=== PATIENT | male | born 1990 | race Caucasian/White ===

== ENCOUNTER 2016-07-27 05:12 | Inpatient (IN) | payer MEDICAID, OTHER ==
[~2016-07-27] VITALS: Ht 167.6 cm; Wt 176.9 kg
[~2016-07-27 05:12] MED LIST: FLUO-191 PO; OLAN5TAB2 PO
[2016-07-27] MEDS ORDERED: ZIPR20CA2 PO (05:18)
[2016-07-27] MEDS ORDERED: SEROQUEL PO (05:18)
[2016-07-27 05:43] LABS: BASOPHILS % (AUTO) 0.4 % (0.0-2.0); EOSINOPHILS % (AUTO) 1.4 % (1.0-6.0); HEMATOCRIT 45.8 % (41-53); LYMPHOCYTES # (AUTO) 1.8 K/uL (1.0-4.8); LYMPHOCYTES % (AUTO) 21.4 % (22.0-44.0); MEAN CORPUSCULAR HEMOGLOBIN 27.9 pg (26.0-34.0); MEAN CORPUSCULAR HGB CONC 32.7 G/dL (31.0-37.0); MEAN CORPUSCULAR VOLUME 85 fL (80-100); MONOCYTES # (AUTO) 0.8 K/uL (0.1-1.0); MONOCYTES % (AUTO) 9.7 % (2.0-9.0); NEUTROPHILS # (AUTO) 5.7 K/uL (1.8-7.7); NEUTROPHILS % (AUTO) 67.1 % (40.0-70.0); PLATELET COUNT (AUTO) 263 K/uL (150-450); RED BLOOD CELL COUNT(AUTO) 5.37 MIL/uL (4.50-5.90); RED CELL DISTRIBUTION WIDTH 13.2 % (11.5-14.5); WHITE BLOOD COUNT (AUTO) 8.5 K/uL (4.5-11.0)
[2016-07-27 06:00] LABS: ANION GAP 4 mmol/L (8-16); CALCIUM, TOTAL 8.5 mg/dL (8.8-10.5); CARBON DIOXIDE 34 mmol/L (22-29); CHLORIDE 102 mmol/L (98-107); CREATININE 0.65 mg/dL (0.60-1.30); GLOMERULAR FILTR. RATE CALC > 60 mL/min (>60); POTASSIUM 4.1 mmol/L (3.5-5.1); SODIUM SERUM 140 mmol/L (136-145); UREA NITROGEN, BLOOD 13 mg/dL (7-18)
[2016-07-27 06:06] LABS: ALANINE AMINOTRANSFERASE 36 U/L (12-78); ALBUMIN 3.2 g/dL (3.4-5.0); ASPARTATE AMINOTRANSFERASE 19 U/L (15-37); BILIRUBIN,TOTAL 0.4 mg/dL (0.1-1.0); TOTAL PROTEIN, SERUM 7.3 g/dL (6.4-8.2)
[2016-07-27] MEDS ORDERED: ZOLPIDEM TARTRATE 10 MG TABLET PO PRN (09:30)
[2016-07-27] MEDS: HALOPERIDOL 5 MG TABLET PO PRN (09:50)
[2016-07-27] MEDS: LORazepam 2 MG TABLET PO PRN (09:50)
[2016-07-27] MEDS: FLUoxetine HCL 20 MG CAPSULE PO SCH (09:55)
[2016-07-27 12:52] VITALS: BP 117/70
[2016-07-27] MEDS ORDERED: INFLUENZA VIRUS VACCINE QVS 2016-17 (3YR+)/PF 60 MCG/0.5 ML SYRINGE IM ONE (13:00)
[2016-07-27 16:59] VITALS: BP 125/64
[2016-07-27] MEDS ORDERED: OLANZapine 5 MG TABLET PO SCH (21:00)
[2016-07-28 03:14] VITALS: BP 140/98
[2016-07-28 08:45] VITALS: BP 121/67
[2016-07-28] MEDS: FLUoxetine HCL 20 MG CAPSULE PO SCH (08:58)
[2016-07-28 16:22] VITALS: BP 125/83
[2016-07-28] MEDS ORDERED: OLANZapine 10 MG TABLET PO SCH (21:00)
[2016-07-29 00:24] VITALS: BP 118/68
[2016-07-29 08:46] VITALS: BP 120/61
[2016-07-29] MEDS: LORazepam 2 MG TABLET PO PRN ×2 (11:49→17:38)
[2016-07-29] MEDS: HALOPERIDOL 5 MG TABLET PO PRN (11:49)
[2016-07-29 17:33] VITALS: BP 120/78
[2016-07-29] MEDS ORDERED: OLANZapine 7.5 MG TABLET PO SCH (21:00)
[2016-07-30 06:35] VITALS: BP 112/66
[2016-07-30 08:25] VITALS: BP 104/61
[2016-07-30] MEDS ORDERED: FLUoxetine HCL 20 MG CAPSULE PO SCH ×2 (09:00)
[2016-07-30 16:05] VITALS: BP 121/75
[2016-07-30] MEDS: LORazepam 2 MG TABLET PO PRN (16:42)
[2016-07-30] MEDS ORDERED: OLANZapine 10 MG TABLET PO SCH (21:00)
[2016-07-31 00:57] VITALS: BP 124/85
[2016-07-31 08:17] VITALS: BP 124/60
[2016-07-31] MEDS ORDERED: FLUoxetine HCL 20 MG CAPSULE PO SCH (09:00)
== END 2016-07-31 13:15 | disposition home or self-care (01) | DRG 750 ==
LOC: EMS 05:14 → B2S 10:59 → UNDOADMIN 12:12 → B2S 12:12
PROVIDERS: ADMIT Psychiatry & Neurology Psychiatry; ATTEND Psychiatry & Neurology Psychiatry
DX: F25.0 Schizoaffective disorder, bipolar type (principal); R45.851 Suicidal ideations; Z68.44 Body mass index [BMI] 60.0-69.9, adult; Z59.0 Homelessness; E66.9 Obesity, unspecified; F41.9 Anxiety disorder, unspecified; F60.3 Borderline personality disorder; F17.210 Nicotine dependence, cigarettes, uncomplicated; Z91.5 Personal history of self-harm; Z62.819 Personal history of unspecified abuse in childhood; Z91.19 Patient's noncompliance with other medical treatment and regimen
CPT/HCPCS: 87081; 99285; 99406; G0480

== ENCOUNTER 2016-08-17 17:29 | Inpatient (IN) | payer MEDICAID, OTHER ==
[~2016-08-17] VITALS: Ht 167.6 cm; Wt 187.7 kg
[2016-08-17] MEDS ORDERED: OLAN10TA3 PO (18:03)
[2016-08-17] MEDS ORDERED: LORazepam 2 MG/ML VIAL IM ONE (18:15)
[2016-08-17 18:26] LABS: BASOPHILS % (AUTO) 0.1 % (0.0-2.0); EOSINOPHILS % (AUTO) 0.4 % (1.0-6.0); HEMATOCRIT 46.5 % (41-53); HEMOGLOBIN 15.2 g/dL (13.5-17.5); LYMPHOCYTES # (AUTO) 1.7 K/uL (1.0-4.8); LYMPHOCYTES % (AUTO) 12.3 % (22.0-44.0); MEAN CORPUSCULAR HEMOGLOBIN 27.8 pg (26.0-34.0); MEAN CORPUSCULAR HGB CONC 32.8 G/dL (31.0-37.0); MEAN CORPUSCULAR VOLUME 85 fL (80-100); MONOCYTES % (AUTO) 7.5 % (2.0-9.0); NEUTROPHILS % (AUTO) 79.7 % (40.0-70.0); PLATELET COUNT (AUTO) 310 K/uL (150-450); RED BLOOD CELL COUNT(AUTO) 5.49 MIL/uL (4.50-5.90); WHITE BLOOD COUNT (AUTO) 13.9 K/uL (4.5-11.0)
[2016-08-17 18:38] LABS: ANION GAP 8 mmol/L (8-16); CALCIUM, TOTAL 8.8 mg/dL (8.8-10.5); CARBON DIOXIDE 30 mmol/L (22-29); CHLORIDE 99 mmol/L (98-107); CREATININE 0.65 mg/dL (0.60-1.30); GLOMERULAR FILTR. RATE CALC > 60 mL/min (>60); SODIUM SERUM 137 mmol/L (136-145); UREA NITROGEN, BLOOD 13 mg/dL (7-18)
[2016-08-17 18:53] LABS: SALICYLATE < 2.8 mg/dL (2.8-20.0)
[2016-08-17 19:03] LABS: ALANINE AMINOTRANSFERASE 89 U/L (12-78); ALBUMIN 3.5 g/dL (3.4-5.0); ASPARTATE AMINOTRANSFERASE 45 U/L (15-37); BILIRUBIN,TOTAL 0.8 mg/dL (0.1-1.0); CREATINE KINASE MB 2.6 ng/mL (0-5); CREATINE KINASE, TOTAL 170 U/L (39-308); TOTAL PROTEIN, SERUM 7.9 g/dL (6.4-8.2)
[2016-08-17 19:19] LABS: ACETAMINOPHEN < 2 mcg/mL (10-30)
[2016-08-18] VITALS (10 sets, daily range): BP systolic 110–143; BP diastolic 60–93
[2016-08-18] MEDS ORDERED: HALOPERIDOL 5 MG TABLET PO PRN (00:30)
[2016-08-18] MEDS ORDERED: ZOLPIDEM TARTRATE 10 MG TABLET PO PRN (00:30)
[2016-08-18] MEDS ORDERED: SODIUM CHLORIDE 0.9% 1,000 ML IV ONE (01:15)
[2016-08-18] MEDS ORDERED: LORazepam 2 MG/ML VIAL IM ONE (02:30)
[2016-08-18] MEDS ORDERED: DiphenhydrAMINE HCL 50 MG/ML VIAL IM ONE (02:30)
[2016-08-18] MEDS: LORazepam 2 MG TABLET PO PRN ×2 (04:30→09:10)
[2016-08-18] MEDS ORDERED: LORazepam 2 MG TABLET PO ONE (04:30)
[2016-08-18] MEDS ORDERED: INFLUENZA VIRUS VACCINE QVS 2016-17 (3YR+)/PF 60 MCG/0.5 ML SYRINGE IM ONE (05:15)
[2016-08-18] MEDS: FLUoxetine HCL 20 MG CAPSULE PO SCH (08:39)
[2016-08-18] MEDS: NICOTINE 21 MG/24 HOUR PATCH TD SCH (09:55)
[2016-08-18] MEDS: CloNIDine HCL 0.1 MG TABLET PO SCH ×2 (12:54→16:37)
[2016-08-18] MEDS ORDERED: OLANZapine 5 MG TABLET PO SCH (21:00)
[2016-08-19] VITALS (8 sets, daily range): BP systolic 124–146; BP diastolic 50–95
[2016-08-19] MEDS: LORazepam 2 MG TABLET PO PRN (00:23)
[2016-08-19] MEDS ORDERED: LORazepam 2 MG TABLET PO ONE (03:30)
[2016-08-19] MEDS: CloNIDine HCL 0.1 MG TABLET PO SCH ×2 (08:18→16:39)
[2016-08-19] MEDS: FLUoxetine HCL 20 MG CAPSULE PO SCH (08:18)
[2016-08-19] MEDS: NICOTINE 21 MG/24 HOUR PATCH TD SCH (08:19)
[2016-08-19 08:37] LABS: BASOPHILS % (AUTO) 0.2 % (0.0-2.0); EOSINOPHILS % (AUTO) 1.1 % (1.0-6.0); HEMATOCRIT 43.8 % (41-53); HEMOGLOBIN 14.1 g/dL (13.5-17.5); LYMPHOCYTES # (AUTO) 1.6 K/uL (1.0-4.8); LYMPHOCYTES % (AUTO) 17.4 % (22.0-44.0); MEAN CORPUSCULAR HEMOGLOBIN 27.4 pg (26.0-34.0); MEAN CORPUSCULAR HGB CONC 32.2 G/dL (31.0-37.0); MEAN CORPUSCULAR VOLUME 85 fL (80-100); MONOCYTES % (AUTO) 10.4 % (2.0-9.0); NEUTROPHILS # (AUTO) 6.7 K/uL (1.8-7.7); NEUTROPHILS % (AUTO) 70.9 % (40.0-70.0); PLATELET COUNT (AUTO) 273 K/uL (150-450); RED BLOOD CELL COUNT(AUTO) 5.15 MIL/uL (4.50-5.90); WHITE BLOOD COUNT (AUTO) 9.4 K/uL (4.5-11.0)
[2016-08-19] MEDS ORDERED: FLUoxetine HCL 20 MG CAPSULE PO SCH (09:00)
[2016-08-19 10:31] LABS: APPEARANCE,URINE CLEAR (CLEAR); GLUCOSE, URINE (UA) NEGATIVE (NEGATIVE); KETONES,URINE NEGATIVE (NEGATIVE); LEUKOCYTE ESTERASE ,URINE NEGATIVE (NEGATIVE); OCCULT BLOOD,URINE NEGATIVE (NEGATIVE); PROTEIN,URINE NEGATIVE (NEGATIVE)
[2016-08-19 10:32] LABS: ADD UA MICROSCOPIC NO
[2016-08-19] MEDS: LORazepam 1 MG TABLET PO SCH (16:39)
[2016-08-19] MEDS ORDERED: OLANZapine 10 MG TABLET PO SCH (21:00)
[2016-08-20 00:10] VITALS: BP 134/71
[2016-08-20 03:09] VITALS: BP 125/77
[2016-08-20] MEDS: LORazepam 2 MG TABLET PO PRN (03:13)
[2016-08-20] MEDS ORDERED: ACETAMINOPHEN 325 MG TABLET PO PRN (07:45)
[2016-08-20 07:51] VITALS: BP 137/72
[2016-08-20 08:26] VITALS: BP 128/96
[2016-08-20] MEDS: FLUoxetine HCL 20 MG CAPSULE PO SCH (09:24)
[2016-08-20] MEDS: CloNIDine HCL 0.1 MG TABLET PO SCH ×2 (09:24→17:00)
[2016-08-20] MEDS: QUEtiapine FUMARATE 100 MG TABLET PO SCH ×3 (09:24→17:03)
[2016-08-20] MEDS: LORazepam 1 MG TABLET PO SCH ×3 (09:24→17:00)
[2016-08-20] MEDS: NICOTINE 21 MG/24 HOUR PATCH TD SCH (09:25)
[2016-08-20 12:55] VITALS: BP 119/60
[2016-08-20 16:00] VITALS: BP 119/75
== END 2016-08-20 22:53 | disposition short-term general hospital (02) | DRG 750 ==
LOC: EEVIPCON 17:32 → EMS 17:32 → B2S 08-18 01:00
PROVIDERS: ADMIT Psychiatry & Neurology Psychiatry; ATTEND Psychiatry & Neurology Psychiatry
DX: F25.0 Schizoaffective disorder, bipolar type (principal); R45.851 Suicidal ideations; Z68.44 Body mass index [BMI] 60.0-69.9, adult; E66.01 Morbid (severe) obesity due to excess calories; F15.10 Other stimulant abuse, uncomplicated; F17.210 Nicotine dependence, cigarettes, uncomplicated; R00.0 Tachycardia, unspecified; F19.10 Other psychoactive substance abuse, uncomplicated; Z91.013 Allergy to seafood; Z79.899 Other long term (current) drug therapy; Z28.21 Immunization not carried out because of patient refusal
CPT/HCPCS: 87081; 93005; 96360; 96372; 99285; G0480; G0481; J1200; J2060

== ENCOUNTER 2016-08-19 09:22 | Emergency (ER) | payer MEDICAID, OTHER ==
[~2016-08-19] VITALS: Ht 170.2 cm; Wt 172.7 kg
[~2016-08-19 09:22] MED LIST changes: +OLAN10TA3 PO
[2016-08-19] MEDS ORDERED: LORazepam 2 MG/ML VIAL IVP ONE (09:45)
[2016-08-19] MEDS ORDERED: SODIUM CHLORIDE 0.9% 1,000 ML IV ONE (09:45)
[2016-08-19] MEDS ORDERED: LORazepam 2 MG TABLET PO ONE (10:45)
[2016-08-19 12:00] VITALS: BP 120/88
== END 2016-08-19 12:44 | disposition home or self-care (01) ==
LOC: EMS 09:24 → EEVIPCON 09:24 → EMS 12:44
DX: F25.9 Schizoaffective disorder, unspecified (principal); R00.0 Tachycardia, unspecified; F15.10 Other stimulant abuse, uncomplicated; F32.9 Major depressive disorder, single episode, unspecified; F17.210 Nicotine dependence, cigarettes, uncomplicated
CPT/HCPCS: 71010; 93005; 99285; J7030; J2060

== ENCOUNTER 2016-09-17 18:23 | Inpatient (IN) | payer MEDICAID, OTHER ==
[~2016-09-17] VITALS: Ht 167.6 cm; Wt 181.8 kg
[~2016-09-17 18:23] MED LIST changes: -OLAN5TAB2 PO
[2016-09-17 19:15] LABS: BASOPHILS % (AUTO) 0.9 % (0.0-2.0); EOSINOPHILS % (AUTO) 0.5 % (1.0-6.0); HEMATOCRIT 44.7 % (41-53); HEMOGLOBIN 14.4 g/dL (13.5-17.5); LYMPHOCYTES # (AUTO) 2.1 K/uL (1.0-4.8); LYMPHOCYTES % (AUTO) 18.4 % (22.0-44.0); MEAN CORPUSCULAR HEMOGLOBIN 27.3 pg (26.0-34.0); MEAN CORPUSCULAR HGB CONC 32.2 G/dL (31.0-37.0); MEAN CORPUSCULAR VOLUME 85 fL (80-100); MONOCYTES % (AUTO) 8.9 % (2.0-9.0); NEUTROPHILS # (AUTO) 8.3 K/uL (1.8-7.7); NEUTROPHILS % (AUTO) 71.3 % (40.0-70.0); PLATELET COUNT (AUTO) 343 K/uL (150-450); RED BLOOD CELL COUNT(AUTO) 5.28 MIL/uL (4.50-5.90); RED CELL DISTRIBUTION WIDTH 14.4 % (11.5-14.5); WHITE BLOOD COUNT (AUTO) 11.7 K/uL (4.5-11.0)
[2016-09-17 19:34] LABS: ANION GAP 6 mmol/L (8-16); CALCIUM, TOTAL 8.6 mg/dL (8.8-10.5); CARBON DIOXIDE 32 mmol/L (22-29); CHLORIDE 103 mmol/L (98-107); CREATININE 0.65 mg/dL (0.60-1.30); GLOMERULAR FILTR. RATE CALC > 60 mL/min (>60); POTASSIUM 4.4 mmol/L (3.5-5.1); SODIUM SERUM 141 mmol/L (136-145); UREA NITROGEN, BLOOD 15 mg/dL (7-18)
[2016-09-17 19:36] LABS: ALANINE AMINOTRANSFERASE 38 U/L (12-78); ALBUMIN 3.4 g/dL (3.4-5.0); ASPARTATE AMINOTRANSFERASE 21 U/L (15-37); BILIRUBIN,TOTAL 0.3 mg/dL (0.1-1.0); TOTAL PROTEIN, SERUM 7.9 g/dL (6.4-8.2)
[2016-09-17] MEDS ORDERED: ZOLPIDEM TARTRATE 10 MG TABLET PO PRN (20:15)
[2016-09-17] MEDS ORDERED: LORazepam 2 MG/ML VIAL IM ONE (20:45)
[2016-09-17 23:06] VITALS: BP 101/67
[2016-09-18] MEDS: LORazepam 2 MG TABLET PO PRN ×2 (08:57→16:10)
[2016-09-18] MEDS: HALOPERIDOL 5 MG TABLET PO PRN ×2 (08:57→16:10)
[2016-09-18 09:05] VITALS: BP 132/85
[2016-09-18 16:54] VITALS: BP 113/72
[2016-09-18] MEDS: OLANZapine 10 MG TABLET PO SCH (20:39)
[2016-09-19 04:45] VITALS: BP 114/75
[2016-09-19] MEDS: HALOPERIDOL 5 MG TABLET PO PRN ×2 (04:49→16:33)
[2016-09-19] MEDS: LORazepam 2 MG TABLET PO PRN ×2 (04:49→16:33)
[2016-09-19 08:54] VITALS: BP 129/83
[2016-09-19] MEDS: FLUoxetine HCL 20 MG CAPSULE PO SCH (10:00)
[2016-09-19 19:50] VITALS: BP 131/79
[2016-09-19] MEDS: OLANZapine 10 MG TABLET PO SCH (20:19)
[2016-09-20 09:11] VITALS: BP 135/86
[2016-09-20] MEDS: FLUoxetine HCL 20 MG CAPSULE PO SCH (09:41)
[2016-09-20 13:15] LABS: INR 1.2 (0.9-1.1); PROTHROMBIN TIME 12.3 SEC (9.4-11.6)
[2016-09-20 16:00] VITALS: BP 117/57
[2016-09-20] MEDS: LORazepam 2 MG TABLET PO PRN (16:24)
[2016-09-20] MEDS: WARFARIN SODIUM 3 MG TABLET PO SCH (16:25)
[2016-09-20] MEDS ORDERED: WARFARIN SODIUM 5 MG TABLET PO SCH (17:00)
[2016-09-20] MEDS: OLANZapine 10 MG TABLET PO SCH (21:39)
[2016-09-21 06:43] LABS: INR 1.1 (0.9-1.1)
[2016-09-21] MEDS ORDERED: FLUoxetine HCL 20 MG CAPSULE PO SCH (09:00)
[2016-09-21 10:52] VITALS: BP 137/95
[2016-09-21] MEDS: LORazepam 2 MG TABLET PO PRN (16:23)
[2016-09-21] MEDS: WARFARIN SODIUM 3 MG TABLET PO SCH (16:23)
[2016-09-21 16:50] VITALS: BP 122/60
[2016-09-21] MEDS: OLANZapine 10 MG TABLET PO SCH (21:25)
[2016-09-22 06:49] LABS: INR 1.1 (0.9-1.1); PROTHROMBIN TIME 12.1 SEC (9.4-11.6)
[2016-09-22] MEDS ORDERED: FLUoxetine HCL 20 MG CAPSULE PO SCH (09:00)
[2016-09-22 09:04] VITALS: BP 148/100
[2016-09-22 16:00] VITALS: BP 119/83
[2016-09-22] MEDS: WARFARIN SODIUM 3 MG TABLET PO SCH (17:00)
[2016-09-22] MEDS: LORazepam 2 MG TABLET PO PRN (18:09)
[2016-09-22] MEDS: OLANZapine 10 MG TABLET PO SCH (20:41)
[2016-09-23 06:35] LABS: INR 1.1 (0.9-1.1); PROTHROMBIN TIME 11.8 SEC (9.4-11.6)
[2016-09-23 08:04] VITALS: BP 144/100
[2016-09-23] MEDS: FLUoxetine HCL 20 MG CAPSULE PO SCH (09:55)
[2016-09-23] MEDS: LORazepam 2 MG TABLET PO PRN (16:38)
[2016-09-23] MEDS: HALOPERIDOL 5 MG TABLET PO PRN (16:38)
[2016-09-23] MEDS: WARFARIN SODIUM 3 MG TABLET PO SCH (16:38)
[2016-09-23 19:02] VITALS: BP 109/66
[2016-09-23] MEDS: OLANZapine 10 MG TABLET PO SCH (20:24)
[2016-09-24] MEDS ORDERED: WARF3TAB29 PO (05:22)
[2016-09-24 05:49] VITALS: BP 126/83
[2016-09-24 06:50] LABS: INR 1.1 (0.9-1.1); PROTHROMBIN TIME 11.4 SEC (9.4-11.6)
[2016-09-24] MEDS: FLUoxetine HCL 20 MG CAPSULE PO SCH ×2 (07:48→07:52)
== END 2016-09-24 07:45 | disposition home or self-care (01) | DRG 750 ==
LOC: EMS 18:25 → 3EI 21:00
PROVIDERS: ADMIT Psychiatry & Neurology Psychiatry; ATTEND Psychiatry & Neurology Psychiatry
DX: F25.1 Schizoaffective disorder, depressive type (principal); Z68.44 Body mass index [BMI] 60.0-69.9, adult; R45.851 Suicidal ideations; E66.9 Obesity, unspecified; F41.9 Anxiety disorder, unspecified; I10 Essential (primary) hypertension; F17.210 Nicotine dependence, cigarettes, uncomplicated; F15.90 Other stimulant use, unspecified, uncomplicated; Z91.013 Allergy to seafood; Z79.899 Other long term (current) drug therapy; Z71.51 Drug abuse counseling and surveillance of drug abuser; Z86.718 Personal history of other venous thrombosis and embolism
CPT/HCPCS: 93970; 96372; 99285; G0480; J2060

== ENCOUNTER 2016-11-05 22:01 | Inpatient (IN) | payer MEDICAID ==
[~2016-11-05] VITALS: Ht 167.6 cm; Wt 184.6 kg
[~2016-11-05 22:01] MED LIST changes: +WARF3TAB29 PO
[2016-11-06 01:05] VITALS: BP 130/95
[2016-11-06 08:31] VITALS: BP 103/71
[2016-11-06] MEDS: HALOPERIDOL 5 MG TABLET PO PRN (11:51)
[2016-11-06] MEDS: LORazepam 2 MG TABLET PO PRN (11:51)
[2016-11-06] MEDS: FLUoxetine HCL 20 MG CAPSULE PO SCH (11:52)
[2016-11-06] MEDS ORDERED: *CLINICAL-WARFARIN SODIUM DOSING CLINICAL ONE ×4 (14:30)
[2016-11-06] MEDS ORDERED: WARFARIN SODIUM-INR 2.0-3.0-RX DOSING PER PROTOCOL PO PRN (15:00)
[2016-11-06 15:40] LABS: INR 1.4 (0.9-1.1); PROTHROMBIN TIME 14.4 SEC (9.4-11.6)
[2016-11-06 16:00] VITALS: BP 106/80
[2016-11-06] MEDS: WARFARIN SODIUM 5 MG TABLET PO SCH (18:02)
[2016-11-06] MEDS: OLANZapine 10 MG TABLET PO SCH (20:26)
[2016-11-06] MEDS: ZOLPIDEM TARTRATE 10 MG TABLET PO PRN (23:01)
[2016-11-07 07:49] LABS: INR 1.3 (0.9-1.1); PROTHROMBIN TIME 13.4 SEC (9.4-11.6)
[2016-11-07 08:33] VITALS: BP 126/65
[2016-11-07] MEDS: LORazepam 2 MG TABLET PO PRN (09:18)
[2016-11-07] MEDS: HALOPERIDOL 5 MG TABLET PO PRN (09:18)
[2016-11-07] MEDS: FLUoxetine HCL 20 MG CAPSULE PO SCH (09:19)
[2016-11-07] MEDS: WARFARIN SODIUM 5 MG TABLET PO SCH (16:04)
[2016-11-07 18:49] VITALS: BP 128/70
[2016-11-07] MEDS: OLANZapine 10 MG TABLET PO SCH (21:22)
[2016-11-08] MEDS: LORazepam 2 MG TABLET PO PRN ×2 (02:53→19:39)
[2016-11-08 07:17] LABS: INR 1.3 (0.9-1.1); PROTHROMBIN TIME 13.4 SEC (9.4-11.6)
[2016-11-08 08:32] VITALS: BP 140/99
[2016-11-08] MEDS: FLUoxetine HCL 20 MG CAPSULE PO SCH (09:06)
[2016-11-08 16:50] VITALS: BP 117/59
[2016-11-08] MEDS: OLANZapine 10 MG TABLET PO SCH (20:52)
[2016-11-09] MEDS: FLUoxetine HCL 20 MG CAPSULE PO SCH (08:38)
[2016-11-09] MEDS ORDERED: ARIPiprazole 10 MG TABLET PO SCH (09:00)
[2016-11-09 12:22] VITALS: BP 133/77
[2016-11-09 15:37] LABS: INR 1.2 (0.9-1.1); PROTHROMBIN TIME 12.7 SEC (9.4-11.6)
[2016-11-09 18:00] VITALS: BP 143/81
[2016-11-09] MEDS: LORazepam 2 MG TABLET PO PRN (20:17)
[2016-11-10 02:00] VITALS: BP 131/75
[2016-11-10] MEDS: FLUoxetine HCL 20 MG CAPSULE PO SCH (08:10)
[2016-11-10 09:00] VITALS: BP 109/68
[2016-11-10] MEDS ORDERED: ARIPiprazole 15 MG TABLET PO SCH (09:00)
[2016-11-10] MEDS ORDERED: ARIPiprazole ER SUSPENSION 400 MG PRE-FILLED DUAL CHAMBER SYRINGE IM SCH (09:00)
[2016-11-10 16:00] VITALS: BP 126/93
[2016-11-10] MEDS: LORazepam 2 MG TABLET PO PRN (16:11)
[2016-11-10] MEDS: ZOLPIDEM TARTRATE 10 MG TABLET PO PRN (20:59)
[2016-11-11 07:36] LABS: CHOL/HDL RATIO 5.7 (4.2-7.3)
[2016-11-11 08:00] VITALS: BP 109/68
[2016-11-11] MEDS: FLUoxetine HCL 20 MG CAPSULE PO SCH (10:00)
[2016-11-11] MEDS: ARIPiprazole 10 MG TABLET PO SCH (10:00)
[2016-11-11 16:30] VITALS: BP 138/98
[2016-11-11] MEDS: LORazepam 2 MG TABLET PO PRN (20:23)
[2016-11-11] MEDS: ZOLPIDEM TARTRATE 10 MG TABLET PO PRN (21:38)
[2016-11-12 08:36] VITALS: BP 111/69
[2016-11-12] MEDS: ARIPiprazole 10 MG TABLET PO SCH (10:34)
[2016-11-12] MEDS: FLUoxetine HCL 20 MG CAPSULE PO SCH (10:34)
[2016-11-12] MEDS ORDERED: ARIP400S3 IM (11:16)
[2016-11-12] MEDS ORDERED: ARIP10TA14 PO (11:16)
[2016-11-13] MEDS ORDERED: RISP3 PO (15:13)
[2016-11-13] MEDS ORDERED: LORA1TAB3 PO (15:13)
[2016-11-13] MEDS ORDERED: WARF5 PO (15:13)
[2016-11-13] MEDS ORDERED: OLAN10TA3 PO (15:13)
== END 2016-11-12 12:25 | disposition home or self-care (01) | DRG 750 ==
LOC: EDSTATUS 23:57 → 3EC 11-06 00:45 → 3EI 11-08 22:15
PROVIDERS: ADMIT Psychiatry & Neurology Psychiatry; ATTEND Psychiatry & Neurology Psychiatry
DX: F25.0 Schizoaffective disorder, bipolar type (principal); E44.0 Moderate protein-calorie malnutrition; R45.851 Suicidal ideations; Z59.0 Homelessness; Z68.44 Body mass index [BMI] 60.0-69.9, adult; E66.01 Morbid (severe) obesity due to excess calories; F12.90 Cannabis use, unspecified, uncomplicated; F17.210 Nicotine dependence, cigarettes, uncomplicated; Z91.5 Personal history of self-harm; Z86.718 Personal history of other venous thrombosis and embolism; Z91.02 Food additives allergy status; Z79.01 Long term (current) use of anticoagulants; Z79.899 Other long term (current) drug therapy
CPT/HCPCS: 93970; J0401

== ENCOUNTER 2016-11-13 14:58 | Inpatient (IN) | payer MEDICAID, OTHER ==
[~2016-11-13] VITALS: Ht 167.6 cm; Wt 182.5 kg
[~2016-11-13 14:58] MED LIST changes: +ARIP10TA14 PO; +ARIP400S3 IM; -OLAN10TA3 PO; -WARF3TAB29 PO
[2016-11-13] MEDS ORDERED: RISP3 PO (15:13)
[2016-11-13] MEDS ORDERED: OLAN10TA3 PO (15:13)
[2016-11-13] MEDS ORDERED: LORA1TAB3 PO (15:13)
[2016-11-13] MEDS ORDERED: WARF5 PO (15:13)
[2016-11-13 16:34] LABS: BASOPHILS # (AUTO) 0.05 K/uL (0.00-0.20); BASOPHILS % (AUTO) 0.5 % (0.0-2.0); EOSINOPHILS # (AUTO) 0.08 K/uL (0.00-0.70); EOSINOPHILS % (AUTO) 0.71 % (1.0-6.0); HEMOGLOBIN 14.5 g/dL (13.5-17.5); LYMPHOCYTES # (AUTO) 1.9 K/uL (1.0-4.8); LYMPHOCYTES % (AUTO) 17.4 % (22.0-44.0); MEAN CORPUSCULAR HEMOGLOBIN 27.8 pg (26.0-34.0); MEAN CORPUSCULAR HGB CONC 32.2 G/dL (31.0-37.0); MEAN CORPUSCULAR VOLUME 86 fL (80-100); MONOCYTES % (AUTO) 8.7 % (2.0-9.0); NEUTROPHILS # (AUTO) 8.1 K/uL (1.8-7.7); NEUTROPHILS % (AUTO) 72.8 % (40.0-70.0); PLATELET COUNT (AUTO) 293 K/uL (150-450); RED BLOOD CELL COUNT(AUTO) 5.22 MIL/uL (4.50-5.90); RED CELL DISTRIBUTION WIDTH 14.3 % (11.5-14.5); WHITE BLOOD COUNT (AUTO) 11.1 K/uL (4.5-11.0)
[2016-11-13 16:40] LABS: ANION GAP 4 mmol/L (8-16); CALCIUM, TOTAL 8.9 mg/dL (8.8-10.5); CARBON DIOXIDE 35 mmol/L (22-29); CHLORIDE 102 mmol/L (98-107); CREATININE 0.69 mg/dL (0.60-1.30); GLOMERULAR FILTR. RATE CALC > 60 mL/min (>60); SODIUM SERUM 141 mmol/L (136-145); UREA NITROGEN, BLOOD 10 mg/dL (7-18)
[2016-11-13 16:45] LABS: ALANINE AMINOTRANSFERASE 63 U/L (12-78); ALBUMIN 3.5 g/dL (3.4-5.0); ASPARTATE AMINOTRANSFERASE 27 U/L (15-37); BILIRUBIN,TOTAL 0.8 mg/dL (0.1-1.0)
[2016-11-13 17:12] LABS: INR 1.1 (0.9-1.1); PROTHROMBIN TIME 11.3 SEC (9.4-11.6)
[2016-11-13] MEDS ORDERED: LORazepam 2 MG/ML VIAL IM ONE (19:15)
[2016-11-13] MEDS ORDERED: HALOPERIDOL LACTATE 5 MG/ML VIAL IM ONE (19:15)
[2016-11-13] MEDS ORDERED: DiphenhydrAMINE HCL 50 MG/ML VIAL IM ONE (19:15)
[2016-11-14 05:57] LABS: CHOL/HDL RATIO 5.1 (4.2-7.3)
[2016-11-14] MEDS: HALOPERIDOL 5 MG TABLET PO PRN ×2 (09:50→15:10)
[2016-11-14] MEDS: LORazepam 2 MG TABLET PO PRN ×2 (09:50→15:10)
[2016-11-14] MEDS ORDERED: LORazepam 2 MG TABLET PO ONE (12:00)
[2016-11-14] MEDS ORDERED: LORazepam 2 MG/ML VIAL IM ONE (12:00)
[2016-11-14 21:48] VITALS: BP 116/85
[2016-11-15 07:28] LABS: INR 1.1 (0.9-1.1); PROTHROMBIN TIME 11.9 SEC (9.4-11.6)
[2016-11-15 08:12] VITALS: BP 124/70
[2016-11-15] MEDS: LORazepam 2 MG TABLET PO PRN (16:29)
[2016-11-15] MEDS: WARFARIN SODIUM 5 MG TABLET PO SCH (16:29)
[2016-11-15 16:35] VITALS: BP 138/79
[2016-11-15] MEDS ORDERED: MAGNESIUM HYDROXIDE SUSPENSION 30 ML UDCUP PO PRN (18:45)
[2016-11-15] MEDS ORDERED: PETROLATUM,WHITE 71 GM JELLY TP PRN (18:45)
[2016-11-15] MEDS ORDERED: ONDANSETRON HCL 4 MG TABLET PO PRN (18:45)
[2016-11-15] MEDS ORDERED: BACITRACIN 28.4 GM OINTMENT TP PRN (18:45)
[2016-11-15] MEDS ORDERED: CloNIDine HCL 0.1 MG TABLET PO PRN (18:45)
[2016-11-15] MEDS ORDERED: LOPERAMIDE HCL 2 MG CAPSULE PO PRN (18:45)
[2016-11-15] MEDS ORDERED: MAG HYDROX/AL HYDROX/SIMETH ES 30 ML SUSPENSION UDCUP PO PRN (18:45)
[2016-11-15] MEDS ORDERED: IBUPROFEN 600 MG TABLET PO PRN (18:45)
[2016-11-15] MEDS ORDERED: BENZOCAINE/MENTHOL LOZENGE [8 LOZENGES/PACKET] MM PRN (18:45)
[2016-11-15] MEDS ORDERED: ACETAMINOPHEN 325 MG TABLET PO PRN (18:45)
[2016-11-15] MEDS ORDERED: ALBUTEROL SULFATE HFA 90 MCG/PUFF 8 GM INHALER IH PRN (18:45)
[2016-11-16 02:15] VITALS: BP 134/76
[2016-11-16 08:30] VITALS: BP 127/78
[2016-11-16] MEDS: LORazepam 2 MG TABLET PO PRN (15:57)
[2016-11-16] MEDS: WARFARIN SODIUM 5 MG TABLET PO SCH (15:58)
[2016-11-16 16:30] VITALS: BP 137/86
[2016-11-17 02:29] VITALS: BP 135/93
[2016-11-17 06:49] LABS: INR 1.1 (0.9-1.1); PROTHROMBIN TIME 11.8 SEC (9.4-11.6)
[2016-11-17 08:01] VITALS: BP 136/96
[2016-11-17 16:28] VITALS: BP 137/93
[2016-11-17] MEDS: WARFARIN SODIUM 5 MG TABLET PO SCH (16:58)
[2016-11-17] MEDS: LORazepam 2 MG TABLET PO PRN (18:42)
[2016-11-18 08:02] VITALS: BP 107/66
[2016-11-18 08:37] LABS: INR 1.2 (0.9-1.1); PROTHROMBIN TIME 12.9 SEC (9.4-11.6)
[2016-11-18] MEDS: LORazepam 2 MG TABLET PO PRN ×2 (14:18→20:11)
[2016-11-18 16:00] VITALS: BP 119/71
[2016-11-18] MEDS: WARFARIN SODIUM 5 MG TABLET PO SCH (17:01)
[2016-11-18] MEDS ORDERED: *CLINICAL-WARFARIN SODIUM DOSING CLINICAL ONE ×2 (17:30)
[2016-11-18] MEDS ORDERED: WARFARIN SODIUM 2 MG TABLET PO ONE (18:00)
[2016-11-18] MEDS ORDERED: WARFARIN SODIUM-INR 2.0-3.0-RX DOSING PER PROTOCOL PO PRN (18:00)
[2016-11-19 07:05] LABS: INR 1.2 (0.9-1.1)
[2016-11-19 08:33] VITALS: BP 125/70
[2016-11-19 16:00] VITALS: BP 122/80
[2016-11-19] MEDS: LORazepam 2 MG TABLET PO PRN (16:15)
[2016-11-19] MEDS ORDERED: WARFARIN SODIUM 7.5 MG TABLET PO ONE (17:00)
[2016-11-20 07:36] LABS: INR 1.3 (0.9-1.1); PROTHROMBIN TIME 14.1 SEC (9.4-11.6)
[2016-11-20 09:09] VITALS: BP 122/70
[2016-11-20] MEDS: LORazepam 2 MG TABLET PO PRN (14:21)
[2016-11-20] MEDS: WARFARIN SODIUM 7.5 MG TABLET PO SCH (16:24)
[2016-11-20 16:38] VITALS: BP 124/89
[2016-11-20] MEDS: ZOLPIDEM TARTRATE 10 MG TABLET PO PRN (20:17)
[2016-11-21 08:30] VITALS: BP 96/59
[2016-11-21 08:33] LABS: INR 1.4 (0.9-1.1); PROTHROMBIN TIME 15.3 SEC (9.4-11.6)
[2016-11-21] MEDS: WARFARIN SODIUM 7.5 MG TABLET PO SCH (16:20)
[2016-11-21 16:42] VITALS: BP 145/93
[2016-11-21] MEDS ORDERED: WARFARIN SODIUM-INR 2.0-3.0-RX DOSING PER PROTOCOL PO PRN (18:00)
[2016-11-21] MEDS: ZOLPIDEM TARTRATE 10 MG TABLET PO PRN (20:39)
[2016-11-22 07:06] LABS: INR 1.7 (0.9-1.1); PROTHROMBIN TIME 17.9 SEC (9.4-11.6)
[2016-11-22 08:30] VITALS: BP 142/84
[2016-11-22] MEDS: LORazepam 2 MG TABLET PO PRN ×2 (09:34→20:29)
[2016-11-22] MEDS: WARFARIN SODIUM 7.5 MG TABLET PO SCH (16:58)
[2016-11-22 17:00] VITALS: BP 104/62
[2016-11-22] MEDS: ZOLPIDEM TARTRATE 10 MG TABLET PO PRN (20:28)
[2016-11-23 07:17] LABS: INR 1.8 (0.9-1.1); PROTHROMBIN TIME 18.5 SEC (9.4-11.6)
[2016-11-23 08:06] VITALS: BP 125/83
[2016-11-23] MEDS: WARFARIN SODIUM 7.5 MG TABLET PO SCH (16:11)
[2016-11-23 16:47] VITALS: BP 128/81
[2016-11-23] MEDS: ZOLPIDEM TARTRATE 10 MG TABLET PO PRN (22:43)
[2016-11-24 08:55] VITALS: BP 146/94
[2016-11-24 10:47] LABS: INR 1.9 (0.9-1.1); PROTHROMBIN TIME 20.6 SEC (9.4-11.6)
[2016-11-24] MEDS ORDERED: ARIP400S3 IM (12:37)
[2016-12-08] MEDS ORDERED: ARIPiprazole ER SUSPENSION 400 MG PRE-FILLED DUAL CHAMBER SYRINGE IM SCH (09:00)
== END 2016-11-24 16:00 | disposition home or self-care (01) | DRG 750 ==
LOC: EMS 15:00 → 3EI 11-14 21:11
PROVIDERS: ADMIT Psychiatry & Neurology Psychiatry; ATTEND Psychiatry & Neurology Psychiatry
DX: F25.9 Schizoaffective disorder, unspecified (principal); I82.501 Chronic embolism and thrombosis of unspecified deep veins of right lower extremity; S50.812A Abrasion of left forearm, initial encounter; X78.0XXA Intentional self-harm by sharp glass, initial encounter; Y92.89 Other specified places as the place of occurrence of the external cause; Z79.01 Long term (current) use of anticoagulants; E66.01 Morbid (severe) obesity due to excess calories; F41.9 Anxiety disorder, unspecified; K59.00 Constipation, unspecified; G47.00 Insomnia, unspecified; Z72.0 Tobacco use; Z68.44 Body mass index [BMI] 60.0-69.9, adult; Z91.14 Patient's other noncompliance with medication regimen
CPT/HCPCS: 87081; 96372; 99285; G0480; J1200; J1630; J2060

== ENCOUNTER 2016-11-26 21:08 | Inpatient (IN) | payer MEDICAID ==
[~2016-11-26] VITALS: Ht 170.2 cm; Wt 177.9 kg
[~2016-11-26 21:08] MED LIST changes: -ARIP10TA14 PO; -FLUO-191 PO; +WARF5 PO
[2016-11-26 21:37] LABS: BASOPHILS % (AUTO) 0.3 % (0.0-2.0); EOSINOPHILS % (AUTO) 0.5 % (1.0-6.0); HEMATOCRIT 48.2 % (41-53); HEMOGLOBIN 15.3 g/dL (13.5-17.5); LYMPHOCYTES # (AUTO) 1.9 K/uL (1.0-4.8); MEAN CORPUSCULAR HGB CONC 31.6 G/dL (31.0-37.0); MEAN CORPUSCULAR VOLUME 85 fL (80-100); MONOCYTES % (AUTO) 8.4 % (2.0-9.0); NEUTROPHILS # (AUTO) 8.7 K/uL (1.8-7.7); NEUTROPHILS % (AUTO) 74.8 % (40.0-70.0); PLATELET COUNT (AUTO) 322 K/uL (150-450); RED BLOOD CELL COUNT(AUTO) 5.64 MIL/uL (4.50-5.90); RED CELL DISTRIBUTION WIDTH 13.6 % (11.5-14.5); WHITE BLOOD COUNT (AUTO) 11.6 K/uL (4.5-11.0)
[2016-11-26 21:47] LABS: ANION GAP 9 mmol/L (8-16); CALCIUM, TOTAL 9.3 mg/dL (8.8-10.5); CARBON DIOXIDE 29 mmol/L (22-29); CHLORIDE 101 mmol/L (98-107); CREATININE 0.74 mg/dL (0.60-1.30); GLOMERULAR FILTR. RATE CALC > 60 mL/min (>60); POTASSIUM 3.8 mmol/L (3.5-5.1); SODIUM SERUM 139 mmol/L (136-145); UREA NITROGEN, BLOOD 9 mg/dL (7-18)
[2016-11-26 21:53] LABS: ALANINE AMINOTRANSFERASE 48 U/L (12-78); ALBUMIN 3.7 g/dL (3.4-5.0); ASPARTATE AMINOTRANSFERASE 19 U/L (15-37); BILIRUBIN,TOTAL 0.8 mg/dL (0.1-1.0); PROTHROMBIN TIME 20.8 SEC (9.4-11.6)
[2016-11-26 22:33] LABS: APPEARANCE,URINE CLOUDY (CLEAR); GLUCOSE, URINE (UA) NEGATIVE (NEGATIVE); KETONES,URINE NEGATIVE (NEGATIVE); LEUKOCYTE ESTERASE ,URINE TRACE (NEGATIVE); OCCULT BLOOD,URINE NEGATIVE (NEGATIVE); PROTEIN,URINE NEGATIVE (NEGATIVE)
[2016-11-26 22:35] LABS: ADD UA MICROSCOPIC YES
[2016-11-26 22:37] LABS: CHOL/HDL RATIO 5.1 (4.2-7.3)
[2016-11-26 22:37] LABS: RBC,URINE 0-2 /HPF (0-2); SQUAMOUS EPITHELIAL CELL,UR Few /LPF (None Seen)
[2016-11-27 01:42] VITALS: BP 113/64
[2016-11-27 08:56] VITALS: BP 106/60
[2016-11-27] MEDS ORDERED: PETROLATUM,WHITE 71 GM JELLY TP PRN (09:45)
[2016-11-27] MEDS ORDERED: ONDANSETRON HCL 4 MG TABLET PO PRN (09:45)
[2016-11-27] MEDS ORDERED: LOPERAMIDE HCL 2 MG CAPSULE PO PRN (09:45)
[2016-11-27] MEDS ORDERED: ALBUTEROL SULFATE HFA 90 MCG/PUFF 8 GM INHALER IH PRN (09:45)
[2016-11-27] MEDS ORDERED: MAG HYDROX/AL HYDROX/SIMETH ES 30 ML SUSPENSION UDCUP PO PRN (09:45)
[2016-11-27] MEDS ORDERED: BENZOCAINE/MENTHOL LOZENGE [8 LOZENGES/PACKET] MM PRN (09:45)
[2016-11-27] MEDS ORDERED: IBUPROFEN 600 MG TABLET PO PRN (09:45)
[2016-11-27] MEDS ORDERED: CloNIDine HCL 0.1 MG TABLET PO PRN (09:45)
[2016-11-27] MEDS ORDERED: MAGNESIUM HYDROXIDE SUSPENSION 30 ML UDCUP PO PRN (09:45)
[2016-11-27] MEDS ORDERED: BACITRACIN 28.4 GM OINTMENT TP PRN (09:45)
[2016-11-27] MEDS ORDERED: ACETAMINOPHEN 325 MG TABLET PO PRN (09:45)
[2016-11-27 17:14] VITALS: BP 116/75
[2016-11-28 08:30] VITALS: BP 118/78
[2016-11-28 16:08] VITALS: BP 132/92
[2016-11-28] MEDS: HALOPERIDOL 5 MG TABLET PO PRN (17:06)
[2016-11-28] MEDS: LORazepam 2 MG TABLET PO PRN (17:06)
[2016-11-29 09:19] VITALS: BP 127/73
[2016-11-29] MEDS: LORazepam 2 MG TABLET PO PRN (16:04)
[2016-11-29] MEDS: HALOPERIDOL 5 MG TABLET PO PRN (16:04)
[2016-11-29 16:16] VITALS: BP 124/81
[2016-11-29] MEDS ORDERED: CIPROFLOXACIN HCL 250 MG TABLET PO SCH (20:00)
[2016-11-29] MEDS: ZOLPIDEM TARTRATE 10 MG TABLET PO PRN (21:13)
[2016-11-30 07:22] LABS: ANION GAP 5 mmol/L (8-16); CALCIUM, TOTAL 8.2 mg/dL (8.8-10.5); CARBON DIOXIDE 32 mmol/L (22-29); CHLORIDE 100 mmol/L (98-107); CREATININE 0.67 mg/dL (0.60-1.30); GLOMERULAR FILTR. RATE CALC > 60 mL/min (>60); PHOSPHORUS 4.3 mg/dL (2.5-4.9); SODIUM SERUM 137 mmol/L (136-145); UREA NITROGEN, BLOOD 13 mg/dL (7-18)
[2016-11-30 07:28] LABS: HEMATOCRIT 44.7 % (41-53); HEMOGLOBIN 14.1 g/dL (13.5-17.5); MEAN CORPUSCULAR HEMOGLOBIN 27.3 pg (26.0-34.0); MEAN CORPUSCULAR HGB CONC 31.6 G/dL (31.0-37.0); MEAN CORPUSCULAR VOLUME 86 fL (80-100); PLATELET COUNT (AUTO) 285 K/uL (150-450); RED BLOOD CELL COUNT(AUTO) 5.18 MIL/uL (4.50-5.90); RED CELL DISTRIBUTION WIDTH 13.8 % (11.5-14.5); WHITE BLOOD COUNT (AUTO) 7.9 K/uL (4.5-11.0)
[2016-11-30 08:15] LABS: BAND NEUTROPHILS % (MANUAL) 1 % (1-5); EOSINOPHILS % (MANUAL) 1 % (1-6); LYMPHOCYTES % (MANUAL) 22 % (22-44); REACTIVE LYMPHOCYTES 3 % (0-0); TOTAL CELLS COUNTED 100
[2016-11-30 13:22] VITALS: BP 127/79
[2016-11-30 16:21] VITALS: BP 116/60
[2016-11-30] MEDS: ZOLPIDEM TARTRATE 10 MG TABLET PO PRN (21:21)
[2016-12-01 09:18] VITALS: BP 121/72
[2016-12-01] MEDS: LORazepam 2 MG TABLET PO PRN (16:40)
[2016-12-01 17:19] VITALS: BP 126/75
[2016-12-02 08:52] VITALS: BP 123/75
[2016-12-02] MEDS: LORazepam 2 MG TABLET PO PRN ×2 (16:29→20:48)
[2016-12-02 17:20] VITALS: BP 124/69
[2016-12-03 08:00] VITALS: BP 150/88
[2016-12-03] MEDS: CHOLECALCIFEROL (VIT D3) 1,000 UNITS TABLET PO SCH (08:22)
[2016-12-03 16:30] VITALS: BP 121/92
[2016-12-03] MEDS: LORazepam 2 MG TABLET PO PRN (17:23)
[2016-12-03] MEDS: HALOPERIDOL 5 MG TABLET PO PRN (17:23)
[2016-12-04] MEDS: CHOLECALCIFEROL (VIT D3) 1,000 UNITS TABLET PO SCH (08:18)
[2016-12-04 09:51] VITALS: BP 148/85
[2016-12-08] MEDS ORDERED: ARIPiprazole ER SUSPENSION 400 MG PRE-FILLED DUAL CHAMBER SYRINGE IM SCH (09:00)
== END 2016-12-04 09:35 | disposition home or self-care (01) | DRG 750 ==
LOC: EMS 21:09 → 3EI 22:13
PROVIDERS: ADMIT Psychiatry & Neurology Psychiatry; ATTEND Psychiatry & Neurology Psychiatry
DX: F25.0 Schizoaffective disorder, bipolar type (principal); I82.409 Acute embolism and thrombosis of unspecified deep veins of unspecified lower extremity; N39.0 Urinary tract infection, site not specified; E66.01 Morbid (severe) obesity due to excess calories; I10 Essential (primary) hypertension; G47.00 Insomnia, unspecified; K59.00 Constipation, unspecified; Z72.0 Tobacco use; S51.812A Laceration without foreign body of left forearm, initial encounter; S51.811A Laceration without foreign body of right forearm, initial encounter; X78.9XXA Intentional self-harm by unspecified sharp object, initial encounter; Y92.009 Unspecified place in unspecified non-institutional (private) residence as the place of occurrence of the external cause
CPT/HCPCS: 82306; 83735; 84100; 85007; 87081; 99285; G0480

== ENCOUNTER 2017-03-09 12:25 | Inpatient (IN) | payer MEDICAID ==
[~2017-03-09 12:25] MED LIST changes: -ARIP400S3 IM; +DSS100 PO; +HALO5 PO; +MV-M1TAB2 PO; +NIFE30TA5 PO; +PANT40TA25 PO; -WARF5 PO
[2017-03-09 12:51] VITALS: BP 142/91
[2017-03-09 15:20] VITALS: BP 143/91
[2017-03-09] MEDS ORDERED: IPRATROPIUM BROMIDE 0.5 MG/2.5 ML NEB SOLUTION NEB PRN (15:30)
[2017-03-09] MEDS ORDERED: MAG HYDROX/AL HYDROX/SIMETH ES 30 ML SUSPENSION UDCUP PO PRN (15:30)
[2017-03-09] MEDS ORDERED: MAGNESIUM HYDROXIDE SUSPENSION 30 ML UDCUP PO PRN ×2 (15:30→23:00)
[2017-03-09] MEDS ORDERED: ACETAMINOPHEN 325 MG TABLET PO PRN ×2 (15:30→23:00)
[2017-03-09] MEDS ORDERED: LORazepam 2 MG TABLET PO PRN (15:30)
[2017-03-09] MEDS ORDERED: ALBUTEROL SULFATE 2.5 MG/0.5 ML NEB SOLUTION NEB PRN (15:30)
[2017-03-09] MEDS ORDERED: IBUPROFEN 600 MG TABLET PO PRN (15:30)
[2017-03-09] MEDS ORDERED: ZOLPIDEM TARTRATE 10 MG TABLET PO PRN (15:30)
[2017-03-09 19:43] VITALS: BP 152/93
[2017-03-09] MEDS: NYSTATIN 30 GM CREAM TP SCH (21:00)
[2017-03-09] MEDS ORDERED: PERMETHRIN 5% 60 GM CREAM TP ONE (23:00)
[2017-03-09] MEDS ORDERED: BISACODYL 10 MG RECTAL RECTAL SUPPOSITORY PR PRN (23:00)
[2017-03-09] MEDS ORDERED: ONDANSETRON HCL 4 MG/2 ML VIAL IVP PRN (23:00)
[2017-03-10] VITALS (7 sets, daily range): BP systolic 126–160; BP diastolic 58–95
[2017-03-10] MEDS: HEPARIN SODIUM,PORCINE 5,000 UNITS/ML VIAL SQ SCH ×4 (00:21→23:39)
[2017-03-10 06:40] LABS: BASOPHILS % (AUTO) 0.2 % (0.0-2.0); HEMATOCRIT 44.7 % (41-53); HEMOGLOBIN 14.1 g/dL (13.5-17.5); LYMPHOCYTES # (AUTO) 0.9 K/uL (1.0-4.8); LYMPHOCYTES % (AUTO) 9.7 % (22.0-44.0); MEAN CORPUSCULAR HEMOGLOBIN 27.1 pg (26.0-34.0); MEAN CORPUSCULAR HGB CONC 31.6 G/dL (31.0-37.0); MEAN CORPUSCULAR VOLUME 86 fL (80-100); MONOCYTES # (AUTO) 0.7 K/uL (0.1-1.0); NEUTROPHILS # (AUTO) 7.7 K/uL (1.8-7.7); NEUTROPHILS % (AUTO) 82.1 % (40.0-70.0); PLATELET COUNT (AUTO) 265 K/uL (150-450); RED BLOOD CELL COUNT(AUTO) 5.22 MIL/uL (4.50-5.90); RED CELL DISTRIBUTION WIDTH 14.7 % (11.5-14.5); WHITE BLOOD COUNT (AUTO) 9.4 K/uL (4.5-11.0)
[2017-03-10 07:02] LABS: ALANINE AMINOTRANSFERASE 31 U/L (12-78); ALBUMIN 2.9 g/dL (3.4-5.0); ANION GAP 0 mmol/L (8-16); ASPARTATE AMINOTRANSFERASE 14 U/L (15-37); BILIRUBIN,TOTAL 0.5 mg/dL (0.1-1.0); CALCIUM, TOTAL 8.4 mg/dL (8.8-10.5); CHLORIDE 101 mmol/L (98-107); CREATININE 0.62 mg/dL (0.60-1.30); GLOMERULAR FILTR. RATE CALC > 60 mL/min (>60); PHOSPHORUS 3.9 mg/dL (2.5-4.9); POTASSIUM 4.2 mmol/L (3.5-5.1); SODIUM SERUM 142 mmol/L (136-145); TOTAL PROTEIN, SERUM 7.1 g/dL (6.4-8.2); UREA NITROGEN, BLOOD 7 mg/dL (7-18)
[2017-03-10 07:07] LABS: CARBON DIOXIDE 41 mmol/L (22-29)
[2017-03-10] MEDS: NYSTATIN 30 GM CREAM TP SCH ×2 (08:23→21:00)
[2017-03-10] MEDS: ARIPiprazole 15 MG TABLET PO SCH (08:23)
[2017-03-10] MEDS: CHOLECALCIFEROL (VIT D3) 1,000 UNITS TABLET PO SCH (08:23)
[2017-03-10 11:45] LABS: ABG BASE EXCESS 19.3 mmol/L (-2.0-3.0); ABG HCO3 37.9 mmol/L (22.0-26.0); ABG OXYHEMOGLOBIN 91.2 % (94.0-100.0); TEMPERATURE, FAHRENHEIT, BG 98.6 FAHREN (96.0-98.6)
[2017-03-10 11:47] LABS: ABG PCO2 106 mmHg (35-45); ABG PH 7.258 (7.350-7.450)
[2017-03-10 11:48] LABS: ALLEN TEST, BLOOD GAS Positive
[2017-03-10 22:24] LABS: ABG A-A DIFF O2 69.4 mmHg (10-20.0); ABG BASE EXCESS 17.3 mmol/L (-2.0-3.0); ABG HCO3 36.5 mmol/L (22.0-26.0); ABG OXYHEMOGLOBIN 92.1 % (94.0-100.0); TEMPERATURE, FAHRENHEIT, BG 98.6 FAHREN (96.0-98.6)
[2017-03-10 22:25] LABS: ABG PCO2 96 mmHg (35-45); ALLEN TEST, BLOOD GAS Positive
[2017-03-11 04:13] VITALS: BP 162/88
[2017-03-11 07:28] VITALS: BP 148/93
[2017-03-11] MEDS: HEPARIN SODIUM,PORCINE 5,000 UNITS/ML VIAL SQ SCH ×2 (08:00→17:52)
[2017-03-11] MEDS: NYSTATIN 30 GM CREAM TP SCH ×2 (09:00→21:00)
[2017-03-11] MEDS: CHOLECALCIFEROL (VIT D3) 1,000 UNITS TABLET PO SCH (09:00)
[2017-03-11] MEDS: ARIPiprazole 15 MG TABLET PO SCH (09:00)
[2017-03-11 09:43] LABS: BASOPHILS % (AUTO) 0.2 % (0.0-2.0); HEMATOCRIT 43.5 % (41-53); HEMOGLOBIN 13.7 g/dL (13.5-17.5); LYMPHOCYTES # (AUTO) 1.1 K/uL (1.0-4.8); LYMPHOCYTES % (AUTO) 12.2 % (22.0-44.0); MEAN CORPUSCULAR HEMOGLOBIN 26.7 pg (26.0-34.0); MEAN CORPUSCULAR HGB CONC 31.5 G/dL (31.0-37.0); MEAN CORPUSCULAR VOLUME 85 fL (80-100); MONOCYTES # (AUTO) 0.6 K/uL (0.1-1.0); MONOCYTES % (AUTO) 7.2 % (2.0-9.0); NEUTROPHILS # (AUTO) 6.9 K/uL (1.8-7.7); NEUTROPHILS % (AUTO) 79.4 % (40.0-70.0); PLATELET COUNT (AUTO) 254 K/uL (150-450); RED BLOOD CELL COUNT(AUTO) 5.13 MIL/uL (4.50-5.90); RED CELL DISTRIBUTION WIDTH 14.9 % (11.5-14.5); WHITE BLOOD COUNT (AUTO) 8.7 K/uL (4.5-11.0)
[2017-03-11 09:51] LABS: ABG A-A DIFF O2 37.6 mmHg (10-20.0); ABG BASE EXCESS 17.7 mmol/L (-2.0-3.0); ABG HCO3 37.2 mmol/L (22.0-26.0); ABG OXYHEMOGLOBIN 89.3 % (94.0-100.0); ABG PCO2 84 mmHg (35-45); ABG PH 7.333 (7.350-7.450); ALLEN TEST, BLOOD GAS Positive; TEMPERATURE, FAHRENHEIT, BG 98.6 FAHREN (96.0-98.6)
[2017-03-11 10:15] LABS: ALANINE AMINOTRANSFERASE 26 U/L (12-78); ALBUMIN 2.8 g/dL (3.4-5.0); ANION GAP 0 mmol/L (8-16); ASPARTATE AMINOTRANSFERASE 12 U/L (15-37); BILIRUBIN,TOTAL 0.4 mg/dL (0.1-1.0); CALCIUM, TOTAL 8.5 mg/dL (8.8-10.5); CARBON DIOXIDE 40 mmol/L (22-29); CHLORIDE 100 mmol/L (98-107); CREATININE 0.54 mg/dL (0.60-1.30); GLOMERULAR FILTR. RATE CALC > 60 mL/min (>60); POTASSIUM 4.1 mmol/L (3.5-5.1); SODIUM SERUM 140 mmol/L (136-145); TOTAL PROTEIN, SERUM 6.9 g/dL (6.4-8.2); UREA NITROGEN, BLOOD 6 mg/dL (7-18)
[2017-03-11 11:24] VITALS: BP 154/88
[2017-03-11 15:36] VITALS: BP 143/79
[2017-03-11] MEDS: HALOPERIDOL 5 MG TABLET PO PRN (18:15)
[2017-03-11 19:08] VITALS: BP 165/84
[2017-03-11] MEDS: HYDROCODONE/ACETAMINOPHEN 5-325 MG TABLET PO PRN (21:34)
[2017-03-11 23:06] VITALS: BP 146/78
[2017-03-12] VITALS (7 sets, daily range): BP systolic 133–157; BP diastolic 71–101
[2017-03-12] MEDS: HYDROCODONE/ACETAMINOPHEN 5-325 MG TABLET PO PRN ×2 (05:21→11:28)
[2017-03-12 05:53] LABS: BASOPHILS % (AUTO) 0.2 % (0.0-2.0); EOSINOPHILS % (AUTO) 1.5 % (1.0-6.0); HEMATOCRIT 43.6 % (41-53); HEMOGLOBIN 13.7 g/dL (13.5-17.5); LYMPHOCYTES # (AUTO) 1.4 K/uL (1.0-4.8); LYMPHOCYTES % (AUTO) 16.5 % (22.0-44.0); MEAN CORPUSCULAR HGB CONC 31.5 G/dL (31.0-37.0); MEAN CORPUSCULAR VOLUME 86 fL (80-100); MONOCYTES # (AUTO) 0.7 K/uL (0.1-1.0); MONOCYTES % (AUTO) 8.2 % (2.0-9.0); NEUTROPHILS # (AUTO) 6.2 K/uL (1.8-7.7); NEUTROPHILS % (AUTO) 73.6 % (40.0-70.0); PLATELET COUNT (AUTO) 288 K/uL (150-450); RED BLOOD CELL COUNT(AUTO) 5.09 MIL/uL (4.50-5.90); RED CELL DISTRIBUTION WIDTH 14.7 % (11.5-14.5); WHITE BLOOD COUNT (AUTO) 8.4 K/uL (4.5-11.0)
[2017-03-12 06:16] LABS: ALANINE AMINOTRANSFERASE 24 U/L (12-78); ALBUMIN 2.9 g/dL (3.4-5.0); ANION GAP 1 mmol/L (8-16); ASPARTATE AMINOTRANSFERASE 12 U/L (15-37); BILIRUBIN,TOTAL 0.4 mg/dL (0.1-1.0); CALCIUM, TOTAL 8.5 mg/dL (8.8-10.5); CARBON DIOXIDE 39 mmol/L (22-29); CHLORIDE 101 mmol/L (98-107); CREATININE 0.64 mg/dL (0.60-1.30); GLOMERULAR FILTR. RATE CALC > 60 mL/min (>60); PHOSPHORUS 3.9 mg/dL (2.5-4.9); POTASSIUM 4.3 mmol/L (3.5-5.1); SODIUM SERUM 141 mmol/L (136-145); UREA NITROGEN, BLOOD 8 mg/dL (7-18)
[2017-03-12 08:41] LABS: ABG A-A DIFF O2 9.1 mmHg (10-20.0); ABG BASE EXCESS 17.7 mmol/L (-2.0-3.0); ABG HCO3 37.2 mmol/L (22.0-26.0); ABG PH 7.331 (7.350-7.450); TEMPERATURE, FAHRENHEIT, BG 98.6 FAHREN (96.0-98.6)
[2017-03-12 08:42] LABS: ABG PCO2 84 mmHg (35-45); ALLEN TEST, BLOOD GAS Positive
[2017-03-12] MEDS: NYSTATIN 30 GM CREAM TP SCH ×2 (08:56→20:08)
[2017-03-12] MEDS: HEPARIN SODIUM,PORCINE 5,000 UNITS/ML VIAL SQ SCH ×4 (08:56→23:14)
[2017-03-12] MEDS: CHOLECALCIFEROL (VIT D3) 1,000 UNITS TABLET PO SCH (11:28)
[2017-03-12] MEDS: ARIPiprazole 15 MG TABLET PO SCH (11:28)
[2017-03-12] MEDS: HALOPERIDOL 5 MG TABLET PO PRN (22:43)
[2017-03-13 04:10] VITALS: BP 153/100
[2017-03-13 07:41] LABS: BASOPHILS % (AUTO) 0.1 % (0.0-2.0); EOSINOPHILS % (AUTO) 1.3 % (1.0-6.0); HEMATOCRIT 44.8 % (41-53); HEMOGLOBIN 14.3 g/dL (13.5-17.5); LYMPHOCYTES # (AUTO) 1.2 K/uL (1.0-4.8); LYMPHOCYTES % (AUTO) 12.7 % (22.0-44.0); MEAN CORPUSCULAR HEMOGLOBIN 26.9 pg (26.0-34.0); MEAN CORPUSCULAR HGB CONC 31.9 G/dL (31.0-37.0); MEAN CORPUSCULAR VOLUME 84 fL (80-100); MONOCYTES # (AUTO) 0.3 K/uL (0.1-1.0); MONOCYTES % (AUTO) 3.6 % (2.0-9.0); NEUTROPHILS # (AUTO) 7.5 K/uL (1.8-7.7); NEUTROPHILS % (AUTO) 82.3 % (40.0-70.0); PLATELET COUNT (AUTO) 280 K/uL (150-450); RED BLOOD CELL COUNT(AUTO) 5.32 MIL/uL (4.50-5.90); RED CELL DISTRIBUTION WIDTH 14.8 % (11.5-14.5); WHITE BLOOD COUNT (AUTO) 9.1 K/uL (4.5-11.0)
[2017-03-13 07:50] LABS: ALANINE AMINOTRANSFERASE 26 U/L (12-78); ANION GAP 1 mmol/L (8-16); ASPARTATE AMINOTRANSFERASE 16 U/L (15-37); BILIRUBIN,TOTAL 0.5 mg/dL (0.1-1.0); CALCIUM, TOTAL 8.9 mg/dL (8.8-10.5); CARBON DIOXIDE 37 mmol/L (22-29); CHLORIDE 100 mmol/L (98-107); CREATININE 0.57 mg/dL (0.60-1.30); GLOMERULAR FILTR. RATE CALC > 60 mL/min (>60); PHOSPHORUS 2.8 mg/dL (2.5-4.9); POTASSIUM 4.3 mmol/L (3.5-5.1); SODIUM SERUM 138 mmol/L (136-145); TOTAL PROTEIN, SERUM 7.4 g/dL (6.4-8.2); UREA NITROGEN, BLOOD 6 mg/dL (7-18)
[2017-03-13] MEDS: CHOLECALCIFEROL (VIT D3) 1,000 UNITS TABLET PO SCH (08:10)
[2017-03-13] MEDS: HEPARIN SODIUM,PORCINE 5,000 UNITS/ML VIAL SQ SCH ×2 (08:10→16:00)
[2017-03-13] MEDS: ARIPiprazole 15 MG TABLET PO SCH (08:10)
[2017-03-13 08:27] VITALS: BP 150/77
[2017-03-13] MEDS: NYSTATIN 30 GM CREAM TP SCH ×2 (09:00→21:00)
[2017-03-13 12:32] VITALS: BP 127/65
[2017-03-13 19:39] VITALS: BP 145/78
[2017-03-13 23:57] VITALS: BP 146/96
[2017-03-14] MEDS: HEPARIN SODIUM,PORCINE 5,000 UNITS/ML VIAL SQ SCH ×3 (00:41→16:00)
[2017-03-14 05:03] VITALS: BP 150/94
[2017-03-14 08:06] VITALS: BP 158/94
[2017-03-14] MEDS: CHOLECALCIFEROL (VIT D3) 1,000 UNITS TABLET PO SCH (08:23)
[2017-03-14] MEDS: ARIPiprazole 15 MG TABLET PO SCH (08:24)
[2017-03-14] MEDS: NYSTATIN 30 GM CREAM TP SCH ×2 (08:24→19:55)
[2017-03-14 08:57] LABS: GLUCOSE,POINT OF CARE 120 MG/DL (70-110)
[2017-03-14] MEDS ORDERED: POTASSIUM CHLORIDE 20 MEQ ER TABLET PO PRN (09:30)
[2017-03-14] MEDS ORDERED: POTASSIUM CHL 10 MEQ/WATER 50 ML IV PRN (09:30)
[2017-03-14] MEDS ORDERED: MAGNESIUM SULFATE 4 GM/WATER 100 ML IV PRN (09:30)
[2017-03-14] MEDS ORDERED: MAGNESIUM SULFATE 2 GM in DEXTROSE 5%-WATER 50 ML IV PRN (09:30)
[2017-03-14] MEDS ORDERED: MAGNESIUM OXIDE 400 MG TABLET PO PRN (09:30)
[2017-03-14] MEDS: FUROSEMIDE 40 MG TABLET PO SCH (09:52)
[2017-03-14 11:01] LABS: ABG A-A DIFF O2 32.5 mmHg (10-20.0); ABG BASE EXCESS 7.6 mmol/L (-2.0-3.0); ABG HCO3 29.8 mmol/L (22.0-26.0); ABG OXYHEMOGLOBIN 87.9 % (94.0-100.0); ABG PCO2 50 mmHg (35-45); ABG PH 7.426 (7.350-7.450); TEMPERATURE, FAHRENHEIT, BG 98.1 FAHREN (96.0-98.6)
[2017-03-14 11:05] LABS: ALLEN TEST, BLOOD GAS Positive
[2017-03-14 12:01] VITALS: BP 144/77
[2017-03-14] MEDS ORDERED: VITAD1000 PO (16:21)
[2017-03-14] MEDS ORDERED: ARIP15TA2 PO (16:21)
[2017-03-14] MEDS ORDERED: FURO40 PO (16:21)
[2017-03-14] MEDS ORDERED: NYST30CR9 TP (16:22)
[2017-03-14 18:09] VITALS: BP 130/83
[2017-03-14 19:44] VITALS: BP 135/83
[2017-03-15 01:27] VITALS: BP 118/73
[2017-03-15 05:46] VITALS: BP 129/81
[2017-03-15 08:21] VITALS: BP 136/64
[2017-03-15] MEDS: ARIPiprazole 15 MG TABLET PO SCH (08:39)
[2017-03-15] MEDS: FUROSEMIDE 40 MG TABLET PO SCH (08:39)
[2017-03-15] MEDS: NYSTATIN 30 GM CREAM TP SCH (08:40)
[2017-03-15] MEDS: CHOLECALCIFEROL (VIT D3) 1,000 UNITS TABLET PO SCH (08:40)
[2017-03-15] MEDS: HEPARIN SODIUM,PORCINE 5,000 UNITS/ML VIAL SQ SCH ×2 (08:40)
[2017-03-15] MEDS: HALOPERIDOL 5 MG TABLET PO PRN (08:42)
[2017-03-15 11:00] VITALS: BP 130/72
== END 2017-03-15 14:45 | disposition home or self-care (01) | DRG 133 ==
LOC: 5S 12:25 → PREOBSVTOIN 14:10 → 5N 16:00 → 6N 03-14 17:00
PROVIDERS: ADMIT Internal Medicine; ATTEND Internal Medicine
PROC: 5A09357 Assistance with Respiratory Ventilation, Less than 24 Consecutive Hours, Continuous Positive Airway Pressure (ICD-10-PCS; principal; 2017-03-10)
DX: J96.02 Acute respiratory failure with hypercapnia (principal); R45.851 Suicidal ideations; J44.9 Chronic obstructive pulmonary disease, unspecified; J96.01 Acute respiratory failure with hypoxia; G47.10 Hypersomnia, unspecified; K59.00 Constipation, unspecified; G47.33 Obstructive sleep apnea (adult) (pediatric); I10 Essential (primary) hypertension; E55.9 Vitamin D deficiency, unspecified; F25.9 Schizoaffective disorder, unspecified; E66.2 Morbid (severe) obesity with alveolar hypoventilation; F15.10 Other stimulant abuse, uncomplicated; F32.9 Major depressive disorder, single episode, unspecified; F60.3 Borderline personality disorder; N62 Hypertrophy of breast; Z53.20 Procedure and treatment not carried out because of patient's decision for unspecified reasons; Z86.718 Personal history of other venous thrombosis and embolism; Z87.891 Personal history of nicotine dependence; Z91.14 Patient's other noncompliance with medication regimen; Z91.19 Patient's noncompliance with other medical treatment and regimen; Z91.013 Allergy to seafood
CPT/HCPCS: 82805; 82962; 83735; 84100; 85379; 87081; 94660; J1644; J2405

== ENCOUNTER 2017-06-10 16:57 | Inpatient (IN) | payer MEDICAID, OTHER ==
[~2017-06-10] VITALS: Ht 167.6 cm; Wt 196.4 kg
[~2017-06-10 16:57] MED LIST changes: +ARIP15TA2 PO; +FURO40 PO; -MV-M1TAB2 PO; +NYST30CR9 TP; +VITAD1000 PO
[2017-06-10 17:14] LABS: BASOPHILS % (AUTO) 0.3 % (0.0-2.0); EOSINOPHILS % (AUTO) 1.1 % (1.0-6.0); HEMATOCRIT 47.4 % (41-53); HEMOGLOBIN 15.7 g/dL (13.5-17.5); LYMPHOCYTES # (AUTO) 1.9 K/uL (1.0-4.8); MEAN CORPUSCULAR HEMOGLOBIN 27.7 pg (26.0-34.0); MEAN CORPUSCULAR HGB CONC 33.2 G/dL (31.0-37.0); MEAN CORPUSCULAR VOLUME 84 fL (80-100); MONOCYTES # (AUTO) 0.8 K/uL (0.1-1.0); MONOCYTES % (AUTO) 7.8 % (2.0-9.0); NEUTROPHILS # (AUTO) 7.7 K/uL (1.8-7.7); NEUTROPHILS % (AUTO) 72.8 % (40.0-70.0); PLATELET COUNT (AUTO) 305 K/uL (150-450); RED BLOOD CELL COUNT(AUTO) 5.67 MIL/uL (4.50-5.90); RED CELL DISTRIBUTION WIDTH 16.6 % (11.5-14.5); WHITE BLOOD COUNT (AUTO) 10.6 K/uL (4.5-11.0)
[2017-06-10] MEDS ORDERED: METO25 PO (17:22)
[2017-06-10] MEDS ORDERED: DULO20CA30 PO (17:22)
[2017-06-10] MEDS ORDERED: HALO10 PO (17:22)
[2017-06-10 17:36] LABS: ANION GAP 5 mmol/L (8-16); CALCIUM, TOTAL 8.8 mg/dL (8.8-10.5); CARBON DIOXIDE 35 mmol/L (22-29); CHLORIDE 101 mmol/L (98-107); CREATININE 0.58 mg/dL (0.60-1.30); GLOMERULAR FILTR. RATE CALC > 60 mL/min (>60); POTASSIUM 4.3 mmol/L (3.5-5.1); SODIUM SERUM 141 mmol/L (136-145); UREA NITROGEN, BLOOD 9 mg/dL (7-18)
[2017-06-10 17:42] LABS: ALANINE AMINOTRANSFERASE 40 U/L (12-78); ALBUMIN 3.3 g/dL (3.4-5.0); ASPARTATE AMINOTRANSFERASE 16 U/L (15-37); BILIRUBIN,TOTAL 0.4 mg/dL (0.1-1.0); TOTAL PROTEIN, SERUM 7.9 g/dL (6.4-8.2)
[2017-06-10] MEDS ORDERED: LORazepam 2 MG TABLET PO ONE (21:30)
[2017-06-10] MEDS ORDERED: HALOPERIDOL 5 MG TABLET PO ONE (21:30)
[2017-06-11] MEDS ORDERED: INFLUENZA VIRUS VACCINE QVS 2017-18 (3YR+)/PF 60 MCG/0.5 ML SYRINGE IM ONE (00:15)
[2017-06-11 00:21] VITALS: BP 137/89
[2017-06-11 08:19] LABS: CHOL/HDL RATIO 5.3 (4.2-7.3)
[2017-06-11 10:11] VITALS: BP 151/86
[2017-06-11] MEDS ORDERED: IBUPROFEN 400 MG TABLET PO PRN (15:30)
[2017-06-11] MEDS ORDERED: ACETAMINOPHEN 325 MG TABLET PO PRN (15:30)
[2017-06-11 17:08] VITALS: BP 136/95
[2017-06-11] MEDS: METOPROLOL TARTRATE 25 MG TABLET PO SCH (17:10)
[2017-06-11] MEDS: HALOPERIDOL 10 MG TABLET PO SCH (20:36)
[2017-06-12] MEDS: HALOPERIDOL 5 MG TABLET PO PRN (08:03)
[2017-06-12] MEDS: METOPROLOL TARTRATE 25 MG TABLET PO SCH ×2 (08:03→16:20)
[2017-06-12] MEDS: FUROSEMIDE 40 MG TABLET PO SCH (08:03)
[2017-06-12] MEDS: DULoxetine HCL 30 MG CAPSULE PO SCH (08:03)
[2017-06-12] MEDS: LORazepam 2 MG TABLET PO PRN (08:03)
[2017-06-12 08:19] VITALS: BP 142/90
[2017-06-12] MEDS: NICOTINE 14 MG/24 HOUR PATCH TD SCH (09:13)
[2017-06-12 16:08] VITALS: BP 123/72
[2017-06-12] MEDS: HALOPERIDOL 10 MG TABLET PO SCH (20:26)
[2017-06-13] MEDS: DULoxetine HCL 30 MG CAPSULE PO SCH (08:29)
[2017-06-13] MEDS: METOPROLOL TARTRATE 25 MG TABLET PO SCH ×2 (08:29→16:51)
[2017-06-13] MEDS: FUROSEMIDE 40 MG TABLET PO SCH (08:29)
[2017-06-13] MEDS: NICOTINE 14 MG/24 HOUR PATCH TD SCH (09:00)
[2017-06-13 09:11] VITALS: BP 128/95
[2017-06-13 16:49] VITALS: BP 100/53
[2017-06-13] MEDS: HALOPERIDOL 10 MG TABLET PO SCH (20:40)
[2017-06-14] MEDS: DULoxetine HCL 30 MG CAPSULE PO SCH (08:26)
[2017-06-14] MEDS: FUROSEMIDE 40 MG TABLET PO SCH (08:26)
[2017-06-14] MEDS: METOPROLOL TARTRATE 25 MG TABLET PO SCH ×2 (08:26→16:09)
[2017-06-14] MEDS: NICOTINE 14 MG/24 HOUR PATCH TD SCH (08:27)
[2017-06-14 08:31] VITALS: BP 131/91
[2017-06-14] MEDS: LORazepam 2 MG TABLET PO PRN (16:08)
[2017-06-14] MEDS: HALOPERIDOL 5 MG TABLET PO PRN (16:09)
[2017-06-14] MEDS: HALOPERIDOL 10 MG TABLET PO SCH (20:21)
[2017-06-15 08:46] VITALS: BP 131/87
[2017-06-15] MEDS: NICOTINE 14 MG/24 HOUR PATCH TD SCH (09:00)
[2017-06-15] MEDS: METOPROLOL TARTRATE 25 MG TABLET PO SCH ×2 (09:06→16:31)
[2017-06-15] MEDS: DULoxetine HCL 30 MG CAPSULE PO SCH (09:06)
[2017-06-15] MEDS: FUROSEMIDE 40 MG TABLET PO SCH (09:06)
[2017-06-15 16:21] VITALS: BP 98/61
[2017-06-15] MEDS: HALOPERIDOL 10 MG TABLET PO SCH (20:25)
[2017-06-16] MEDS: DULoxetine HCL 30 MG CAPSULE PO SCH (08:58)
[2017-06-16] MEDS: FUROSEMIDE 40 MG TABLET PO SCH (08:58)
[2017-06-16] MEDS: METOPROLOL TARTRATE 25 MG TABLET PO SCH ×2 (08:58→16:47)
[2017-06-16] MEDS: NICOTINE 14 MG/24 HOUR PATCH TD SCH (09:05)
[2017-06-16 09:16] VITALS: BP 136/77
[2017-06-16 16:22] VITALS: BP 148/51
[2017-06-16] MEDS: HALOPERIDOL 10 MG TABLET PO SCH (20:09)
[2017-06-16 20:21] VITALS: BP 136/57
[2017-06-16] MEDS: LORazepam 2 MG TABLET PO PRN (20:23)
[2017-06-17 08:25] VITALS: BP 109/67
[2017-06-17] MEDS: FUROSEMIDE 40 MG TABLET PO SCH (09:00)
[2017-06-17] MEDS: METOPROLOL TARTRATE 25 MG TABLET PO SCH ×2 (09:00→17:39)
[2017-06-17] MEDS: NICOTINE 14 MG/24 HOUR PATCH TD SCH (09:02)
[2017-06-17] MEDS: DULoxetine HCL 30 MG CAPSULE PO SCH (09:02)
[2017-06-17 16:00] VITALS: BP 126/82
[2017-06-17] MEDS: HALOPERIDOL 10 MG TABLET PO SCH (20:18)
[2017-06-18 00:41] VITALS: BP 107/67
[2017-06-18 01:59] VITALS: BP 121/75
[2017-06-18 08:27] VITALS: BP 112/68
[2017-06-18] MEDS: METOPROLOL TARTRATE 25 MG TABLET PO SCH ×2 (08:41→16:47)
[2017-06-18] MEDS: FUROSEMIDE 40 MG TABLET PO SCH (08:41)
[2017-06-18] MEDS: NICOTINE 14 MG/24 HOUR PATCH TD SCH (08:41)
[2017-06-18] MEDS: DULoxetine HCL 30 MG CAPSULE PO SCH (08:41)
[2017-06-18 16:00] VITALS: BP 112/57
[2017-06-18] MEDS: ZOLPIDEM TARTRATE 10 MG TABLET PO PRN (18:34)
[2017-06-18] MEDS: HALOPERIDOL 10 MG TABLET PO SCH (20:22)
[2017-06-19] MEDS: DULoxetine HCL 30 MG CAPSULE PO SCH (08:18)
[2017-06-19] MEDS: FUROSEMIDE 40 MG TABLET PO SCH (08:18)
[2017-06-19] MEDS: METOPROLOL TARTRATE 25 MG TABLET PO SCH ×2 (08:19→16:14)
[2017-06-19] MEDS: NICOTINE 14 MG/24 HOUR PATCH TD SCH (08:19)
[2017-06-19 08:22] VITALS: BP 132/91
[2017-06-19 16:00] VITALS: BP_SYST 112; BP_SYST 131; BP_DIAS 65; BP_DIAS 67
[2017-06-19] MEDS: HALOPERIDOL 10 MG TABLET PO SCH (20:13)
[2017-06-20] MEDS: METOPROLOL TARTRATE 25 MG TABLET PO SCH ×2 (08:00→17:02)
[2017-06-20] MEDS: NICOTINE 14 MG/24 HOUR PATCH TD SCH (08:00)
[2017-06-20] MEDS: DULoxetine HCL 30 MG CAPSULE PO SCH ×2 (08:00→17:02)
[2017-06-20] MEDS: FUROSEMIDE 40 MG TABLET PO SCH (08:00)
[2017-06-20 08:20] VITALS: BP 142/83
[2017-06-20] MEDS: HALOPERIDOL 5 MG TABLET PO SCH (12:41)
[2017-06-20 16:01] VITALS: BP 135/80
[2017-06-20] MEDS: LORazepam 2 MG TABLET PO PRN (18:15)
[2017-06-20] MEDS: HALOPERIDOL 10 MG TABLET PO SCH (20:17)
[2017-06-21 08:30] VITALS: BP 135/85
[2017-06-21] MEDS: METOPROLOL TARTRATE 25 MG TABLET PO SCH ×2 (09:13→16:17)
[2017-06-21] MEDS: HALOPERIDOL 5 MG TABLET PO SCH (09:13)
[2017-06-21] MEDS: DULoxetine HCL 30 MG CAPSULE PO SCH ×2 (09:14→16:16)
[2017-06-21] MEDS: FUROSEMIDE 40 MG TABLET PO SCH (09:14)
[2017-06-21] MEDS: NICOTINE 14 MG/24 HOUR PATCH TD SCH (09:27)
[2017-06-21] MEDS: HALOPERIDOL 10 MG TABLET PO SCH (21:17)
[2017-06-22 08:30] VITALS: BP 133/94
[2017-06-22] MEDS: HALOPERIDOL 5 MG TABLET PO SCH (08:34)
[2017-06-22] MEDS: FUROSEMIDE 40 MG TABLET PO SCH (08:34)
[2017-06-22] MEDS: METOPROLOL TARTRATE 25 MG TABLET PO SCH ×2 (08:34→16:38)
[2017-06-22] MEDS: DULoxetine HCL 30 MG CAPSULE PO SCH ×2 (08:34→16:38)
[2017-06-22] MEDS: NICOTINE 14 MG/24 HOUR PATCH TD SCH (08:36)
[2017-06-22 16:34] VITALS: BP 125/78
[2017-06-22] MEDS: HALOPERIDOL 10 MG TABLET PO SCH (20:20)
[2017-06-23] MEDS: LORazepam 2 MG TABLET PO PRN (08:04)
[2017-06-23] MEDS: DULoxetine HCL 30 MG CAPSULE PO SCH ×2 (08:04→16:38)
[2017-06-23] MEDS: METOPROLOL TARTRATE 25 MG TABLET PO SCH ×2 (08:04→16:38)
[2017-06-23] MEDS: FUROSEMIDE 40 MG TABLET PO SCH (08:04)
[2017-06-23] MEDS: HALOPERIDOL 5 MG TABLET PO SCH (08:05)
[2017-06-23] MEDS: NICOTINE 14 MG/24 HOUR PATCH TD SCH (08:05)
[2017-06-23 08:30] VITALS: BP 140/92
[2017-06-23 16:10] VITALS: BP 99/61
[2017-06-23] MEDS: HALOPERIDOL 10 MG TABLET PO SCH (20:52)
[2017-06-23] MEDS: ZOLPIDEM TARTRATE 10 MG TABLET PO PRN (20:52)
[2017-06-24 08:03] VITALS: BP 97/63
[2017-06-24] MEDS: METOPROLOL TARTRATE 25 MG TABLET PO SCH ×2 (09:00→16:58)
[2017-06-24] MEDS: DULoxetine HCL 30 MG CAPSULE PO SCH ×2 (09:00→16:58)
[2017-06-24] MEDS: NICOTINE 14 MG/24 HOUR PATCH TD SCH (09:00)
[2017-06-24] MEDS: HALOPERIDOL 5 MG TABLET PO SCH (09:00)
[2017-06-24] MEDS: FUROSEMIDE 40 MG TABLET PO SCH (09:00)
[2017-06-24] MEDS ORDERED: ARIPiprazole LAUROXIL ER SUSPENSION 882 MG/3.2 ML SYRINGE IM SCH (12:00)
[2017-06-24] MEDS: HALOPERIDOL 10 MG TABLET PO SCH (20:26)
[2017-06-25] MEDS: HALOPERIDOL 5 MG TABLET PO SCH (08:08)
[2017-06-25] MEDS: FUROSEMIDE 40 MG TABLET PO SCH (08:08)
[2017-06-25] MEDS: NICOTINE 14 MG/24 HOUR PATCH TD SCH (08:08)
[2017-06-25] MEDS: METOPROLOL TARTRATE 25 MG TABLET PO SCH ×2 (08:08→17:09)
[2017-06-25] MEDS: DULoxetine HCL 30 MG CAPSULE PO SCH ×2 (08:08→17:09)
[2017-06-25 09:05] VITALS: BP 138/77
[2017-06-25 16:56] VITALS: BP 145/101
[2017-06-25] MEDS: HALOPERIDOL 10 MG TABLET PO SCH (20:12)
[2017-06-26] MEDS: ZOLPIDEM TARTRATE 10 MG TABLET PO PRN (00:07)
[2017-06-26] MEDS: HALOPERIDOL 5 MG TABLET PO PRN (00:07)
[2017-06-26] MEDS: LORazepam 2 MG TABLET PO PRN (01:01)
[2017-06-26] MEDS: HALOPERIDOL 5 MG TABLET PO SCH (08:43)
[2017-06-26] MEDS: DULoxetine HCL 30 MG CAPSULE PO SCH ×2 (08:44→16:37)
[2017-06-26] MEDS: FUROSEMIDE 40 MG TABLET PO SCH (08:44)
[2017-06-26] MEDS: METOPROLOL TARTRATE 25 MG TABLET PO SCH ×2 (08:44→16:37)
[2017-06-26] MEDS: NICOTINE 14 MG/24 HOUR PATCH TD SCH (08:45)
[2017-06-26 09:00] VITALS: BP 107/69
[2017-06-26] MEDS: HALOPERIDOL 10 MG TABLET PO SCH (20:15)
[2017-06-27] MEDS: HALOPERIDOL 5 MG TABLET PO SCH (08:30)
[2017-06-27] MEDS: FUROSEMIDE 40 MG TABLET PO SCH (08:30)
[2017-06-27] MEDS: DULoxetine HCL 30 MG CAPSULE PO SCH ×2 (08:30→17:04)
[2017-06-27 08:45] VITALS: BP 102/58
[2017-06-27] MEDS: NICOTINE 14 MG/24 HOUR PATCH TD SCH (09:00)
[2017-06-27] MEDS: METOPROLOL TARTRATE 25 MG TABLET PO SCH ×2 (09:00→17:04)
[2017-06-27 16:00] VITALS: BP 120/86
[2017-06-27] MEDS: HALOPERIDOL 10 MG TABLET PO SCH (21:06)
[2017-06-28] MEDS: DULoxetine HCL 30 MG CAPSULE PO SCH (08:19)
[2017-06-28 08:20] VITALS: BP 135/98
[2017-06-28] MEDS: HALOPERIDOL 5 MG TABLET PO SCH (08:20)
[2017-06-28] MEDS: FUROSEMIDE 40 MG TABLET PO SCH (08:20)
[2017-06-28] MEDS: METOPROLOL TARTRATE 25 MG TABLET PO SCH (08:20)
[2017-06-28] MEDS: NICOTINE 14 MG/24 HOUR PATCH TD SCH (08:22)
[2017-06-28] MEDS ORDERED: HALO5 PO (11:40)
[2017-06-28] MEDS ORDERED: ARIP882S IM (11:41)
[2017-06-28] MEDS ORDERED: DULO30CA2 PO (11:41)
[2017-06-28] MEDS ORDERED: FURO40 PO (11:56)
[2017-06-28] MEDS ORDERED: NICO-703 TD (11:57)
[2017-07-24] MEDS ORDERED: ARIPiprazole LAUROXIL ER SUSPENSION 882 MG/3.2 ML SYRINGE IM SCH (09:00)
== END 2017-06-28 14:20 | disposition home or self-care (01) | DRG 750 ==
LOC: EMS 16:59 → 3EI 22:27 → 3EC 22:27
PROVIDERS: ADMIT Psychiatry & Neurology Child & Adolescent Psychiatry; ATTEND Psychiatry & Neurology Child & Adolescent Psychiatry
DX: F25.1 Schizoaffective disorder, depressive type (principal); R45.851 Suicidal ideations; I10 Essential (primary) hypertension; F15.10 Other stimulant abuse, uncomplicated; F17.210 Nicotine dependence, cigarettes, uncomplicated; F41.9 Anxiety disorder, unspecified; G47.33 Obstructive sleep apnea (adult) (pediatric); Z91.013 Allergy to seafood; Z91.5 Personal history of self-harm; Z79.899 Other long term (current) drug therapy; Z28.21 Immunization not carried out because of patient refusal
CPT/HCPCS: 99285; 99406; G0480

== ENCOUNTER 2017-06-28 16:00 | Inpatient (IN) | payer MEDICAID, OTHER ==
[~2017-06-28] VITALS: Ht 167.6 cm; Wt 193.8 kg
[~2017-06-28 16:00] MED LIST changes: -ARIP15TA2 PO; +ARIP882S IM; -DSS100 PO; +DULO20CA30 PO; +DULO30CA2 PO; +HALO10 PO; +METO25 PO; +NICO-703 TD; -NIFE30TA5 PO; -NYST30CR9 TP; -PANT40TA25 PO; -VITAD1000 PO
[2017-06-28 19:56] LABS: BASOPHILS % (AUTO) 0.7 % (0.0-2.0); EOSINOPHILS % (AUTO) 0.9 % (1.0-6.0); HEMATOCRIT 45.2 % (41-53); HEMOGLOBIN 14.8 g/dL (13.5-17.5); LYMPHOCYTES # (AUTO) 2.1 K/uL (1.0-4.8); LYMPHOCYTES % (AUTO) 19.4 % (22.0-44.0); MEAN CORPUSCULAR HEMOGLOBIN 27.7 pg (26.0-34.0); MEAN CORPUSCULAR HGB CONC 32.7 G/dL (31.0-37.0); MEAN CORPUSCULAR VOLUME 85 fL (80-100); MONOCYTES # (AUTO) 1.2 K/uL (0.1-1.0); MONOCYTES % (AUTO) 11.2 % (2.0-9.0); NEUTROPHILS # (AUTO) 7.5 K/uL (1.8-7.7); NEUTROPHILS % (AUTO) 67.8 % (40.0-70.0); PLATELET COUNT (AUTO) 303 K/uL (150-450); RED BLOOD CELL COUNT(AUTO) 5.35 MIL/uL (4.50-5.90); RED CELL DISTRIBUTION WIDTH 15.4 % (11.5-14.5)
[2017-06-28 20:01] LABS: ANION GAP 4 mmol/L (8-16); CALCIUM, TOTAL 8.8 mg/dL (8.8-10.5); CARBON DIOXIDE 34 mmol/L (22-29); CHLORIDE 101 mmol/L (98-107); CREATININE 0.57 mg/dL (0.60-1.30); GLOMERULAR FILTR. RATE CALC > 60 mL/min (>60); GLUCOSE,RANDOM 90 mg/dL (70-110); SODIUM SERUM 139 mmol/L (136-145); UREA NITROGEN, BLOOD 14 mg/dL (7-18)
[2017-06-28 20:07] LABS: ALANINE AMINOTRANSFERASE 45 U/L (12-78); ALBUMIN 3.2 g/dL (3.4-5.0); ALKALINE PHOSPHATASE 84 U/L (46-116); ASPARTATE AMINOTRANSFERASE 19 U/L (15-37); BILIRUBIN,TOTAL 0.4 mg/dL (0.1-1.0); TOTAL PROTEIN, SERUM 7.7 g/dL (6.4-8.2)
[2017-06-28 21:15] VITALS: BP 120/69
[2017-06-28 21:50] LABS: AMPHET/METH SCREEN,URINE NEGATIVE (NEGATIVE); BARBITURATE SCREEN, URINE NEGATIVE (NEGATIVE); BENZODIAZEPINES SCREEN,URINE NEGATIVE (NEGATIVE); CANNABINOID SCREEN,URINE NEGATIVE (NEGATIVE); COCAINE SCREEN,URINE NEGATIVE (NEGATIVE); METHADONE SCREEN, URINE NEGATIVE (NEGATIVE); OPIATE SCREEN,URINE NEGATIVE (NEGATIVE); PHENCYCLIDINE SCREEN,URINE NEGATIVE (NEGATIVE)
[2017-06-29] MEDS: NICOTINE 21 MG/24 HOUR PATCH TD SCH (08:44)
[2017-06-29] MEDS: METOPROLOL TARTRATE 25 MG TABLET PO SCH (08:44)
[2017-06-29] MEDS: DULoxetine HCL 30 MG CAPSULE PO SCH ×2 (10:43→16:40)
[2017-06-29] MEDS: HALOPERIDOL 5 MG TABLET PO SCH (10:43)
[2017-06-29 10:44] VITALS: BP 112/61
[2017-06-29 16:32] VITALS: BP 124/79
[2017-06-29] MEDS: HALOPERIDOL 10 MG TABLET PO SCH (20:20)
[2017-06-30] MEDS: METOPROLOL TARTRATE 25 MG TABLET PO SCH (08:52)
[2017-06-30] MEDS: NICOTINE 21 MG/24 HOUR PATCH TD SCH (08:52)
[2017-06-30] MEDS: CHOLECALCIFEROL (VIT D3) 5,000 UNITS CAPSULE PO SCH (08:52)
[2017-06-30] MEDS: DULoxetine HCL 30 MG CAPSULE PO SCH ×2 (08:52→16:52)
[2017-06-30] MEDS: LORazepam 2 MG TABLET PO PRN ×2 (08:52→16:52)
[2017-06-30] MEDS: HALOPERIDOL 5 MG TABLET PO SCH (08:52)
[2017-06-30 09:16] VITALS: BP 117/81
[2017-06-30] MEDS: HALOPERIDOL 5 MG TABLET PO PRN (16:52)
[2017-06-30 18:10] VITALS: BP 136/99
[2017-06-30] MEDS: HALOPERIDOL 10 MG TABLET PO SCH (21:00)
[2017-07-01 08:55] VITALS: BP 112/69
[2017-07-01] MEDS: LORazepam 2 MG TABLET PO PRN (12:01)
[2017-07-01] MEDS: DULoxetine HCL 30 MG CAPSULE PO SCH ×2 (12:01→17:18)
[2017-07-01] MEDS: HALOPERIDOL 5 MG TABLET PO SCH (12:01)
[2017-07-01] MEDS: CHOLECALCIFEROL (VIT D3) 5,000 UNITS CAPSULE PO SCH (12:01)
[2017-07-01] MEDS: METOPROLOL TARTRATE 25 MG TABLET PO SCH (12:02)
[2017-07-01] MEDS: NICOTINE 21 MG/24 HOUR PATCH TD SCH (12:02)
[2017-07-01 17:00] VITALS: BP 122/82
[2017-07-01] MEDS: HALOPERIDOL 10 MG TABLET PO SCH (20:30)
[2017-07-02] MEDS: NICOTINE 21 MG/24 HOUR PATCH TD SCH (09:00)
[2017-07-02] MEDS: HALOPERIDOL 5 MG TABLET PO SCH (09:23)
[2017-07-02] MEDS: METOPROLOL TARTRATE 25 MG TABLET PO SCH (09:23)
[2017-07-02] MEDS: DULoxetine HCL 30 MG CAPSULE PO SCH ×2 (09:23→17:13)
[2017-07-02] MEDS: CHOLECALCIFEROL (VIT D3) 5,000 UNITS CAPSULE PO SCH (09:24)
[2017-07-02 10:18] VITALS: BP 161/98
[2017-07-02 16:51] VITALS: BP 148/78
[2017-07-02] MEDS: LORazepam 2 MG TABLET PO PRN (20:27)
[2017-07-02] MEDS: HALOPERIDOL 10 MG TABLET PO SCH (20:27)
[2017-07-03] MEDS: CHOLECALCIFEROL (VIT D3) 5,000 UNITS CAPSULE PO SCH (09:36)
[2017-07-03] MEDS: DULoxetine HCL 30 MG CAPSULE PO SCH ×2 (09:36→16:07)
[2017-07-03] MEDS: METOPROLOL TARTRATE 25 MG TABLET PO SCH (09:36)
[2017-07-03] MEDS: HALOPERIDOL 5 MG TABLET PO SCH (09:36)
[2017-07-03] MEDS: NICOTINE 21 MG/24 HOUR PATCH TD SCH (09:37)
[2017-07-03 11:16] VITALS: BP 129/88
[2017-07-03 17:00] VITALS: BP 105/75
[2017-07-03] MEDS: HALOPERIDOL 10 MG TABLET PO SCH (20:33)
[2017-07-04] MEDS: NICOTINE 21 MG/24 HOUR PATCH TD SCH (09:00)
[2017-07-04 09:14] VITALS: BP 136/80
[2017-07-04] MEDS: METOPROLOL TARTRATE 25 MG TABLET PO SCH (10:00)
[2017-07-04] MEDS: CHOLECALCIFEROL (VIT D3) 5,000 UNITS CAPSULE PO SCH (10:00)
[2017-07-04] MEDS: HALOPERIDOL 5 MG TABLET PO SCH (10:00)
[2017-07-04] MEDS: DULoxetine HCL 30 MG CAPSULE PO SCH ×2 (10:00→16:12)
[2017-07-04] MEDS: HALOPERIDOL 5 MG TABLET PO PRN (16:12)
[2017-07-04] MEDS: LORazepam 2 MG TABLET PO PRN ×2 (16:12→20:36)
[2017-07-04 17:08] VITALS: BP 116/69
[2017-07-04] MEDS: HALOPERIDOL 10 MG TABLET PO SCH (20:36)
[2017-07-05 08:09] VITALS: BP 112/68
[2017-07-05] MEDS: HALOPERIDOL 5 MG TABLET PO SCH (10:43)
[2017-07-05] MEDS: DULoxetine HCL 30 MG CAPSULE PO SCH ×2 (10:43→16:51)
[2017-07-05] MEDS: NICOTINE 21 MG/24 HOUR PATCH TD SCH (10:44)
[2017-07-05] MEDS: CHOLECALCIFEROL (VIT D3) 5,000 UNITS CAPSULE PO SCH (10:44)
[2017-07-05] MEDS: METOPROLOL TARTRATE 25 MG TABLET PO SCH (10:44)
[2017-07-05 18:14] VITALS: BP 136/72
[2017-07-05] MEDS: HALOPERIDOL 10 MG TABLET PO SCH (20:22)
[2017-07-06 09:01] VITALS: BP 101/59
[2017-07-06] MEDS: NICOTINE 21 MG/24 HOUR PATCH TD SCH (09:41)
[2017-07-06] MEDS: METOPROLOL TARTRATE 25 MG TABLET PO SCH ×2 (09:42→11:57)
[2017-07-06] MEDS: DULoxetine HCL 30 MG CAPSULE PO SCH ×2 (09:42→16:24)
[2017-07-06] MEDS: HALOPERIDOL 5 MG TABLET PO SCH (09:43)
[2017-07-06] MEDS: CHOLECALCIFEROL (VIT D3) 5,000 UNITS CAPSULE PO SCH (09:44)
[2017-07-06 17:00] VITALS: BP 127/97
[2017-07-06] MEDS: HALOPERIDOL 10 MG TABLET PO SCH (20:18)
[2017-07-07] MEDS: LORazepam 2 MG TABLET PO PRN ×2 (01:16→16:20)
[2017-07-07 02:07] VITALS: BP 145/91
[2017-07-07] MEDS: DULoxetine HCL 30 MG CAPSULE PO SCH ×2 (08:42→16:20)
[2017-07-07] MEDS: HALOPERIDOL 5 MG TABLET PO SCH (08:43)
[2017-07-07] MEDS: METOPROLOL TARTRATE 25 MG TABLET PO SCH (08:43)
[2017-07-07] MEDS: CHOLECALCIFEROL (VIT D3) 5,000 UNITS CAPSULE PO SCH (08:44)
[2017-07-07] MEDS: NICOTINE 21 MG/24 HOUR PATCH TD SCH (08:46)
[2017-07-07 09:50] VITALS: BP 117/80
[2017-07-07 16:44] VITALS: BP 126/94
[2017-07-07] MEDS: HALOPERIDOL 10 MG TABLET PO SCH (21:42)
[2017-07-08 09:02] VITALS: BP 134/72
[2017-07-08] MEDS: HALOPERIDOL 5 MG TABLET PO SCH (10:49)
[2017-07-08] MEDS: METOPROLOL TARTRATE 25 MG TABLET PO SCH (10:49)
[2017-07-08] MEDS: CHOLECALCIFEROL (VIT D3) 5,000 UNITS CAPSULE PO SCH (10:49)
[2017-07-08] MEDS: DULoxetine HCL 30 MG CAPSULE PO SCH ×2 (10:49→16:46)
[2017-07-08] MEDS: NICOTINE 21 MG/24 HOUR PATCH TD SCH (10:50)
[2017-07-08 17:12] VITALS: BP 123/95
[2017-07-08] MEDS: HALOPERIDOL 10 MG TABLET PO SCH (20:27)
[2017-07-09] MEDS: DULoxetine HCL 30 MG CAPSULE PO SCH ×2 (09:28→16:22)
[2017-07-09] MEDS: CHOLECALCIFEROL (VIT D3) 5,000 UNITS CAPSULE PO SCH (09:29)
[2017-07-09] MEDS: METOPROLOL TARTRATE 25 MG TABLET PO SCH (09:29)
[2017-07-09] MEDS: NICOTINE 21 MG/24 HOUR PATCH TD SCH (09:29)
[2017-07-09] MEDS: HALOPERIDOL 5 MG TABLET PO SCH (09:29)
[2017-07-09 09:41] VITALS: BP 135/82
[2017-07-09] MEDS: LORazepam 2 MG TABLET PO PRN (16:22)
[2017-07-09 19:31] VITALS: BP 115/67
[2017-07-09] MEDS: HALOPERIDOL 10 MG TABLET PO SCH (21:23)
[2017-07-10 08:58] VITALS: BP 128/89
[2017-07-10] MEDS: HALOPERIDOL 5 MG TABLET PO SCH (09:55)
[2017-07-10] MEDS: CHOLECALCIFEROL (VIT D3) 5,000 UNITS CAPSULE PO SCH (09:55)
[2017-07-10] MEDS: METOPROLOL TARTRATE 25 MG TABLET PO SCH (09:55)
[2017-07-10] MEDS: DULoxetine HCL 30 MG CAPSULE PO SCH ×2 (09:55→16:54)
[2017-07-10] MEDS: NICOTINE 21 MG/24 HOUR PATCH TD SCH (09:56)
[2017-07-10 16:15] VITALS: BP 139/81
[2017-07-10] MEDS: LORazepam 2 MG TABLET PO PRN (16:54)
[2017-07-10] MEDS: HALOPERIDOL 10 MG TABLET PO SCH (20:12)
[2017-07-11] MEDS: CHOLECALCIFEROL (VIT D3) 5,000 UNITS CAPSULE PO SCH ×2 (09:00→11:43)
[2017-07-11] MEDS: DULoxetine HCL 30 MG CAPSULE PO SCH ×2 (09:00→11:43)
[2017-07-11] MEDS: HALOPERIDOL 5 MG TABLET PO SCH ×2 (09:00→11:43)
[2017-07-11] MEDS: METOPROLOL TARTRATE 25 MG TABLET PO SCH ×2 (09:00→11:43)
[2017-07-11] MEDS: NICOTINE 21 MG/24 HOUR PATCH TD SCH (09:00)
[2017-07-11 09:59] VITALS: BP 143/104
[2017-07-11] MEDS ORDERED: TUBERCULIN, PURIFIED PROTEIN DERIVATIVE 5 TU/0.1 ML SYG ID ONE (10:30)
[2017-07-11] MEDS: LORazepam 2 MG TABLET PO PRN (16:23)
[2017-07-11] MEDS: HALOPERIDOL 5 MG TABLET PO PRN (17:23)
[2017-07-11 19:34] VITALS: BP 131/87
[2017-07-11] MEDS: HALOPERIDOL 10 MG TABLET PO SCH (20:33)
[2017-07-12] MEDS: NICOTINE 21 MG/24 HOUR PATCH TD SCH (09:00)
[2017-07-12] MEDS: DULoxetine HCL 30 MG CAPSULE PO SCH ×2 (10:00→17:00)
[2017-07-12] MEDS: CHOLECALCIFEROL (VIT D3) 5,000 UNITS CAPSULE PO SCH (10:01)
[2017-07-12] MEDS: HALOPERIDOL 5 MG TABLET PO SCH (10:01)
[2017-07-12] MEDS: METOPROLOL TARTRATE 25 MG TABLET PO SCH (10:01)
[2017-07-12 11:37] VITALS: BP 135/86
[2017-07-12] MEDS: LORazepam 2 MG TABLET PO PRN (17:00)
[2017-07-12 19:03] VITALS: BP 135/89
[2017-07-12] MEDS: HALOPERIDOL 10 MG TABLET PO SCH (20:33)
[2017-07-13] MEDS: NICOTINE 21 MG/24 HOUR PATCH TD SCH (09:00)
[2017-07-13] MEDS: METOPROLOL TARTRATE 25 MG TABLET PO SCH (09:54)
[2017-07-13] MEDS: HALOPERIDOL 5 MG TABLET PO SCH (09:55)
[2017-07-13] MEDS: DULoxetine HCL 30 MG CAPSULE PO SCH ×2 (09:55→17:02)
[2017-07-13] MEDS: CHOLECALCIFEROL (VIT D3) 5,000 UNITS CAPSULE PO SCH (09:55)
[2017-07-13 11:29] VITALS: BP 142/97
[2017-07-13 19:29] VITALS: BP 117/74
[2017-07-13] MEDS: HALOPERIDOL 10 MG TABLET PO SCH (20:53)
[2017-07-14] MEDS: METOPROLOL TARTRATE 25 MG TABLET PO SCH (08:21)
[2017-07-14] MEDS: DULoxetine HCL 30 MG CAPSULE PO SCH ×2 (08:21→16:32)
[2017-07-14] MEDS: CHOLECALCIFEROL (VIT D3) 5,000 UNITS CAPSULE PO SCH (08:21)
[2017-07-14] MEDS: HALOPERIDOL 5 MG TABLET PO SCH (08:21)
[2017-07-14] MEDS: NICOTINE 21 MG/24 HOUR PATCH TD SCH (08:24)
[2017-07-14 09:51] VITALS: BP 109/52
[2017-07-14 17:12] VITALS: BP 142/93
[2017-07-14] MEDS: LORazepam 2 MG TABLET PO PRN ×2 (18:44→23:40)
[2017-07-14] MEDS: HALOPERIDOL 5 MG TABLET PO PRN ×2 (18:44→23:44)
[2017-07-14] MEDS: HALOPERIDOL 10 MG TABLET PO SCH (20:11)
[2017-07-15] VITALS: BP 126/77
[2017-07-15 09:56] VITALS: BP 159/70
[2017-07-15] MEDS: METOPROLOL TARTRATE 25 MG TABLET PO SCH (10:40)
[2017-07-15] MEDS: CHOLECALCIFEROL (VIT D3) 5,000 UNITS CAPSULE PO SCH (10:40)
[2017-07-15] MEDS: HALOPERIDOL 5 MG TABLET PO SCH (10:40)
[2017-07-15] MEDS: LORazepam 2 MG TABLET PO PRN ×2 (10:40→16:24)
[2017-07-15] MEDS: NICOTINE 21 MG/24 HOUR PATCH TD SCH (10:40)
[2017-07-15] MEDS: DULoxetine HCL 30 MG CAPSULE PO SCH ×2 (10:40→16:25)
[2017-07-15] MEDS: HALOPERIDOL 5 MG TABLET PO PRN (16:24)
[2017-07-15 18:29] VITALS: BP 127/78
[2017-07-15] MEDS: HALOPERIDOL 10 MG TABLET PO SCH (20:26)
[2017-07-16 08:30] VITALS: BP 100/61
[2017-07-16] MEDS: METOPROLOL TARTRATE 25 MG TABLET PO SCH (09:00)
[2017-07-16] MEDS: NICOTINE 21 MG/24 HOUR PATCH TD SCH (09:00)
[2017-07-16] MEDS: DULoxetine HCL 30 MG CAPSULE PO SCH ×2 (10:07→17:09)
[2017-07-16] MEDS: HALOPERIDOL 5 MG TABLET PO SCH (10:08)
[2017-07-16] MEDS: CHOLECALCIFEROL (VIT D3) 5,000 UNITS CAPSULE PO SCH (10:09)
[2017-07-16 19:41] VITALS: BP 119/77
[2017-07-16] MEDS: HALOPERIDOL 10 MG TABLET PO SCH (21:37)
[2017-07-17 08:17] VITALS: BP 119/67
[2017-07-17] MEDS: NICOTINE 21 MG/24 HOUR PATCH TD SCH (09:00)
[2017-07-17] MEDS: METOPROLOL TARTRATE 25 MG TABLET PO SCH (10:05)
[2017-07-17] MEDS: CHOLECALCIFEROL (VIT D3) 5,000 UNITS CAPSULE PO SCH (10:05)
[2017-07-17] MEDS: HALOPERIDOL 5 MG TABLET PO SCH (10:05)
[2017-07-17] MEDS: DULoxetine HCL 30 MG CAPSULE PO SCH ×2 (10:05→17:29)
[2017-07-17 17:05] VITALS: BP 126/78
[2017-07-17] MEDS: LORazepam 2 MG TABLET PO PRN (17:29)
[2017-07-17] MEDS: HALOPERIDOL 10 MG TABLET PO SCH (22:04)
[2017-07-18 03:21] VITALS: BP 137/84
[2017-07-18] MEDS: LORazepam 2 MG TABLET PO PRN ×2 (03:22→15:53)
[2017-07-18] MEDS: HALOPERIDOL 5 MG TABLET PO PRN (03:22)
[2017-07-18 08:05] VITALS: BP 108/71
[2017-07-18] MEDS: NICOTINE 21 MG/24 HOUR PATCH TD SCH (09:00)
[2017-07-18] MEDS: HALOPERIDOL 5 MG TABLET PO SCH (09:20)
[2017-07-18] MEDS: CHOLECALCIFEROL (VIT D3) 5,000 UNITS CAPSULE PO SCH (09:20)
[2017-07-18] MEDS: METOPROLOL TARTRATE 25 MG TABLET PO SCH (09:20)
[2017-07-18] MEDS: DULoxetine HCL 30 MG CAPSULE PO SCH ×2 (09:20→16:23)
[2017-07-18 19:00] VITALS: BP 124/93
[2017-07-18] MEDS: HALOPERIDOL 10 MG TABLET PO SCH (20:32)
[2017-07-19 08:05] VITALS: BP 138/75
[2017-07-19] MEDS: NICOTINE 21 MG/24 HOUR PATCH TD SCH (09:00)
[2017-07-19] MEDS: HALOPERIDOL 5 MG TABLET PO SCH (10:06)
[2017-07-19] MEDS: DULoxetine HCL 30 MG CAPSULE PO SCH ×2 (10:06→17:05)
[2017-07-19] MEDS: METOPROLOL TARTRATE 25 MG TABLET PO SCH (10:06)
[2017-07-19] MEDS: CHOLECALCIFEROL (VIT D3) 5,000 UNITS CAPSULE PO SCH (10:06)
[2017-07-19 16:45] VITALS: BP 129/64
[2017-07-19] MEDS: LORazepam 2 MG TABLET PO PRN (17:05)
[2017-07-19] MEDS: HALOPERIDOL 10 MG TABLET PO SCH (20:22)
[2017-07-20 08:05] VITALS: BP 157/99
[2017-07-20] MEDS: NICOTINE 21 MG/24 HOUR PATCH TD SCH (09:00)
[2017-07-20] MEDS: HALOPERIDOL 5 MG TABLET PO SCH (10:11)
[2017-07-20] MEDS: CHOLECALCIFEROL (VIT D3) 5,000 UNITS CAPSULE PO SCH (10:11)
[2017-07-20] MEDS: METOPROLOL TARTRATE 25 MG TABLET PO SCH (10:11)
[2017-07-20] MEDS: DULoxetine HCL 30 MG CAPSULE PO SCH ×2 (10:11→16:15)
[2017-07-20] MEDS: LORazepam 2 MG TABLET PO PRN (16:15)
[2017-07-20 16:46] VITALS: BP 135/97
[2017-07-20] MEDS: HALOPERIDOL 10 MG TABLET PO SCH (21:37)
[2017-07-21 09:11] VITALS: BP 136/86
[2017-07-21] MEDS: METOPROLOL TARTRATE 25 MG TABLET PO SCH (10:14)
[2017-07-21] MEDS: DULoxetine HCL 30 MG CAPSULE PO SCH ×2 (10:14→16:35)
[2017-07-21] MEDS: CHOLECALCIFEROL (VIT D3) 5,000 UNITS CAPSULE PO SCH (10:14)
[2017-07-21] MEDS: HALOPERIDOL 5 MG TABLET PO SCH (10:14)
[2017-07-21] MEDS: NICOTINE 21 MG/24 HOUR PATCH TD SCH (10:14)
[2017-07-21 16:33] VITALS: BP 133/82
[2017-07-21] MEDS: LORazepam 2 MG TABLET PO PRN (16:34)
[2017-07-21] MEDS: HALOPERIDOL 10 MG TABLET PO SCH (21:11)
[2017-07-22] MEDS: HALOPERIDOL 5 MG TABLET PO PRN (03:04)
[2017-07-22] MEDS: LORazepam 2 MG TABLET PO PRN ×2 (03:04→16:56)
[2017-07-22 08:54] VITALS: BP 154/89
[2017-07-22] MEDS: CHOLECALCIFEROL (VIT D3) 5,000 UNITS CAPSULE PO SCH (10:27)
[2017-07-22] MEDS: METOPROLOL TARTRATE 25 MG TABLET PO SCH (10:29)
[2017-07-22] MEDS: DULoxetine HCL 30 MG CAPSULE PO SCH ×2 (10:29→16:05)
[2017-07-22] MEDS: HALOPERIDOL 5 MG TABLET PO SCH (10:29)
[2017-07-22] MEDS: NICOTINE 21 MG/24 HOUR PATCH TD SCH (10:30)
[2017-07-22 17:00] VITALS: BP 123/76
[2017-07-22] MEDS: HALOPERIDOL 10 MG TABLET PO SCH (20:30)
[2017-07-23] MEDS: NICOTINE 21 MG/24 HOUR PATCH TD SCH (09:00)
[2017-07-23 09:05] VITALS: BP 118/81
[2017-07-23] MEDS: DULoxetine HCL 30 MG CAPSULE PO SCH ×2 (10:05→16:08)
[2017-07-23] MEDS: METOPROLOL TARTRATE 25 MG TABLET PO SCH (10:06)
[2017-07-23] MEDS: HALOPERIDOL 5 MG TABLET PO SCH (10:06)
[2017-07-23] MEDS: CHOLECALCIFEROL (VIT D3) 5,000 UNITS CAPSULE PO SCH (10:06)
[2017-07-23] MEDS: LORazepam 2 MG TABLET PO PRN (16:08)
[2017-07-23 16:23] VITALS: BP 142/94
[2017-07-23] MEDS: HALOPERIDOL 10 MG TABLET PO SCH (21:04)
[2017-07-24] MEDS: NICOTINE 21 MG/24 HOUR PATCH TD SCH (09:00)
[2017-07-24] MEDS: HALOPERIDOL 5 MG TABLET PO SCH (09:17)
[2017-07-24] MEDS: METOPROLOL TARTRATE 25 MG TABLET PO SCH (09:17)
[2017-07-24] MEDS: DULoxetine HCL 30 MG CAPSULE PO SCH ×2 (09:17→16:16)
[2017-07-24 09:29] VITALS: BP 109/60
[2017-07-24] MEDS: CHOLECALCIFEROL (VIT D3) 5,000 UNITS CAPSULE PO SCH (09:44)
[2017-07-24 17:00] VITALS: BP 133/94
[2017-07-24] MEDS: HALOPERIDOL 10 MG TABLET PO SCH (20:01)
[2017-07-24] MEDS: LORazepam 2 MG TABLET PO PRN (22:08)
[2017-07-25 00:28] VITALS: BP 141/84
[2017-07-25] MEDS: HALOPERIDOL 5 MG TABLET PO PRN (00:54)
[2017-07-25 09:23] VITALS: BP 112/59
[2017-07-25] MEDS: CHOLECALCIFEROL (VIT D3) 5,000 UNITS CAPSULE PO SCH (10:41)
[2017-07-25] MEDS: METOPROLOL TARTRATE 25 MG TABLET PO SCH (10:46)
[2017-07-25] MEDS: NICOTINE 21 MG/24 HOUR PATCH TD SCH (10:46)
[2017-07-25] MEDS: DULoxetine HCL 30 MG CAPSULE PO SCH ×2 (10:46→16:18)
[2017-07-25] MEDS: HALOPERIDOL 5 MG TABLET PO SCH (10:46)
[2017-07-25] MEDS: BENZOCAINE/MENTHOL LOZENGE [8 LOZENGES/PACKET] PO PRN (16:20)
[2017-07-25 18:29] VITALS: BP 137/98
[2017-07-25] MEDS: HALOPERIDOL 10 MG TABLET PO SCH (20:54)
[2017-07-26 08:57] VITALS: BP 138/82
[2017-07-26] MEDS: METOPROLOL TARTRATE 25 MG TABLET PO SCH (10:26)
[2017-07-26] MEDS: CHOLECALCIFEROL (VIT D3) 5,000 UNITS CAPSULE PO SCH (10:26)
[2017-07-26] MEDS: HALOPERIDOL 5 MG TABLET PO SCH (10:26)
[2017-07-26] MEDS: DULoxetine HCL 30 MG CAPSULE PO SCH ×2 (10:26→16:16)
[2017-07-26] MEDS: NICOTINE 21 MG/24 HOUR PATCH TD SCH (10:27)
[2017-07-26] MEDS: LORazepam 2 MG TABLET PO PRN (16:18)
[2017-07-26] MEDS: HALOPERIDOL 5 MG TABLET PO PRN (16:18)
[2017-07-26] MEDS: BENZOCAINE/MENTHOL LOZENGE [8 LOZENGES/PACKET] PO PRN (16:20)
[2017-07-26 18:29] VITALS: BP 113/68
[2017-07-26] MEDS: HALOPERIDOL 10 MG TABLET PO SCH (21:39)
[2017-07-27 08:31] VITALS: BP 134/91
[2017-07-27] MEDS: DULoxetine HCL 30 MG CAPSULE PO SCH ×2 (09:19→16:26)
[2017-07-27] MEDS: HALOPERIDOL 5 MG TABLET PO SCH (09:19)
[2017-07-27] MEDS: METOPROLOL TARTRATE 25 MG TABLET PO SCH (09:19)
[2017-07-27] MEDS: CHOLECALCIFEROL (VIT D3) 5,000 UNITS CAPSULE PO SCH (09:20)
[2017-07-27] MEDS: NICOTINE 21 MG/24 HOUR PATCH TD SCH (09:20)
[2017-07-27 19:00] VITALS: BP 137/71
[2017-07-27] MEDS: HALOPERIDOL 10 MG TABLET PO SCH (21:59)
[2017-07-28 08:40] VITALS: BP 138/92
[2017-07-28] MEDS: METOPROLOL TARTRATE 25 MG TABLET PO SCH (10:25)
[2017-07-28] MEDS: DULoxetine HCL 30 MG CAPSULE PO SCH ×2 (10:25→17:13)
[2017-07-28] MEDS: CHOLECALCIFEROL (VIT D3) 5,000 UNITS CAPSULE PO SCH (10:25)
[2017-07-28] MEDS: HALOPERIDOL 5 MG TABLET PO SCH (10:25)
[2017-07-28] MEDS: NICOTINE 21 MG/24 HOUR PATCH TD SCH (12:07)
[2017-07-28] MEDS: LORazepam 2 MG TABLET PO PRN (17:13)
[2017-07-28 17:14] VITALS: BP 118/72
[2017-07-28] MEDS: HALOPERIDOL 10 MG TABLET PO SCH (20:13)
[2017-07-29 03:33] VITALS: BP 145/79
[2017-07-29] MEDS: LORazepam 2 MG TABLET PO PRN ×2 (03:33→17:26)
[2017-07-29] MEDS: HALOPERIDOL 5 MG TABLET PO PRN (03:33)
[2017-07-29 08:53] VITALS: BP 136/90
[2017-07-29] MEDS: NICOTINE 21 MG/24 HOUR PATCH TD SCH (09:00)
[2017-07-29] MEDS: HALOPERIDOL 5 MG TABLET PO SCH (09:43)
[2017-07-29] MEDS: CHOLECALCIFEROL (VIT D3) 5,000 UNITS CAPSULE PO SCH (09:43)
[2017-07-29] MEDS: DULoxetine HCL 30 MG CAPSULE PO SCH ×2 (09:43→17:11)
[2017-07-29] MEDS: METOPROLOL TARTRATE 25 MG TABLET PO SCH (09:43)
[2017-07-29 16:45] VITALS: BP 131/74
[2017-07-29] MEDS: HALOPERIDOL 10 MG TABLET PO SCH (20:03)
[2017-07-30 02:23] VITALS: BP 126/96
[2017-07-30] MEDS: CHOLECALCIFEROL (VIT D3) 5,000 UNITS CAPSULE PO SCH (10:35)
[2017-07-30] MEDS: METOPROLOL TARTRATE 25 MG TABLET PO SCH (10:36)
[2017-07-30] MEDS: DULoxetine HCL 30 MG CAPSULE PO SCH ×2 (10:36→16:20)
[2017-07-30] MEDS: HALOPERIDOL 5 MG TABLET PO SCH (10:36)
[2017-07-30] MEDS: NICOTINE 21 MG/24 HOUR PATCH TD SCH (10:36)
[2017-07-30 12:04] VITALS: BP 128/74
[2017-07-30 17:00] VITALS: BP 140/85
[2017-07-30] MEDS: HALOPERIDOL 10 MG TABLET PO SCH (20:43)
[2017-07-31 09:06] VITALS: BP 125/67
[2017-07-31] MEDS: HALOPERIDOL 5 MG TABLET PO SCH (09:59)
[2017-07-31] MEDS: CHOLECALCIFEROL (VIT D3) 5,000 UNITS CAPSULE PO SCH (10:00)
[2017-07-31] MEDS: METOPROLOL TARTRATE 25 MG TABLET PO SCH (10:00)
[2017-07-31] MEDS: NICOTINE 21 MG/24 HOUR PATCH TD SCH (10:00)
[2017-07-31] MEDS: DULoxetine HCL 30 MG CAPSULE PO SCH ×2 (10:00→16:23)
[2017-07-31 17:00] VITALS: BP 130/86
[2017-07-31] MEDS: HALOPERIDOL 5 MG TABLET PO PRN (17:16)
[2017-07-31] MEDS: LORazepam 2 MG TABLET PO PRN (17:16)
[2017-07-31] MEDS: HALOPERIDOL 10 MG TABLET PO SCH (21:35)
[2017-07-31] MEDS: MIRTAZAPINE 15 MG TABLET PO SCH (21:35)
[2017-08-01 08:05] VITALS: BP 132/84
[2017-08-01] MEDS: CHOLECALCIFEROL (VIT D3) 5,000 UNITS CAPSULE PO SCH (10:11)
[2017-08-01] MEDS: NICOTINE 21 MG/24 HOUR PATCH TD SCH (10:11)
[2017-08-01] MEDS: METOPROLOL TARTRATE 25 MG TABLET PO SCH (10:11)
[2017-08-01] MEDS: DULoxetine HCL 30 MG CAPSULE PO SCH ×2 (10:11→16:20)
[2017-08-01] MEDS: HALOPERIDOL 5 MG TABLET PO SCH (10:11)
[2017-08-01] MEDS: LORazepam 2 MG TABLET PO PRN (17:02)
[2017-08-01 18:54] VITALS: BP 104/76
[2017-08-01] MEDS: MIRTAZAPINE 15 MG TABLET PO SCH (21:28)
[2017-08-01] MEDS: HALOPERIDOL 10 MG TABLET PO SCH (21:28)
[2017-08-02 08:47] VITALS: BP 137/92
[2017-08-02] MEDS: METOPROLOL TARTRATE 25 MG TABLET PO SCH (09:30)
[2017-08-02] MEDS: CHOLECALCIFEROL (VIT D3) 5,000 UNITS CAPSULE PO SCH (09:31)
[2017-08-02] MEDS: HALOPERIDOL 5 MG TABLET PO SCH (09:31)
[2017-08-02] MEDS: DULoxetine HCL 30 MG CAPSULE PO SCH ×2 (09:31→16:37)
[2017-08-02] MEDS: NICOTINE 21 MG/24 HOUR PATCH TD SCH (09:33)
[2017-08-02] MEDS: LORazepam 2 MG TABLET PO PRN (16:37)
[2017-08-02 16:45] VITALS: BP 128/96
[2017-08-02] MEDS: HALOPERIDOL 10 MG TABLET PO SCH (20:10)
[2017-08-02] MEDS: MIRTAZAPINE 15 MG TABLET PO SCH (20:10)
[2017-08-03 00:39] VITALS: BP 124/80
[2017-08-03] MEDS: HALOPERIDOL 5 MG TABLET PO PRN (00:41)
[2017-08-03] MEDS: LORazepam 2 MG TABLET PO PRN ×2 (00:49→16:15)
[2017-08-03 08:05] VITALS: BP 114/89
[2017-08-03] MEDS: DULoxetine HCL 30 MG CAPSULE PO SCH ×2 (10:07→16:15)
[2017-08-03] MEDS: CHOLECALCIFEROL (VIT D3) 5,000 UNITS CAPSULE PO SCH (10:07)
[2017-08-03] MEDS: HALOPERIDOL 5 MG TABLET PO SCH (10:07)
[2017-08-03] MEDS: NICOTINE 21 MG/24 HOUR PATCH TD SCH (10:07)
[2017-08-03] MEDS: METOPROLOL TARTRATE 25 MG TABLET PO SCH (10:07)
[2017-08-03 16:15] VITALS: BP 108/68
[2017-08-03] MEDS: HALOPERIDOL 10 MG TABLET PO SCH (20:19)
[2017-08-03] MEDS: MIRTAZAPINE 15 MG TABLET PO SCH (20:19)
[2017-08-04 09:12] VITALS: BP 102/59
[2017-08-04] MEDS: CHOLECALCIFEROL (VIT D3) 5,000 UNITS CAPSULE PO SCH (11:47)
[2017-08-04] MEDS: DULoxetine HCL 30 MG CAPSULE PO SCH ×2 (11:47→16:36)
[2017-08-04] MEDS: HALOPERIDOL 5 MG TABLET PO SCH (11:47)
[2017-08-04] MEDS: METOPROLOL TARTRATE 25 MG TABLET PO SCH (11:47)
[2017-08-04] MEDS: NICOTINE 21 MG/24 HOUR PATCH TD SCH (11:48)
[2017-08-04 17:01] VITALS: BP 136/92
[2017-08-04] MEDS: MIRTAZAPINE 15 MG TABLET PO SCH (21:15)
[2017-08-04] MEDS: HALOPERIDOL 10 MG TABLET PO SCH (21:15)
[2017-08-05] MEDS: METOPROLOL TARTRATE 25 MG TABLET PO SCH (08:33)
[2017-08-05] MEDS: DULoxetine HCL 30 MG CAPSULE PO SCH ×2 (08:33→16:49)
[2017-08-05] MEDS: CHOLECALCIFEROL (VIT D3) 5,000 UNITS CAPSULE PO SCH (08:34)
[2017-08-05] MEDS: HALOPERIDOL 5 MG TABLET PO SCH (08:34)
[2017-08-05] MEDS: NICOTINE 21 MG/24 HOUR PATCH TD SCH (08:38)
[2017-08-05 09:04] VITALS: BP 127/67
[2017-08-05 19:38] VITALS: BP 133/98
[2017-08-05] MEDS: MIRTAZAPINE 15 MG TABLET PO SCH (20:36)
[2017-08-05] MEDS: HALOPERIDOL 10 MG TABLET PO SCH (20:36)
[2017-08-06 09:02] VITALS: BP 139/92
[2017-08-06] MEDS: METOPROLOL TARTRATE 25 MG TABLET PO SCH (09:46)
[2017-08-06] MEDS: DULoxetine HCL 30 MG CAPSULE PO SCH ×2 (09:46→17:52)
[2017-08-06] MEDS: HALOPERIDOL 5 MG TABLET PO SCH (09:46)
[2017-08-06] MEDS: CHOLECALCIFEROL (VIT D3) 5,000 UNITS CAPSULE PO SCH (09:46)
[2017-08-06] MEDS: NICOTINE 21 MG/24 HOUR PATCH TD SCH (09:52)
[2017-08-06 16:45] VITALS: BP 134/83
[2017-08-06] MEDS: LORazepam 2 MG TABLET PO PRN (18:23)
[2017-08-06] MEDS: MIRTAZAPINE 15 MG TABLET PO SCH (20:41)
[2017-08-06] MEDS: HALOPERIDOL 10 MG TABLET PO SCH (20:41)
[2017-08-07] MEDS: CHOLECALCIFEROL (VIT D3) 5,000 UNITS CAPSULE PO SCH (09:28)
[2017-08-07] MEDS: DULoxetine HCL 30 MG CAPSULE PO SCH ×2 (09:28→17:07)
[2017-08-07] MEDS: HALOPERIDOL 5 MG TABLET PO SCH (09:28)
[2017-08-07] MEDS: METOPROLOL TARTRATE 25 MG TABLET PO SCH (09:29)
[2017-08-07] MEDS: NICOTINE 21 MG/24 HOUR PATCH TD SCH (09:32)
[2017-08-07 10:05] VITALS: BP 136/82
[2017-08-07] MEDS: LORazepam 2 MG TABLET PO PRN (17:07)
[2017-08-07 18:36] VITALS: BP 138/88
[2017-08-07] MEDS: HALOPERIDOL 10 MG TABLET PO SCH (20:28)
[2017-08-07] MEDS: MIRTAZAPINE 15 MG TABLET PO SCH (20:28)
[2017-08-08] MEDS: HALOPERIDOL 5 MG TABLET PO SCH (10:02)
[2017-08-08] MEDS: DULoxetine HCL 30 MG CAPSULE PO SCH ×2 (10:02→16:10)
[2017-08-08] MEDS: METOPROLOL TARTRATE 25 MG TABLET PO SCH (10:03)
[2017-08-08] MEDS: CHOLECALCIFEROL (VIT D3) 5,000 UNITS CAPSULE PO SCH (10:04)
[2017-08-08] MEDS: NICOTINE 21 MG/24 HOUR PATCH TD SCH (10:04)
[2017-08-08 11:28] VITALS: BP 115/64
[2017-08-08 16:41] VITALS: BP 129/78
[2017-08-08] MEDS: LORazepam 2 MG TABLET PO PRN (17:31)
[2017-08-08] MEDS: MIRTAZAPINE 15 MG TABLET PO SCH (20:52)
[2017-08-08] MEDS: HALOPERIDOL 10 MG TABLET PO SCH (20:52)
[2017-08-09 08:49] VITALS: BP 123/77
[2017-08-09] MEDS: NICOTINE 21 MG/24 HOUR PATCH TD SCH (09:00)
[2017-08-09] MEDS: METOPROLOL TARTRATE 25 MG TABLET PO SCH (09:12)
[2017-08-09] MEDS: CHOLECALCIFEROL (VIT D3) 5,000 UNITS CAPSULE PO SCH (09:12)
[2017-08-09] MEDS: HALOPERIDOL 5 MG TABLET PO SCH (09:12)
[2017-08-09] MEDS: DULoxetine HCL 30 MG CAPSULE PO SCH ×2 (09:12→16:22)
[2017-08-09 19:45] VITALS: BP 102/56
[2017-08-09] MEDS: HALOPERIDOL 10 MG TABLET PO SCH (21:04)
[2017-08-09] MEDS: MIRTAZAPINE 15 MG TABLET PO SCH (21:04)
[2017-08-10 08:37] VITALS: BP 143/90
[2017-08-10] MEDS: METOPROLOL TARTRATE 25 MG TABLET PO SCH (09:47)
[2017-08-10] MEDS: NICOTINE 21 MG/24 HOUR PATCH TD SCH (09:48)
[2017-08-10] MEDS: DULoxetine HCL 30 MG CAPSULE PO SCH ×2 (09:48→16:13)
[2017-08-10] MEDS: CHOLECALCIFEROL (VIT D3) 5,000 UNITS CAPSULE PO SCH (09:48)
[2017-08-10] MEDS: HALOPERIDOL 5 MG TABLET PO SCH (09:54)
[2017-08-10 16:28] VITALS: BP 97/63
[2017-08-10] MEDS: MIRTAZAPINE 15 MG TABLET PO SCH (20:29)
[2017-08-10] MEDS: HALOPERIDOL 10 MG TABLET PO SCH (20:29)
[2017-08-11 03:53] VITALS: BP 112/72
[2017-08-11 08:54] VITALS: BP 139/91
[2017-08-11] MEDS: DULoxetine HCL 30 MG CAPSULE PO SCH ×2 (09:20→16:32)
[2017-08-11] MEDS: NICOTINE 21 MG/24 HOUR PATCH TD SCH (09:20)
[2017-08-11] MEDS: HALOPERIDOL 5 MG TABLET PO SCH (09:20)
[2017-08-11] MEDS: METOPROLOL TARTRATE 25 MG TABLET PO SCH (09:21)
[2017-08-11] MEDS: CHOLECALCIFEROL (VIT D3) 5,000 UNITS CAPSULE PO SCH (09:21)
[2017-08-11 16:05] VITALS: BP 131/76
[2017-08-11] MEDS: MIRTAZAPINE 15 MG TABLET PO SCH (20:22)
[2017-08-11] MEDS: HALOPERIDOL 10 MG TABLET PO SCH (20:22)
[2017-08-12 08:32] VITALS: BP 116/56
[2017-08-12] MEDS: HALOPERIDOL 5 MG TABLET PO SCH (09:58)
[2017-08-12] MEDS: METOPROLOL TARTRATE 25 MG TABLET PO SCH (09:58)
[2017-08-12] MEDS: DULoxetine HCL 30 MG CAPSULE PO SCH ×2 (09:58→16:33)
[2017-08-12] MEDS: CHOLECALCIFEROL (VIT D3) 5,000 UNITS CAPSULE PO SCH (09:59)
[2017-08-12] MEDS: NICOTINE 21 MG/24 HOUR PATCH TD SCH (09:59)
[2017-08-12] MEDS: LORazepam 2 MG TABLET PO PRN ×2 (11:01→16:34)
[2017-08-12] MEDS: HALOPERIDOL 5 MG TABLET PO PRN (16:34)
[2017-08-12 19:57] VITALS: BP 122/81
[2017-08-12] MEDS: HALOPERIDOL 10 MG TABLET PO SCH (21:13)
[2017-08-12] MEDS: MIRTAZAPINE 15 MG TABLET PO SCH (21:13)
[2017-08-13] MEDS: NICOTINE 21 MG/24 HOUR PATCH TD SCH (09:00)
[2017-08-13] MEDS: METOPROLOL TARTRATE 25 MG TABLET PO SCH (09:00)
[2017-08-13 09:05] VITALS: BP 111/59
[2017-08-13] MEDS: DULoxetine HCL 30 MG CAPSULE PO SCH ×2 (10:19→17:36)
[2017-08-13] MEDS: CHOLECALCIFEROL (VIT D3) 5,000 UNITS CAPSULE PO SCH (10:19)
[2017-08-13] MEDS: HALOPERIDOL 5 MG TABLET PO SCH (10:20)
[2017-08-13 16:47] VITALS: BP 118/68
[2017-08-13] MEDS: HALOPERIDOL 10 MG TABLET PO SCH (20:13)
[2017-08-13] MEDS: MIRTAZAPINE 15 MG TABLET PO SCH (20:14)
[2017-08-14] MEDS: NICOTINE 21 MG/24 HOUR PATCH TD SCH (08:05)
[2017-08-14] MEDS: METOPROLOL TARTRATE 25 MG TABLET PO SCH (08:06)
[2017-08-14] MEDS: DULoxetine HCL 30 MG CAPSULE PO SCH ×2 (08:06→16:51)
[2017-08-14] MEDS: CHOLECALCIFEROL (VIT D3) 5,000 UNITS CAPSULE PO SCH (08:06)
[2017-08-14] MEDS: HALOPERIDOL 5 MG TABLET PO SCH (08:06)
[2017-08-14 09:47] VITALS: BP 142/88
[2017-08-14] MEDS: LORazepam 2 MG TABLET PO PRN (16:50)
[2017-08-14 17:15] VITALS: BP 131/70
[2017-08-14] MEDS: HALOPERIDOL 10 MG TABLET PO SCH (20:17)
[2017-08-14] MEDS: MIRTAZAPINE 15 MG TABLET PO SCH (20:17)
[2017-08-15 01:00] VITALS: BP 116/70
[2017-08-15] MEDS: METOPROLOL TARTRATE 25 MG TABLET PO SCH (10:20)
[2017-08-15] MEDS: HALOPERIDOL 5 MG TABLET PO SCH (10:20)
[2017-08-15] MEDS: DULoxetine HCL 30 MG CAPSULE PO SCH ×2 (10:20→16:21)
[2017-08-15] MEDS: NICOTINE 21 MG/24 HOUR PATCH TD SCH (10:20)
[2017-08-15] MEDS: CHOLECALCIFEROL (VIT D3) 5,000 UNITS CAPSULE PO SCH (10:20)
[2017-08-15 20:14] VITALS: BP 132/69
[2017-08-15] MEDS: MIRTAZAPINE 15 MG TABLET PO SCH (20:17)
[2017-08-15] MEDS: HALOPERIDOL 10 MG TABLET PO SCH (20:17)
[2017-08-16 03:27] VITALS: BP 127/81
[2017-08-16] MEDS: LORazepam 2 MG TABLET PO PRN ×2 (03:28→16:17)
[2017-08-16] MEDS: HALOPERIDOL 5 MG TABLET PO PRN (03:31)
[2017-08-16 09:39] VITALS: BP 121/93
[2017-08-16] MEDS: METOPROLOL TARTRATE 25 MG TABLET PO SCH (11:41)
[2017-08-16] MEDS: CHOLECALCIFEROL (VIT D3) 5,000 UNITS CAPSULE PO SCH (11:41)
[2017-08-16] MEDS: NICOTINE 21 MG/24 HOUR PATCH TD SCH (11:41)
[2017-08-16] MEDS: HALOPERIDOL 5 MG TABLET PO SCH (11:41)
[2017-08-16] MEDS: DULoxetine HCL 30 MG CAPSULE PO SCH ×2 (11:41→16:17)
[2017-08-16 16:40] VITALS: BP 122/76
[2017-08-16] MEDS: HALOPERIDOL 10 MG TABLET PO SCH (20:22)
[2017-08-16] MEDS: MIRTAZAPINE 15 MG TABLET PO SCH (20:22)
[2017-08-17] MEDS: METOPROLOL TARTRATE 25 MG TABLET PO SCH (09:00)
[2017-08-17] MEDS: NICOTINE 21 MG/24 HOUR PATCH TD SCH (09:00)
[2017-08-17 09:41] VITALS: BP 101/58
[2017-08-17] MEDS: HALOPERIDOL 5 MG TABLET PO SCH (10:27)
[2017-08-17] MEDS: DULoxetine HCL 30 MG CAPSULE PO SCH ×2 (10:27→16:34)
[2017-08-17] MEDS: CHOLECALCIFEROL (VIT D3) 5,000 UNITS CAPSULE PO SCH (10:28)
[2017-08-17 16:46] VITALS: BP 120/67
[2017-08-17] MEDS: HALOPERIDOL 10 MG TABLET PO SCH (20:51)
[2017-08-17] MEDS: MIRTAZAPINE 15 MG TABLET PO SCH (20:51)
[2017-08-18] MEDS: NICOTINE 21 MG/24 HOUR PATCH TD SCH (09:00)
[2017-08-18] MEDS: DULoxetine HCL 30 MG CAPSULE PO SCH ×2 (09:23→17:02)
[2017-08-18] MEDS: HALOPERIDOL 5 MG TABLET PO SCH (09:23)
[2017-08-18] MEDS: METOPROLOL TARTRATE 25 MG TABLET PO SCH (09:23)
[2017-08-18] MEDS: CHOLECALCIFEROL (VIT D3) 5,000 UNITS CAPSULE PO SCH (09:23)
[2017-08-18 10:46] VITALS: BP 138/72
[2017-08-18 17:30] VITALS: BP 134/74
[2017-08-18] MEDS: HALOPERIDOL 10 MG TABLET PO SCH (20:48)
[2017-08-18] MEDS: MIRTAZAPINE 15 MG TABLET PO SCH (20:49)
[2017-08-18] MEDS: LORazepam 2 MG TABLET PO PRN (22:31)
[2017-08-19 08:05] VITALS: BP 149/93
[2017-08-19] MEDS: NICOTINE 21 MG/24 HOUR PATCH TD SCH (09:00)
[2017-08-19] MEDS: CHOLECALCIFEROL (VIT D3) 5,000 UNITS CAPSULE PO SCH (09:02)
[2017-08-19] MEDS: METOPROLOL TARTRATE 25 MG TABLET PO SCH (09:02)
[2017-08-19] MEDS: DULoxetine HCL 30 MG CAPSULE PO SCH ×2 (09:02→16:16)
[2017-08-19] MEDS: HALOPERIDOL 5 MG TABLET PO SCH (09:02)
[2017-08-19 17:19] VITALS: BP 112/58
[2017-08-19] MEDS: MIRTAZAPINE 15 MG TABLET PO SCH (20:36)
[2017-08-19] MEDS: HALOPERIDOL 10 MG TABLET PO SCH (20:36)
[2017-08-20] MEDS: METOPROLOL TARTRATE 25 MG TABLET PO SCH (08:06)
[2017-08-20] MEDS: CHOLECALCIFEROL (VIT D3) 5,000 UNITS CAPSULE PO SCH (08:06)
[2017-08-20] MEDS: DULoxetine HCL 30 MG CAPSULE PO SCH ×2 (08:06→16:46)
[2017-08-20] MEDS: HALOPERIDOL 5 MG TABLET PO SCH (08:06)
[2017-08-20] MEDS: NICOTINE 21 MG/24 HOUR PATCH TD SCH (08:07)
[2017-08-20 10:23] VITALS: BP 134/81
[2017-08-20] MEDS: HALOPERIDOL 10 MG TABLET PO SCH (20:53)
[2017-08-20] MEDS: MIRTAZAPINE 15 MG TABLET PO SCH (20:54)
[2017-08-20 22:55] VITALS: BP 124/74
[2017-08-21] MEDS: NICOTINE 21 MG/24 HOUR PATCH TD SCH (09:00)
[2017-08-21 09:53] VITALS: BP 129/90
[2017-08-21] MEDS: DULoxetine HCL 30 MG CAPSULE PO SCH ×2 (10:03→16:07)
[2017-08-21] MEDS: HALOPERIDOL 5 MG TABLET PO SCH (10:03)
[2017-08-21] MEDS: METOPROLOL TARTRATE 25 MG TABLET PO SCH (10:03)
[2017-08-21] MEDS: CHOLECALCIFEROL (VIT D3) 5,000 UNITS CAPSULE PO SCH (10:04)
[2017-08-21 21:04] VITALS: BP 103/63
[2017-08-21] MEDS: HALOPERIDOL 10 MG TABLET PO SCH (21:09)
[2017-08-21] MEDS: MIRTAZAPINE 15 MG TABLET PO SCH (21:10)
[2017-08-22 08:32] VITALS: BP 131/82
[2017-08-22] MEDS: HALOPERIDOL 5 MG TABLET PO SCH (11:26)
[2017-08-22] MEDS: METOPROLOL TARTRATE 25 MG TABLET PO SCH (11:27)
[2017-08-22] MEDS: DULoxetine HCL 30 MG CAPSULE PO SCH ×2 (11:27→16:25)
[2017-08-22] MEDS: CHOLECALCIFEROL (VIT D3) 5,000 UNITS CAPSULE PO SCH (11:27)
[2017-08-22 18:48] VITALS: BP 132/72
[2017-08-22] MEDS: HALOPERIDOL 10 MG TABLET PO SCH (21:10)
[2017-08-22] MEDS: MIRTAZAPINE 15 MG TABLET PO SCH (21:10)
[2017-08-23 09:28] VITALS: BP 127/78
[2017-08-23] MEDS: DULoxetine HCL 30 MG CAPSULE PO SCH ×2 (09:29→16:02)
[2017-08-23] MEDS: CHOLECALCIFEROL (VIT D3) 5,000 UNITS CAPSULE PO SCH (09:29)
[2017-08-23] MEDS: HALOPERIDOL 5 MG TABLET PO SCH (09:30)
[2017-08-23] MEDS: METOPROLOL TARTRATE 25 MG TABLET PO SCH (09:30)
[2017-08-23 16:29] VITALS: BP 98/57
[2017-08-23] MEDS: HALOPERIDOL 10 MG TABLET PO SCH (20:23)
[2017-08-23] MEDS: MIRTAZAPINE 15 MG TABLET PO SCH (20:23)
[2017-08-23 20:24] VITALS: BP 112/75
[2017-08-24 00:02] VITALS: BP 107/68
[2017-08-24] MEDS: CHOLECALCIFEROL (VIT D3) 5,000 UNITS CAPSULE PO SCH (08:30)
[2017-08-24] MEDS: DULoxetine HCL 30 MG CAPSULE PO SCH ×2 (08:30→16:16)
[2017-08-24] MEDS: METOPROLOL TARTRATE 25 MG TABLET PO SCH (08:30)
[2017-08-24] MEDS: HALOPERIDOL 5 MG TABLET PO SCH (08:30)
[2017-08-24 10:30] VITALS: BP 103/59
[2017-08-24 16:15] VITALS: BP 138/97
[2017-08-24] MEDS: HALOPERIDOL 10 MG TABLET PO SCH (21:11)
[2017-08-24] MEDS: MIRTAZAPINE 15 MG TABLET PO SCH (21:11)
[2017-08-25 08:10] VITALS: BP 146/97
[2017-08-25] MEDS: METOPROLOL TARTRATE 25 MG TABLET PO SCH (10:44)
[2017-08-25] MEDS: CHOLECALCIFEROL (VIT D3) 5,000 UNITS CAPSULE PO SCH (10:45)
[2017-08-25] MEDS: HALOPERIDOL 5 MG TABLET PO SCH (10:45)
[2017-08-25] MEDS: DULoxetine HCL 30 MG CAPSULE PO SCH ×2 (10:45→16:36)
[2017-08-25] MEDS: LORazepam 2 MG TABLET PO PRN (16:36)
[2017-08-25 18:00] VITALS: BP 136/88
[2017-08-25] MEDS: HALOPERIDOL 10 MG TABLET PO SCH (21:00)
[2017-08-25] MEDS: MIRTAZAPINE 15 MG TABLET PO SCH (21:00)
[2017-08-26] MEDS: HALOPERIDOL 5 MG TABLET PO SCH (09:31)
[2017-08-26] MEDS: CHOLECALCIFEROL (VIT D3) 5,000 UNITS CAPSULE PO SCH (09:31)
[2017-08-26] MEDS: DULoxetine HCL 30 MG CAPSULE PO SCH ×2 (09:31→16:15)
[2017-08-26] MEDS: METOPROLOL TARTRATE 25 MG TABLET PO SCH (09:31)
[2017-08-26 09:41] VITALS: BP 116/54
[2017-08-26 19:22] VITALS: BP 138/89
[2017-08-26] MEDS: HALOPERIDOL 10 MG TABLET PO SCH (21:05)
[2017-08-26] MEDS: MIRTAZAPINE 15 MG TABLET PO SCH (21:05)
[2017-08-27 08:30] VITALS: BP 138/98
[2017-08-27] MEDS: METOPROLOL TARTRATE 25 MG TABLET PO SCH (09:59)
[2017-08-27] MEDS: DULoxetine HCL 30 MG CAPSULE PO SCH ×2 (09:59→16:13)
[2017-08-27] MEDS: CHOLECALCIFEROL (VIT D3) 5,000 UNITS CAPSULE PO SCH (09:59)
[2017-08-27] MEDS: HALOPERIDOL 5 MG TABLET PO SCH (09:59)
[2017-08-27 17:07] VITALS: BP 132/82
[2017-08-27] MEDS: MIRTAZAPINE 15 MG TABLET PO SCH (20:11)
[2017-08-27] MEDS: HALOPERIDOL 10 MG TABLET PO SCH (20:12)
[2017-08-28 08:30] VITALS: BP 122/74
[2017-08-28] MEDS: HALOPERIDOL 5 MG TABLET PO SCH (10:45)
[2017-08-28] MEDS: CHOLECALCIFEROL (VIT D3) 5,000 UNITS CAPSULE PO SCH (10:45)
[2017-08-28] MEDS: METOPROLOL TARTRATE 25 MG TABLET PO SCH (10:45)
[2017-08-28] MEDS: DULoxetine HCL 30 MG CAPSULE PO SCH ×2 (10:45→16:10)
[2017-08-28 16:25] VITALS: BP 149/98
[2017-08-28] MEDS: HALOPERIDOL 10 MG TABLET PO SCH (20:07)
[2017-08-28] MEDS: MIRTAZAPINE 15 MG TABLET PO SCH (20:07)
[2017-08-29 09:12] VITALS: BP 108/64
[2017-08-29] MEDS: CHOLECALCIFEROL (VIT D3) 5,000 UNITS CAPSULE PO SCH (09:54)
[2017-08-29] MEDS: HALOPERIDOL 5 MG TABLET PO SCH (09:54)
[2017-08-29] MEDS: DULoxetine HCL 30 MG CAPSULE PO SCH ×2 (09:54→16:55)
[2017-08-29] MEDS: METOPROLOL TARTRATE 25 MG TABLET PO SCH (09:55)
[2017-08-29 17:07] VITALS: BP 120/73
[2017-08-29] MEDS: HALOPERIDOL 10 MG TABLET PO SCH (20:41)
[2017-08-29] MEDS: MIRTAZAPINE 15 MG TABLET PO SCH (20:41)
[2017-08-30 09:03] VITALS: BP 146/100
[2017-08-30] MEDS: CHOLECALCIFEROL (VIT D3) 5,000 UNITS CAPSULE PO SCH (09:47)
[2017-08-30] MEDS: DULoxetine HCL 30 MG CAPSULE PO SCH ×2 (09:47→16:56)
[2017-08-30] MEDS: HALOPERIDOL 5 MG TABLET PO SCH (09:47)
[2017-08-30] MEDS: METOPROLOL TARTRATE 25 MG TABLET PO SCH (09:47)
[2017-08-30 19:57] VITALS: BP 116/61
[2017-08-30] MEDS: HALOPERIDOL 10 MG TABLET PO SCH (20:27)
[2017-08-30] MEDS: MIRTAZAPINE 15 MG TABLET PO SCH (20:27)
[2017-08-31 08:38] VITALS: BP 110/57
[2017-08-31] MEDS: METOPROLOL TARTRATE 25 MG TABLET PO SCH (10:20)
[2017-08-31] MEDS: HALOPERIDOL 5 MG TABLET PO SCH (10:20)
[2017-08-31] MEDS: DULoxetine HCL 30 MG CAPSULE PO SCH ×2 (10:20→16:38)
[2017-08-31] MEDS: CHOLECALCIFEROL (VIT D3) 5,000 UNITS CAPSULE PO SCH (10:20)
[2017-08-31 16:45] VITALS: BP 139/73
[2017-08-31] MEDS: HALOPERIDOL 10 MG TABLET PO SCH (21:04)
[2017-08-31] MEDS: MIRTAZAPINE 15 MG TABLET PO SCH (21:05)
[2017-09-01] MEDS: HALOPERIDOL 5 MG TABLET PO SCH (09:27)
[2017-09-01] MEDS: CHOLECALCIFEROL (VIT D3) 5,000 UNITS CAPSULE PO SCH (09:27)
[2017-09-01] MEDS: DULoxetine HCL 30 MG CAPSULE PO SCH ×2 (09:27→16:15)
[2017-09-01] MEDS: METOPROLOL TARTRATE 25 MG TABLET PO SCH (09:27)
[2017-09-01 09:46] VITALS: BP 138/72
[2017-09-01 16:30] VITALS: BP 121/78
[2017-09-01] MEDS: HALOPERIDOL 10 MG TABLET PO SCH (21:00)
[2017-09-01] MEDS: MIRTAZAPINE 15 MG TABLET PO SCH (21:01)
[2017-09-02] MEDS: CHOLECALCIFEROL (VIT D3) 5,000 UNITS CAPSULE PO SCH (09:44)
[2017-09-02] MEDS: DULoxetine HCL 30 MG CAPSULE PO SCH ×2 (09:44→16:57)
[2017-09-02] MEDS: METOPROLOL TARTRATE 25 MG TABLET PO SCH (09:44)
[2017-09-02] MEDS: HALOPERIDOL 5 MG TABLET PO SCH (09:44)
[2017-09-02 09:50] VITALS: BP 153/95
[2017-09-02 18:35] VITALS: BP 128/75
[2017-09-02] MEDS: MIRTAZAPINE 15 MG TABLET PO SCH (20:03)
[2017-09-02] MEDS: HALOPERIDOL 10 MG TABLET PO SCH (20:03)
[2017-09-03 08:15] VITALS: BP 147/99
[2017-09-03] MEDS: METOPROLOL TARTRATE 25 MG TABLET PO SCH (09:11)
[2017-09-03] MEDS: HALOPERIDOL 5 MG TABLET PO SCH (09:11)
[2017-09-03] MEDS: CHOLECALCIFEROL (VIT D3) 5,000 UNITS CAPSULE PO SCH (09:11)
[2017-09-03] MEDS: DULoxetine HCL 30 MG CAPSULE PO SCH ×2 (09:11→17:04)
[2017-09-03 16:45] VITALS: BP 151/80
[2017-09-03] MEDS: MIRTAZAPINE 15 MG TABLET PO SCH (20:24)
[2017-09-03] MEDS: HALOPERIDOL 10 MG TABLET PO SCH (20:24)
[2017-09-04 08:18] VITALS: BP 136/74
[2017-09-04] MEDS: CHOLECALCIFEROL (VIT D3) 5,000 UNITS CAPSULE PO SCH (08:20)
[2017-09-04] MEDS: HALOPERIDOL 5 MG TABLET PO SCH (08:20)
[2017-09-04] MEDS: DULoxetine HCL 30 MG CAPSULE PO SCH ×2 (08:21→16:31)
[2017-09-04] MEDS: METOPROLOL TARTRATE 25 MG TABLET PO SCH (08:21)
[2017-09-04 16:30] VITALS: BP 124/67
[2017-09-04] MEDS: MIRTAZAPINE 15 MG TABLET PO SCH (20:16)
[2017-09-04] MEDS: HALOPERIDOL 10 MG TABLET PO SCH (20:17)
[2017-09-05 08:49] VITALS: BP 150/88
[2017-09-05] MEDS: HALOPERIDOL 5 MG TABLET PO SCH (09:37)
[2017-09-05] MEDS: CHOLECALCIFEROL (VIT D3) 5,000 UNITS CAPSULE PO SCH (09:37)
[2017-09-05] MEDS: DULoxetine HCL 30 MG CAPSULE PO SCH ×2 (09:37→16:03)
[2017-09-05] MEDS: METOPROLOL TARTRATE 25 MG TABLET PO SCH (09:37)
[2017-09-05] MEDS: LORazepam 2 MG TABLET PO PRN ×2 (16:03→20:13)
[2017-09-05] MEDS: HALOPERIDOL 10 MG TABLET PO SCH (20:13)
[2017-09-05] MEDS: MIRTAZAPINE 15 MG TABLET PO SCH (20:28)
[2017-09-06] MEDS: METOPROLOL TARTRATE 25 MG TABLET PO SCH (09:27)
[2017-09-06] MEDS: DULoxetine HCL 30 MG CAPSULE PO SCH ×2 (09:27→17:50)
[2017-09-06] MEDS: CHOLECALCIFEROL (VIT D3) 5,000 UNITS CAPSULE PO SCH (09:27)
[2017-09-06] MEDS: HALOPERIDOL 5 MG TABLET PO SCH (09:27)
[2017-09-06 13:01] VITALS: BP 136/97
[2017-09-06 16:38] VITALS: BP 126/82
[2017-09-06] MEDS: MIRTAZAPINE 15 MG TABLET PO SCH (20:35)
[2017-09-06] MEDS: HALOPERIDOL 10 MG TABLET PO SCH (20:35)
[2017-09-07 09:04] VITALS: BP 144/89
[2017-09-07] MEDS: METOPROLOL TARTRATE 25 MG TABLET PO SCH (09:58)
[2017-09-07] MEDS: HALOPERIDOL 5 MG TABLET PO SCH (09:58)
[2017-09-07] MEDS: DULoxetine HCL 30 MG CAPSULE PO SCH ×2 (09:58→17:16)
[2017-09-07] MEDS: CHOLECALCIFEROL (VIT D3) 5,000 UNITS CAPSULE PO SCH (09:59)
[2017-09-07] MEDS: LORazepam 2 MG TABLET PO PRN (17:16)
[2017-09-07 18:59] VITALS: BP 120/86
[2017-09-07] MEDS: HALOPERIDOL 10 MG TABLET PO SCH (20:15)
[2017-09-07] MEDS: MIRTAZAPINE 15 MG TABLET PO SCH (20:15)
[2017-09-08 08:05] VITALS: BP 110/60
[2017-09-08] MEDS: HALOPERIDOL 5 MG TABLET PO SCH (09:42)
[2017-09-08] MEDS: DULoxetine HCL 30 MG CAPSULE PO SCH ×2 (09:42→16:18)
[2017-09-08] MEDS: CHOLECALCIFEROL (VIT D3) 5,000 UNITS CAPSULE PO SCH (09:42)
[2017-09-08] MEDS: METOPROLOL TARTRATE 25 MG TABLET PO SCH (09:42)
[2017-09-08] MEDS: LORazepam 2 MG TABLET PO PRN (16:18)
[2017-09-08 17:06] VITALS: BP 141/86
[2017-09-08] MEDS: MIRTAZAPINE 15 MG TABLET PO SCH (20:01)
[2017-09-08] MEDS: HALOPERIDOL 10 MG TABLET PO SCH (20:01)
[2017-09-09 08:15] VITALS: BP 112/91
[2017-09-09] MEDS: CHOLECALCIFEROL (VIT D3) 5,000 UNITS CAPSULE PO SCH (10:40)
[2017-09-09] MEDS: METOPROLOL TARTRATE 25 MG TABLET PO SCH (10:40)
[2017-09-09] MEDS: HALOPERIDOL 5 MG TABLET PO SCH (10:41)
[2017-09-09] MEDS: DULoxetine HCL 30 MG CAPSULE PO SCH ×2 (10:41→17:00)
[2017-09-09 19:25] VITALS: BP 128/96
[2017-09-09] MEDS: MIRTAZAPINE 15 MG TABLET PO SCH (20:25)
[2017-09-09] MEDS: HALOPERIDOL 10 MG TABLET PO SCH (20:25)
[2017-09-10 08:16] VITALS: BP 140/92
[2017-09-10] MEDS: DULoxetine HCL 30 MG CAPSULE PO SCH ×2 (09:59→16:35)
[2017-09-10] MEDS: CHOLECALCIFEROL (VIT D3) 5,000 UNITS CAPSULE PO SCH (09:59)
[2017-09-10] MEDS: METOPROLOL TARTRATE 25 MG TABLET PO SCH (09:59)
[2017-09-10] MEDS: HALOPERIDOL 5 MG TABLET PO SCH (09:59)
[2017-09-10] MEDS: LORazepam 2 MG TABLET PO PRN (16:36)
[2017-09-10] MEDS: HALOPERIDOL 5 MG TABLET PO PRN (16:36)
[2017-09-10 17:11] VITALS: BP 132/82
[2017-09-10] MEDS: HALOPERIDOL 10 MG TABLET PO SCH (20:42)
[2017-09-10] MEDS: MIRTAZAPINE 15 MG TABLET PO SCH (20:42)
[2017-09-11 08:30] VITALS: BP 107/67
[2017-09-11] MEDS: METOPROLOL TARTRATE 25 MG TABLET PO SCH (09:00)
[2017-09-11] MEDS: CHOLECALCIFEROL (VIT D3) 5,000 UNITS CAPSULE PO SCH (10:08)
[2017-09-11] MEDS: HALOPERIDOL 5 MG TABLET PO SCH (10:08)
[2017-09-11] MEDS: DULoxetine HCL 30 MG CAPSULE PO SCH ×2 (10:08→16:04)
[2017-09-11 16:25] VITALS: BP 131/78
[2017-09-11] MEDS: MIRTAZAPINE 15 MG TABLET PO SCH (20:25)
[2017-09-11] MEDS: HALOPERIDOL 10 MG TABLET PO SCH (20:25)
[2017-09-12] MEDS: DULoxetine HCL 30 MG CAPSULE PO SCH ×2 (09:53→16:13)
[2017-09-12] MEDS: METOPROLOL TARTRATE 25 MG TABLET PO SCH (09:53)
[2017-09-12] MEDS: HALOPERIDOL 5 MG TABLET PO SCH (09:54)
[2017-09-12] MEDS: CHOLECALCIFEROL (VIT D3) 5,000 UNITS CAPSULE PO SCH (09:54)
[2017-09-12 13:01] VITALS: BP 143/74
[2017-09-12 16:56] VITALS: BP 132/81
[2017-09-12] MEDS: MIRTAZAPINE 15 MG TABLET PO SCH (21:49)
[2017-09-12] MEDS: HALOPERIDOL 10 MG TABLET PO SCH (21:49)
[2017-09-13] MEDS: LORazepam 2 MG TABLET PO PRN (00:45)
[2017-09-13 00:52] VITALS: BP 145/95
[2017-09-13 09:03] VITALS: BP 116/59
[2017-09-13] MEDS: CHOLECALCIFEROL (VIT D3) 5,000 UNITS CAPSULE PO SCH (10:04)
[2017-09-13] MEDS: METOPROLOL TARTRATE 25 MG TABLET PO SCH (10:04)
[2017-09-13] MEDS: HALOPERIDOL 5 MG TABLET PO SCH (10:04)
[2017-09-13] MEDS: DULoxetine HCL 30 MG CAPSULE PO SCH ×2 (10:04→16:22)
[2017-09-13] MEDS: HALOPERIDOL 10 MG TABLET PO SCH (20:54)
[2017-09-13] MEDS: MIRTAZAPINE 15 MG TABLET PO SCH (20:54)
[2017-09-14 08:31] VITALS: BP 149/87
[2017-09-14] MEDS: DULoxetine HCL 30 MG CAPSULE PO SCH ×2 (09:41→16:28)
[2017-09-14] MEDS: METOPROLOL TARTRATE 25 MG TABLET PO SCH (09:41)
[2017-09-14] MEDS: HALOPERIDOL 5 MG TABLET PO SCH (09:42)
[2017-09-14] MEDS: CHOLECALCIFEROL (VIT D3) 5,000 UNITS CAPSULE PO SCH (09:43)
[2017-09-14] MEDS: HALOPERIDOL 5 MG TABLET PO PRN (16:28)
[2017-09-14 18:44] VITALS: BP 102/65
[2017-09-14] MEDS: HALOPERIDOL 10 MG TABLET PO SCH (20:27)
[2017-09-14] MEDS: MIRTAZAPINE 15 MG TABLET PO SCH (20:27)
[2017-09-15] MEDS: METOPROLOL TARTRATE 25 MG TABLET PO SCH (09:32)
[2017-09-15] MEDS: DULoxetine HCL 30 MG CAPSULE PO SCH ×2 (09:32→16:03)
[2017-09-15] MEDS: CHOLECALCIFEROL (VIT D3) 5,000 UNITS CAPSULE PO SCH (09:32)
[2017-09-15] MEDS: HALOPERIDOL 5 MG TABLET PO SCH (09:33)
[2017-09-15 09:38] VITALS: BP 142/93
[2017-09-15 16:50] VITALS: BP 124/78
[2017-09-15] MEDS: MIRTAZAPINE 15 MG TABLET PO SCH (20:47)
[2017-09-15] MEDS: HALOPERIDOL 10 MG TABLET PO SCH (20:47)
[2017-09-16 08:32] VITALS: BP 137/107
[2017-09-16] MEDS: DULoxetine HCL 30 MG CAPSULE PO SCH ×2 (09:31→16:29)
[2017-09-16] MEDS: CHOLECALCIFEROL (VIT D3) 5,000 UNITS CAPSULE PO SCH (09:32)
[2017-09-16] MEDS: HALOPERIDOL 5 MG TABLET PO SCH (09:32)
[2017-09-16] MEDS: METOPROLOL TARTRATE 25 MG TABLET PO SCH (09:32)
[2017-09-16 16:38] VITALS: BP 128/82
[2017-09-16] MEDS: MIRTAZAPINE 15 MG TABLET PO SCH (20:46)
[2017-09-16] MEDS: HALOPERIDOL 10 MG TABLET PO SCH (20:46)
[2017-09-17] MEDS: DULoxetine HCL 30 MG CAPSULE PO SCH ×2 (09:28→17:12)
[2017-09-17] MEDS: HALOPERIDOL 5 MG TABLET PO SCH (09:28)
[2017-09-17] MEDS: METOPROLOL TARTRATE 25 MG TABLET PO SCH (09:28)
[2017-09-17] MEDS: CHOLECALCIFEROL (VIT D3) 5,000 UNITS CAPSULE PO SCH (09:30)
[2017-09-17 09:34] VITALS: BP 133/97
[2017-09-17 17:00] VITALS: BP 110/60
[2017-09-17] MEDS: HALOPERIDOL 10 MG TABLET PO SCH (20:46)
[2017-09-17] MEDS: MIRTAZAPINE 15 MG TABLET PO SCH (20:46)
[2017-09-17] MEDS: LORazepam 2 MG TABLET PO PRN (22:39)
[2017-09-17] MEDS: HALOPERIDOL 5 MG TABLET PO PRN (22:40)
[2017-09-18 01:59] VITALS: BP 146/98
[2017-09-18] MEDS: LORazepam 2 MG TABLET PO PRN ×2 (05:02→16:48)
[2017-09-18] MEDS: CHOLECALCIFEROL (VIT D3) 5,000 UNITS CAPSULE PO SCH (09:03)
[2017-09-18] MEDS: DULoxetine HCL 30 MG CAPSULE PO SCH ×2 (09:03→16:19)
[2017-09-18] MEDS: HALOPERIDOL 5 MG TABLET PO SCH (09:03)
[2017-09-18] MEDS: METOPROLOL TARTRATE 25 MG TABLET PO SCH (09:04)
[2017-09-18 09:31] VITALS: BP 132/91
[2017-09-18 11:02] LABS: EOSINOPHILS % (AUTO) 0.2 % (1.0-6.0); HEMATOCRIT 46.4 % (41-53); HEMOGLOBIN 15.5 g/dL (13.5-17.5); LYMPHOCYTES # (AUTO) 2.1 K/uL (1.0-4.8); LYMPHOCYTES % (AUTO) 18.9 % (22.0-44.0); MEAN CORPUSCULAR HEMOGLOBIN 28.6 pg (26.0-34.0); MEAN CORPUSCULAR HGB CONC 33.4 G/dL (31.0-37.0); MEAN CORPUSCULAR VOLUME 86 fL (80-100); MONOCYTES # (AUTO) 0.9 K/uL (0.1-1.0); NEUTROPHILS # (AUTO) 7.9 K/uL (1.8-7.7); NEUTROPHILS % (AUTO) 71.9 % (40.0-70.0); PLATELET COUNT (AUTO) 284 K/uL (150-450); RED BLOOD CELL COUNT(AUTO) 5.42 MIL/uL (4.50-5.90); RED CELL DISTRIBUTION WIDTH 13.2 % (11.5-14.5)
[2017-09-18 11:54] LABS: ALANINE AMINOTRANSFERASE 28 U/L (12-78); ALBUMIN 3.5 g/dL (3.4-5.0); ALKALINE PHOSPHATASE 92 U/L (46-116); ANION GAP 7 mmol/L (8-16); ASPARTATE AMINOTRANSFERASE 19 U/L (15-37); BILIRUBIN,TOTAL 0.7 mg/dL (0.1-1.0); CALCIUM, TOTAL 9.4 mg/dL (8.8-10.5); CARBON DIOXIDE 31 mmol/L (22-29); CHLORIDE 96 mmol/L (98-107); CREATININE 0.65 mg/dL (0.60-1.30); GLOMERULAR FILTR. RATE CALC > 60 mL/min (>60); GLUCOSE,RANDOM 96 mg/dL (70-110); POTASSIUM 3.9 mmol/L (3.5-5.1); SODIUM SERUM 134 mmol/L (136-145); TOTAL PROTEIN, SERUM 8.3 g/dL (6.4-8.2); UREA NITROGEN, BLOOD 11 mg/dL (7-18)
[2017-09-18] MEDS: HALOPERIDOL 5 MG TABLET PO PRN (13:20)
[2017-09-18 17:00] VITALS: BP 124/82
[2017-09-18] MEDS: MIRTAZAPINE 15 MG TABLET PO SCH (20:35)
[2017-09-18] MEDS: HALOPERIDOL 10 MG TABLET PO SCH (20:35)
[2017-09-19 08:54] VITALS: BP 133/98
[2017-09-19] MEDS: METOPROLOL TARTRATE 25 MG TABLET PO SCH (09:12)
[2017-09-19] MEDS: CHOLECALCIFEROL (VIT D3) 5,000 UNITS CAPSULE PO SCH (09:12)
[2017-09-19] MEDS: HALOPERIDOL 5 MG TABLET PO SCH (09:12)
[2017-09-19] MEDS: DULoxetine HCL 30 MG CAPSULE PO SCH ×2 (09:12→16:29)
[2017-09-19 16:32] VITALS: BP 133/93
[2017-09-19] MEDS: HALOPERIDOL 10 MG TABLET PO SCH (20:21)
[2017-09-19] MEDS: MIRTAZAPINE 15 MG TABLET PO SCH (20:21)
[2017-09-20] MEDS: LORazepam 2 MG TABLET PO PRN (00:25)
[2017-09-20] MEDS: HALOPERIDOL 5 MG TABLET PO PRN (00:26)
[2017-09-20 00:49] VITALS: BP 123/87
[2017-09-20] MEDS: METOPROLOL TARTRATE 25 MG TABLET PO SCH (09:00)
[2017-09-20] MEDS: CHOLECALCIFEROL (VIT D3) 5,000 UNITS CAPSULE PO SCH (10:08)
[2017-09-20] MEDS: DULoxetine HCL 30 MG CAPSULE PO SCH ×2 (10:08→17:55)
[2017-09-20] MEDS: HALOPERIDOL 5 MG TABLET PO SCH (10:09)
[2017-09-20 10:17] VITALS: BP 109/85
[2017-09-20 19:57] VITALS: BP 120/65
[2017-09-20] MEDS: HALOPERIDOL 10 MG TABLET PO SCH (20:19)
[2017-09-20] MEDS: MIRTAZAPINE 15 MG TABLET PO SCH (20:19)
[2017-09-21 09:06] VITALS: BP 135/96
[2017-09-21] MEDS: HALOPERIDOL 5 MG TABLET PO SCH (10:16)
[2017-09-21] MEDS: METOPROLOL TARTRATE 25 MG TABLET PO SCH (10:16)
[2017-09-21] MEDS: CHOLECALCIFEROL (VIT D3) 5,000 UNITS CAPSULE PO SCH (10:16)
[2017-09-21] MEDS: DULoxetine HCL 30 MG CAPSULE PO SCH ×2 (10:16→16:03)
[2017-09-21] MEDS: LORazepam 2 MG TABLET PO PRN (16:03)
[2017-09-21 18:33] VITALS: BP 125/99
[2017-09-21] MEDS: MIRTAZAPINE 15 MG TABLET PO SCH (20:04)
[2017-09-21] MEDS: HALOPERIDOL 10 MG TABLET PO SCH (20:04)
[2017-09-22 08:52] VITALS: BP 109/77
[2017-09-22] MEDS: DULoxetine HCL 30 MG CAPSULE PO SCH ×2 (09:52→16:13)
[2017-09-22] MEDS: HALOPERIDOL 5 MG TABLET PO SCH (09:52)
[2017-09-22] MEDS: CHOLECALCIFEROL (VIT D3) 5,000 UNITS CAPSULE PO SCH (09:52)
[2017-09-22] MEDS: METOPROLOL TARTRATE 25 MG TABLET PO SCH (09:52)
[2017-09-22 17:20] VITALS: BP 103/59
[2017-09-22] MEDS: HALOPERIDOL 10 MG TABLET PO SCH (21:12)
[2017-09-22] MEDS: MIRTAZAPINE 15 MG TABLET PO SCH (21:12)
[2017-09-23 09:51] VITALS: BP 112/62
[2017-09-23] MEDS: METOPROLOL TARTRATE 25 MG TABLET PO SCH (10:56)
[2017-09-23] MEDS: DULoxetine HCL 30 MG CAPSULE PO SCH ×2 (10:56→16:37)
[2017-09-23] MEDS: HALOPERIDOL 5 MG TABLET PO SCH (10:56)
[2017-09-23] MEDS: CHOLECALCIFEROL (VIT D3) 5,000 UNITS CAPSULE PO SCH (10:56)
[2017-09-23] MEDS: LORazepam 2 MG TABLET PO PRN ×2 (16:37→20:36)
[2017-09-23 17:14] VITALS: BP 119/60
[2017-09-23] MEDS: HALOPERIDOL 10 MG TABLET PO SCH (20:06)
[2017-09-23] MEDS: MIRTAZAPINE 15 MG TABLET PO SCH (20:06)
[2017-09-24] MEDS: METOPROLOL TARTRATE 25 MG TABLET PO SCH ×2 (09:00→10:04)
[2017-09-24] MEDS: DULoxetine HCL 30 MG CAPSULE PO SCH ×2 (10:03→16:25)
[2017-09-24] MEDS: HALOPERIDOL 5 MG TABLET PO SCH (10:03)
[2017-09-24] MEDS: CHOLECALCIFEROL (VIT D3) 5,000 UNITS CAPSULE PO SCH (10:03)
[2017-09-24 10:31] VITALS: BP 105/65
[2017-09-24 20:04] VITALS: BP 112/74
[2017-09-24] MEDS: HALOPERIDOL 10 MG TABLET PO SCH (20:55)
[2017-09-24] MEDS: MIRTAZAPINE 15 MG TABLET PO SCH (20:55)
[2017-09-25 01:00] VITALS: BP 108/68
[2017-09-25] MEDS: CHOLECALCIFEROL (VIT D3) 5,000 UNITS CAPSULE PO SCH (09:35)
[2017-09-25] MEDS: METOPROLOL TARTRATE 25 MG TABLET PO SCH (09:35)
[2017-09-25] MEDS: DULoxetine HCL 30 MG CAPSULE PO SCH ×2 (09:35→16:10)
[2017-09-25] MEDS: HALOPERIDOL 5 MG TABLET PO SCH (09:35)
[2017-09-25 10:45] VITALS: BP 108/63
[2017-09-25 17:03] VITALS: BP 118/67
[2017-09-25] MEDS: MIRTAZAPINE 15 MG TABLET PO SCH (20:23)
[2017-09-25] MEDS: HALOPERIDOL 10 MG TABLET PO SCH (20:23)
[2017-09-26 08:05] VITALS: BP 105/59
[2017-09-26] MEDS: METOPROLOL TARTRATE 25 MG TABLET PO SCH (09:35)
[2017-09-26] MEDS: CHOLECALCIFEROL (VIT D3) 5,000 UNITS CAPSULE PO SCH (09:35)
[2017-09-26] MEDS: HALOPERIDOL 5 MG TABLET PO SCH (09:35)
[2017-09-26] MEDS: DULoxetine HCL 30 MG CAPSULE PO SCH ×2 (09:35→16:04)
[2017-09-26 16:47] VITALS: BP 119/78
[2017-09-26] MEDS: MIRTAZAPINE 15 MG TABLET PO SCH (20:09)
[2017-09-26] MEDS: HALOPERIDOL 10 MG TABLET PO SCH (20:09)
[2017-09-27 08:08] VITALS: BP 110/59
[2017-09-27] MEDS: CHOLECALCIFEROL (VIT D3) 5,000 UNITS CAPSULE PO SCH (09:50)
[2017-09-27] MEDS: DULoxetine HCL 30 MG CAPSULE PO SCH ×2 (09:50→16:14)
[2017-09-27] MEDS: METOPROLOL TARTRATE 25 MG TABLET PO SCH (09:50)
[2017-09-27] MEDS: HALOPERIDOL 5 MG TABLET PO SCH (09:50)
[2017-09-27] MEDS: LORazepam 2 MG TABLET PO PRN (16:51)
[2017-09-27 16:52] VITALS: BP 115/77
[2017-09-27] MEDS: MIRTAZAPINE 15 MG TABLET PO SCH (20:46)
[2017-09-27] MEDS: HALOPERIDOL 10 MG TABLET PO SCH (20:46)
[2017-09-28 08:05] VITALS: BP 140/86
[2017-09-28] MEDS: DULoxetine HCL 30 MG CAPSULE PO SCH ×2 (09:11→17:06)
[2017-09-28] MEDS: METOPROLOL TARTRATE 25 MG TABLET PO SCH (09:11)
[2017-09-28] MEDS: CHOLECALCIFEROL (VIT D3) 5,000 UNITS CAPSULE PO SCH (09:11)
[2017-09-28] MEDS: HALOPERIDOL 5 MG TABLET PO SCH (09:11)
[2017-09-28 16:56] VITALS: BP_SYST 105; BP_SYST 91; BP_DIAS 68; BP_DIAS 69
[2017-09-28] MEDS: MIRTAZAPINE 15 MG TABLET PO SCH (20:15)
[2017-09-28] MEDS: HALOPERIDOL 10 MG TABLET PO SCH (20:15)
[2017-09-29 03:01] VITALS: BP 127/77
[2017-09-29 08:05] VITALS: BP 120/68
[2017-09-29] MEDS: DULoxetine HCL 30 MG CAPSULE PO SCH ×2 (09:48→15:55)
[2017-09-29] MEDS: CHOLECALCIFEROL (VIT D3) 5,000 UNITS CAPSULE PO SCH (09:48)
[2017-09-29] MEDS: HALOPERIDOL 5 MG TABLET PO SCH (09:48)
[2017-09-29] MEDS: METOPROLOL TARTRATE 25 MG TABLET PO SCH (09:48)
[2017-09-29 16:46] VITALS: BP 123/81
[2017-09-29] MEDS: MIRTAZAPINE 15 MG TABLET PO SCH (20:16)
[2017-09-29] MEDS: HALOPERIDOL 10 MG TABLET PO SCH (20:16)
[2017-09-30 08:05] VITALS: BP 153/93
[2017-09-30] MEDS: DULoxetine HCL 30 MG CAPSULE PO SCH ×2 (11:40→16:21)
[2017-09-30] MEDS: HALOPERIDOL 5 MG TABLET PO SCH (11:40)
[2017-09-30] MEDS: METOPROLOL TARTRATE 25 MG TABLET PO SCH (11:40)
[2017-09-30] MEDS: CHOLECALCIFEROL (VIT D3) 5,000 UNITS CAPSULE PO SCH (11:40)
[2017-09-30 16:29] VITALS: BP 103/63
[2017-09-30] MEDS: HALOPERIDOL 5 MG TABLET PO PRN (17:01)
[2017-09-30] MEDS: DiphenhydrAMINE HCL 25 MG CAPSULE PO PRN (17:01)
[2017-09-30] MEDS: LORazepam 2 MG TABLET PO PRN (17:01)
[2017-09-30] MEDS: HALOPERIDOL 10 MG TABLET PO SCH (21:09)
[2017-09-30] MEDS: MIRTAZAPINE 15 MG TABLET PO SCH (21:09)
[2017-10-01] MEDS: DULoxetine HCL 30 MG CAPSULE PO SCH ×2 (08:05→16:12)
[2017-10-01] MEDS: CHOLECALCIFEROL (VIT D3) 5,000 UNITS CAPSULE PO SCH (08:05)
[2017-10-01] MEDS: HALOPERIDOL 5 MG TABLET PO SCH (08:05)
[2017-10-01] MEDS: METOPROLOL TARTRATE 25 MG TABLET PO SCH (08:05)
[2017-10-01 09:51] VITALS: BP 117/64
[2017-10-01] MEDS: LORazepam 2 MG TABLET PO PRN (16:11)
[2017-10-01] MEDS: HALOPERIDOL 5 MG TABLET PO PRN (16:12)
[2017-10-01 16:45] VITALS: BP 111/78
[2017-10-01] MEDS: DiphenhydrAMINE HCL 25 MG CAPSULE PO PRN (17:30)
[2017-10-01] MEDS: HALOPERIDOL 10 MG TABLET PO SCH (20:35)
[2017-10-01] MEDS: MIRTAZAPINE 15 MG TABLET PO SCH (20:36)
[2017-10-02] MEDS: DULoxetine HCL 30 MG CAPSULE PO SCH ×2 (08:38→16:48)
[2017-10-02] MEDS: METOPROLOL TARTRATE 25 MG TABLET PO SCH (08:38)
[2017-10-02] MEDS: HALOPERIDOL 5 MG TABLET PO SCH (08:38)
[2017-10-02] MEDS: CHOLECALCIFEROL (VIT D3) 5,000 UNITS CAPSULE PO SCH (08:39)
[2017-10-02 09:26] VITALS: BP 127/90
[2017-10-02] MEDS: LORazepam 2 MG TABLET PO PRN (16:48)
[2017-10-02] MEDS: HALOPERIDOL 10 MG TABLET PO SCH (20:36)
[2017-10-02] MEDS: MIRTAZAPINE 15 MG TABLET PO SCH (20:37)
[2017-10-02 20:58] VITALS: BP 118/82
[2017-10-03 09:34] VITALS: BP 117/60
[2017-10-03] MEDS: CHOLECALCIFEROL (VIT D3) 5,000 UNITS CAPSULE PO SCH (10:51)
[2017-10-03] MEDS: METOPROLOL TARTRATE 25 MG TABLET PO SCH (10:52)
[2017-10-03] MEDS: HALOPERIDOL 5 MG TABLET PO SCH (10:52)
[2017-10-03] MEDS: DULoxetine HCL 30 MG CAPSULE PO SCH ×2 (10:52→16:11)
[2017-10-03] MEDS ORDERED: COAL TAR 0.5% 255 ML SHAMPOO TP ONE (13:30)
[2017-10-03] MEDS ORDERED: [UNRECOGNIZED DRUG - SUPPLY] TP ONE (13:30)
[2017-10-03] MEDS ORDERED: [UNRECOGNIZED DRUG - SUPPLY] TP PRN (13:45)
[2017-10-03] MEDS: COAL TAR 0.5% 255 ML SHAMPOO TP PRN (14:33)
[2017-10-03] MEDS: LORazepam 2 MG TABLET PO PRN (16:11)
[2017-10-03] MEDS: DiphenhydrAMINE HCL 25 MG CAPSULE PO PRN (16:11)
[2017-10-03 19:22] VITALS: BP 111/84
[2017-10-03] MEDS: MIRTAZAPINE 15 MG TABLET PO SCH (20:03)
[2017-10-03] MEDS: HALOPERIDOL 10 MG TABLET PO SCH (20:03)
[2017-10-04 09:30] VITALS: BP 135/90
[2017-10-04] MEDS: CHOLECALCIFEROL (VIT D3) 5,000 UNITS CAPSULE PO SCH (09:57)
[2017-10-04] MEDS: METOPROLOL TARTRATE 25 MG TABLET PO SCH (09:57)
[2017-10-04] MEDS: DULoxetine HCL 30 MG CAPSULE PO SCH ×2 (09:57→17:54)
[2017-10-04] MEDS: HALOPERIDOL 5 MG TABLET PO SCH (09:57)
[2017-10-04 18:08] VITALS: BP 132/80
[2017-10-04] MEDS: DiphenhydrAMINE HCL 25 MG CAPSULE PO PRN (19:25)
[2017-10-04] MEDS: MIRTAZAPINE 15 MG TABLET PO SCH (20:14)
[2017-10-04] MEDS: HALOPERIDOL 10 MG TABLET PO SCH (20:14)
[2017-10-05 01:41] VITALS: BP 131/83
[2017-10-05 10:06] VITALS: BP 128/97
[2017-10-05] MEDS: CHOLECALCIFEROL (VIT D3) 5,000 UNITS CAPSULE PO SCH (11:02)
[2017-10-05] MEDS: METOPROLOL TARTRATE 25 MG TABLET PO SCH (11:02)
[2017-10-05] MEDS: DULoxetine HCL 30 MG CAPSULE PO SCH ×2 (11:02→16:50)
[2017-10-05] MEDS: HALOPERIDOL 5 MG TABLET PO SCH (11:05)
[2017-10-05] MEDS: LORazepam 2 MG TABLET PO PRN (16:50)
[2017-10-05 17:50] VITALS: BP 127/70
[2017-10-05] MEDS: DiphenhydrAMINE HCL 25 MG CAPSULE PO PRN (18:12)
[2017-10-05] MEDS: MIRTAZAPINE 15 MG TABLET PO SCH (20:12)
[2017-10-05] MEDS: HALOPERIDOL 10 MG TABLET PO SCH (20:13)
[2017-10-06 08:00] VITALS: BP 123/70
[2017-10-06] MEDS: HALOPERIDOL 5 MG TABLET PO SCH (09:30)
[2017-10-06] MEDS: DULoxetine HCL 30 MG CAPSULE PO SCH ×2 (09:30→16:21)
[2017-10-06] MEDS: CHOLECALCIFEROL (VIT D3) 5,000 UNITS CAPSULE PO SCH (09:30)
[2017-10-06] MEDS: METOPROLOL TARTRATE 25 MG TABLET PO SCH (09:30)
[2017-10-06] MEDS: DiphenhydrAMINE HCL 25 MG CAPSULE PO PRN (16:22)
[2017-10-06 16:34] VITALS: BP 120/78
[2017-10-06] MEDS: MIRTAZAPINE 15 MG TABLET PO SCH (20:18)
[2017-10-06] MEDS: HALOPERIDOL 10 MG TABLET PO SCH (20:18)
[2017-10-07 08:05] VITALS: BP 141/95
[2017-10-07] MEDS: DULoxetine HCL 30 MG CAPSULE PO SCH ×2 (10:07→16:50)
[2017-10-07] MEDS: METOPROLOL TARTRATE 25 MG TABLET PO SCH (10:07)
[2017-10-07] MEDS: HALOPERIDOL 5 MG TABLET PO SCH (10:07)
[2017-10-07] MEDS: CHOLECALCIFEROL (VIT D3) 5,000 UNITS CAPSULE PO SCH (10:07)
[2017-10-07] MEDS: DiphenhydrAMINE HCL 25 MG CAPSULE PO PRN (16:50)
[2017-10-07] MEDS: LORazepam 2 MG TABLET PO PRN (16:50)
[2017-10-07 18:08] VITALS: BP 108/72
[2017-10-07] MEDS: MIRTAZAPINE 15 MG TABLET PO SCH (20:11)
[2017-10-07] MEDS: HALOPERIDOL 10 MG TABLET PO SCH (20:12)
[2017-10-08] MEDS: DULoxetine HCL 30 MG CAPSULE PO SCH ×2 (09:00→16:07)
[2017-10-08] MEDS: METOPROLOL TARTRATE 25 MG TABLET PO SCH (09:00)
[2017-10-08] MEDS: CHOLECALCIFEROL (VIT D3) 5,000 UNITS CAPSULE PO SCH (09:00)
[2017-10-08] MEDS: HALOPERIDOL 5 MG TABLET PO SCH (09:00)
[2017-10-08 09:28] VITALS: BP 101/60
[2017-10-08] MEDS: LORazepam 2 MG TABLET PO PRN (16:07)
[2017-10-08] MEDS: DiphenhydrAMINE HCL 25 MG CAPSULE PO PRN (16:07)
[2017-10-08 19:16] VITALS: BP 109/65
[2017-10-08] MEDS: MIRTAZAPINE 15 MG TABLET PO SCH (20:22)
[2017-10-08] MEDS: HALOPERIDOL 10 MG TABLET PO SCH (20:22)
[2017-10-09] MEDS: CHOLECALCIFEROL (VIT D3) 5,000 UNITS CAPSULE PO SCH (09:39)
[2017-10-09] MEDS: METOPROLOL TARTRATE 25 MG TABLET PO SCH (09:39)
[2017-10-09] MEDS: HALOPERIDOL 5 MG TABLET PO SCH (09:39)
[2017-10-09] MEDS: DULoxetine HCL 30 MG CAPSULE PO SCH ×2 (09:39→16:19)
[2017-10-09 09:41] VITALS: BP 125/89
[2017-10-09] MEDS ORDERED: MUPIROCIN CALCIUM 2% 22 GM OINTMENT NASAL SCH (10:15)
[2017-10-09] MEDS: MUPIROCIN CALCIUM 2% 22 GM OINTMENT NASAL SCH ×2 (11:19→16:19)
[2017-10-09] MEDS: LORazepam 2 MG TABLET PO PRN (16:20)
[2017-10-09] MEDS: DiphenhydrAMINE HCL 25 MG CAPSULE PO PRN (16:20)
[2017-10-09 17:00] VITALS: BP 113/83
[2017-10-09] MEDS: MIRTAZAPINE 15 MG TABLET PO SCH (20:12)
[2017-10-09] MEDS: HALOPERIDOL 10 MG TABLET PO SCH (20:13)
[2017-10-10 08:43] VITALS: BP 144/84
[2017-10-10] MEDS: CHOLECALCIFEROL (VIT D3) 5,000 UNITS CAPSULE PO SCH (10:53)
[2017-10-10] MEDS: MUPIROCIN CALCIUM 2% 22 GM OINTMENT NASAL SCH ×2 (10:53→16:14)
[2017-10-10] MEDS: METOPROLOL TARTRATE 25 MG TABLET PO SCH (10:53)
[2017-10-10] MEDS: DULoxetine HCL 30 MG CAPSULE PO SCH ×2 (10:53→16:12)
[2017-10-10] MEDS: HALOPERIDOL 5 MG TABLET PO SCH (10:55)
[2017-10-10] MEDS: LORazepam 2 MG TABLET PO PRN (16:12)
[2017-10-10 17:17] VITALS: BP 118/72
[2017-10-10] MEDS: HALOPERIDOL 10 MG TABLET PO SCH (20:04)
[2017-10-10] MEDS: MIRTAZAPINE 15 MG TABLET PO SCH (20:05)
[2017-10-10] MEDS: DiphenhydrAMINE HCL 25 MG CAPSULE PO PRN (20:05)
[2017-10-11] MEDS: CHOLECALCIFEROL (VIT D3) 5,000 UNITS CAPSULE PO SCH (08:41)
[2017-10-11] MEDS: MUPIROCIN CALCIUM 2% 22 GM OINTMENT NASAL SCH ×2 (08:41→16:43)
[2017-10-11] MEDS: METOPROLOL TARTRATE 25 MG TABLET PO SCH (08:41)
[2017-10-11] MEDS: HALOPERIDOL 5 MG TABLET PO SCH (08:41)
[2017-10-11] MEDS: DULoxetine HCL 30 MG CAPSULE PO SCH ×2 (08:41→16:43)
[2017-10-11 08:44] VITALS: BP 125/86
[2017-10-11 17:03] VITALS: BP 141/86
[2017-10-11] MEDS: HALOPERIDOL 10 MG TABLET PO SCH (20:45)
[2017-10-11] MEDS: MIRTAZAPINE 15 MG TABLET PO SCH (20:45)
[2017-10-12 08:05] VITALS: BP 120/68
[2017-10-12] MEDS: MUPIROCIN CALCIUM 2% 22 GM OINTMENT NASAL SCH ×2 (09:00→16:22)
[2017-10-12] MEDS: CHOLECALCIFEROL (VIT D3) 5,000 UNITS CAPSULE PO SCH (10:08)
[2017-10-12] MEDS: METOPROLOL TARTRATE 25 MG TABLET PO SCH (10:08)
[2017-10-12] MEDS: DULoxetine HCL 30 MG CAPSULE PO SCH ×2 (10:08→16:24)
[2017-10-12] MEDS: HALOPERIDOL 5 MG TABLET PO SCH (10:10)
[2017-10-12] MEDS: DiphenhydrAMINE HCL 25 MG CAPSULE PO PRN ×2 (16:23→20:33)
[2017-10-12] MEDS: HALOPERIDOL 5 MG TABLET PO PRN ×2 (16:24→20:34)
[2017-10-12 16:52] VITALS: BP 148/94
[2017-10-12] MEDS: LORazepam 2 MG TABLET PO PRN (20:34)
[2017-10-12] MEDS: MIRTAZAPINE 15 MG TABLET PO SCH (21:47)
[2017-10-12] MEDS: HALOPERIDOL 10 MG TABLET PO SCH (21:47)
[2017-10-13] MEDS: LORazepam 2 MG TABLET PO PRN ×3 (00:55→19:30)
[2017-10-13] MEDS: DiphenhydrAMINE HCL 25 MG CAPSULE PO PRN ×3 (00:55→16:00)
[2017-10-13 01:56] VITALS: BP 134/71
[2017-10-13 08:33] VITALS: BP 112/74
[2017-10-13] MEDS: DULoxetine HCL 30 MG CAPSULE PO SCH ×2 (09:20→16:00)
[2017-10-13] MEDS: METOPROLOL TARTRATE 25 MG TABLET PO SCH (09:20)
[2017-10-13] MEDS: HALOPERIDOL 5 MG TABLET PO SCH (09:20)
[2017-10-13] MEDS: CHOLECALCIFEROL (VIT D3) 5,000 UNITS CAPSULE PO SCH (09:20)
[2017-10-13] MEDS: MUPIROCIN CALCIUM 2% 22 GM OINTMENT NASAL SCH ×2 (09:21→16:02)
[2017-10-13] MEDS: HALOPERIDOL 5 MG TABLET PO PRN (16:00)
[2017-10-13 16:23] VITALS: BP 134/95
[2017-10-13] MEDS: MIRTAZAPINE 15 MG TABLET PO SCH (21:48)
[2017-10-13] MEDS: HALOPERIDOL 10 MG TABLET PO SCH (21:48)
[2017-10-14 08:42] VITALS: BP 129/80
[2017-10-14] MEDS: DULoxetine HCL 30 MG CAPSULE PO SCH ×2 (09:50→16:56)
[2017-10-14] MEDS: HALOPERIDOL 5 MG TABLET PO SCH (09:50)
[2017-10-14] MEDS: METOPROLOL TARTRATE 25 MG TABLET PO SCH (09:50)
[2017-10-14] MEDS: CHOLECALCIFEROL (VIT D3) 5,000 UNITS CAPSULE PO SCH (09:50)
[2017-10-14] MEDS: MUPIROCIN CALCIUM 2% 22 GM OINTMENT NASAL SCH (10:03)
[2017-10-14] MEDS: LORazepam 2 MG TABLET PO PRN (16:56)
[2017-10-14] MEDS: DiphenhydrAMINE HCL 25 MG CAPSULE PO PRN (18:54)
[2017-10-14] MEDS: HALOPERIDOL 10 MG TABLET PO SCH (20:09)
[2017-10-14] MEDS: MIRTAZAPINE 15 MG TABLET PO SCH (20:09)
[2017-10-14 22:08] VITALS: BP 136/85
[2017-10-15 04:55] VITALS: BP 132/87
[2017-10-15 09:07] VITALS: BP 103/55
[2017-10-15] MEDS: DULoxetine HCL 30 MG CAPSULE PO SCH ×2 (09:46→16:02)
[2017-10-15] MEDS: HALOPERIDOL 5 MG TABLET PO SCH (09:46)
[2017-10-15] MEDS: METOPROLOL TARTRATE 25 MG TABLET PO SCH (09:47)
[2017-10-15] MEDS: CHOLECALCIFEROL (VIT D3) 5,000 UNITS CAPSULE PO SCH (09:48)
[2017-10-15] MEDS: DiphenhydrAMINE HCL 25 MG CAPSULE PO PRN (16:04)
[2017-10-15] MEDS: LORazepam 2 MG TABLET PO PRN (16:04)
[2017-10-15 18:40] VITALS: BP 112/72
[2017-10-15] MEDS: MIRTAZAPINE 15 MG TABLET PO SCH (20:18)
[2017-10-15] MEDS: HALOPERIDOL 10 MG TABLET PO SCH (20:18)
[2017-10-16 09:37] VITALS: BP 147/96
[2017-10-16] MEDS: CHOLECALCIFEROL (VIT D3) 5,000 UNITS CAPSULE PO SCH (09:42)
[2017-10-16] MEDS: METOPROLOL TARTRATE 25 MG TABLET PO SCH (09:42)
[2017-10-16] MEDS: HALOPERIDOL 5 MG TABLET PO SCH (09:42)
[2017-10-16] MEDS: DULoxetine HCL 30 MG CAPSULE PO SCH ×2 (09:42→16:50)
[2017-10-16 16:30] VITALS: BP 107/67
[2017-10-16] MEDS: LORazepam 2 MG TABLET PO PRN (16:50)
[2017-10-16] MEDS: DiphenhydrAMINE HCL 25 MG CAPSULE PO PRN (16:50)
[2017-10-16] MEDS: MIRTAZAPINE 15 MG TABLET PO SCH (20:19)
[2017-10-16] MEDS: HALOPERIDOL 10 MG TABLET PO SCH (20:19)
[2017-10-17 09:01] VITALS: BP 141/92
[2017-10-17] MEDS: DULoxetine HCL 30 MG CAPSULE PO SCH ×2 (09:39→16:06)
[2017-10-17] MEDS: HALOPERIDOL 5 MG TABLET PO SCH (09:40)
[2017-10-17] MEDS: CHOLECALCIFEROL (VIT D3) 5,000 UNITS CAPSULE PO SCH (09:40)
[2017-10-17] MEDS: METOPROLOL TARTRATE 25 MG TABLET PO SCH (09:40)
[2017-10-17] MEDS: LORazepam 2 MG TABLET PO PRN (16:05)
[2017-10-17] MEDS: HALOPERIDOL 5 MG TABLET PO PRN (16:05)
[2017-10-17 16:57] VITALS: BP 120/67
[2017-10-17] MEDS: HALOPERIDOL 10 MG TABLET PO SCH (20:35)
[2017-10-17] MEDS: MIRTAZAPINE 15 MG TABLET PO SCH (20:36)
[2017-10-18 09:09] VITALS: BP 126/92
[2017-10-18] MEDS: CHOLECALCIFEROL (VIT D3) 5,000 UNITS CAPSULE PO SCH (09:25)
[2017-10-18] MEDS: HALOPERIDOL 5 MG TABLET PO SCH (09:25)
[2017-10-18] MEDS: METOPROLOL TARTRATE 25 MG TABLET PO SCH (09:25)
[2017-10-18] MEDS: DULoxetine HCL 30 MG CAPSULE PO SCH ×2 (09:25→16:04)
[2017-10-18] MEDS: LORazepam 2 MG TABLET PO PRN (16:04)
[2017-10-18 17:00] VITALS: BP 119/82
[2017-10-18] MEDS: HALOPERIDOL 5 MG TABLET PO PRN (17:15)
[2017-10-18] MEDS: HALOPERIDOL 10 MG TABLET PO SCH (20:04)
[2017-10-18] MEDS: MIRTAZAPINE 15 MG TABLET PO SCH (20:04)
[2017-10-19] MEDS: DULoxetine HCL 30 MG CAPSULE PO SCH ×2 (09:50→16:25)
[2017-10-19] MEDS: CHOLECALCIFEROL (VIT D3) 5,000 UNITS CAPSULE PO SCH (09:50)
[2017-10-19] MEDS: METOPROLOL TARTRATE 25 MG TABLET PO SCH (09:50)
[2017-10-19] MEDS: HALOPERIDOL 5 MG TABLET PO SCH (09:50)
[2017-10-19 11:44] VITALS: BP 136/77
[2017-10-19] MEDS: LORazepam 2 MG TABLET PO PRN (16:25)
[2017-10-19 16:29] VITALS: BP 105/62
[2017-10-19] MEDS: MIRTAZAPINE 15 MG TABLET PO SCH (20:18)
[2017-10-19] MEDS: DiphenhydrAMINE HCL 25 MG CAPSULE PO PRN (20:18)
[2017-10-19] MEDS: HALOPERIDOL 10 MG TABLET PO SCH (20:19)
[2017-10-20] MEDS: LORazepam 2 MG TABLET PO PRN ×2 (02:09→14:50)
[2017-10-20] MEDS: DiphenhydrAMINE HCL 25 MG CAPSULE PO PRN ×2 (02:09→14:50)
[2017-10-20] MEDS: HALOPERIDOL 5 MG TABLET PO PRN ×2 (02:09→14:51)
[2017-10-20 08:50] VITALS: BP 136/91
[2017-10-20] MEDS: METOPROLOL TARTRATE 25 MG TABLET PO SCH (09:22)
[2017-10-20] MEDS: CHOLECALCIFEROL (VIT D3) 5,000 UNITS CAPSULE PO SCH (09:22)
[2017-10-20] MEDS: HALOPERIDOL 5 MG TABLET PO SCH (09:22)
[2017-10-20] MEDS: DULoxetine HCL 30 MG CAPSULE PO SCH ×2 (09:22→16:27)
[2017-10-20 18:35] VITALS: BP 125/79
[2017-10-20] MEDS: HALOPERIDOL 10 MG TABLET PO SCH (20:06)
[2017-10-20] MEDS: MIRTAZAPINE 15 MG TABLET PO SCH (20:06)
[2017-10-21] MEDS: METOPROLOL TARTRATE 25 MG TABLET PO SCH (09:39)
[2017-10-21] MEDS: HALOPERIDOL 5 MG TABLET PO SCH (09:39)
[2017-10-21] MEDS: DULoxetine HCL 30 MG CAPSULE PO SCH ×2 (09:40→16:15)
[2017-10-21] MEDS: CHOLECALCIFEROL (VIT D3) 5,000 UNITS CAPSULE PO SCH (09:40)
[2017-10-21 09:57] VITALS: BP 137/84
[2017-10-21] MEDS: DiphenhydrAMINE HCL 25 MG CAPSULE PO PRN (16:14)
[2017-10-21] MEDS: HALOPERIDOL 5 MG TABLET PO PRN (16:15)
[2017-10-21 16:47] VITALS: BP 133/87
[2017-10-21] MEDS: HALOPERIDOL 10 MG TABLET PO SCH (20:35)
[2017-10-21] MEDS: MIRTAZAPINE 15 MG TABLET PO SCH (20:35)
[2017-10-22] MEDS: HALOPERIDOL 5 MG TABLET PO SCH (10:08)
[2017-10-22] MEDS: DULoxetine HCL 30 MG CAPSULE PO SCH ×2 (10:08→16:11)
[2017-10-22] MEDS: CHOLECALCIFEROL (VIT D3) 5,000 UNITS CAPSULE PO SCH (10:09)
[2017-10-22] MEDS: METOPROLOL TARTRATE 25 MG TABLET PO SCH (10:09)
[2017-10-22 10:23] VITALS: BP 96/53
[2017-10-22] MEDS: HALOPERIDOL 5 MG TABLET PO PRN (16:53)
[2017-10-22] MEDS: LORazepam 2 MG TABLET PO PRN (16:53)
[2017-10-22 19:31] VITALS: BP 136/75
[2017-10-22] MEDS: HALOPERIDOL 10 MG TABLET PO SCH (20:58)
[2017-10-22] MEDS: MIRTAZAPINE 15 MG TABLET PO SCH (20:58)
[2017-10-23 08:00] VITALS: BP 159/95
[2017-10-23] MEDS: HALOPERIDOL 5 MG TABLET PO SCH (09:20)
[2017-10-23] MEDS: DULoxetine HCL 30 MG CAPSULE PO SCH ×2 (09:20→16:00)
[2017-10-23] MEDS: CHOLECALCIFEROL (VIT D3) 5,000 UNITS CAPSULE PO SCH (09:20)
[2017-10-23] MEDS: METOPROLOL TARTRATE 25 MG TABLET PO SCH (09:20)
[2017-10-23 16:19] VITALS: BP 104/51
[2017-10-23] MEDS: HALOPERIDOL 10 MG TABLET PO SCH (21:30)
[2017-10-23] MEDS: MIRTAZAPINE 15 MG TABLET PO SCH (21:30)
[2017-10-23] MEDS: LORazepam 2 MG TABLET PO PRN (21:31)
[2017-10-24 09:54] VITALS: BP 124/78
[2017-10-24] MEDS: DULoxetine HCL 30 MG CAPSULE PO SCH ×2 (10:18→17:17)
[2017-10-24] MEDS: HALOPERIDOL 5 MG TABLET PO SCH (10:18)
[2017-10-24] MEDS: METOPROLOL TARTRATE 25 MG TABLET PO SCH (10:18)
[2017-10-24] MEDS: CHOLECALCIFEROL (VIT D3) 5,000 UNITS CAPSULE PO SCH (10:19)
[2017-10-24] MEDS: LORazepam 2 MG TABLET PO PRN (17:18)
[2017-10-24] MEDS: HALOPERIDOL 5 MG TABLET PO PRN (17:19)
[2017-10-24] MEDS: HALOPERIDOL 10 MG TABLET PO SCH (20:27)
[2017-10-24] MEDS: MIRTAZAPINE 15 MG TABLET PO SCH (20:27)
[2017-10-24 20:58] VITALS: BP 106/63
[2017-10-25] MEDS: HALOPERIDOL 5 MG TABLET PO SCH (09:20)
[2017-10-25] MEDS: DULoxetine HCL 30 MG CAPSULE PO SCH ×2 (09:20→16:01)
[2017-10-25] MEDS: METOPROLOL TARTRATE 25 MG TABLET PO SCH (09:20)
[2017-10-25] MEDS: CHOLECALCIFEROL (VIT D3) 5,000 UNITS CAPSULE PO SCH (09:20)
[2017-10-25 09:56] VITALS: BP 144/92
[2017-10-25] MEDS: LORazepam 2 MG TABLET PO PRN ×2 (16:01→20:07)
[2017-10-25] MEDS: DiphenhydrAMINE HCL 25 MG CAPSULE PO PRN (16:02)
[2017-10-25] MEDS: HALOPERIDOL 5 MG TABLET PO PRN (16:45)
[2017-10-25 19:33] VITALS: BP 125/89
[2017-10-25] MEDS: HALOPERIDOL 10 MG TABLET PO SCH (20:05)
[2017-10-25] MEDS: MIRTAZAPINE 15 MG TABLET PO SCH (20:05)
[2017-10-26 08:49] VITALS: BP 150/95
[2017-10-26] MEDS: HALOPERIDOL 5 MG TABLET PO SCH (09:22)
[2017-10-26] MEDS: CHOLECALCIFEROL (VIT D3) 5,000 UNITS CAPSULE PO SCH (09:22)
[2017-10-26] MEDS: DULoxetine HCL 30 MG CAPSULE PO SCH ×2 (09:22→16:16)
[2017-10-26] MEDS: METOPROLOL TARTRATE 25 MG TABLET PO SCH (09:22)
[2017-10-26] MEDS: LORazepam 2 MG TABLET PO PRN (16:16)
[2017-10-26] MEDS: HALOPERIDOL 5 MG TABLET PO PRN (16:17)
[2017-10-26 19:30] VITALS: BP 111/78
[2017-10-26] MEDS: HALOPERIDOL 10 MG TABLET PO SCH (20:10)
[2017-10-26] MEDS: MIRTAZAPINE 15 MG TABLET PO SCH (20:10)
[2017-10-26] MEDS: DiphenhydrAMINE HCL 25 MG CAPSULE PO PRN (20:11)
[2017-10-27 09:08] VITALS: BP 145/93
[2017-10-27] MEDS: METOPROLOL TARTRATE 25 MG TABLET PO SCH (09:48)
[2017-10-27] MEDS: DULoxetine HCL 30 MG CAPSULE PO SCH ×2 (09:48→16:14)
[2017-10-27] MEDS: CHOLECALCIFEROL (VIT D3) 5,000 UNITS CAPSULE PO SCH (09:48)
[2017-10-27] MEDS: HALOPERIDOL 5 MG TABLET PO SCH (09:48)
[2017-10-27] MEDS: LORazepam 2 MG TABLET PO PRN (16:15)
[2017-10-27 17:47] VITALS: BP 101/77
[2017-10-27] MEDS: HALOPERIDOL 10 MG TABLET PO SCH (20:19)
[2017-10-27] MEDS: MIRTAZAPINE 15 MG TABLET PO SCH (20:19)
[2017-10-28 08:00] VITALS: BP 156/105
[2017-10-28] MEDS: METOPROLOL TARTRATE 25 MG TABLET PO SCH (09:00)
[2017-10-28] MEDS: HALOPERIDOL 5 MG TABLET PO SCH (09:00)
[2017-10-28] MEDS: CHOLECALCIFEROL (VIT D3) 5,000 UNITS CAPSULE PO SCH (09:00)
[2017-10-28] MEDS: DULoxetine HCL 30 MG CAPSULE PO SCH ×2 (09:00→16:01)
[2017-10-28 16:42] VITALS: BP 103/73
[2017-10-28] MEDS: MIRTAZAPINE 15 MG TABLET PO SCH (20:24)
[2017-10-28] MEDS: HALOPERIDOL 10 MG TABLET PO SCH (20:24)
[2017-10-29] MEDS: DULoxetine HCL 30 MG CAPSULE PO SCH ×2 (08:56→17:00)
[2017-10-29] MEDS: HALOPERIDOL 5 MG TABLET PO SCH ×2 (08:56→15:23)
[2017-10-29] MEDS: METOPROLOL TARTRATE 25 MG TABLET PO SCH (08:57)
[2017-10-29] MEDS: CHOLECALCIFEROL (VIT D3) 5,000 UNITS CAPSULE PO SCH (08:57)
[2017-10-29 12:44] VITALS: BP 124/89
[2017-10-29] MEDS: LORazepam 2 MG TABLET PO PRN ×2 (15:23→22:49)
[2017-10-29 17:03] VITALS: BP 132/78
[2017-10-29] MEDS ORDERED: LORazepam 2 MG/ML VIAL ONE (18:36)
[2017-10-29] MEDS ORDERED: HALOPERIDOL LACTATE 5 MG/ML VIAL ONE (18:36)
[2017-10-29] MEDS ORDERED: DiphenhydrAMINE HCL 50 MG/ML VIAL ONE (18:36)
[2017-10-29] MEDS ORDERED: HALOPERIDOL LACTATE 5 MG/ML VIAL IM ONE (18:45)
[2017-10-29] MEDS ORDERED: LORazepam 2 MG/ML VIAL IM ONE (18:45)
[2017-10-29] MEDS ORDERED: DiphenhydrAMINE HCL 50 MG/ML VIAL IM ONE (18:45)
[2017-10-29] MEDS: HALOPERIDOL 10 MG TABLET PO SCH (20:42)
[2017-10-29] MEDS: MIRTAZAPINE 15 MG TABLET PO SCH (20:42)
[2017-10-30] MEDS: DULoxetine HCL 30 MG CAPSULE PO SCH ×2 (08:25→16:04)
[2017-10-30] MEDS: HALOPERIDOL 5 MG TABLET PO SCH (08:26)
[2017-10-30] MEDS: CHOLECALCIFEROL (VIT D3) 5,000 UNITS CAPSULE PO SCH (08:26)
[2017-10-30] MEDS: METOPROLOL TARTRATE 25 MG TABLET PO SCH (08:26)
[2017-10-30 10:09] VITALS: BP 132/59
[2017-10-30] MEDS: LORazepam 2 MG TABLET PO PRN ×2 (13:53→18:19)
[2017-10-30] MEDS: HALOPERIDOL 5 MG TABLET PO PRN (13:54)
[2017-10-30] MEDS: DiphenhydrAMINE HCL 25 MG CAPSULE PO PRN (16:20)
[2017-10-30] MEDS: MIRTAZAPINE 15 MG TABLET PO SCH (20:23)
[2017-10-30] MEDS: HALOPERIDOL 10 MG TABLET PO SCH (20:23)
[2017-10-30 22:38] VITALS: BP 138/72
[2017-10-31] MEDS: CHOLECALCIFEROL (VIT D3) 5,000 UNITS CAPSULE PO SCH (08:30)
[2017-10-31] MEDS: DULoxetine HCL 30 MG CAPSULE PO SCH ×2 (08:30→16:13)
[2017-10-31] MEDS: HALOPERIDOL 5 MG TABLET PO SCH (08:30)
[2017-10-31] MEDS: METOPROLOL TARTRATE 25 MG TABLET PO SCH (08:30)
[2017-10-31 09:35] VITALS: BP 157/79
[2017-10-31 16:38] VITALS: BP 131/88
[2017-10-31] MEDS: MIRTAZAPINE 15 MG TABLET PO SCH (20:21)
[2017-10-31] MEDS: LORazepam 2 MG TABLET PO PRN (20:21)
[2017-10-31] MEDS: HALOPERIDOL 10 MG TABLET PO SCH (20:21)
[2017-10-31] MEDS: DiphenhydrAMINE HCL 25 MG CAPSULE PO PRN (22:01)
[2017-11-01 08:59] VITALS: BP 130/86
[2017-11-01] MEDS: CHOLECALCIFEROL (VIT D3) 5,000 UNITS CAPSULE PO SCH (10:12)
[2017-11-01] MEDS: METOPROLOL TARTRATE 25 MG TABLET PO SCH (10:12)
[2017-11-01] MEDS: HALOPERIDOL 5 MG TABLET PO SCH (10:14)
[2017-11-01] MEDS: DULoxetine HCL 30 MG CAPSULE PO SCH ×2 (10:15→16:22)
[2017-11-01 16:26] VITALS: BP 112/69
[2017-11-01] MEDS: HALOPERIDOL 5 MG TABLET PO PRN (17:17)
[2017-11-01] MEDS: LORazepam 2 MG TABLET PO PRN (17:17)
[2017-11-01] MEDS: DiphenhydrAMINE HCL 25 MG CAPSULE PO PRN (17:18)
[2017-11-01] MEDS: MIRTAZAPINE 15 MG TABLET PO SCH (20:13)
[2017-11-01] MEDS: HALOPERIDOL 10 MG TABLET PO SCH (20:14)
[2017-11-02] MEDS: CHOLECALCIFEROL (VIT D3) 5,000 UNITS CAPSULE PO SCH (09:37)
[2017-11-02] MEDS: HALOPERIDOL 5 MG TABLET PO SCH (09:37)
[2017-11-02] MEDS: DULoxetine HCL 30 MG CAPSULE PO SCH ×2 (09:37→16:23)
[2017-11-02 09:45] VITALS: BP 119/69
[2017-11-02] MEDS: METOPROLOL TARTRATE 25 MG TABLET PO SCH (09:49)
[2017-11-02] MEDS: DiphenhydrAMINE HCL 25 MG CAPSULE PO PRN (16:24)
[2017-11-02] MEDS: HALOPERIDOL 5 MG TABLET PO PRN (16:24)
[2017-11-02] MEDS: LORazepam 2 MG TABLET PO PRN (16:24)
[2017-11-02 17:48] VITALS: BP 120/64
[2017-11-02] MEDS: MIRTAZAPINE 15 MG TABLET PO SCH (20:32)
[2017-11-02] MEDS: HALOPERIDOL 10 MG TABLET PO SCH (20:32)
[2017-11-03] MEDS: METOPROLOL TARTRATE 25 MG TABLET PO SCH (09:00)
[2017-11-03 10:09] VITALS: BP 104/64
[2017-11-03] MEDS: CHOLECALCIFEROL (VIT D3) 5,000 UNITS CAPSULE PO SCH (10:14)
[2017-11-03] MEDS: HALOPERIDOL 5 MG TABLET PO SCH (10:14)
[2017-11-03] MEDS: DULoxetine HCL 30 MG CAPSULE PO SCH ×2 (10:14→16:24)
[2017-11-03] MEDS: LORazepam 2 MG TABLET PO PRN (16:24)
[2017-11-03] MEDS: DiphenhydrAMINE HCL 25 MG CAPSULE PO PRN (16:24)
[2017-11-03] MEDS: HALOPERIDOL 5 MG TABLET PO PRN (16:25)
[2017-11-03 16:40] VITALS: BP 105/76
[2017-11-03] MEDS ORDERED: HALOPERIDOL LACTATE 5 MG/ML VIAL ONE (20:47)
[2017-11-03] MEDS ORDERED: LORazepam 2 MG/ML VIAL ONE (20:47)
[2017-11-03] MEDS ORDERED: LORazepam 2 MG/ML VIAL IM ONE (21:00)
[2017-11-03] MEDS ORDERED: DiphenhydrAMINE HCL 50 MG/ML VIAL IM ONE (21:00)
[2017-11-03] MEDS ORDERED: HALOPERIDOL LACTATE 5 MG/ML VIAL IM ONE (21:00)
[2017-11-03] MEDS: HALOPERIDOL 10 MG TABLET PO SCH (22:00)
[2017-11-03] MEDS: MIRTAZAPINE 15 MG TABLET PO SCH (22:00)
[2017-11-04] MEDS: HALOPERIDOL 5 MG TABLET PO SCH (08:01)
[2017-11-04] MEDS: METOPROLOL TARTRATE 25 MG TABLET PO SCH (08:01)
[2017-11-04] MEDS: DULoxetine HCL 30 MG CAPSULE PO SCH ×2 (08:01→15:53)
[2017-11-04] MEDS: CHOLECALCIFEROL (VIT D3) 5,000 UNITS CAPSULE PO SCH (08:01)
[2017-11-04] MEDS: LORazepam 2 MG TABLET PO PRN ×2 (08:01→16:38)
[2017-11-04] MEDS: HALOPERIDOL 5 MG TABLET PO PRN (08:01)
[2017-11-04 10:20] VITALS: BP 108/67
[2017-11-04] MEDS: DiphenhydrAMINE HCL 25 MG CAPSULE PO PRN (18:50)
[2017-11-04 18:52] VITALS: BP 130/67
[2017-11-04] MEDS: HALOPERIDOL 10 MG TABLET PO SCH (20:12)
[2017-11-04] MEDS: MIRTAZAPINE 15 MG TABLET PO SCH (20:12)
[2017-11-05 09:00] VITALS: BP 101/59
[2017-11-05] MEDS: METOPROLOL TARTRATE 25 MG TABLET PO SCH (09:00)
[2017-11-05] MEDS: DULoxetine HCL 30 MG CAPSULE PO SCH ×2 (10:06→16:18)
[2017-11-05] MEDS: CHOLECALCIFEROL (VIT D3) 5,000 UNITS CAPSULE PO SCH (10:06)
[2017-11-05] MEDS: HALOPERIDOL 5 MG TABLET PO SCH (10:06)
[2017-11-05] MEDS: LORazepam 2 MG TABLET PO PRN (16:17)
[2017-11-05 17:10] VITALS: BP 129/67
[2017-11-05] MEDS: HALOPERIDOL 10 MG TABLET PO SCH (20:49)
[2017-11-05] MEDS: DiphenhydrAMINE HCL 25 MG CAPSULE PO PRN (20:49)
[2017-11-05] MEDS: MIRTAZAPINE 15 MG TABLET PO SCH (20:49)
[2017-11-06 08:00] VITALS: BP 102/62
[2017-11-06] MEDS: METOPROLOL TARTRATE 25 MG TABLET PO SCH (09:00)
[2017-11-06] MEDS: DULoxetine HCL 30 MG CAPSULE PO SCH ×2 (09:34→17:09)
[2017-11-06] MEDS: CHOLECALCIFEROL (VIT D3) 5,000 UNITS CAPSULE PO SCH (09:34)
[2017-11-06] MEDS: HALOPERIDOL 5 MG TABLET PO SCH (09:35)
[2017-11-06 09:47] VITALS: BP 100/54
[2017-11-06 16:00] VITALS: BP 102/64
[2017-11-06] MEDS: MIRTAZAPINE 15 MG TABLET PO SCH (21:25)
[2017-11-06] MEDS: HALOPERIDOL 10 MG TABLET PO SCH (21:25)
[2017-11-06] MEDS: DiphenhydrAMINE HCL 25 MG CAPSULE PO PRN (21:27)
[2017-11-06] MEDS: LORazepam 2 MG TABLET PO PRN (21:48)
[2017-11-07] MEDS: HALOPERIDOL 5 MG TABLET PO PRN (01:17)
[2017-11-07 01:39] VITALS: BP 141/73
[2017-11-07] MEDS: LORazepam 2 MG TABLET PO PRN ×2 (04:19→16:55)
[2017-11-07] MEDS: METOPROLOL TARTRATE 25 MG TABLET PO SCH (08:55)
[2017-11-07] MEDS: HALOPERIDOL 5 MG TABLET PO SCH (08:55)
[2017-11-07] MEDS: CHOLECALCIFEROL (VIT D3) 5,000 UNITS CAPSULE PO SCH (08:55)
[2017-11-07] MEDS: DULoxetine HCL 30 MG CAPSULE PO SCH ×2 (08:55→16:37)
[2017-11-07 10:18] VITALS: BP 139/99
[2017-11-07 16:52] VITALS: BP 144/88
[2017-11-07] MEDS: DiphenhydrAMINE HCL 25 MG CAPSULE PO PRN (16:55)
[2017-11-07] MEDS: HALOPERIDOL 10 MG TABLET PO SCH (21:12)
[2017-11-07] MEDS: MIRTAZAPINE 15 MG TABLET PO SCH (21:12)
[2017-11-08 08:05] VITALS: BP 139/92
[2017-11-08] MEDS: DULoxetine HCL 30 MG CAPSULE PO SCH ×2 (10:10→16:36)
[2017-11-08] MEDS: CHOLECALCIFEROL (VIT D3) 5,000 UNITS CAPSULE PO SCH (10:11)
[2017-11-08] MEDS: METOPROLOL TARTRATE 25 MG TABLET PO SCH (10:11)
[2017-11-08] MEDS: HALOPERIDOL 5 MG TABLET PO SCH (10:11)
[2017-11-08 16:00] VITALS: BP 142/80
[2017-11-08] MEDS: DiphenhydrAMINE HCL 25 MG CAPSULE PO PRN (16:37)
[2017-11-08] MEDS: LORazepam 2 MG TABLET PO PRN (16:37)
[2017-11-08] MEDS: MIRTAZAPINE 15 MG TABLET PO SCH (20:09)
[2017-11-08] MEDS: HALOPERIDOL 10 MG TABLET PO SCH (20:09)
[2017-11-09 09:09] VITALS: BP 124/55
[2017-11-09] MEDS: CHOLECALCIFEROL (VIT D3) 5,000 UNITS CAPSULE PO SCH (09:49)
[2017-11-09] MEDS: DULoxetine HCL 30 MG CAPSULE PO SCH ×2 (09:49→16:18)
[2017-11-09] MEDS: METOPROLOL TARTRATE 25 MG TABLET PO SCH (09:49)
[2017-11-09] MEDS: HALOPERIDOL 5 MG TABLET PO SCH (09:49)
[2017-11-09] MEDS: LORazepam 2 MG TABLET PO PRN (16:18)
[2017-11-09 16:30] VITALS: BP 122/77
[2017-11-09] MEDS: HALOPERIDOL 10 MG TABLET PO SCH (20:08)
[2017-11-09] MEDS: DiphenhydrAMINE HCL 25 MG CAPSULE PO PRN (20:08)
[2017-11-09] MEDS: MIRTAZAPINE 15 MG TABLET PO SCH (20:09)
[2017-11-10 09:48] VITALS: BP 126/60
[2017-11-10] MEDS: METOPROLOL TARTRATE 25 MG TABLET PO SCH (11:00)
[2017-11-10] MEDS: HALOPERIDOL 5 MG TABLET PO SCH (11:00)
[2017-11-10] MEDS: DULoxetine HCL 30 MG CAPSULE PO SCH ×2 (11:00→16:23)
[2017-11-10] MEDS: CHOLECALCIFEROL (VIT D3) 5,000 UNITS CAPSULE PO SCH (11:08)
[2017-11-10] MEDS: LORazepam 2 MG TABLET PO PRN (16:22)
[2017-11-10 16:49] VITALS: BP 128/77
[2017-11-10] MEDS: DiphenhydrAMINE HCL 25 MG CAPSULE PO PRN (21:32)
[2017-11-10] MEDS: HALOPERIDOL 10 MG TABLET PO SCH (21:32)
[2017-11-10] MEDS: MIRTAZAPINE 15 MG TABLET PO SCH (21:33)
[2017-11-11 09:44] VITALS: BP 117/78
[2017-11-11] MEDS: DULoxetine HCL 30 MG CAPSULE PO SCH ×2 (11:31→16:29)
[2017-11-11] MEDS: HALOPERIDOL 5 MG TABLET PO SCH (11:31)
[2017-11-11] MEDS: METOPROLOL TARTRATE 25 MG TABLET PO SCH (11:31)
[2017-11-11] MEDS: CHOLECALCIFEROL (VIT D3) 5,000 UNITS CAPSULE PO SCH (11:32)
[2017-11-11] MEDS: COAL TAR 0.5% 255 ML SHAMPOO TP PRN (11:33)
[2017-11-11] MEDS: LORazepam 2 MG TABLET PO PRN (16:29)
[2017-11-11] MEDS: HALOPERIDOL 5 MG TABLET PO PRN (17:20)
[2017-11-11] MEDS: DiphenhydrAMINE HCL 25 MG CAPSULE PO PRN (17:20)
[2017-11-11 18:00] VITALS: BP 126/72
[2017-11-11] MEDS: MIRTAZAPINE 15 MG TABLET PO SCH (20:20)
[2017-11-11] MEDS: HALOPERIDOL 10 MG TABLET PO SCH (20:21)
[2017-11-12] MEDS: METOPROLOL TARTRATE 25 MG TABLET PO SCH (08:57)
[2017-11-12] MEDS: HALOPERIDOL 5 MG TABLET PO SCH (08:57)
[2017-11-12] MEDS: DULoxetine HCL 30 MG CAPSULE PO SCH ×2 (08:57→16:06)
[2017-11-12] MEDS: CHOLECALCIFEROL (VIT D3) 5,000 UNITS CAPSULE PO SCH (08:58)
[2017-11-12 10:25] VITALS: BP 134/86
[2017-11-12 16:59] VITALS: BP 135/90
[2017-11-12] MEDS: MIRTAZAPINE 15 MG TABLET PO SCH (20:17)
[2017-11-12] MEDS: HALOPERIDOL 10 MG TABLET PO SCH (20:17)
[2017-11-13] MEDS: LORazepam 2 MG TABLET PO PRN ×4 (01:30→16:58)
[2017-11-13] MEDS: HALOPERIDOL 5 MG TABLET PO SCH (08:29)
[2017-11-13] MEDS: METOPROLOL TARTRATE 25 MG TABLET PO SCH (08:29)
[2017-11-13] MEDS: CHOLECALCIFEROL (VIT D3) 5,000 UNITS CAPSULE PO SCH (08:29)
[2017-11-13] MEDS: DULoxetine HCL 30 MG CAPSULE PO SCH ×2 (08:29→16:58)
[2017-11-13 13:21] VITALS: BP 135/87
[2017-11-13 16:30] VITALS: BP 134/91
[2017-11-13] MEDS: DiphenhydrAMINE HCL 25 MG CAPSULE PO PRN (16:58)
[2017-11-13] MEDS: MIRTAZAPINE 15 MG TABLET PO SCH (20:49)
[2017-11-13] MEDS: HALOPERIDOL 10 MG TABLET PO SCH (20:49)
[2017-11-14 08:00] VITALS: BP 150/88
[2017-11-14] MEDS: METOPROLOL TARTRATE 25 MG TABLET PO SCH (08:56)
[2017-11-14] MEDS: CHOLECALCIFEROL (VIT D3) 5,000 UNITS CAPSULE PO SCH (08:56)
[2017-11-14] MEDS: DULoxetine HCL 30 MG CAPSULE PO SCH ×2 (08:56→16:27)
[2017-11-14] MEDS: HALOPERIDOL 5 MG TABLET PO SCH (08:56)
[2017-11-14] MEDS: LORazepam 2 MG TABLET PO PRN (16:27)
[2017-11-14] MEDS ORDERED: TUBERCULIN, PURIFIED PROTEIN DERIVATIVE 5 TU/0.1 ML SYG ID ONE (16:45)
[2017-11-14 16:51] VITALS: BP 132/88
[2017-11-14] MEDS: HALOPERIDOL 10 MG TABLET PO SCH (20:36)
[2017-11-14] MEDS: MIRTAZAPINE 15 MG TABLET PO SCH (20:36)
[2017-11-15] MEDS: HALOPERIDOL 5 MG TABLET PO SCH (08:08)
[2017-11-15] MEDS: DULoxetine HCL 30 MG CAPSULE PO SCH (08:08)
[2017-11-15] MEDS: METOPROLOL TARTRATE 25 MG TABLET PO SCH (08:08)
[2017-11-15] MEDS: CHOLECALCIFEROL (VIT D3) 5,000 UNITS CAPSULE PO SCH (08:08)
[2017-11-15 08:42] VITALS: BP 116/76
[2017-11-15] MEDS ORDERED: MIRT15 PO (09:47)
[2017-11-15] MEDS ORDERED: CHOL50004 PO (09:49)
== END 2017-11-15 15:15 | disposition home or self-care (01) | DRG 750 ==
LOC: EMS 16:02 → 3EI 20:43
PROVIDERS: ATTEND Psychiatry & Neurology Child & Adolescent Psychiatry
DX: F25.0 Schizoaffective disorder, bipolar type (principal); R45.851 Suicidal ideations; Z68.44 Body mass index [BMI] 60.0-69.9, adult; R03.0 Elevated blood-pressure reading, without diagnosis of hypertension; E66.9 Obesity, unspecified; F15.90 Other stimulant use, unspecified, uncomplicated; Z91.013 Allergy to seafood; Z87.891 Personal history of nicotine dependence; Z22.322 Carrier or suspected carrier of Methicillin resistant Staphylococcus aureus
CPT/HCPCS: 82652; 87081; 97165; 99285; G0480; J1200; J1630; J2060

== ENCOUNTER 2020-09-27 20:03 | Inpatient (IN) | payer MEDICAID ==
[~2020-09-27] VITALS: Ht 167.6 cm; Wt 191.2 kg
[~2020-09-27 20:03] MED LIST changes: -ARIP882S IM; +CHOL500013 PO; -DULO20CA30 PO; -DULO30CA2 PO; +DULO30CA96 PO; -FURO40 PO; -HALO5 PO; +HALO5TAB2 PO; +MIRT-89 PO; -NICO-703 TD
[2020-09-27 20:56] LABS: BASOPHILS % (AUTO) 0.9 % (0.0-2.0); HEMATOCRIT 41.9 % (41-53); HEMOGLOBIN 13.5 g/dL (13.5-17.5); LYMPHOCYTES # (AUTO) 1.6 K/uL (1.0-4.8); LYMPHOCYTES % (AUTO) 20.8 % (22.0-44.0); MEAN CORPUSCULAR HEMOGLOBIN 27.4 pg (26.0-34.0); MEAN CORPUSCULAR HGB CONC 32.1 G/dL (31.0-37.0); MEAN CORPUSCULAR VOLUME 85 fL (80-100); MONOCYTES # (AUTO) 0.7 K/uL (0.1-1.0); MONOCYTES % (AUTO) 8.6 % (2.0-9.0); NEUTROPHILS # (AUTO) 5.2 K/uL (1.8-7.7); NEUTROPHILS % (AUTO) 66.7 % (40.0-70.0); PLATELET COUNT (AUTO) 370 K/uL (150-450); RED BLOOD CELL COUNT(AUTO) 4.92 MIL/uL (4.50-5.90); RED CELL DISTRIBUTION WIDTH 14.2 % (11.5-14.5)
[2020-09-27 21:07] LABS: ANION GAP 10 mmol/L (8-16); CARBON DIOXIDE 28 mmol/L (22-29); CHLORIDE 106 mmol/L (98-107); GLOMERULAR FILTR. RATE CALC > 60 mL/min (>60); GLUCOSE,RANDOM 98 mg/dL (70-110); POTASSIUM 3.5 mmol/L (3.5-5.1); SODIUM SERUM 144 mmol/L (136-145); UREA NITROGEN, BLOOD 8 mg/dL (7-18)
[2020-09-27 21:12] LABS: ALANINE AMINOTRANSFERASE 38 U/L (12-78); ALBUMIN 2.9 g/dL (3.4-5.0); ALKALINE PHOSPHATASE 63 U/L (46-116); ASPARTATE AMINOTRANSFERASE 30 U/L (15-37); BILIRUBIN,TOTAL 0.3 mg/dL (0.1-1.0)
[2020-09-27 21:59] LABS: COVID AG,FIA SOURCE NASOPHARYNGEAL
[2020-09-27 22:08] LABS: AMPHET/METH SCREEN,URINE POSITIVE (NEGATIVE); BARBITURATE SCREEN, URINE NEGATIVE (NEGATIVE); BENZODIAZEPINES SCREEN,URINE NEGATIVE (NEGATIVE); CANNABINOID SCREEN,URINE NEGATIVE (NEGATIVE); COCAINE SCREEN,URINE NEGATIVE (NEGATIVE); METHADONE SCREEN, URINE NEGATIVE (NEGATIVE); OPIATE SCREEN,URINE NEGATIVE (NEGATIVE)
[2020-09-27 22:20] LABS: PHENCYCLIDINE SCREEN,URINE NEGATIVE (NEGATIVE)
[2020-09-28 02:47] LABS: APPEARANCE,URINE CLOUDY (CLEAR); BILIRUBIN,URINE NEGATIVE (NEGATIVE); GLUCOSE, URINE (UA) NEGATIVE (NEGATIVE); KETONES,URINE NEGATIVE (NEGATIVE); LEUKOCYTE ESTERASE ,URINE NEGATIVE (NEGATIVE); NITRATE,URINE NEGATIVE (NEGATIVE); OCCULT BLOOD,URINE NEGATIVE (NEGATIVE); PH,URINE 6.5 (5.0-8.0); PROTEIN,URINE NEGATIVE (NEGATIVE)
[2020-09-28 05:09] LABS: CHOL/HDL RATIO 5.6 (4.2-7.3)
[2020-09-28 12:54] VITALS: BP 102/54
[2020-09-28 16:28] VITALS: BP 143/84
[2020-09-28] MEDS: LORazepam 2 MG TABLET PO PRN (17:11)
[2020-09-28] MEDS: HALOPERIDOL 10 MG TABLET PO SCH (20:16)
[2020-09-28] MEDS: ZOLPIDEM TARTRATE 10 MG TABLET PO PRN (23:48)
[2020-09-29 08:20] VITALS: BP 111/57
[2020-09-29] MEDS: DULoxetine HCL 60 MG CAPSULE PO SCH (08:21)
[2020-09-29] MEDS: BACITRACIN 28 GM OINTMENT TP SCH (08:21)
[2020-09-29] MEDS ORDERED: BENZOCAINE/MENTHOL LOZENGE PO PRN (16:45)
[2020-09-29] MEDS ORDERED: DOCUSATE SODIUM 100 MG CAPSULE PO PRN (16:45)
[2020-09-29] MEDS ORDERED: CloNIDine HCL 0.1 MG TABLET PO PRN (16:45)
[2020-09-29] MEDS ORDERED: LOPERAMIDE HCL 2 MG CAPSULE PO PRN (16:45)
[2020-09-29] MEDS ORDERED: ONDANSETRON HCL 4 MG TABLET PO PRN (16:45)
[2020-09-29] MEDS ORDERED: MAGNESIUM HYDROXIDE SUSPENSION 30 ML UDCUP PO PRN (16:45)
[2020-09-29] MEDS ORDERED: OMEPRAZOLE 20 MG CAPSULE PO PRN (16:45)
[2020-09-29] MEDS ORDERED: MAG HYDROX/AL HYDROX/SIMETH ES 30 ML SUSPENSION UDCUP PO PRN (16:45)
[2020-09-29] MEDS ORDERED: PETROLATUM,WHITE 28 GM JELLY TP PRN (16:45)
[2020-09-29] MEDS ORDERED: ACETAMINOPHEN 325 MG TABLET PO PRN (16:45)
[2020-09-29 18:45] VITALS: BP 120/72
[2020-09-29] MEDS: HALOPERIDOL 10 MG TABLET PO SCH (20:39)
[2020-09-29] MEDS: LORazepam 2 MG TABLET PO PRN (21:33)
[2020-09-30 01:29] VITALS: BP 142/85
[2020-09-30 08:45] VITALS: BP 164/89
[2020-09-30] MEDS: BACITRACIN 28 GM OINTMENT TP SCH (10:18)
[2020-09-30] MEDS: DULoxetine HCL 60 MG CAPSULE PO SCH (10:18)
[2020-09-30 18:36] VITALS: BP 111/71
[2020-09-30] MEDS: HALOPERIDOL 10 MG TABLET PO SCH (20:44)
[2020-10-01] MEDS: ZOLPIDEM TARTRATE 10 MG TABLET PO PRN (00:12)
[2020-10-01] MEDS: HALOPERIDOL 5 MG TABLET PO PRN (00:16)
[2020-10-01 00:22] VITALS: BP 133/78
[2020-10-01 08:27] VITALS: BP 146/96
[2020-10-01] MEDS: BACITRACIN 28 GM OINTMENT TP SCH (09:07)
[2020-10-01] MEDS: DULoxetine HCL 60 MG CAPSULE PO SCH (09:07)
[2020-10-01] MEDS: IBUPROFEN 600 MG TABLET PO PRN (14:20)
[2020-10-01 16:00] VITALS: BP 118/74
[2020-10-01] MEDS: LORazepam 2 MG TABLET PO PRN (18:37)
[2020-10-01] MEDS: HALOPERIDOL 10 MG TABLET PO SCH (20:26)
[2020-10-02 07:40] VITALS: BP 110/65
[2020-10-02] MEDS: IBUPROFEN 600 MG TABLET PO PRN ×2 (07:40→16:42)
[2020-10-02 08:48] VITALS: BP 106/60
[2020-10-02] MEDS: BACITRACIN 28 GM OINTMENT TP SCH (09:13)
[2020-10-02] MEDS: DULoxetine HCL 60 MG CAPSULE PO SCH (09:13)
[2020-10-02] MEDS: LORazepam 2 MG TABLET PO PRN ×2 (12:29→18:40)
[2020-10-02 16:00] VITALS: BP 119/65
[2020-10-02] MEDS: HALOPERIDOL 10 MG TABLET PO SCH (20:15)
[2020-10-02] MEDS: ZOLPIDEM TARTRATE 10 MG TABLET PO PRN (22:12)
[2020-10-03] MEDS: HALOPERIDOL 5 MG TABLET PO PRN ×2 (08:21→23:46)
[2020-10-03] MEDS: BACITRACIN 28 GM OINTMENT TP SCH (08:21)
[2020-10-03] MEDS: DULoxetine HCL 60 MG CAPSULE PO SCH (08:21)
[2020-10-03] MEDS: LORazepam 2 MG TABLET PO PRN ×2 (08:22→23:45)
[2020-10-03 08:27] VITALS: BP 129/69
[2020-10-03] MEDS: IBUPROFEN 600 MG TABLET PO PRN (08:27)
[2020-10-03 16:00] VITALS: BP 128/88
[2020-10-03 16:52] LABS: COVID AG,FIA SOURCE NASOPHARYNGEAL
[2020-10-03] MEDS: ALBUTEROL SULFATE HFA 90 MCG/PUFF 8 GM INHALER IH PRN (19:22)
[2020-10-03] MEDS: HALOPERIDOL 10 MG TABLET PO SCH (20:16)
[2020-10-03] MEDS: ZOLPIDEM TARTRATE 10 MG TABLET PO PRN ×2 (20:57→22:45)
[2020-10-04 05:29] VITALS: BP 142/93
[2020-10-04 08:45] VITALS: BP 106/66
[2020-10-04] MEDS: BACITRACIN 28 GM OINTMENT TP SCH (08:56)
[2020-10-04] MEDS: DULoxetine HCL 60 MG CAPSULE PO SCH (08:56)
[2020-10-04] MEDS: LORazepam 2 MG TABLET PO PRN ×2 (10:11→18:32)
[2020-10-04 16:00] VITALS: BP 115/69
[2020-10-04] MEDS: ALBUTEROL SULFATE HFA 90 MCG/PUFF 8 GM INHALER IH PRN (16:43)
[2020-10-04] MEDS: HALOPERIDOL 5 MG TABLET PO PRN (18:32)
[2020-10-04] MEDS: HALOPERIDOL 10 MG TABLET PO SCH (20:25)
[2020-10-05 00:35] VITALS: BP 145/91
[2020-10-05] MEDS: ZOLPIDEM TARTRATE 10 MG TABLET PO PRN ×2 (00:40→20:16)
[2020-10-05] MEDS: LORazepam 2 MG TABLET PO PRN ×2 (00:40→12:18)
[2020-10-05] MEDS: ALBUTEROL SULFATE HFA 90 MCG/PUFF 8 GM INHALER IH PRN ×3 (01:18→18:44)
[2020-10-05 07:50] VITALS: BP 117/55
[2020-10-05] MEDS: IBUPROFEN 600 MG TABLET PO PRN (07:50)
[2020-10-05] MEDS: DULoxetine HCL 60 MG CAPSULE PO SCH (08:41)
[2020-10-05] MEDS: BACITRACIN 28 GM OINTMENT TP SCH (08:41)
[2020-10-05 08:50] VITALS: BP 116/77
[2020-10-05] MEDS: HALOPERIDOL 5 MG TABLET PO PRN (12:18)
[2020-10-05 16:00] VITALS: BP 113/78
[2020-10-05] MEDS: ALBUTEROL SULFATE 2.5 MG/0.5 ML NEB SOLUTION NEB PRN (19:08)
[2020-10-05] MEDS: IPRATROPIUM BROMIDE 0.5 MG/2.5 ML NEB SOLUTION NEB PRN (19:08)
[2020-10-05] MEDS: HALOPERIDOL 10 MG TABLET PO SCH (20:13)
[2020-10-06] VITALS: BP 136/52
[2020-10-06] MEDS: LORazepam 2 MG TABLET PO PRN ×2 (00:05→17:40)
[2020-10-06] MEDS: HALOPERIDOL 5 MG TABLET PO PRN (00:05)
[2020-10-06] MEDS: BACITRACIN 28 GM OINTMENT TP SCH (08:18)
[2020-10-06] MEDS: DULoxetine HCL 60 MG CAPSULE PO SCH (08:18)
[2020-10-06] MEDS: ALBUTEROL SULFATE HFA 90 MCG/PUFF 8 GM INHALER IH PRN (08:20)
[2020-10-06] MEDS: IPRATROPIUM BROMIDE 0.5 MG/2.5 ML NEB SOLUTION NEB PRN (08:39)
[2020-10-06] MEDS: ALBUTEROL SULFATE 2.5 MG/0.5 ML NEB SOLUTION NEB PRN (08:39)
[2020-10-06 08:45] VITALS: BP 122/79
[2020-10-06 09:15] VITALS: BP 111/60
[2020-10-06] MEDS: FUROSEMIDE 40 MG TABLET PO SCH (11:10)
[2020-10-06] MEDS ORDERED: PENTETATE DTPA TC99M/MCL ISOTOPE 1 EA INJ INJ ONE (13:40)
[2020-10-06] MEDS ORDERED: MAA ALBUMIN AGGREGATED TC99M/UD<10MCL ISOTOPE 1 EA INJ INJ ONE (13:55)
[2020-10-06 16:00] VITALS: BP 110/60
[2020-10-06] MEDS: HALOPERIDOL 10 MG TABLET PO SCH (20:30)
[2020-10-06] MEDS: RIVAROXABAN 15 MG TABLET PO SCH (22:11)
[2020-10-07] MEDS: RIVAROXABAN 15 MG TABLET PO SCH ×2 (06:45→16:39)
[2020-10-07 08:14] VITALS: BP 164/86
[2020-10-07] MEDS: FUROSEMIDE 40 MG TABLET PO SCH (09:54)
[2020-10-07] MEDS: FLUTICASONE/VILANTEROL 200-25 MCG/INH INHALER [14] IH SCH (09:55)
[2020-10-07] MEDS: DULoxetine HCL 60 MG CAPSULE PO SCH (09:55)
[2020-10-07] MEDS: BACITRACIN 28 GM OINTMENT TP SCH (12:09)
[2020-10-07] MEDS: LORazepam 2 MG TABLET PO PRN (15:43)
[2020-10-07 16:09] VITALS: BP 133/79
[2020-10-07] MEDS: HALOPERIDOL 5 MG TABLET PO PRN (16:40)
[2020-10-07] MEDS: HALOPERIDOL 10 MG TABLET PO SCH (20:08)
[2020-10-07] MEDS: ZOLPIDEM TARTRATE 10 MG TABLET PO PRN (20:33)
[2020-10-08] MEDS: RIVAROXABAN 15 MG TABLET PO SCH ×2 (06:48→17:15)
[2020-10-08] MEDS: FUROSEMIDE 40 MG TABLET PO SCH (08:18)
[2020-10-08] MEDS: FLUTICASONE/VILANTEROL 200-25 MCG/INH INHALER [14] IH SCH (08:18)
[2020-10-08] MEDS: DULoxetine HCL 60 MG CAPSULE PO SCH (08:18)
[2020-10-08] MEDS: BACITRACIN 28 GM OINTMENT TP SCH (08:18)
[2020-10-08] MEDS: QUEtiapine FUMARATE 25 MG TABLET PO SCH ×2 (08:18→17:12)
[2020-10-08 08:48] VITALS: BP 142/77
[2020-10-08 16:00] VITALS: BP 106/70
[2020-10-08] MEDS: HALOPERIDOL 10 MG TABLET PO SCH (20:46)
[2020-10-08] MEDS: QUEtiapine FUMARATE 200 MG TABLET PO SCH (20:46)
[2020-10-09] MEDS: RIVAROXABAN 15 MG TABLET PO SCH ×2 (07:04→17:00)
[2020-10-09] MEDS: QUEtiapine FUMARATE 25 MG TABLET PO SCH ×2 (09:29→16:27)
[2020-10-09] MEDS: DULoxetine HCL 60 MG CAPSULE PO SCH (09:29)
[2020-10-09] MEDS: FUROSEMIDE 40 MG TABLET PO SCH (09:29)
[2020-10-09] MEDS: FLUTICASONE/VILANTEROL 200-25 MCG/INH INHALER [14] IH SCH (09:29)
[2020-10-09 10:14] VITALS: BP 140/85
[2020-10-09 16:00] VITALS: BP 130/79
[2020-10-09] MEDS: HALOPERIDOL 5 MG TABLET PO PRN (16:27)
[2020-10-09] MEDS: IBUPROFEN 600 MG TABLET PO PRN (17:07)
[2020-10-09] MEDS: QUEtiapine FUMARATE 200 MG TABLET PO SCH (21:34)
[2020-10-09] MEDS: HALOPERIDOL 10 MG TABLET PO SCH (21:35)
[2020-10-10] MEDS: RIVAROXABAN 15 MG TABLET PO SCH ×2 (06:53→16:30)
[2020-10-10 08:30] VITALS: BP 112/58
[2020-10-10] MEDS: DULoxetine HCL 60 MG CAPSULE PO SCH (09:39)
[2020-10-10] MEDS: FUROSEMIDE 40 MG TABLET PO SCH (09:39)
[2020-10-10] MEDS: QUEtiapine FUMARATE 25 MG TABLET PO SCH ×2 (09:40→16:07)
[2020-10-10] MEDS: FLUTICASONE/VILANTEROL 200-25 MCG/INH INHALER [14] IH SCH (09:40)
[2020-10-10] MEDS ORDERED: TUBERCULIN, PURIFIED PROTEIN DERIVATIVE 5 TU/0.1 ML SYRINGE ID ONE (12:45)
[2020-10-10 16:45] VITALS: BP 126/80
[2020-10-10] MEDS: QUEtiapine FUMARATE 200 MG TABLET PO SCH (20:26)
[2020-10-10] MEDS: HALOPERIDOL 10 MG TABLET PO SCH (20:26)
[2020-10-10 22:31] LABS: COVID AG,FIA SOURCE NASOPHARYNGEAL
[2020-10-11 01:17] VITALS: BP 137/61
[2020-10-11] MEDS: RIVAROXABAN 15 MG TABLET PO SCH ×2 (07:00→16:45)
[2020-10-11 08:34] VITALS: BP 120/55
[2020-10-11] MEDS: QUEtiapine FUMARATE 25 MG TABLET PO SCH ×2 (08:40→16:45)
[2020-10-11] MEDS: DULoxetine HCL 60 MG CAPSULE PO SCH (08:40)
[2020-10-11] MEDS: FUROSEMIDE 40 MG TABLET PO SCH (08:41)
[2020-10-11] MEDS: FLUTICASONE/VILANTEROL 200-25 MCG/INH INHALER [14] IH SCH (08:44)
[2020-10-11] MEDS: HALOPERIDOL 5 MG TABLET PO PRN (11:23)
[2020-10-11 16:38] VITALS: BP 129/76
[2020-10-11] MEDS: HALOPERIDOL 10 MG TABLET PO SCH (20:18)
[2020-10-11] MEDS: QUEtiapine FUMARATE 200 MG TABLET PO SCH (20:18)
[2020-10-12] MEDS: RIVAROXABAN 15 MG TABLET PO SCH ×2 (06:47→17:10)
[2020-10-12 08:10] VITALS: BP 129/75
[2020-10-12] MEDS: FUROSEMIDE 40 MG TABLET PO SCH (08:23)
[2020-10-12] MEDS: DULoxetine HCL 60 MG CAPSULE PO SCH (08:23)
[2020-10-12] MEDS: QUEtiapine FUMARATE 25 MG TABLET PO SCH ×2 (08:24→16:10)
[2020-10-12] MEDS: FLUTICASONE/VILANTEROL 200-25 MCG/INH INHALER [14] IH SCH (08:27)
[2020-10-12 16:16] VITALS: BP 120/68
[2020-10-12] MEDS: HALOPERIDOL 10 MG TABLET PO SCH (20:09)
[2020-10-12] MEDS: QUEtiapine FUMARATE 200 MG TABLET PO SCH (20:09)
[2020-10-13] MEDS: RIVAROXABAN 15 MG TABLET PO SCH ×2 (06:48→16:14)
[2020-10-13] MEDS: FUROSEMIDE 40 MG TABLET PO SCH (08:51)
[2020-10-13] MEDS: QUEtiapine FUMARATE 25 MG TABLET PO SCH ×2 (08:51→16:15)
[2020-10-13] MEDS: DULoxetine HCL 60 MG CAPSULE PO SCH (08:52)
[2020-10-13] MEDS: FLUTICASONE/VILANTEROL 200-25 MCG/INH INHALER [14] IH SCH (09:00)
[2020-10-13 14:21] VITALS: BP 138/103
[2020-10-13] MEDS: HALOPERIDOL 5 MG TABLET PO PRN (17:43)
[2020-10-13 17:44] VITALS: BP 138/80
[2020-10-13] MEDS: HALOPERIDOL 10 MG TABLET PO SCH (20:19)
[2020-10-13] MEDS: QUEtiapine FUMARATE 200 MG TABLET PO SCH (20:19)
[2020-10-14] MEDS: RIVAROXABAN 15 MG TABLET PO SCH ×2 (06:48→16:28)
[2020-10-14 08:30] VITALS: BP 119/64
[2020-10-14] MEDS: DULoxetine HCL 60 MG CAPSULE PO SCH (09:08)
[2020-10-14] MEDS: FLUTICASONE/VILANTEROL 200-25 MCG/INH INHALER [14] IH SCH (09:09)
[2020-10-14] MEDS: QUEtiapine FUMARATE 25 MG TABLET PO SCH ×2 (09:09→16:29)
[2020-10-14] MEDS: FUROSEMIDE 40 MG TABLET PO SCH (09:09)
[2020-10-14 16:23] VITALS: BP 132/79
[2020-10-14] MEDS: HALOPERIDOL 5 MG TABLET PO PRN (16:42)
[2020-10-14] MEDS: QUEtiapine FUMARATE 200 MG TABLET PO SCH (21:18)
[2020-10-14] MEDS: HALOPERIDOL 10 MG TABLET PO SCH (21:20)
[2020-10-15] MEDS: RIVAROXABAN 15 MG TABLET PO SCH ×2 (06:54→16:35)
[2020-10-15] MEDS: DULoxetine HCL 60 MG CAPSULE PO SCH (08:43)
[2020-10-15] MEDS: FUROSEMIDE 40 MG TABLET PO SCH (08:43)
[2020-10-15] MEDS: FLUTICASONE/VILANTEROL 200-25 MCG/INH INHALER [14] IH SCH (08:43)
[2020-10-15] MEDS: QUEtiapine FUMARATE 25 MG TABLET PO SCH ×2 (08:43→16:35)
[2020-10-15 08:54] VITALS: BP 112/73
[2020-10-15 16:30] VITALS: BP 98/79
[2020-10-15] MEDS: QUEtiapine FUMARATE 200 MG TABLET PO SCH (20:15)
[2020-10-15] MEDS: HALOPERIDOL 10 MG TABLET PO SCH (20:15)
[2020-10-16] MEDS: RIVAROXABAN 15 MG TABLET PO SCH ×2 (06:47→16:55)
[2020-10-16 08:00] VITALS: BP 110/64
[2020-10-16] MEDS: FLUTICASONE/VILANTEROL 200-25 MCG/INH INHALER [14] IH SCH ×2 (08:26→08:30)
[2020-10-16] MEDS: FUROSEMIDE 40 MG TABLET PO SCH (08:26)
[2020-10-16] MEDS: QUEtiapine FUMARATE 25 MG TABLET PO SCH ×2 (08:26→16:55)
[2020-10-16] MEDS: DULoxetine HCL 60 MG CAPSULE PO SCH (08:26)
[2020-10-16 16:03] VITALS: BP 135/91
[2020-10-16] MEDS: HALOPERIDOL 10 MG TABLET PO SCH (20:15)
[2020-10-16] MEDS: QUEtiapine FUMARATE 200 MG TABLET PO SCH (20:15)
[2020-10-17] MEDS: RIVAROXABAN 15 MG TABLET PO SCH ×2 (06:52→16:50)
[2020-10-17] MEDS: FUROSEMIDE 40 MG TABLET PO SCH (08:03)
[2020-10-17] MEDS: DULoxetine HCL 60 MG CAPSULE PO SCH (08:03)
[2020-10-17] MEDS: FLUTICASONE/VILANTEROL 200-25 MCG/INH INHALER [14] IH SCH (08:03)
[2020-10-17] MEDS: QUEtiapine FUMARATE 25 MG TABLET PO SCH ×2 (08:03→16:50)
[2020-10-17 10:08] VITALS: BP 146/93
[2020-10-17 15:08] LABS: COVID AG,FIA SOURCE NASOPHARYNGEAL
[2020-10-17 16:00] VITALS: BP 148/100
[2020-10-17] MEDS: HALOPERIDOL 5 MG TABLET PO PRN (18:35)
[2020-10-17] MEDS: QUEtiapine FUMARATE 200 MG TABLET PO SCH (20:15)
[2020-10-17] MEDS: HALOPERIDOL 10 MG TABLET PO SCH (20:16)
[2020-10-18 02:16] VITALS: BP 119/86
[2020-10-18] MEDS: RIVAROXABAN 15 MG TABLET PO SCH ×2 (06:46→16:10)
[2020-10-18 08:00] VITALS: BP 132/87
[2020-10-18] MEDS: QUEtiapine FUMARATE 25 MG TABLET PO SCH ×2 (08:38→16:11)
[2020-10-18] MEDS: FUROSEMIDE 40 MG TABLET PO SCH (08:38)
[2020-10-18] MEDS: DULoxetine HCL 60 MG CAPSULE PO SCH (08:38)
[2020-10-18] MEDS: FLUTICASONE/VILANTEROL 200-25 MCG/INH INHALER [14] IH SCH (08:41)
[2020-10-18 16:00] VITALS: BP 123/73
[2020-10-18] MEDS: HALOPERIDOL 10 MG TABLET PO SCH (20:14)
[2020-10-18] MEDS: QUEtiapine FUMARATE 200 MG TABLET PO SCH (20:14)
[2020-10-19] MEDS: RIVAROXABAN 15 MG TABLET PO SCH ×2 (07:09→16:19)
[2020-10-19 08:00] VITALS: BP 130/62
[2020-10-19] MEDS: QUEtiapine FUMARATE 25 MG TABLET PO SCH ×2 (08:29→16:19)
[2020-10-19] MEDS: FUROSEMIDE 40 MG TABLET PO SCH (08:29)
[2020-10-19] MEDS: DULoxetine HCL 60 MG CAPSULE PO SCH (08:29)
[2020-10-19] MEDS: FLUTICASONE/VILANTEROL 200-25 MCG/INH INHALER [14] IH SCH (08:33)
[2020-10-19 16:34] VITALS: BP 110/67
[2020-10-19] MEDS: HALOPERIDOL 10 MG TABLET PO SCH (20:06)
[2020-10-19] MEDS: QUEtiapine FUMARATE 200 MG TABLET PO SCH (20:06)
[2020-10-20 02:13] VITALS: BP 140/103
[2020-10-20 04:04] VITALS: BP 140/103
[2020-10-20] MEDS: RIVAROXABAN 15 MG TABLET PO SCH ×2 (06:45→16:48)
[2020-10-20 08:30] VITALS: BP 121/81
[2020-10-20] MEDS: DULoxetine HCL 60 MG CAPSULE PO SCH (08:40)
[2020-10-20] MEDS: FUROSEMIDE 40 MG TABLET PO SCH (08:41)
[2020-10-20] MEDS: QUEtiapine FUMARATE 25 MG TABLET PO SCH ×2 (08:41→16:48)
[2020-10-20] MEDS: FLUTICASONE/VILANTEROL 200-25 MCG/INH INHALER [14] IH SCH (08:53)
[2020-10-20 16:00] VITALS: BP 110/73
[2020-10-20] MEDS: HALOPERIDOL 5 MG TABLET PO PRN (16:48)
[2020-10-20] MEDS: HALOPERIDOL 10 MG TABLET PO SCH (20:16)
[2020-10-20] MEDS: QUEtiapine FUMARATE 200 MG TABLET PO SCH (20:17)
[2020-10-21] MEDS: RIVAROXABAN 15 MG TABLET PO SCH ×2 (06:58→16:12)
[2020-10-21 08:21] VITALS: BP 115/70
[2020-10-21] MEDS: QUEtiapine FUMARATE 25 MG TABLET PO SCH ×2 (08:37→16:12)
[2020-10-21] MEDS: DULoxetine HCL 60 MG CAPSULE PO SCH (08:37)
[2020-10-21] MEDS: FUROSEMIDE 40 MG TABLET PO SCH (08:37)
[2020-10-21] MEDS: FLUTICASONE/VILANTEROL 200-25 MCG/INH INHALER [14] IH SCH (08:47)
[2020-10-21 16:00] VITALS: BP 100/53
[2020-10-21] MEDS: HALOPERIDOL 10 MG TABLET PO SCH (20:06)
[2020-10-21] MEDS: QUEtiapine FUMARATE 200 MG TABLET PO SCH (20:06)
[2020-10-22] MEDS: RIVAROXABAN 15 MG TABLET PO SCH (06:39)
[2020-10-22] MEDS: FUROSEMIDE 40 MG TABLET PO SCH (08:11)
[2020-10-22] MEDS: QUEtiapine FUMARATE 25 MG TABLET PO SCH (08:11)
[2020-10-22] MEDS: DULoxetine HCL 60 MG CAPSULE PO SCH (08:11)
[2020-10-22] MEDS: FLUTICASONE/VILANTEROL 200-25 MCG/INH INHALER [14] IH SCH (08:17)
[2020-10-22 08:54] VITALS: BP 162/95
[2020-10-22] MEDS ORDERED: FURO40 PO (11:41)
[2020-10-22] MEDS ORDERED: QUET100T PO (11:41)
[2020-10-22] MEDS ORDERED: RIVA15T PO (11:41)
[2020-10-22] MEDS ORDERED: FLUT1AER IH (11:41)
[2020-10-22] MEDS ORDERED: QUET25TA PO (11:41)
== END 2020-10-22 14:45 | disposition home or self-care (01) | DRG 750 ==
LOC: EMS 20:07 → 3EI 09-28 13:13
PROVIDERS: ADMIT Psychiatry & Neurology Psychiatry; ATTEND Psychiatry & Neurology Psychiatry
DX: F25.9 Schizoaffective disorder, unspecified (principal); R45.851 Suicidal ideations; Z91.14 Patient's other noncompliance with medication regimen; E78.5 Hyperlipidemia, unspecified; G47.00 Insomnia, unspecified; F41.9 Anxiety disorder, unspecified; Z20.822 Contact with and (suspected) exposure to COVID-19; K59.00 Constipation, unspecified; Z87.891 Personal history of nicotine dependence
CPT/HCPCS: 71046; 78582; 80053; 80061; 81003; 85025; 87426; 94640; 99285; A9539; A9540; A9575; G0480; J3535; 36415-L1; 36415-TC; J7613

== ENCOUNTER 2021-09-05 19:36 | Inpatient (IN) | payer MEDICAID ==
[~2021-09-05] VITALS: Ht 167.6 cm; Wt 234.3 kg
[~2021-09-05 19:36] MED LIST changes: -CHOL500013 PO; +DULO-114 PO; -DULO30CA96 PO; +FLUT1AER IH; +FURO40 PO; -HALO5TAB2 PO; -METO25 PO; -MIRT-89 PO; +QUET100T PO; +QUET25TA PO; +RIVA15TA PO
[2021-09-05] MEDS ORDERED: BACITRACIN 0.9 GM PACKET OINTMENT TP ONE (21:30)
[2021-09-05 22:05] LABS: BASOPHILS % (AUTO) 0.8 % (0.0-2.0); HEMATOCRIT 41.6 % (41-53); LYMPHOCYTES # (AUTO) 2.8 K/uL (1.0-4.8); LYMPHOCYTES % (AUTO) 22.1 % (22.0-44.0); MEAN CORPUSCULAR HEMOGLOBIN 26.5 pg (26.0-34.0); MEAN CORPUSCULAR HGB CONC 31.3 G/dL (31.0-37.0); MEAN CORPUSCULAR VOLUME 85 fL (80-100); MONOCYTES # (AUTO) 1.3 K/uL (0.1-1.0); MONOCYTES % (AUTO) 10.2 % (2.0-9.0); NEUTROPHILS # (AUTO) 8.3 K/uL (1.8-7.7); NEUTROPHILS % (AUTO) 65.9 % (40.0-70.0); PLATELET COUNT (AUTO) 283 K/uL (150-450); RED CELL DISTRIBUTION WIDTH 14.8 % (11.5-14.5)
[2021-09-05 22:15] LABS: ANION GAP 3 mmol/L (8-16); CALCIUM, TOTAL 8.9 mg/dL (8.8-10.5); CARBON DIOXIDE 35 mmol/L (22-29); CHLORIDE 103 mmol/L (98-107); GLOMERULAR FILTR. RATE CALC > 60 mL/min (>60); GLUCOSE,RANDOM 117 mg/dL (70-110); POTASSIUM 4.5 mmol/L (3.5-5.1); SODIUM SERUM 141 mmol/L (136-145); UREA NITROGEN, BLOOD 11 mg/dL (7-18)
[2021-09-05 22:28] LABS: ALANINE AMINOTRANSFERASE 41 U/L (12-78); ALKALINE PHOSPHATASE 61 U/L (46-116); ASPARTATE AMINOTRANSFERASE 28 U/L (15-37); BILIRUBIN,TOTAL 0.5 mg/dL (0.1-1.0); CHOL/HDL RATIO 6.4 (4.2-7.3); CHOLESTEROL 166 mg/dL (131-200); HDL CHOLESTEROL 26 mg/dL (40-60); LDL CHOL (CALC.) 85 mg/dL (0-130); THYROID STIMULATING HORMONE 2.58 uIU/mL (0.36-3.74); TRIGLYCERIDES 276 mg/dL (15-150)
[2021-09-05] MEDS ORDERED: HALOPERIDOL 5 MG TABLET PO ONE (23:30)
[2021-09-05] MEDS ORDERED: LORazepam 2 MG TABLET PO ONE (23:30)
[2021-09-05] MEDS ORDERED: DiphenhydrAMINE HCL 25 MG CAPSULE PO ONE (23:30)
[2021-09-06 00:27] LABS: COVID AG,FIA SOURCE NASOPHARYNGEAL
[2021-09-06 03:59] LABS: BASE EXCESS,VENOUS BLOOD GAS 13.5 (-3.3-1.2); HCO3,VENOUS BLOOD GAS 32.6 (21.0-28.0); PCO2,VENOUS BLOOD GAS 93 (40-45); PH,VENOUS BLOOD GAS 7.258 (7.360-7.410); SITE, BLOOD GAS VENOUS; SOURCE, BLOOD GAS VENOUS; TEMPERATURE, FAHRENHEIT, BG 98.6 FAHREN (96.0-98.6)
[2021-09-06] MEDS ORDERED: MAGNESIUM HYDROXIDE SUSPENSION 30 ML UDCUP PO PRN (07:30)
[2021-09-06] MEDS ORDERED: ACETAMINOPHEN 325 MG TABLET PO PRN (07:30)
[2021-09-06] MEDS ORDERED: BISACODYL 10 MG RECTAL RECTAL SUPPOSITORY PR PRN (07:30)
[2021-09-06] MEDS ORDERED: MORPHINE SULFATE 2 MG/ML SYRINGE IVP PRN (07:30)
[2021-09-06] MEDS ORDERED: ONDANSETRON HCL 4 MG/2 ML VIAL IVP PRN (07:30)
[2021-09-06] MEDS: NITROGLYCERIN 2% (1 GM=INCH) PACKET TP SCH ×3 (09:06→23:30)
[2021-09-06] MEDS: ASPIRIN 81 MG CHEWABLE TABLET PO SCH (09:06)
[2021-09-06] MEDS: HEPARIN SODIUM,PORCINE 5,000 UNITS/ML VIAL SQ SCH ×2 (09:07→16:51)
[2021-09-06] MEDS: PANTOPRAZOLE SODIUM 40 MG DR TABLET PO SCH (09:08)
[2021-09-06] MEDS: DOCUSATE SODIUM 100 MG CAPSULE PO SCH ×2 (09:08→20:22)
[2021-09-06 10:07] VITALS: BP 127/95
[2021-09-06 13:15] VITALS: BP 126/68
[2021-09-06 16:41] VITALS: BP 132/78
[2021-09-06 20:00] VITALS: BP 123/70
[2021-09-06] MEDS: DULoxetine HCL 60 MG CAPSULE PO SCH (20:46)
[2021-09-06] MEDS: ZOLPIDEM TARTRATE 5 MG TABLET PO PRN (20:46)
[2021-09-06] MEDS ORDERED: QUEtiapine FUMARATE 200 MG TABLET PO SCH (21:00)
[2021-09-06] MEDS ORDERED: QUEtiapine FUMARATE 25 MG TABLET PO SCH (21:00)
[2021-09-07] VITALS (8 sets, daily range): BP systolic 115–142; BP diastolic 65–92
[2021-09-07 06:16] LABS: BASOPHILS % (AUTO) 0.4 % (0.0-2.0); EOSINOPHILS % (AUTO) 1.4 % (1.0-6.0); HEMATOCRIT 38.9 % (41-53); HEMOGLOBIN 12.4 g/dL (13.5-17.5); LYMPHOCYTES % (AUTO) 16.8 % (22.0-44.0); MEAN CORPUSCULAR HEMOGLOBIN 26.8 pg (26.0-34.0); MEAN CORPUSCULAR HGB CONC 31.9 G/dL (31.0-37.0); MEAN CORPUSCULAR VOLUME 84 fL (80-100); MONOCYTES # (AUTO) 0.6 K/uL (0.1-1.0); MONOCYTES % (AUTO) 10.7 % (2.0-9.0); NEUTROPHILS # (AUTO) 4.3 K/uL (1.8-7.7); NEUTROPHILS % (AUTO) 70.7 % (40.0-70.0); PLATELET COUNT (AUTO) 264 K/uL (150-450); RED BLOOD CELL COUNT(AUTO) 4.64 MIL/uL (4.50-5.90); RED CELL DISTRIBUTION WIDTH 14.7 % (11.5-14.5)
[2021-09-07 06:36] LABS: ALANINE AMINOTRANSFERASE 31 U/L (12-78); ALBUMIN 2.8 g/dL (3.4-5.0); ALKALINE PHOSPHATASE 62 U/L (46-116); ANION GAP 2 mmol/L (8-16); ASPARTATE AMINOTRANSFERASE 10 U/L (15-37); BILIRUBIN,TOTAL 0.4 mg/dL (0.1-1.0); CALCIUM, TOTAL 8.7 mg/dL (8.8-10.5); CHLORIDE 100 mmol/L (98-107); CHOL/HDL RATIO 5.6 (4.2-7.3); CHOLESTEROL 156 mg/dL (131-200); CREATININE 0.54 mg/dL (0.60-1.30); GLUCOSE,RANDOM 128 mg/dL (70-110); HDL CHOLESTEROL 28 mg/dL (40-60); LDL CHOL (CALC.) 87 mg/dL (0-130); POTASSIUM 4.6 mmol/L (3.5-5.1); SODIUM SERUM 145 mmol/L (136-145); TOTAL PROTEIN, SERUM 7.4 g/dL (6.4-8.2); TRIGLYCERIDES 207 mg/dL (15-150); UREA NITROGEN, BLOOD 10 mg/dL (7-18)
[2021-09-07 07:31] LABS: CARBON DIOXIDE 43 mmol/L (22-29); GLOMERULAR FILTR. RATE CALC > 60 mL/min (>60)
[2021-09-07] MEDS: NITROGLYCERIN 2% (1 GM=INCH) PACKET TP SCH ×2 (08:00→16:00)
[2021-09-07] MEDS ORDERED: QUEtiapine FUMARATE 25 MG TABLET PO SCH (09:00)
[2021-09-07] MEDS ORDERED: DULoxetine HCL 30 MG CAPSULE PO SCH (09:00)
[2021-09-07] MEDS ORDERED: FUROSEMIDE 40 MG TABLET PO SCH (09:00)
[2021-09-07] MEDS: ASPIRIN 81 MG CHEWABLE TABLET PO SCH (09:01)
[2021-09-07] MEDS: PANTOPRAZOLE SODIUM 40 MG DR TABLET PO SCH (09:02)
[2021-09-07] MEDS: RIVAROXABAN 15 MG TABLET PO SCH ×2 (09:02→17:32)
[2021-09-07] MEDS: DULoxetine HCL 60 MG CAPSULE PO SCH ×2 (09:02→20:12)
[2021-09-07] MEDS: DOCUSATE SODIUM 100 MG CAPSULE PO SCH ×2 (09:02→20:12)
[2021-09-07] MEDS: HYDROCODONE/ACETAMINOPHEN 5-325 MG TABLET PO PRN (14:02)
[2021-09-07] MEDS ORDERED: FUROSEMIDE 40 MG/4 ML VIAL IVP ONE (15:15)
[2021-09-07] MEDS: AMOX TR/POT CLAV 875 MG/125 MG TABLET PO SCH (20:11)
[2021-09-07] MEDS: OLANZapine 5 MG RAPDIS TABLET PO SCH (20:12)
[2021-09-07] MEDS: FUROSEMIDE 40 MG/4 ML VIAL IVP SCH (20:12)
[2021-09-07] MEDS ORDERED: QUEtiapine FUMARATE 100 MG TABLET PO SCH (21:00)
[2021-09-07] MEDS ORDERED: HALOPERIDOL 10 MG TABLET PO SCH (21:00)
[2021-09-08 04:50] VITALS: BP 135/63
[2021-09-08 06:25] LABS: BASOPHILS % (AUTO) 0.3 % (0.0-2.0); EOSINOPHILS % (AUTO) 0.9 % (1.0-6.0); HEMOGLOBIN 12.2 g/dL (13.5-17.5); LYMPHOCYTES # (AUTO) 1.1 K/uL (1.0-4.8); LYMPHOCYTES % (AUTO) 16.2 % (22.0-44.0); MEAN CORPUSCULAR HEMOGLOBIN 26.9 pg (26.0-34.0); MEAN CORPUSCULAR VOLUME 84 fL (80-100); MONOCYTES # (AUTO) 0.5 K/uL (0.1-1.0); MONOCYTES % (AUTO) 7.2 % (2.0-9.0); NEUTROPHILS # (AUTO) 5.2 K/uL (1.8-7.7); NEUTROPHILS % (AUTO) 75.4 % (40.0-70.0); PLATELET COUNT (AUTO) 296 K/uL (150-450); RED BLOOD CELL COUNT(AUTO) 4.53 MIL/uL (4.50-5.90); RED CELL DISTRIBUTION WIDTH 14.1 % (11.5-14.5)
[2021-09-08 06:48] LABS: ALANINE AMINOTRANSFERASE 26 U/L (12-78); ALKALINE PHOSPHATASE 63 U/L (46-116); ANION GAP 1 mmol/L (8-16); ASPARTATE AMINOTRANSFERASE 9 U/L (15-37); BILIRUBIN,TOTAL 0.5 mg/dL (0.1-1.0); CALCIUM, TOTAL 8.9 mg/dL (8.8-10.5); CHLORIDE 95 mmol/L (98-107); CREATININE 0.49 mg/dL (0.60-1.30); GLUCOSE,RANDOM 138 mg/dL (70-110); POTASSIUM 4.3 mmol/L (3.5-5.1); SODIUM SERUM 141 mmol/L (136-145); TOTAL PROTEIN, SERUM 7.7 g/dL (6.4-8.2); UREA NITROGEN, BLOOD 10 mg/dL (7-18)
[2021-09-08 06:54] LABS: GLOMERULAR FILTR. RATE CALC > 60 mL/min (>60)
[2021-09-08 07:11] LABS: CARBON DIOXIDE 48 mmol/L (22-29)
[2021-09-08 07:52] VITALS: BP 127/73
[2021-09-08] MEDS: RIVAROXABAN 15 MG TABLET PO SCH ×2 (08:00→17:11)
[2021-09-08] MEDS: ASPIRIN 81 MG CHEWABLE TABLET PO SCH (08:13)
[2021-09-08] MEDS: FUROSEMIDE 40 MG/4 ML VIAL IVP SCH ×2 (08:13→20:02)
[2021-09-08] MEDS: PANTOPRAZOLE SODIUM 40 MG DR TABLET PO SCH (08:13)
[2021-09-08] MEDS: DULoxetine HCL 60 MG CAPSULE PO SCH ×2 (08:13→20:02)
[2021-09-08] MEDS: DOCUSATE SODIUM 100 MG CAPSULE PO SCH ×2 (08:13→20:02)
[2021-09-08] MEDS: AMOX TR/POT CLAV 875 MG/125 MG TABLET PO SCH ×2 (08:13→20:02)
[2021-09-08] MEDS: OLANZapine 5 MG RAPDIS TABLET PO SCH ×3 (08:14→20:02)
[2021-09-08] MEDS: FLUTICASONE/VILANTEROL 100-25 MCG/INH INHALER [14] IH SCH (09:00)
[2021-09-08 09:32] LABS: BASOPHILS % (AUTO) 0.5 % (0.0-2.0); EOSINOPHILS % (AUTO) 0.8 % (1.0-6.0); HEMATOCRIT 38.5 % (41-53); HEMOGLOBIN 12.3 g/dL (13.5-17.5); LYMPHOCYTES # (AUTO) 0.9 K/uL (1.0-4.8); LYMPHOCYTES % (AUTO) 13.3 % (22.0-44.0); MEAN CORPUSCULAR HEMOGLOBIN 26.6 pg (26.0-34.0); MEAN CORPUSCULAR VOLUME 83 fL (80-100); MONOCYTES # (AUTO) 0.4 K/uL (0.1-1.0); MONOCYTES % (AUTO) 6.2 % (2.0-9.0); NEUTROPHILS # (AUTO) 5.4 K/uL (1.8-7.7); NEUTROPHILS % (AUTO) 79.2 % (40.0-70.0); PLATELET COUNT (AUTO) 290 K/uL (150-450); RED BLOOD CELL COUNT(AUTO) 4.62 MIL/uL (4.50-5.90); RED CELL DISTRIBUTION WIDTH 14.8 % (11.5-14.5)
[2021-09-08 09:40] LABS: ANION GAP 3 mmol/L (8-16); CALCIUM, TOTAL 8.8 mg/dL (8.8-10.5); CHLORIDE 94 mmol/L (98-107); CREATININE 0.57 mg/dL (0.60-1.30); GLUCOSE,RANDOM 181 mg/dL (70-110); POTASSIUM 3.4 mmol/L (3.5-5.1); SODIUM SERUM 142 mmol/L (136-145); UREA NITROGEN, BLOOD 9 mg/dL (7-18)
[2021-09-08 09:41] LABS: GLOMERULAR FILTR. RATE CALC > 60 mL/min (>60)
[2021-09-08 09:43] LABS: CARBON DIOXIDE 45 mmol/L (22-29)
[2021-09-08 11:09] VITALS: BP 135/67
[2021-09-08] MEDS ORDERED: POTASSIUM CHLORIDE 20 MEQ ER TABLET PO ONE (13:00)
[2021-09-08] MEDS: OLANZapine 5 MG RAPDIS TABLET PO PRN (14:08)
[2021-09-08 16:00] VITALS: BP 131/49
[2021-09-08 21:10] VITALS: BP 125/50
[2021-09-08] MEDS: ZOLPIDEM TARTRATE 5 MG TABLET PO PRN (22:33)
[2021-09-09 01:44] VITALS: BP 117/83
[2021-09-09] MEDS: HYDROCODONE/ACETAMINOPHEN 5-325 MG TABLET PO PRN (04:25)
[2021-09-09 05:11] VITALS: BP 123/87
[2021-09-09 07:02] LABS: BASOPHILS % (AUTO) 0.4 % (0.0-2.0); HEMATOCRIT 37.5 % (41-53); HEMOGLOBIN 12.2 g/dL (13.5-17.5); LYMPHOCYTES # (AUTO) 1.3 K/uL (1.0-4.8); LYMPHOCYTES % (AUTO) 16.7 % (22.0-44.0); MEAN CORPUSCULAR HEMOGLOBIN 27.1 pg (26.0-34.0); MEAN CORPUSCULAR HGB CONC 32.7 G/dL (31.0-37.0); MEAN CORPUSCULAR VOLUME 83 fL (80-100); MONOCYTES # (AUTO) 0.6 K/uL (0.1-1.0); MONOCYTES % (AUTO) 8.1 % (2.0-9.0); NEUTROPHILS # (AUTO) 5.7 K/uL (1.8-7.7); NEUTROPHILS % (AUTO) 73.8 % (40.0-70.0); PLATELET COUNT (AUTO) 302 K/uL (150-450); RED BLOOD CELL COUNT(AUTO) 4.51 MIL/uL (4.50-5.90); RED CELL DISTRIBUTION WIDTH 14.8 % (11.5-14.5)
[2021-09-09 07:33] LABS: ALANINE AMINOTRANSFERASE 22 U/L (12-78); ALBUMIN 2.9 g/dL (3.4-5.0); ALKALINE PHOSPHATASE 61 U/L (46-116); ANION GAP -1 mmol/L (8-16); ASPARTATE AMINOTRANSFERASE 11 U/L (15-37); BILIRUBIN,TOTAL 0.4 mg/dL (0.1-1.0); CHLORIDE 98 mmol/L (98-107); CREATININE 0.51 mg/dL (0.60-1.30); FREE T4 (FREE THYROXINE) 0.97 ng/dL (0.76-1.46); GLUCOSE,RANDOM 109 mg/dL (70-110); SODIUM SERUM 139 mmol/L (136-145); TOTAL PROTEIN, SERUM 7.5 g/dL (6.4-8.2); UREA NITROGEN, BLOOD 12 mg/dL (7-18)
[2021-09-09 07:36] LABS: CARBON DIOXIDE 42 mmol/L (22-29); GLOMERULAR FILTR. RATE CALC > 60 mL/min (>60)
[2021-09-09 08:00] VITALS: BP 135/83
[2021-09-09] MEDS: FLUTICASONE/VILANTEROL 100-25 MCG/INH INHALER [14] IH SCH ×2 (08:44→09:59)
[2021-09-09] MEDS: RIVAROXABAN 15 MG TABLET PO SCH ×2 (08:45→17:57)
[2021-09-09] MEDS: AMOX TR/POT CLAV 875 MG/125 MG TABLET PO SCH ×2 (08:45→22:30)
[2021-09-09] MEDS: FUROSEMIDE 40 MG/4 ML VIAL IVP SCH ×2 (08:45→22:30)
[2021-09-09] MEDS: OLANZapine 5 MG RAPDIS TABLET PO SCH ×3 (08:45→22:30)
[2021-09-09] MEDS: ASPIRIN 81 MG CHEWABLE TABLET PO SCH (08:45)
[2021-09-09] MEDS: DOCUSATE SODIUM 100 MG CAPSULE PO SCH ×2 (08:45→22:30)
[2021-09-09] MEDS: PANTOPRAZOLE SODIUM 40 MG DR TABLET PO SCH (08:45)
[2021-09-09] MEDS: DULoxetine HCL 60 MG CAPSULE PO SCH ×2 (08:45→22:30)
[2021-09-09 12:00] VITALS: BP 122/83
[2021-09-09 16:10] VITALS: BP 108/68
[2021-09-09] MEDS ORDERED: GABAPENTIN 400 MG CAPSULE PO ONE (16:15)
[2021-09-09 20:23] VITALS: BP 111/81
[2021-09-09] MEDS: ZOLPIDEM TARTRATE 5 MG TABLET PO PRN (22:55)
[2021-09-10 00:43] VITALS: BP 118/62
[2021-09-10 07:05] VITALS: BP 129/76
[2021-09-10 08:18] VITALS: BP 118/68
[2021-09-10] MEDS: DOCUSATE SODIUM 100 MG CAPSULE PO SCH ×2 (08:52→21:04)
[2021-09-10] MEDS: FUROSEMIDE 40 MG/4 ML VIAL IVP SCH ×3 (08:52→21:04)
[2021-09-10] MEDS: DULoxetine HCL 60 MG CAPSULE PO SCH ×2 (08:52→21:04)
[2021-09-10] MEDS: ASPIRIN 81 MG CHEWABLE TABLET PO SCH (08:53)
[2021-09-10] MEDS: FLUTICASONE/VILANTEROL 100-25 MCG/INH INHALER [14] IH SCH (08:53)
[2021-09-10] MEDS: OLANZapine 5 MG RAPDIS TABLET PO SCH ×4 (08:53→21:04)
[2021-09-10] MEDS: PANTOPRAZOLE SODIUM 40 MG DR TABLET PO SCH (08:53)
[2021-09-10] MEDS: AMOX TR/POT CLAV 875 MG/125 MG TABLET PO SCH ×2 (08:53→21:04)
[2021-09-10] MEDS: RIVAROXABAN 15 MG TABLET PO SCH ×2 (08:53→18:14)
[2021-09-10 12:38] VITALS: BP 130/63
[2021-09-10 16:23] VITALS: BP 135/72
[2021-09-10 20:00] VITALS: BP 145/83
[2021-09-10] MEDS: ZOLPIDEM TARTRATE 5 MG TABLET PO PRN (21:04)
[2021-09-10] MEDS: GABAPENTIN 400 MG CAPSULE PO PRN (21:04)
[2021-09-11 04:00] VITALS: BP 125/79
[2021-09-11 08:01] VITALS: BP 101/65
[2021-09-11] MEDS: PANTOPRAZOLE SODIUM 40 MG DR TABLET PO SCH (08:38)
[2021-09-11] MEDS: DULoxetine HCL 60 MG CAPSULE PO SCH ×2 (08:38→19:58)
[2021-09-11] MEDS: OLANZapine 5 MG RAPDIS TABLET PO SCH ×4 (08:40→19:58)
[2021-09-11] MEDS: DOCUSATE SODIUM 100 MG CAPSULE PO SCH ×2 (08:40→19:59)
[2021-09-11] MEDS: RIVAROXABAN 15 MG TABLET PO SCH ×2 (08:40→18:41)
[2021-09-11] MEDS: FLUTICASONE/VILANTEROL 100-25 MCG/INH INHALER [14] IH SCH (08:42)
[2021-09-11] MEDS: FUROSEMIDE 40 MG/4 ML VIAL IVP SCH ×2 (08:44→19:58)
[2021-09-11] MEDS: AMOX TR/POT CLAV 875 MG/125 MG TABLET PO SCH ×2 (08:49→19:58)
[2021-09-11] MEDS: ASPIRIN 81 MG CHEWABLE TABLET PO SCH (08:49)
[2021-09-11 08:52] LABS: BASOPHILS % (AUTO) 0.4 % (0.0-2.0); EOSINOPHILS % (AUTO) 1.1 % (1.0-6.0); HEMATOCRIT 40.7 % (41-53); HEMOGLOBIN 13.1 g/dL (13.5-17.5); LYMPHOCYTES # (AUTO) 1.4 K/uL (1.0-4.8); MEAN CORPUSCULAR HEMOGLOBIN 26.8 pg (26.0-34.0); MEAN CORPUSCULAR HGB CONC 32.1 G/dL (31.0-37.0); MEAN CORPUSCULAR VOLUME 83 fL (80-100); MONOCYTES # (AUTO) 0.4 K/uL (0.1-1.0); MONOCYTES % (AUTO) 5.1 % (2.0-9.0); NEUTROPHILS # (AUTO) 6.7 K/uL (1.8-7.7); NEUTROPHILS % (AUTO) 77.4 % (40.0-70.0); PLATELET COUNT (AUTO) 295 K/uL (150-450); RED BLOOD CELL COUNT(AUTO) 4.88 MIL/uL (4.50-5.90); RED CELL DISTRIBUTION WIDTH 14.9 % (11.5-14.5)
[2021-09-11 09:13] LABS: ALANINE AMINOTRANSFERASE 20 U/L (12-78); ALKALINE PHOSPHATASE 64 U/L (46-116); ANION GAP 4 mmol/L (8-16); ASPARTATE AMINOTRANSFERASE 9 U/L (15-37); BILIRUBIN,TOTAL 0.6 mg/dL (0.1-1.0); CARBON DIOXIDE 40 mmol/L (22-29); CHLORIDE 99 mmol/L (98-107); GLOMERULAR FILTR. RATE CALC > 60 mL/min (>60); GLUCOSE,RANDOM 135 mg/dL (70-110); SODIUM SERUM 143 mmol/L (136-145); TOTAL PROTEIN, SERUM 7.8 g/dL (6.4-8.2); UREA NITROGEN, BLOOD 14 mg/dL (7-18)
[2021-09-11 11:09] VITALS: BP 139/85
[2021-09-11] MEDS: GABAPENTIN 400 MG CAPSULE PO PRN (13:00)
[2021-09-11 15:56] VITALS: BP 135/65
[2021-09-11 19:35] VITALS: BP 120/73
[2021-09-11 23:20] VITALS: BP 122/93
[2021-09-12] MEDS: ZOLPIDEM TARTRATE 5 MG TABLET PO PRN ×2 (02:33→21:29)
[2021-09-12 04:03] VITALS: BP 126/76
[2021-09-12] MEDS: PANTOPRAZOLE SODIUM 40 MG DR TABLET PO SCH (07:39)
[2021-09-12] MEDS: ASPIRIN 81 MG CHEWABLE TABLET PO SCH (07:39)
[2021-09-12] MEDS: DULoxetine HCL 60 MG CAPSULE PO SCH ×2 (07:39→21:29)
[2021-09-12] MEDS: OLANZapine 5 MG RAPDIS TABLET PO SCH ×4 (07:40→21:29)
[2021-09-12] MEDS: FLUTICASONE/VILANTEROL 100-25 MCG/INH INHALER [14] IH SCH (07:40)
[2021-09-12] MEDS: AMOX TR/POT CLAV 875 MG/125 MG TABLET PO SCH ×2 (07:40→21:29)
[2021-09-12] MEDS: RIVAROXABAN 15 MG TABLET PO SCH ×2 (07:40→17:20)
[2021-09-12] MEDS: DOCUSATE SODIUM 100 MG CAPSULE PO SCH ×3 (07:40→21:29)
[2021-09-12] MEDS: FUROSEMIDE 40 MG/4 ML VIAL IVP SCH ×3 (07:41→21:30)
[2021-09-12 07:57] VITALS: BP 135/70
[2021-09-12] MEDS: HYDROCODONE/ACETAMINOPHEN 5-325 MG TABLET PO PRN (10:34)
[2021-09-12 11:44] VITALS: BP 105/59
[2021-09-12 16:21] VITALS: BP 129/60
[2021-09-12 20:00] VITALS: BP 100/51
[2021-09-13 04:00] VITALS: BP 138/67
[2021-09-13] MEDS: FLUTICASONE/VILANTEROL 100-25 MCG/INH INHALER [14] IH SCH (08:50)
[2021-09-13] MEDS: RIVAROXABAN 15 MG TABLET PO SCH ×2 (08:50→17:11)
[2021-09-13] MEDS: FUROSEMIDE 40 MG/4 ML VIAL IVP SCH ×4 (08:51→20:44)
[2021-09-13] MEDS: AMOX TR/POT CLAV 875 MG/125 MG TABLET PO SCH ×2 (08:52→20:41)
[2021-09-13] MEDS: DULoxetine HCL 60 MG CAPSULE PO SCH ×2 (08:52→20:41)
[2021-09-13] MEDS: DOCUSATE SODIUM 100 MG CAPSULE PO SCH ×2 (08:52→20:41)
[2021-09-13] MEDS: PANTOPRAZOLE SODIUM 40 MG DR TABLET PO SCH (08:52)
[2021-09-13] MEDS: ASPIRIN 81 MG CHEWABLE TABLET PO SCH (08:52)
[2021-09-13] MEDS: OLANZapine 5 MG RAPDIS TABLET PO SCH ×4 (08:53→20:41)
[2021-09-13 09:38] VITALS: BP 123/55
[2021-09-13 12:35] LABS: BASOPHILS % (AUTO) 0.8 % (0.0-2.0); EOSINOPHILS % (AUTO) 1.4 % (1.0-6.0); HEMATOCRIT 40.4 % (41-53); HEMOGLOBIN 12.9 g/dL (13.5-17.5); LYMPHOCYTES # (AUTO) 1.5 K/uL (1.0-4.8); LYMPHOCYTES % (AUTO) 16.2 % (22.0-44.0); MEAN CORPUSCULAR HEMOGLOBIN 26.4 pg (26.0-34.0); MEAN CORPUSCULAR HGB CONC 31.8 G/dL (31.0-37.0); MEAN CORPUSCULAR VOLUME 83 fL (80-100); MONOCYTES # (AUTO) 0.7 K/uL (0.1-1.0); MONOCYTES % (AUTO) 7.5 % (2.0-9.0); NEUTROPHILS % (AUTO) 74.1 % (40.0-70.0); PLATELET COUNT (AUTO) 289 K/uL (150-450); RED BLOOD CELL COUNT(AUTO) 4.87 MIL/uL (4.50-5.90)
[2021-09-13 12:47] LABS: ALANINE AMINOTRANSFERASE 19 U/L (12-78); ALBUMIN 2.9 g/dL (3.4-5.0); ALKALINE PHOSPHATASE 67 U/L (46-116); ANION GAP 6 mmol/L (8-16); ASPARTATE AMINOTRANSFERASE 10 U/L (15-37); BILIRUBIN,TOTAL 0.6 mg/dL (0.1-1.0); CALCIUM, TOTAL 9.1 mg/dL (8.8-10.5); CARBON DIOXIDE 38 mmol/L (22-29); CHLORIDE 99 mmol/L (98-107); CREATININE 0.57 mg/dL (0.60-1.30); GLUCOSE,RANDOM 111 mg/dL (70-110); POTASSIUM 4.1 mmol/L (3.5-5.1); SODIUM SERUM 143 mmol/L (136-145); TOTAL PROTEIN, SERUM 7.8 g/dL (6.4-8.2); UREA NITROGEN, BLOOD 12 mg/dL (7-18)
[2021-09-13 12:49] LABS: GLOMERULAR FILTR. RATE CALC > 60 mL/min (>60)
[2021-09-13 13:22] VITALS: BP 122/80
[2021-09-13] MEDS: GABAPENTIN 400 MG CAPSULE PO PRN (15:07)
[2021-09-13 16:58] VITALS: BP 109/65
[2021-09-13 21:23] VITALS: BP 125/74
[2021-09-14] VITALS (7 sets, daily range): BP systolic 96–148; BP diastolic 45–88
[2021-09-14] MEDS: OLANZapine 5 MG RAPDIS TABLET PO PRN (01:12)
[2021-09-14 07:00] LABS: BASOPHILS % (AUTO) 0.5 % (0.0-2.0); EOSINOPHILS % (AUTO) 1.5 % (1.0-6.0); HEMOGLOBIN 12.8 g/dL (13.5-17.5); LYMPHOCYTES # (AUTO) 1.3 K/uL (1.0-4.8); MEAN CORPUSCULAR HEMOGLOBIN 26.7 pg (26.0-34.0); MEAN CORPUSCULAR VOLUME 84 fL (80-100); MONOCYTES # (AUTO) 0.6 K/uL (0.1-1.0); NEUTROPHILS # (AUTO) 6.9 K/uL (1.8-7.7); PLATELET COUNT (AUTO) 272 K/uL (150-450); RED BLOOD CELL COUNT(AUTO) 4.79 MIL/uL (4.50-5.90); RED CELL DISTRIBUTION WIDTH 15.1 % (11.5-14.5)
[2021-09-14 07:33] LABS: ALANINE AMINOTRANSFERASE 21 U/L (12-78); ALBUMIN 2.9 g/dL (3.4-5.0); ALKALINE PHOSPHATASE 68 U/L (46-116); ANION GAP 5 mmol/L (8-16); ASPARTATE AMINOTRANSFERASE 15 U/L (15-37); BILIRUBIN,TOTAL 0.5 mg/dL (0.1-1.0); CALCIUM, TOTAL 9.1 mg/dL (8.8-10.5); CARBON DIOXIDE 37 mmol/L (22-29); CHLORIDE 101 mmol/L (98-107); CREATININE 0.51 mg/dL (0.60-1.30); GLUCOSE,RANDOM 114 mg/dL (70-110); POTASSIUM 4.4 mmol/L (3.5-5.1); SODIUM SERUM 143 mmol/L (136-145); TOTAL PROTEIN, SERUM 7.8 g/dL (6.4-8.2); UREA NITROGEN, BLOOD 13 mg/dL (7-18)
[2021-09-14 07:42] LABS: GLOMERULAR FILTR. RATE CALC > 60 mL/min (>60)
[2021-09-14] MEDS: DOCUSATE SODIUM 100 MG CAPSULE PO SCH ×2 (09:00→20:29)
[2021-09-14] MEDS: FUROSEMIDE 40 MG/4 ML VIAL IVP SCH ×3 (09:00→20:29)
[2021-09-14] MEDS: RIVAROXABAN 15 MG TABLET PO SCH ×2 (09:51→18:08)
[2021-09-14] MEDS: ASPIRIN 81 MG CHEWABLE TABLET PO SCH (09:51)
[2021-09-14] MEDS: FLUTICASONE/VILANTEROL 100-25 MCG/INH INHALER [14] IH SCH (09:51)
[2021-09-14] MEDS: AMOX TR/POT CLAV 875 MG/125 MG TABLET PO SCH ×2 (09:51→20:30)
[2021-09-14] MEDS: PANTOPRAZOLE SODIUM 40 MG DR TABLET PO SCH (09:52)
[2021-09-14] MEDS: OLANZapine 5 MG RAPDIS TABLET PO SCH ×4 (09:52→20:31)
[2021-09-14] MEDS: DULoxetine HCL 60 MG CAPSULE PO SCH ×2 (09:52→20:31)
[2021-09-14] MEDS: GABAPENTIN 400 MG CAPSULE PO PRN (16:47)
[2021-09-15 02:16] VITALS: BP 134/80
[2021-09-15 05:23] VITALS: BP 125/78
[2021-09-15] MEDS: RIVAROXABAN 15 MG TABLET PO SCH ×2 (08:47→18:38)
[2021-09-15] MEDS: OLANZapine 5 MG RAPDIS TABLET PO SCH ×4 (08:47→20:06)
[2021-09-15] MEDS: PANTOPRAZOLE SODIUM 40 MG DR TABLET PO SCH (08:47)
[2021-09-15] MEDS: DULoxetine HCL 60 MG CAPSULE PO SCH ×2 (08:47→20:06)
[2021-09-15] MEDS: AMOX TR/POT CLAV 875 MG/125 MG TABLET PO SCH ×2 (08:47→20:06)
[2021-09-15] MEDS: FUROSEMIDE 40 MG/4 ML VIAL IVP SCH ×2 (08:48→20:08)
[2021-09-15] MEDS: DOCUSATE SODIUM 100 MG CAPSULE PO SCH ×2 (08:48→20:09)
[2021-09-15] MEDS: ASPIRIN 81 MG CHEWABLE TABLET PO SCH (08:52)
[2021-09-15 08:54] VITALS: BP 106/64
[2021-09-15 08:54] LABS: BASOPHILS % (AUTO) 0.4 % (0.0-2.0); HEMATOCRIT 38.8 % (41-53); HEMOGLOBIN 12.4 g/dL (13.5-17.5); LYMPHOCYTES # (AUTO) 1.4 K/uL (1.0-4.8); LYMPHOCYTES % (AUTO) 16.4 % (22.0-44.0); MEAN CORPUSCULAR HEMOGLOBIN 26.6 pg (26.0-34.0); MEAN CORPUSCULAR VOLUME 83 fL (80-100); MONOCYTES # (AUTO) 0.5 K/uL (0.1-1.0); MONOCYTES % (AUTO) 5.8 % (2.0-9.0); NEUTROPHILS # (AUTO) 6.5 K/uL (1.8-7.7); NEUTROPHILS % (AUTO) 76.4 % (40.0-70.0); PLATELET COUNT (AUTO) 258 K/uL (150-450); RED BLOOD CELL COUNT(AUTO) 4.67 MIL/uL (4.50-5.90); RED CELL DISTRIBUTION WIDTH 15.1 % (11.5-14.5)
[2021-09-15] MEDS: FLUTICASONE/VILANTEROL 100-25 MCG/INH INHALER [14] IH SCH (08:56)
[2021-09-15 09:11] LABS: ALANINE AMINOTRANSFERASE 21 U/L (12-78); ALBUMIN 2.8 g/dL (3.4-5.0); ALKALINE PHOSPHATASE 65 U/L (46-116); ANION GAP 1 mmol/L (8-16); ASPARTATE AMINOTRANSFERASE 12 U/L (15-37); BILIRUBIN,TOTAL 0.5 mg/dL (0.1-1.0); CALCIUM, TOTAL 8.8 mg/dL (8.8-10.5); CARBON DIOXIDE 36 mmol/L (22-29); CHLORIDE 104 mmol/L (98-107); CREATININE 0.59 mg/dL (0.60-1.30); GLUCOSE,RANDOM 152 mg/dL (70-110); POTASSIUM 4.2 mmol/L (3.5-5.1); SODIUM SERUM 141 mmol/L (136-145); TOTAL PROTEIN, SERUM 7.5 g/dL (6.4-8.2); UREA NITROGEN, BLOOD 12 mg/dL (7-18)
[2021-09-15 09:12] LABS: GLOMERULAR FILTR. RATE CALC > 60 mL/min (>60)
[2021-09-15 11:54] VITALS: BP 101/77
[2021-09-15 16:19] VITALS: BP 105/75
[2021-09-15 19:58] VITALS: BP 106/75
[2021-09-16 00:05] VITALS: BP 134/67
[2021-09-16 05:47] VITALS: BP 102/50
[2021-09-16 07:17] VITALS: BP 135/95
[2021-09-16] MEDS: FLUTICASONE/VILANTEROL 100-25 MCG/INH INHALER [14] IH SCH (08:04)
[2021-09-16] MEDS: ASPIRIN 81 MG CHEWABLE TABLET PO SCH (08:05)
[2021-09-16] MEDS: FUROSEMIDE 40 MG/4 ML VIAL IVP SCH ×2 (08:06→20:48)
[2021-09-16] MEDS: RIVAROXABAN 15 MG TABLET PO SCH ×2 (08:07→18:01)
[2021-09-16] MEDS: OLANZapine 5 MG RAPDIS TABLET PO SCH ×4 (08:07→20:48)
[2021-09-16] MEDS: DOCUSATE SODIUM 100 MG CAPSULE PO SCH ×2 (08:07→20:48)
[2021-09-16] MEDS: AMOX TR/POT CLAV 875 MG/125 MG TABLET PO SCH ×2 (08:07→20:48)
[2021-09-16] MEDS: PANTOPRAZOLE SODIUM 40 MG DR TABLET PO SCH (08:07)
[2021-09-16] MEDS: DULoxetine HCL 60 MG CAPSULE PO SCH ×2 (08:07→20:48)
[2021-09-16 10:28] LABS: BASOPHILS % (AUTO) 0.2 % (0.0-2.0); HEMATOCRIT 39.3 % (41-53); HEMOGLOBIN 12.3 g/dL (13.5-17.5); LYMPHOCYTES # (AUTO) 1.1 K/uL (1.0-4.8); LYMPHOCYTES % (AUTO) 13.3 % (22.0-44.0); MEAN CORPUSCULAR HEMOGLOBIN 26.3 pg (26.0-34.0); MEAN CORPUSCULAR HGB CONC 31.3 G/dL (31.0-37.0); MEAN CORPUSCULAR VOLUME 84 fL (80-100); MONOCYTES # (AUTO) 0.4 K/uL (0.1-1.0); MONOCYTES % (AUTO) 5.1 % (2.0-9.0); NEUTROPHILS # (AUTO) 6.9 K/uL (1.8-7.7); NEUTROPHILS % (AUTO) 80.4 % (40.0-70.0); PLATELET COUNT (AUTO) 248 K/uL (150-450); RED BLOOD CELL COUNT(AUTO) 4.67 MIL/uL (4.50-5.90)
[2021-09-16 10:41] LABS: ALANINE AMINOTRANSFERASE 21 U/L (12-78); ALBUMIN 2.8 g/dL (3.4-5.0); ALKALINE PHOSPHATASE 65 U/L (46-116); ANION GAP -1 mmol/L (8-16); ASPARTATE AMINOTRANSFERASE 12 U/L (15-37); BILIRUBIN,TOTAL 0.5 mg/dL (0.1-1.0); CALCIUM, TOTAL 8.8 mg/dL (8.8-10.5); CARBON DIOXIDE 37 mmol/L (22-29); CHLORIDE 104 mmol/L (98-107); CREATININE 0.48 mg/dL (0.60-1.30); GLUCOSE,RANDOM 140 mg/dL (70-110); POTASSIUM 4.3 mmol/L (3.5-5.1); SODIUM SERUM 140 mmol/L (136-145); TOTAL PROTEIN, SERUM 7.4 g/dL (6.4-8.2); UREA NITROGEN, BLOOD 11 mg/dL (7-18)
[2021-09-16 10:45] LABS: GLOMERULAR FILTR. RATE CALC > 60 mL/min (>60)
[2021-09-16 10:52] VITALS: BP 118/71
[2021-09-16 16:02] VITALS: BP 117/80
[2021-09-16 23:51] VITALS: BP 97/58
[2021-09-17 04:47] VITALS: BP 136/78
[2021-09-17 07:49] VITALS: BP 149/97
[2021-09-17] MEDS: RIVAROXABAN 15 MG TABLET PO SCH ×2 (07:54→17:01)
[2021-09-17] MEDS: FLUTICASONE/VILANTEROL 100-25 MCG/INH INHALER [14] IH SCH (07:54)
[2021-09-17] MEDS: FUROSEMIDE 40 MG/4 ML VIAL IVP SCH ×2 (07:55→20:14)
[2021-09-17] MEDS: ASPIRIN 81 MG CHEWABLE TABLET PO SCH (07:56)
[2021-09-17] MEDS: DULoxetine HCL 60 MG CAPSULE PO SCH ×2 (07:58→20:15)
[2021-09-17] MEDS: AMOX TR/POT CLAV 875 MG/125 MG TABLET PO SCH ×2 (07:58→20:15)
[2021-09-17] MEDS: DOCUSATE SODIUM 100 MG CAPSULE PO SCH ×2 (07:58→20:15)
[2021-09-17] MEDS: OLANZapine 5 MG RAPDIS TABLET PO SCH ×4 (07:59→20:16)
[2021-09-17] MEDS: PANTOPRAZOLE SODIUM 40 MG DR TABLET PO SCH (07:59)
[2021-09-17 11:16] VITALS: BP_SYST 122; BP_SYST 135; BP_DIAS 81; BP_DIAS 84
[2021-09-17 14:40] VITALS: BP 129/63
[2021-09-17] MEDS: HYDROCODONE/ACETAMINOPHEN 5-325 MG TABLET PO PRN (14:47)
[2021-09-17 20:36] VITALS: BP 138/76
[2021-09-18 00:13] VITALS: BP 118/46
[2021-09-18 04:27] VITALS: BP 128/82
[2021-09-18 07:30] VITALS: BP 105/46
[2021-09-18] MEDS: DOCUSATE SODIUM 100 MG CAPSULE PO SCH ×2 (08:49→20:16)
[2021-09-18] MEDS: RIVAROXABAN 15 MG TABLET PO SCH ×2 (08:49→18:20)
[2021-09-18] MEDS: OLANZapine 5 MG RAPDIS TABLET PO SCH ×4 (08:49→20:17)
[2021-09-18] MEDS: ASPIRIN 81 MG CHEWABLE TABLET PO SCH (08:49)
[2021-09-18] MEDS: AMOX TR/POT CLAV 875 MG/125 MG TABLET PO SCH ×2 (08:49→20:16)
[2021-09-18] MEDS: DULoxetine HCL 60 MG CAPSULE PO SCH ×2 (08:49→20:16)
[2021-09-18] MEDS: PANTOPRAZOLE SODIUM 40 MG DR TABLET PO SCH (08:49)
[2021-09-18] MEDS: FLUTICASONE/VILANTEROL 100-25 MCG/INH INHALER [14] IH SCH (09:00)
[2021-09-18] MEDS: FUROSEMIDE 40 MG/4 ML VIAL IVP SCH ×2 (09:00→20:17)
[2021-09-18 11:05] VITALS: BP 128/58
[2021-09-18 15:09] VITALS: BP 127/61
[2021-09-18 20:47] VITALS: BP 138/76
[2021-09-19] VITALS (8 sets, daily range): BP systolic 107–144; BP diastolic 60–101
[2021-09-19] MEDS: PANTOPRAZOLE SODIUM 40 MG DR TABLET PO SCH (07:59)
[2021-09-19] MEDS: ASPIRIN 81 MG CHEWABLE TABLET PO SCH (07:59)
[2021-09-19] MEDS: AMOX TR/POT CLAV 875 MG/125 MG TABLET PO SCH ×2 (07:59→20:30)
[2021-09-19] MEDS: FLUTICASONE/VILANTEROL 100-25 MCG/INH INHALER [14] IH SCH (07:59)
[2021-09-19] MEDS: OLANZapine 5 MG RAPDIS TABLET PO SCH ×4 (08:00→20:30)
[2021-09-19] MEDS: RIVAROXABAN 15 MG TABLET PO SCH ×2 (08:00→18:21)
[2021-09-19] MEDS: DOCUSATE SODIUM 100 MG CAPSULE PO SCH ×2 (08:00→20:30)
[2021-09-19] MEDS: DULoxetine HCL 60 MG CAPSULE PO SCH (08:00)
[2021-09-19] MEDS: FUROSEMIDE 40 MG/4 ML VIAL IVP SCH ×3 (08:04→22:30)
[2021-09-19] MEDS: HYDROCODONE/ACETAMINOPHEN 5-325 MG TABLET PO PRN (15:59)
[2021-09-20] MEDS: DULoxetine HCL 60 MG CAPSULE PO SCH ×3 (00:30→22:00)
[2021-09-20 04:15] VITALS: BP 117/82
[2021-09-20] MEDS: OLANZapine 5 MG RAPDIS TABLET PO SCH ×4 (08:23→20:46)
[2021-09-20] MEDS: PANTOPRAZOLE SODIUM 40 MG DR TABLET PO SCH (08:24)
[2021-09-20] MEDS: ASPIRIN 81 MG CHEWABLE TABLET PO SCH (08:24)
[2021-09-20] MEDS: AMOX TR/POT CLAV 875 MG/125 MG TABLET PO SCH ×2 (08:24→20:46)
[2021-09-20] MEDS: DOCUSATE SODIUM 100 MG CAPSULE PO SCH ×2 (08:24→20:46)
[2021-09-20] MEDS: RIVAROXABAN 15 MG TABLET PO SCH ×2 (08:24→18:02)
[2021-09-20] MEDS: FLUTICASONE/VILANTEROL 100-25 MCG/INH INHALER [14] IH SCH (08:24)
[2021-09-20] MEDS: FUROSEMIDE 40 MG/4 ML VIAL IVP SCH (09:00)
[2021-09-20 09:18] VITALS: BP 112/49
[2021-09-20] MEDS: HYDROCODONE/ACETAMINOPHEN 5-325 MG TABLET PO PRN (12:48)
[2021-09-20 17:03] VITALS: BP 118/50
[2021-09-20 19:31] VITALS: BP 115/64
[2021-09-20] MEDS: FUROSEMIDE 40 MG TABLET PO SCH (20:46)
[2021-09-21 04:30] VITALS: BP 138/89
[2021-09-21 07:54] VITALS: BP 117/73
[2021-09-21] MEDS: RIVAROXABAN 15 MG TABLET PO SCH ×2 (08:56→17:24)
[2021-09-21] MEDS: DOCUSATE SODIUM 100 MG CAPSULE PO SCH ×2 (08:56→22:01)
[2021-09-21] MEDS: ASPIRIN 81 MG CHEWABLE TABLET PO SCH (08:56)
[2021-09-21] MEDS: PANTOPRAZOLE SODIUM 40 MG DR TABLET PO SCH (08:56)
[2021-09-21] MEDS: FLUTICASONE/VILANTEROL 100-25 MCG/INH INHALER [14] IH SCH (08:57)
[2021-09-21] MEDS: OLANZapine 5 MG RAPDIS TABLET PO SCH ×4 (08:57→22:03)
[2021-09-21] MEDS: FUROSEMIDE 40 MG TABLET PO SCH ×2 (08:57→22:03)
[2021-09-21] MEDS: AMOX TR/POT CLAV 875 MG/125 MG TABLET PO SCH ×2 (08:57→22:01)
[2021-09-21] MEDS: DULoxetine HCL 60 MG CAPSULE PO SCH ×2 (08:59→21:00)
[2021-09-21 15:43] VITALS: BP 128/77
[2021-09-21] MEDS: HYDROCODONE/ACETAMINOPHEN 5-325 MG TABLET PO PRN (17:28)
[2021-09-21 19:30] VITALS: BP 118/83
[2021-09-21 23:45] VITALS: BP 120/67
[2021-09-22] MEDS: HYDROCODONE/ACETAMINOPHEN 5-325 MG TABLET PO PRN ×2 (02:36→15:02)
[2021-09-22 05:00] VITALS: BP 107/69
[2021-09-22 08:22] VITALS: BP 115/71
[2021-09-22] MEDS: RIVAROXABAN 15 MG TABLET PO SCH ×2 (08:30→17:04)
[2021-09-22] MEDS: DULoxetine HCL 60 MG CAPSULE PO SCH ×2 (08:30→20:38)
[2021-09-22] MEDS: AMOX TR/POT CLAV 875 MG/125 MG TABLET PO SCH ×2 (08:30→20:38)
[2021-09-22] MEDS: DOCUSATE SODIUM 100 MG CAPSULE PO SCH ×2 (08:31→20:38)
[2021-09-22] MEDS: FLUTICASONE/VILANTEROL 100-25 MCG/INH INHALER [14] IH SCH (08:31)
[2021-09-22] MEDS: OLANZapine 5 MG RAPDIS TABLET PO SCH ×4 (08:31→20:38)
[2021-09-22] MEDS: ASPIRIN 81 MG CHEWABLE TABLET PO SCH (08:31)
[2021-09-22] MEDS: FUROSEMIDE 40 MG TABLET PO SCH ×2 (08:34→20:44)
[2021-09-22] MEDS: PANTOPRAZOLE SODIUM 40 MG DR TABLET PO SCH (08:34)
[2021-09-22 19:35] VITALS: BP 130/85
[2021-09-22] MEDS: ZOLPIDEM TARTRATE 5 MG TABLET PO PRN (20:38)
[2021-09-23 05:19] VITALS: BP 128/87
[2021-09-23 07:54] VITALS: BP 146/69
[2021-09-23] MEDS: OLANZapine 5 MG RAPDIS TABLET PO SCH ×4 (08:32→20:39)
[2021-09-23] MEDS: RIVAROXABAN 15 MG TABLET PO SCH ×2 (08:32→17:23)
[2021-09-23] MEDS: DULoxetine HCL 60 MG CAPSULE PO SCH ×2 (08:32→20:39)
[2021-09-23] MEDS: DOCUSATE SODIUM 100 MG CAPSULE PO SCH ×2 (08:32→20:39)
[2021-09-23] MEDS: PANTOPRAZOLE SODIUM 40 MG DR TABLET PO SCH (08:33)
[2021-09-23] MEDS: AMOX TR/POT CLAV 875 MG/125 MG TABLET PO SCH ×2 (08:33→20:39)
[2021-09-23] MEDS: ASPIRIN 81 MG CHEWABLE TABLET PO SCH (08:33)
[2021-09-23] MEDS: FUROSEMIDE 40 MG TABLET PO SCH ×2 (09:00→21:00)
[2021-09-23] MEDS: FLUTICASONE/VILANTEROL 100-25 MCG/INH INHALER [14] IH SCH (10:05)
[2021-09-23 15:06] VITALS: BP 130/61
[2021-09-23] MEDS: HYDROCODONE/ACETAMINOPHEN 5-325 MG TABLET PO PRN (17:23)
[2021-09-23 20:13] VITALS: BP 124/82
[2021-09-23] MEDS: ZOLPIDEM TARTRATE 5 MG TABLET PO PRN (20:39)
[2021-09-24 04:27] VITALS: BP 133/88
[2021-09-24 08:00] VITALS: BP 146/89
[2021-09-24] MEDS: DOCUSATE SODIUM 100 MG CAPSULE PO SCH ×2 (08:15→20:40)
[2021-09-24] MEDS: FLUTICASONE/VILANTEROL 100-25 MCG/INH INHALER [14] IH SCH (08:15)
[2021-09-24] MEDS: DULoxetine HCL 60 MG CAPSULE PO SCH ×2 (08:15→20:40)
[2021-09-24] MEDS: RIVAROXABAN 15 MG TABLET PO SCH ×2 (08:15→17:03)
[2021-09-24] MEDS: ASPIRIN 81 MG CHEWABLE TABLET PO SCH (08:15)
[2021-09-24] MEDS: OLANZapine 5 MG RAPDIS TABLET PO SCH ×4 (08:15→20:40)
[2021-09-24] MEDS: AMOX TR/POT CLAV 875 MG/125 MG TABLET PO SCH ×2 (08:15→20:40)
[2021-09-24] MEDS: PANTOPRAZOLE SODIUM 40 MG DR TABLET PO SCH (08:15)
[2021-09-24] MEDS: HYDROCODONE/ACETAMINOPHEN 5-325 MG TABLET PO PRN (08:16)
[2021-09-24] MEDS: FUROSEMIDE 40 MG TABLET PO SCH ×2 (08:16→21:00)
[2021-09-24 17:15] VITALS: BP 111/43
[2021-09-24 19:53] VITALS: BP 138/77
[2021-09-24] MEDS: ZOLPIDEM TARTRATE 5 MG TABLET PO PRN (20:40)
[2021-09-25 04:28] VITALS: BP 133/90
[2021-09-25] MEDS: DOCUSATE SODIUM 100 MG CAPSULE PO SCH ×2 (08:16→21:15)
[2021-09-25] MEDS: DULoxetine HCL 60 MG CAPSULE PO SCH ×2 (08:16→21:15)
[2021-09-25] MEDS: PANTOPRAZOLE SODIUM 40 MG DR TABLET PO SCH (08:17)
[2021-09-25] MEDS: RIVAROXABAN 15 MG TABLET PO SCH ×2 (08:17→17:04)
[2021-09-25] MEDS: AMOX TR/POT CLAV 875 MG/125 MG TABLET PO SCH (08:17)
[2021-09-25] MEDS: OLANZapine 5 MG RAPDIS TABLET PO SCH ×4 (08:17→21:15)
[2021-09-25] MEDS: HYDROCODONE/ACETAMINOPHEN 5-325 MG TABLET PO PRN ×2 (08:17→15:36)
[2021-09-25] MEDS: ASPIRIN 81 MG CHEWABLE TABLET PO SCH (08:17)
[2021-09-25] MEDS: FLUTICASONE/VILANTEROL 100-25 MCG/INH INHALER [14] IH SCH (08:18)
[2021-09-25] MEDS: FUROSEMIDE 40 MG TABLET PO SCH ×2 (08:23→21:00)
[2021-09-25 09:06] VITALS: BP 126/65
[2021-09-25 17:21] VITALS: BP 163/81
[2021-09-25 20:20] VITALS: BP 124/55
[2021-09-25] MEDS: ZOLPIDEM TARTRATE 5 MG TABLET PO PRN (21:16)
[2021-09-26 05:26] VITALS: BP 106/81
[2021-09-26 08:15] VITALS: BP 120/62
[2021-09-26] MEDS: FUROSEMIDE 40 MG TABLET PO SCH ×2 (09:00→21:00)
[2021-09-26] MEDS: DOCUSATE SODIUM 100 MG CAPSULE PO SCH ×2 (09:07→20:50)
[2021-09-26] MEDS: DULoxetine HCL 60 MG CAPSULE PO SCH ×2 (09:07→20:49)
[2021-09-26] MEDS: ASPIRIN 81 MG CHEWABLE TABLET PO SCH (09:07)
[2021-09-26] MEDS: PANTOPRAZOLE SODIUM 40 MG DR TABLET PO SCH (09:08)
[2021-09-26] MEDS: RIVAROXABAN 15 MG TABLET PO SCH ×2 (09:08→18:04)
[2021-09-26] MEDS: OLANZapine 5 MG RAPDIS TABLET PO SCH ×4 (09:09→20:50)
[2021-09-26] MEDS: FLUTICASONE/VILANTEROL 100-25 MCG/INH INHALER [14] IH SCH (09:09)
[2021-09-26] MEDS: HYDROCODONE/ACETAMINOPHEN 5-325 MG TABLET PO PRN (12:18)
[2021-09-26 15:10] VITALS: BP 125/69
[2021-09-26 20:19] VITALS: BP 113/72
[2021-09-26] MEDS: ZOLPIDEM TARTRATE 5 MG TABLET PO PRN (20:49)
[2021-09-27 04:08] VITALS: BP 129/82
[2021-09-27 08:17] VITALS: BP 136/88
[2021-09-27] MEDS: ASPIRIN 81 MG CHEWABLE TABLET PO SCH (08:32)
[2021-09-27] MEDS: DOCUSATE SODIUM 100 MG CAPSULE PO SCH ×2 (08:32→20:48)
[2021-09-27] MEDS: DULoxetine HCL 60 MG CAPSULE PO SCH ×2 (08:32→20:48)
[2021-09-27] MEDS: OLANZapine 5 MG RAPDIS TABLET PO SCH ×4 (08:32→20:48)
[2021-09-27] MEDS: FLUTICASONE/VILANTEROL 100-25 MCG/INH INHALER [14] IH SCH (08:32)
[2021-09-27] MEDS: RIVAROXABAN 15 MG TABLET PO SCH ×2 (08:32→17:43)
[2021-09-27] MEDS: PANTOPRAZOLE SODIUM 40 MG DR TABLET PO SCH (08:33)
[2021-09-27] MEDS: FUROSEMIDE 40 MG TABLET PO SCH ×2 (08:33→20:48)
[2021-09-27] MEDS: GABAPENTIN 400 MG CAPSULE PO PRN (15:42)
[2021-09-27 16:10] VITALS: BP 130/78
[2021-09-27 19:45] VITALS: BP 126/92
[2021-09-28] MEDS: HYDROCODONE/ACETAMINOPHEN 5-325 MG TABLET PO PRN (00:45)
[2021-09-28] MEDS: ZOLPIDEM TARTRATE 5 MG TABLET PO PRN (01:31)
[2021-09-28 04:05] VITALS: BP 145/91
[2021-09-28 07:41] VITALS: BP 128/76
[2021-09-28] MEDS: ASPIRIN 81 MG CHEWABLE TABLET PO SCH (08:23)
[2021-09-28] MEDS: DOCUSATE SODIUM 100 MG CAPSULE PO SCH ×2 (08:23→20:43)
[2021-09-28] MEDS: PANTOPRAZOLE SODIUM 40 MG DR TABLET PO SCH (08:23)
[2021-09-28] MEDS: FLUTICASONE/VILANTEROL 100-25 MCG/INH INHALER [14] IH SCH (08:24)
[2021-09-28] MEDS: RIVAROXABAN 15 MG TABLET PO SCH ×2 (08:25→18:38)
[2021-09-28] MEDS: DULoxetine HCL 60 MG CAPSULE PO SCH ×2 (08:25→20:44)
[2021-09-28] MEDS: OLANZapine 5 MG RAPDIS TABLET PO SCH ×4 (08:25→20:44)
[2021-09-28] MEDS: FUROSEMIDE 40 MG TABLET PO SCH ×2 (08:26→20:43)
[2021-09-28] MEDS: GABAPENTIN 400 MG CAPSULE PO PRN (12:36)
[2021-09-28 15:50] VITALS: BP 128/92
[2021-09-28 20:38] VITALS: BP 138/69
[2021-09-29] MEDS: HYDROCODONE/ACETAMINOPHEN 5-325 MG TABLET PO PRN ×2 (03:15→12:52)
[2021-09-29 04:11] VITALS: BP 121/81
[2021-09-29 07:52] VITALS: BP 119/61
[2021-09-29] MEDS: FUROSEMIDE 40 MG TABLET PO SCH ×2 (09:00→21:58)
[2021-09-29] MEDS: ASPIRIN 81 MG CHEWABLE TABLET PO SCH (09:06)
[2021-09-29] MEDS: RIVAROXABAN 15 MG TABLET PO SCH ×2 (09:07→17:46)
[2021-09-29] MEDS: PANTOPRAZOLE SODIUM 40 MG DR TABLET PO SCH (09:07)
[2021-09-29] MEDS: DULoxetine HCL 60 MG CAPSULE PO SCH ×2 (09:07→21:58)
[2021-09-29] MEDS: OLANZapine 5 MG RAPDIS TABLET PO SCH ×4 (09:08→21:58)
[2021-09-29] MEDS: DOCUSATE SODIUM 100 MG CAPSULE PO SCH ×2 (09:08→21:58)
[2021-09-29] MEDS: FLUTICASONE/VILANTEROL 100-25 MCG/INH INHALER [14] IH SCH (09:12)
[2021-09-29 15:07] VITALS: BP 121/81
[2021-09-29 19:42] VITALS: BP 129/83
[2021-09-29] MEDS: ZOLPIDEM TARTRATE 5 MG TABLET PO PRN (21:58)
[2021-09-30 05:47] VITALS: BP 115/48
[2021-09-30] MEDS: RIVAROXABAN 15 MG TABLET PO SCH ×2 (08:40→17:27)
[2021-09-30] MEDS: FLUTICASONE/VILANTEROL 100-25 MCG/INH INHALER [14] IH SCH (08:41)
[2021-09-30] MEDS: ASPIRIN 81 MG CHEWABLE TABLET PO SCH (08:41)
[2021-09-30] MEDS: DOCUSATE SODIUM 100 MG CAPSULE PO SCH ×2 (08:41→20:49)
[2021-09-30] MEDS: DULoxetine HCL 60 MG CAPSULE PO SCH ×2 (08:42→20:49)
[2021-09-30] MEDS: PANTOPRAZOLE SODIUM 40 MG DR TABLET PO SCH (08:42)
[2021-09-30] MEDS: OLANZapine 5 MG RAPDIS TABLET PO SCH ×4 (08:43→20:49)
[2021-09-30] MEDS: FUROSEMIDE 40 MG TABLET PO SCH ×2 (08:49→20:49)
[2021-09-30 08:58] VITALS: BP 110/70
[2021-09-30] MEDS: HYDROCODONE/ACETAMINOPHEN 5-325 MG TABLET PO PRN (10:51)
[2021-09-30 15:39] VITALS: BP 128/60
[2021-09-30 19:57] VITALS: BP 113/72
[2021-09-30] MEDS: ZOLPIDEM TARTRATE 5 MG TABLET PO PRN (20:49)
[2021-10-01 05:14] VITALS: BP 108/68
[2021-10-01 08:04] VITALS: BP 114/72
[2021-10-01] MEDS: FUROSEMIDE 40 MG TABLET PO SCH ×2 (09:00→22:26)
[2021-10-01] MEDS: DULoxetine HCL 60 MG CAPSULE PO SCH ×2 (09:04→22:26)
[2021-10-01] MEDS: OLANZapine 5 MG RAPDIS TABLET PO SCH ×4 (09:04→22:26)
[2021-10-01] MEDS: DOCUSATE SODIUM 100 MG CAPSULE PO SCH ×2 (09:04→22:26)
[2021-10-01] MEDS: PANTOPRAZOLE SODIUM 40 MG DR TABLET PO SCH (09:04)
[2021-10-01] MEDS: RIVAROXABAN 15 MG TABLET PO SCH (09:04)
[2021-10-01] MEDS: ASPIRIN 81 MG CHEWABLE TABLET PO SCH (09:05)
[2021-10-01] MEDS: FLUTICASONE/VILANTEROL 100-25 MCG/INH INHALER [14] IH SCH (09:18)
[2021-10-01] MEDS: GABAPENTIN 400 MG CAPSULE PO PRN (15:20)
[2021-10-01 16:19] VITALS: BP 129/83
[2021-10-01 20:30] VITALS: BP 129/72
[2021-10-01] MEDS: ETHYL ALCOHOL 62% ANTISEPTIC NASAL SANITIZER 0.6 ML AMPUL NASAL SCH (23:02)
[2021-10-02] MEDS: GABAPENTIN 400 MG CAPSULE PO PRN ×2 (02:16→10:06)
[2021-10-02 05:34] VITALS: BP 125/87
[2021-10-02] MEDS: ETHYL ALCOHOL 62% ANTISEPTIC NASAL SANITIZER 0.6 ML AMPUL NASAL SCH ×2 (08:02→20:55)
[2021-10-02] MEDS: PANTOPRAZOLE SODIUM 40 MG DR TABLET PO SCH (08:02)
[2021-10-02] MEDS: ASPIRIN 81 MG CHEWABLE TABLET PO SCH (08:05)
[2021-10-02] MEDS: OLANZapine 5 MG RAPDIS TABLET PO SCH ×4 (08:06→20:56)
[2021-10-02] MEDS: DOCUSATE SODIUM 100 MG CAPSULE PO SCH ×2 (08:06→20:55)
[2021-10-02] MEDS: DULoxetine HCL 60 MG CAPSULE PO SCH ×2 (08:06→20:56)
[2021-10-02] MEDS: FUROSEMIDE 40 MG TABLET PO SCH ×2 (08:07→21:00)
[2021-10-02] MEDS: FLUTICASONE/VILANTEROL 100-25 MCG/INH INHALER [14] IH SCH (08:10)
[2021-10-02 08:40] VITALS: BP 132/67
[2021-10-02 16:01] VITALS: BP 122/70
[2021-10-02] MEDS: ACETAMINOPHEN 325 MG TABLET PO PRN (18:07)
[2021-10-02 20:10] VITALS: BP 124/83
[2021-10-02] MEDS: RIVAROXABAN 15 MG TABLET PO SCH (20:56)
[2021-10-03] MEDS: ZOLPIDEM TARTRATE 5 MG TABLET PO PRN (00:08)
[2021-10-03 04:00] VITALS: BP 132/62
[2021-10-03 04:40] VITALS: BP 124/74
[2021-10-03 08:00] VITALS: BP 128/77
[2021-10-03] MEDS: DULoxetine HCL 60 MG CAPSULE PO SCH ×2 (08:51→21:01)
[2021-10-03] MEDS: RIVAROXABAN 15 MG TABLET PO SCH ×2 (08:51→21:01)
[2021-10-03] MEDS: ASPIRIN 81 MG CHEWABLE TABLET PO SCH (08:51)
[2021-10-03] MEDS: FUROSEMIDE 40 MG TABLET PO SCH ×2 (08:52→21:00)
[2021-10-03] MEDS: DOCUSATE SODIUM 100 MG CAPSULE PO SCH ×2 (08:52→21:01)
[2021-10-03] MEDS: PANTOPRAZOLE SODIUM 40 MG DR TABLET PO SCH (08:52)
[2021-10-03] MEDS: FLUTICASONE/VILANTEROL 100-25 MCG/INH INHALER [14] IH SCH (08:53)
[2021-10-03] MEDS: OLANZapine 5 MG RAPDIS TABLET PO SCH ×4 (08:53→21:01)
[2021-10-03] MEDS: ETHYL ALCOHOL 62% ANTISEPTIC NASAL SANITIZER 0.6 ML AMPUL NASAL SCH ×2 (08:54→21:01)
[2021-10-03 16:00] VITALS: BP 125/58
[2021-10-03] MEDS: GABAPENTIN 400 MG CAPSULE PO PRN (16:35)
[2021-10-03 19:47] VITALS: BP 116/76
[2021-10-04] MEDS: ACETAMINOPHEN 325 MG TABLET PO PRN ×2 (03:06→20:29)
[2021-10-04 04:42] VITALS: BP 131/98
[2021-10-04] MEDS: GABAPENTIN 400 MG CAPSULE PO PRN (06:00)
[2021-10-04 08:30] VITALS: BP 134/81
[2021-10-04] MEDS: ASPIRIN 81 MG CHEWABLE TABLET PO SCH (08:41)
[2021-10-04] MEDS: PANTOPRAZOLE SODIUM 40 MG DR TABLET PO SCH (08:41)
[2021-10-04] MEDS: DOCUSATE SODIUM 100 MG CAPSULE PO SCH ×2 (08:41→20:28)
[2021-10-04] MEDS: DULoxetine HCL 60 MG CAPSULE PO SCH ×2 (08:42→20:28)
[2021-10-04] MEDS: RIVAROXABAN 15 MG TABLET PO SCH ×2 (08:42→20:28)
[2021-10-04] MEDS: FUROSEMIDE 40 MG TABLET PO SCH ×2 (08:42→20:32)
[2021-10-04] MEDS: OLANZapine 5 MG RAPDIS TABLET PO SCH ×4 (08:43→20:28)
[2021-10-04] MEDS: FLUTICASONE/VILANTEROL 100-25 MCG/INH INHALER [14] IH SCH (08:43)
[2021-10-04] MEDS: ETHYL ALCOHOL 62% ANTISEPTIC NASAL SANITIZER 0.6 ML AMPUL NASAL SCH ×2 (08:44→20:28)
[2021-10-04 16:26] VITALS: BP 128/76
[2021-10-04 20:24] VITALS: BP 134/60
[2021-10-05] MEDS: GABAPENTIN 400 MG CAPSULE PO PRN ×2 (00:19→15:41)
[2021-10-05 04:45] VITALS: BP 135/76
[2021-10-05 08:36] VITALS: BP 138/74
[2021-10-05] MEDS: DOCUSATE SODIUM 100 MG CAPSULE PO SCH ×2 (08:36→20:06)
[2021-10-05] MEDS: ASPIRIN 81 MG CHEWABLE TABLET PO SCH (08:36)
[2021-10-05] MEDS: PANTOPRAZOLE SODIUM 40 MG DR TABLET PO SCH (08:36)
[2021-10-05] MEDS: FLUTICASONE/VILANTEROL 100-25 MCG/INH INHALER [14] IH SCH (08:36)
[2021-10-05] MEDS: ETHYL ALCOHOL 62% ANTISEPTIC NASAL SANITIZER 0.6 ML AMPUL NASAL SCH ×2 (08:37→20:06)
[2021-10-05] MEDS: FUROSEMIDE 40 MG TABLET PO SCH ×2 (08:37→20:06)
[2021-10-05] MEDS: DULoxetine HCL 60 MG CAPSULE PO SCH ×2 (08:37→20:06)
[2021-10-05] MEDS: OLANZapine 5 MG RAPDIS TABLET PO SCH ×4 (08:37→20:06)
[2021-10-05] MEDS: RIVAROXABAN 15 MG TABLET PO SCH ×2 (08:38→20:06)
[2021-10-05 15:20] VITALS: BP 115/57
[2021-10-05 19:40] VITALS: BP 123/54
[2021-10-06 03:44] VITALS: BP 120/71
[2021-10-06 08:03] VITALS: BP 125/85
[2021-10-06] MEDS: FLUTICASONE/VILANTEROL 100-25 MCG/INH INHALER [14] IH SCH (08:17)
[2021-10-06] MEDS: RIVAROXABAN 15 MG TABLET PO SCH ×2 (08:18→21:23)
[2021-10-06] MEDS: ASPIRIN 81 MG CHEWABLE TABLET PO SCH (08:18)
[2021-10-06] MEDS: DOCUSATE SODIUM 100 MG CAPSULE PO SCH ×2 (08:18→21:23)
[2021-10-06] MEDS: DULoxetine HCL 60 MG CAPSULE PO SCH ×2 (08:19→21:23)
[2021-10-06] MEDS: OLANZapine 5 MG RAPDIS TABLET PO SCH ×4 (08:19→21:23)
[2021-10-06] MEDS: PANTOPRAZOLE SODIUM 40 MG DR TABLET PO SCH (08:19)
[2021-10-06] MEDS: FUROSEMIDE 40 MG TABLET PO SCH ×2 (08:20→21:23)
[2021-10-06] MEDS: ETHYL ALCOHOL 62% ANTISEPTIC NASAL SANITIZER 0.6 ML AMPUL NASAL SCH ×2 (08:21→21:23)
[2021-10-06] MEDS: ACETAMINOPHEN 325 MG TABLET PO PRN (14:59)
[2021-10-06 15:41] VITALS: BP 116/71
[2021-10-06 19:47] VITALS: BP 132/62
[2021-10-06] MEDS: ZOLPIDEM TARTRATE 5 MG TABLET PO PRN (21:24)
[2021-10-07 04:10] VITALS: BP 119/57
[2021-10-07 07:35] VITALS: BP 104/73
[2021-10-07] MEDS: DULoxetine HCL 60 MG CAPSULE PO SCH ×2 (08:01→20:02)
[2021-10-07] MEDS: PANTOPRAZOLE SODIUM 40 MG DR TABLET PO SCH (08:01)
[2021-10-07] MEDS: FUROSEMIDE 40 MG TABLET PO SCH ×2 (08:01→20:03)
[2021-10-07] MEDS: OLANZapine 5 MG RAPDIS TABLET PO SCH ×4 (08:01→20:02)
[2021-10-07] MEDS: RIVAROXABAN 15 MG TABLET PO SCH ×2 (08:02→20:02)
[2021-10-07] MEDS: DOCUSATE SODIUM 100 MG CAPSULE PO SCH ×2 (08:02→20:03)
[2021-10-07] MEDS: ASPIRIN 81 MG CHEWABLE TABLET PO SCH (08:02)
[2021-10-07] MEDS: FLUTICASONE/VILANTEROL 100-25 MCG/INH INHALER [14] IH SCH (08:03)
[2021-10-07] MEDS: ETHYL ALCOHOL 62% ANTISEPTIC NASAL SANITIZER 0.6 ML AMPUL NASAL SCH ×2 (08:08→20:01)
[2021-10-07] MEDS: GABAPENTIN 400 MG CAPSULE PO PRN (09:52)
[2021-10-07] MEDS: ACETAMINOPHEN 325 MG TABLET PO PRN (15:06)
[2021-10-07 16:03] VITALS: BP 138/79
[2021-10-07 20:14] VITALS: BP 137/94
[2021-10-08] MEDS: ACETAMINOPHEN 325 MG TABLET PO PRN ×2 (04:18→15:42)
[2021-10-08 04:49] VITALS: BP 105/52
[2021-10-08 05:43] VITALS: BP 150/76
[2021-10-08] MEDS: OLANZapine 5 MG RAPDIS TABLET PO SCH ×4 (08:03→21:07)
[2021-10-08] MEDS: ASPIRIN 81 MG CHEWABLE TABLET PO SCH (08:03)
[2021-10-08] MEDS: DULoxetine HCL 60 MG CAPSULE PO SCH ×2 (08:03→21:07)
[2021-10-08] MEDS: PANTOPRAZOLE SODIUM 40 MG DR TABLET PO SCH (08:03)
[2021-10-08] MEDS: FUROSEMIDE 40 MG TABLET PO SCH ×2 (08:03→21:07)
[2021-10-08] MEDS: RIVAROXABAN 15 MG TABLET PO SCH ×2 (08:03→21:07)
[2021-10-08 08:04] VITALS: BP 123/90
[2021-10-08] MEDS: FLUTICASONE/VILANTEROL 100-25 MCG/INH INHALER [14] IH SCH (08:04)
[2021-10-08] MEDS: ETHYL ALCOHOL 62% ANTISEPTIC NASAL SANITIZER 0.6 ML AMPUL NASAL SCH ×2 (08:06→21:07)
[2021-10-08] MEDS: DOCUSATE SODIUM 100 MG CAPSULE PO SCH ×2 (08:07→21:07)
[2021-10-08 12:03] VITALS: BP 122/73
[2021-10-08 15:42] VITALS: BP 127/80
[2021-10-08 19:35] VITALS: BP 144/62
[2021-10-09] MEDS: ZOLPIDEM TARTRATE 5 MG TABLET PO PRN ×2 (00:46→23:17)
[2021-10-09 04:30] VITALS: BP 119/84
[2021-10-09 07:56] VITALS: BP 128/72
[2021-10-09] MEDS: FUROSEMIDE 40 MG TABLET PO SCH (07:59)
[2021-10-09] MEDS: PANTOPRAZOLE SODIUM 40 MG DR TABLET PO SCH (07:59)
[2021-10-09] MEDS: DULoxetine HCL 60 MG CAPSULE PO SCH ×2 (08:00→19:54)
[2021-10-09] MEDS: OLANZapine 5 MG RAPDIS TABLET PO SCH ×4 (08:00→19:54)
[2021-10-09] MEDS: RIVAROXABAN 15 MG TABLET PO SCH ×2 (08:00→19:54)
[2021-10-09] MEDS: DOCUSATE SODIUM 100 MG CAPSULE PO SCH ×2 (08:01→19:56)
[2021-10-09] MEDS: ETHYL ALCOHOL 62% ANTISEPTIC NASAL SANITIZER 0.6 ML AMPUL NASAL SCH ×2 (09:43→19:54)
[2021-10-09] MEDS: FLUTICASONE/VILANTEROL 100-25 MCG/INH INHALER [14] IH SCH (09:43)
[2021-10-09] MEDS: ASPIRIN 81 MG CHEWABLE TABLET PO SCH (09:43)
[2021-10-09 12:19] LABS: BASOPHILS % (AUTO) 0.5 % (0.0-2.0); EOSINOPHILS % (AUTO) 1.4 % (1.0-6.0); HEMOGLOBIN 12.6 g/dL (13.5-17.5); LYMPHOCYTES # (AUTO) 1.5 K/uL (1.0-4.8); LYMPHOCYTES % (AUTO) 19.4 % (22.0-44.0); MEAN CORPUSCULAR HEMOGLOBIN 26.7 pg (26.0-34.0); MEAN CORPUSCULAR HGB CONC 32.4 G/dL (31.0-37.0); MEAN CORPUSCULAR VOLUME 82 fL (80-100); MONOCYTES # (AUTO) 0.9 K/uL (0.1-1.0); MONOCYTES % (AUTO) 11.4 % (2.0-9.0); NEUTROPHILS # (AUTO) 5.3 K/uL (1.8-7.7); NEUTROPHILS % (AUTO) 67.3 % (40.0-70.0); PLATELET COUNT (AUTO) 297 K/uL (150-450); RED BLOOD CELL COUNT(AUTO) 4.74 MIL/uL (4.50-5.90); RED CELL DISTRIBUTION WIDTH 15.6 % (11.5-14.5)
[2021-10-09 12:29] LABS: ANION GAP -1 mmol/L (8-16); CHLORIDE 98 mmol/L (98-107); CREATININE 0.43 mg/dL (0.60-1.30); GLUCOSE,RANDOM 92 mg/dL (70-110); POTASSIUM 3.7 mmol/L (3.5-5.1); SODIUM SERUM 139 mmol/L (136-145); UREA NITROGEN, BLOOD 12 mg/dL (7-18)
[2021-10-09 12:37] LABS: CARBON DIOXIDE 42 mmol/L (22-29); GLOMERULAR FILTR. RATE CALC > 60 mL/min (>60)
[2021-10-09 16:01] VITALS: BP 123/68
[2021-10-09 19:35] VITALS: BP 133/86
[2021-10-10] MEDS: ACETAMINOPHEN 325 MG TABLET PO PRN ×2 (03:48→20:20)
[2021-10-10 04:35] VITALS: BP 122/95
[2021-10-10 08:00] VITALS: BP 125/81
[2021-10-10] MEDS: FUROSEMIDE 40 MG TABLET PO SCH ×2 (09:00→20:29)
[2021-10-10] MEDS: DULoxetine HCL 60 MG CAPSULE PO SCH ×2 (09:18→20:20)
[2021-10-10] MEDS: PANTOPRAZOLE SODIUM 40 MG DR TABLET PO SCH (09:18)
[2021-10-10] MEDS: OLANZapine 5 MG RAPDIS TABLET PO SCH ×4 (09:18→20:20)
[2021-10-10] MEDS: RIVAROXABAN 15 MG TABLET PO SCH ×2 (09:19→20:20)
[2021-10-10] MEDS: ASPIRIN 81 MG CHEWABLE TABLET PO SCH (09:19)
[2021-10-10] MEDS: DOCUSATE SODIUM 100 MG CAPSULE PO SCH ×2 (09:19→20:33)
[2021-10-10] MEDS: FLUTICASONE/VILANTEROL 100-25 MCG/INH INHALER [14] IH SCH (09:20)
[2021-10-10] MEDS: ETHYL ALCOHOL 62% ANTISEPTIC NASAL SANITIZER 0.6 ML AMPUL NASAL SCH ×2 (09:20→20:20)
[2021-10-10] MEDS: GABAPENTIN 400 MG CAPSULE PO PRN (14:08)
[2021-10-10 16:21] VITALS: BP 118/54
[2021-10-10 19:53] VITALS: BP 116/64
[2021-10-10] MEDS: ZOLPIDEM TARTRATE 5 MG TABLET PO PRN (23:35)
[2021-10-11 05:36] VITALS: BP 136/78
[2021-10-11] MEDS: ASPIRIN 81 MG CHEWABLE TABLET PO SCH (08:03)
[2021-10-11] MEDS: RIVAROXABAN 15 MG TABLET PO SCH ×2 (08:03→20:53)
[2021-10-11] MEDS: OLANZapine 5 MG RAPDIS TABLET PO SCH ×4 (08:04→20:52)
[2021-10-11] MEDS: PANTOPRAZOLE SODIUM 40 MG DR TABLET PO SCH (08:04)
[2021-10-11] MEDS: FUROSEMIDE 40 MG TABLET PO SCH (08:04)
[2021-10-11] MEDS: DOCUSATE SODIUM 100 MG CAPSULE PO SCH ×2 (08:04→20:56)
[2021-10-11] MEDS: DULoxetine HCL 60 MG CAPSULE PO SCH ×2 (08:04→20:52)
[2021-10-11] MEDS: FLUTICASONE/VILANTEROL 100-25 MCG/INH INHALER [14] IH SCH (08:05)
[2021-10-11] MEDS: ETHYL ALCOHOL 62% ANTISEPTIC NASAL SANITIZER 0.6 ML AMPUL NASAL SCH ×2 (08:09→20:52)
[2021-10-11 08:16] VITALS: BP 109/69
[2021-10-11 16:11] VITALS: BP 130/55
[2021-10-11 19:30] VITALS: BP 120/82
[2021-10-11] MEDS: ZOLPIDEM TARTRATE 5 MG TABLET PO PRN (22:21)
[2021-10-12] MEDS: ACETAMINOPHEN 325 MG TABLET PO PRN (03:07)
[2021-10-12 05:50] VITALS: BP 122/71
[2021-10-12 08:22] VITALS: BP 122/84
[2021-10-12] MEDS: DOCUSATE SODIUM 100 MG CAPSULE PO SCH ×2 (08:50→20:30)
[2021-10-12] MEDS: FUROSEMIDE 40 MG TABLET PO SCH (08:50)
[2021-10-12] MEDS: DULoxetine HCL 60 MG CAPSULE PO SCH ×2 (08:50→20:30)
[2021-10-12] MEDS: ASPIRIN 81 MG CHEWABLE TABLET PO SCH (08:50)
[2021-10-12] MEDS: ETHYL ALCOHOL 62% ANTISEPTIC NASAL SANITIZER 0.6 ML AMPUL NASAL SCH ×2 (08:50→20:30)
[2021-10-12] MEDS: FLUTICASONE/VILANTEROL 100-25 MCG/INH INHALER [14] IH SCH (08:51)
[2021-10-12] MEDS: RIVAROXABAN 15 MG TABLET PO SCH ×2 (08:51→20:30)
[2021-10-12] MEDS: OLANZapine 5 MG RAPDIS TABLET PO SCH ×4 (08:51→20:31)
[2021-10-12] MEDS: PANTOPRAZOLE SODIUM 40 MG DR TABLET PO SCH (08:52)
[2021-10-12 16:51] VITALS: BP 106/60
[2021-10-12 20:00] VITALS: BP 137/82
[2021-10-13] MEDS: ACETAMINOPHEN 325 MG TABLET PO PRN ×2 (03:56→12:37)
[2021-10-13 04:09] VITALS: BP 123/86
[2021-10-13 07:38] VITALS: BP 113/73
[2021-10-13] MEDS: FLUTICASONE/VILANTEROL 100-25 MCG/INH INHALER [14] IH SCH (08:37)
[2021-10-13] MEDS: DOCUSATE SODIUM 100 MG CAPSULE PO SCH ×2 (08:37→20:51)
[2021-10-13] MEDS: OLANZapine 5 MG RAPDIS TABLET PO SCH ×4 (08:37→20:51)
[2021-10-13] MEDS: ASPIRIN 81 MG CHEWABLE TABLET PO SCH (08:37)
[2021-10-13] MEDS: RIVAROXABAN 15 MG TABLET PO SCH ×2 (08:37→20:51)
[2021-10-13] MEDS: FUROSEMIDE 40 MG TABLET PO SCH (08:37)
[2021-10-13] MEDS: ETHYL ALCOHOL 62% ANTISEPTIC NASAL SANITIZER 0.6 ML AMPUL NASAL SCH ×2 (08:37→20:51)
[2021-10-13] MEDS: PANTOPRAZOLE SODIUM 40 MG DR TABLET PO SCH (08:37)
[2021-10-13] MEDS: DULoxetine HCL 60 MG CAPSULE PO SCH ×2 (08:42→20:51)
[2021-10-13 16:03] VITALS: BP 122/74
[2021-10-13 19:44] VITALS: BP 119/85
[2021-10-14] MEDS: ACETAMINOPHEN 325 MG TABLET PO PRN ×2 (03:52→09:11)
[2021-10-14 03:55] VITALS: BP 110/82
[2021-10-14 08:00] VITALS: BP 125/77
[2021-10-14] MEDS: FUROSEMIDE 40 MG TABLET PO SCH (09:00)
[2021-10-14] MEDS: DULoxetine HCL 60 MG CAPSULE PO SCH ×2 (09:10→20:49)
[2021-10-14] MEDS: OLANZapine 5 MG RAPDIS TABLET PO SCH ×4 (09:11→20:49)
[2021-10-14] MEDS: DOCUSATE SODIUM 100 MG CAPSULE PO SCH ×2 (09:11→20:49)
[2021-10-14] MEDS: ASPIRIN 81 MG CHEWABLE TABLET PO SCH (09:11)
[2021-10-14] MEDS: PANTOPRAZOLE SODIUM 40 MG DR TABLET PO SCH (09:11)
[2021-10-14] MEDS: RIVAROXABAN 15 MG TABLET PO SCH ×2 (09:11→20:49)
[2021-10-14] MEDS: ETHYL ALCOHOL 62% ANTISEPTIC NASAL SANITIZER 0.6 ML AMPUL NASAL SCH ×2 (09:12→20:51)
[2021-10-14] MEDS: FLUTICASONE/VILANTEROL 100-25 MCG/INH INHALER [14] IH SCH (09:12)
[2021-10-14] MEDS: HALOPERIDOL 1 MG TABLET PO SCH ×3 (13:42→20:49)
[2021-10-14 16:05] VITALS: BP 113/76
[2021-10-14 20:15] VITALS: BP 120/77
[2021-10-14] MEDS: ZOLPIDEM TARTRATE 5 MG TABLET PO PRN (20:54)
[2021-10-15] MEDS: ACETAMINOPHEN 325 MG TABLET PO PRN ×3 (03:32→20:33)
[2021-10-15 04:20] VITALS: BP 126/66
[2021-10-15 07:51] VITALS: BP 132/93
[2021-10-15] MEDS: FUROSEMIDE 40 MG TABLET PO SCH (08:02)
[2021-10-15] MEDS: PANTOPRAZOLE SODIUM 40 MG DR TABLET PO SCH (08:02)
[2021-10-15] MEDS: DULoxetine HCL 60 MG CAPSULE PO SCH ×2 (08:02→20:33)
[2021-10-15] MEDS: ASPIRIN 81 MG CHEWABLE TABLET PO SCH (08:02)
[2021-10-15] MEDS: FLUTICASONE/VILANTEROL 100-25 MCG/INH INHALER [14] IH SCH (08:02)
[2021-10-15] MEDS: OLANZapine 5 MG RAPDIS TABLET PO SCH ×4 (08:03→20:33)
[2021-10-15] MEDS: HALOPERIDOL 1 MG TABLET PO SCH ×4 (08:03→20:33)
[2021-10-15] MEDS: DOCUSATE SODIUM 100 MG CAPSULE PO SCH ×2 (08:03→20:37)
[2021-10-15] MEDS: RIVAROXABAN 15 MG TABLET PO SCH ×2 (08:03→20:33)
[2021-10-15] MEDS: ETHYL ALCOHOL 62% ANTISEPTIC NASAL SANITIZER 0.6 ML AMPUL NASAL SCH ×2 (08:07→20:33)
[2021-10-15 16:01] VITALS: BP 137/85
[2021-10-15 19:35] VITALS: BP 113/77
[2021-10-15] MEDS: ZOLPIDEM TARTRATE 5 MG TABLET PO PRN (21:33)
[2021-10-16] MEDS: GABAPENTIN 400 MG CAPSULE PO PRN (00:51)
[2021-10-16 04:54] VITALS: BP 132/84
[2021-10-16] MEDS: ACETAMINOPHEN 325 MG TABLET PO PRN ×2 (06:34→16:55)
[2021-10-16 08:02] VITALS: BP 133/82
[2021-10-16] MEDS: ASPIRIN 81 MG CHEWABLE TABLET PO SCH (08:03)
[2021-10-16] MEDS: OLANZapine 5 MG RAPDIS TABLET PO SCH ×4 (08:04→19:54)
[2021-10-16] MEDS: HALOPERIDOL 1 MG TABLET PO SCH ×4 (08:04→19:54)
[2021-10-16] MEDS: FLUTICASONE/VILANTEROL 100-25 MCG/INH INHALER [14] IH SCH (08:04)
[2021-10-16] MEDS: DULoxetine HCL 60 MG CAPSULE PO SCH ×2 (08:04→19:53)
[2021-10-16] MEDS: PANTOPRAZOLE SODIUM 40 MG DR TABLET PO SCH (08:04)
[2021-10-16] MEDS: FUROSEMIDE 40 MG TABLET PO SCH (08:04)
[2021-10-16] MEDS: RIVAROXABAN 15 MG TABLET PO SCH ×2 (08:04→19:54)
[2021-10-16] MEDS: ETHYL ALCOHOL 62% ANTISEPTIC NASAL SANITIZER 0.6 ML AMPUL NASAL SCH ×2 (08:04→19:53)
[2021-10-16] MEDS: DOCUSATE SODIUM 100 MG CAPSULE PO SCH ×2 (08:04→19:54)
[2021-10-16 16:10] VITALS: BP 131/79
[2021-10-16 19:28] VITALS: BP 136/59
[2021-10-17 00:05] VITALS: BP 134/87
[2021-10-17] MEDS: ACETAMINOPHEN 325 MG TABLET PO PRN (00:34)
[2021-10-17 04:44] VITALS: BP 120/78
[2021-10-17] MEDS: FLUTICASONE/VILANTEROL 100-25 MCG/INH INHALER [14] IH SCH (07:53)
[2021-10-17] MEDS: RIVAROXABAN 15 MG TABLET PO SCH ×2 (07:53→19:54)
[2021-10-17] MEDS: OLANZapine 5 MG RAPDIS TABLET PO SCH ×4 (07:53→19:54)
[2021-10-17] MEDS: FUROSEMIDE 40 MG TABLET PO SCH (07:53)
[2021-10-17] MEDS: DOCUSATE SODIUM 100 MG CAPSULE PO SCH ×2 (07:53→19:55)
[2021-10-17] MEDS: ETHYL ALCOHOL 62% ANTISEPTIC NASAL SANITIZER 0.6 ML AMPUL NASAL SCH ×2 (07:53→19:54)
[2021-10-17] MEDS: PANTOPRAZOLE SODIUM 40 MG DR TABLET PO SCH (07:53)
[2021-10-17] MEDS: ASPIRIN 81 MG CHEWABLE TABLET PO SCH (07:54)
[2021-10-17] MEDS: HALOPERIDOL 1 MG TABLET PO SCH ×4 (07:54→19:54)
[2021-10-17] MEDS: DULoxetine HCL 60 MG CAPSULE PO SCH ×2 (07:54→19:55)
[2021-10-17 08:06] VITALS: BP 127/67
[2021-10-17] MEDS: GABAPENTIN 400 MG CAPSULE PO PRN (11:08)
[2021-10-17 15:44] VITALS: BP 120/49
[2021-10-17] MEDS: ZOLPIDEM TARTRATE 5 MG TABLET PO PRN (19:54)
[2021-10-17 20:13] VITALS: BP 117/82
[2021-10-18] MEDS: ACETAMINOPHEN 325 MG TABLET PO PRN ×2 (00:56→20:49)
[2021-10-18 04:30] VITALS: BP 128/88
[2021-10-18] MEDS: HALOPERIDOL 1 MG TABLET PO SCH ×4 (07:53→20:48)
[2021-10-18] MEDS: ETHYL ALCOHOL 62% ANTISEPTIC NASAL SANITIZER 0.6 ML AMPUL NASAL SCH ×2 (07:53→20:49)
[2021-10-18] MEDS: ASPIRIN 81 MG CHEWABLE TABLET PO SCH (07:53)
[2021-10-18] MEDS: OLANZapine 5 MG RAPDIS TABLET PO SCH ×4 (07:53→20:48)
[2021-10-18] MEDS: PANTOPRAZOLE SODIUM 40 MG DR TABLET PO SCH (07:53)
[2021-10-18] MEDS: FLUTICASONE/VILANTEROL 100-25 MCG/INH INHALER [14] IH SCH (07:54)
[2021-10-18] MEDS: FUROSEMIDE 40 MG TABLET PO SCH (07:54)
[2021-10-18] MEDS: DOCUSATE SODIUM 100 MG CAPSULE PO SCH ×2 (07:54→20:49)
[2021-10-18] MEDS: DULoxetine HCL 60 MG CAPSULE PO SCH ×2 (07:54→20:48)
[2021-10-18] MEDS: RIVAROXABAN 15 MG TABLET PO SCH ×2 (07:55→20:51)
[2021-10-18 10:05] VITALS: BP 124/68
[2021-10-18 16:39] VITALS: BP 129/84
[2021-10-18 19:44] VITALS: BP 137/71
[2021-10-18] MEDS: ZOLPIDEM TARTRATE 5 MG TABLET PO PRN (20:48)
[2021-10-18] MEDS: GABAPENTIN 400 MG CAPSULE PO PRN (20:48)
[2021-10-19 00:20] VITALS: BP 120/67
[2021-10-19 04:13] VITALS: BP 126/84
[2021-10-19 07:36] VITALS: BP 144/66
[2021-10-19] MEDS: HALOPERIDOL 1 MG TABLET PO SCH ×4 (08:57→21:14)
[2021-10-19] MEDS: RIVAROXABAN 15 MG TABLET PO SCH ×2 (08:57→21:14)
[2021-10-19] MEDS: FLUTICASONE/VILANTEROL 100-25 MCG/INH INHALER [14] IH SCH (08:57)
[2021-10-19] MEDS: DULoxetine HCL 60 MG CAPSULE PO SCH ×2 (08:57→21:14)
[2021-10-19] MEDS: PANTOPRAZOLE SODIUM 40 MG DR TABLET PO SCH (08:57)
[2021-10-19] MEDS: OLANZapine 5 MG RAPDIS TABLET PO SCH ×4 (08:58→21:14)
[2021-10-19] MEDS: ETHYL ALCOHOL 62% ANTISEPTIC NASAL SANITIZER 0.6 ML AMPUL NASAL SCH ×2 (08:58→21:18)
[2021-10-19] MEDS: ASPIRIN 81 MG CHEWABLE TABLET PO SCH (08:58)
[2021-10-19] MEDS: DOCUSATE SODIUM 100 MG CAPSULE PO SCH ×2 (09:00→21:14)
[2021-10-19] MEDS: FUROSEMIDE 40 MG TABLET PO SCH (09:00)
[2021-10-19 15:42] VITALS: BP 132/81
[2021-10-19 19:52] VITALS: BP 124/79
[2021-10-19] MEDS: ZOLPIDEM TARTRATE 5 MG TABLET PO PRN (22:20)
[2021-10-20] MEDS: ACETAMINOPHEN 325 MG TABLET PO PRN ×3 (00:31→21:39)
[2021-10-20 04:04] VITALS: BP 122/85
[2021-10-20 07:53] VITALS: BP 128/74
[2021-10-20] MEDS: ASPIRIN 81 MG CHEWABLE TABLET PO SCH (08:11)
[2021-10-20] MEDS: HALOPERIDOL 1 MG TABLET PO SCH ×4 (08:11→21:38)
[2021-10-20] MEDS: RIVAROXABAN 15 MG TABLET PO SCH ×2 (08:12→21:38)
[2021-10-20] MEDS: FUROSEMIDE 40 MG TABLET PO SCH (08:12)
[2021-10-20] MEDS: OLANZapine 5 MG RAPDIS TABLET PO SCH ×4 (08:12→21:38)
[2021-10-20] MEDS: DULoxetine HCL 60 MG CAPSULE PO SCH ×2 (08:12→21:39)
[2021-10-20] MEDS: PANTOPRAZOLE SODIUM 40 MG DR TABLET PO SCH (08:12)
[2021-10-20] MEDS: DOCUSATE SODIUM 100 MG CAPSULE PO SCH ×3 (08:12→21:42)
[2021-10-20] MEDS: ETHYL ALCOHOL 62% ANTISEPTIC NASAL SANITIZER 0.6 ML AMPUL NASAL SCH ×2 (08:12→21:38)
[2021-10-20] MEDS: FLUTICASONE/VILANTEROL 100-25 MCG/INH INHALER [14] IH SCH (08:12)
[2021-10-20 16:24] VITALS: BP 120/89
[2021-10-20 21:45] VITALS: BP 123/88
[2021-10-21 05:25] VITALS: BP 130/95
[2021-10-21 07:49] VITALS: BP 152/85
[2021-10-21] MEDS: ETHYL ALCOHOL 62% ANTISEPTIC NASAL SANITIZER 0.6 ML AMPUL NASAL SCH ×2 (08:27→20:42)
[2021-10-21] MEDS: FLUTICASONE/VILANTEROL 100-25 MCG/INH INHALER [14] IH SCH (08:27)
[2021-10-21] MEDS: OLANZapine 5 MG RAPDIS TABLET PO SCH ×4 (08:28→20:41)
[2021-10-21] MEDS: HALOPERIDOL 1 MG TABLET PO SCH ×4 (08:28→20:42)
[2021-10-21] MEDS: DULoxetine HCL 60 MG CAPSULE PO SCH ×2 (08:28→20:42)
[2021-10-21] MEDS: ASPIRIN 81 MG CHEWABLE TABLET PO SCH (08:28)
[2021-10-21] MEDS: PANTOPRAZOLE SODIUM 40 MG DR TABLET PO SCH (08:29)
[2021-10-21] MEDS: RIVAROXABAN 15 MG TABLET PO SCH ×2 (08:29→20:41)
[2021-10-21] MEDS: FUROSEMIDE 40 MG TABLET PO SCH (08:33)
[2021-10-21] MEDS: ACETAMINOPHEN 325 MG TABLET PO PRN ×2 (11:01→23:26)
[2021-10-21] MEDS: GABAPENTIN 400 MG CAPSULE PO PRN (13:20)
[2021-10-21 15:38] VITALS: BP 123/83
[2021-10-21 20:30] VITALS: BP 132/74
[2021-10-21] MEDS: DOCUSATE SODIUM 100 MG CAPSULE PO SCH (20:42)
[2021-10-22 04:23] VITALS: BP 142/76
[2021-10-22 07:34] VITALS: BP 140/107
[2021-10-22] MEDS: FUROSEMIDE 40 MG TABLET PO SCH (09:00)
[2021-10-22] MEDS: DOCUSATE SODIUM 100 MG CAPSULE PO SCH ×2 (09:00→20:28)
[2021-10-22] MEDS: ETHYL ALCOHOL 62% ANTISEPTIC NASAL SANITIZER 0.6 ML AMPUL NASAL SCH ×2 (09:56→20:28)
[2021-10-22] MEDS: PANTOPRAZOLE SODIUM 40 MG DR TABLET PO SCH (09:57)
[2021-10-22] MEDS: DULoxetine HCL 60 MG CAPSULE PO SCH ×2 (09:57→20:28)
[2021-10-22] MEDS: OLANZapine 5 MG RAPDIS TABLET PO SCH ×4 (09:57→20:28)
[2021-10-22] MEDS: ASPIRIN 81 MG CHEWABLE TABLET PO SCH (09:57)
[2021-10-22] MEDS: HALOPERIDOL 1 MG TABLET PO SCH ×4 (09:57→20:28)
[2021-10-22] MEDS: RIVAROXABAN 15 MG TABLET PO SCH ×2 (09:57→20:28)
[2021-10-22] MEDS: FLUTICASONE/VILANTEROL 100-25 MCG/INH INHALER [14] IH SCH (13:01)
[2021-10-22 15:49] VITALS: BP 120/52
[2021-10-22 20:34] VITALS: BP 123/90
[2021-10-23] MEDS: ACETAMINOPHEN 325 MG TABLET PO PRN ×2 (00:42→22:39)
[2021-10-23 04:12] VITALS: BP 132/80
[2021-10-23 08:28] VITALS: BP 133/78
[2021-10-23] MEDS: PANTOPRAZOLE SODIUM 40 MG DR TABLET PO SCH (08:43)
[2021-10-23] MEDS: OLANZapine 5 MG RAPDIS TABLET PO SCH ×4 (08:43→20:45)
[2021-10-23] MEDS: ASPIRIN 81 MG CHEWABLE TABLET PO SCH (08:43)
[2021-10-23] MEDS: DULoxetine HCL 60 MG CAPSULE PO SCH ×2 (08:44→20:44)
[2021-10-23] MEDS: RIVAROXABAN 15 MG TABLET PO SCH ×2 (08:44→20:44)
[2021-10-23] MEDS: HALOPERIDOL 1 MG TABLET PO SCH ×4 (08:44→20:44)
[2021-10-23] MEDS: FUROSEMIDE 40 MG TABLET PO SCH (08:44)
[2021-10-23] MEDS: DOCUSATE SODIUM 100 MG CAPSULE PO SCH ×2 (08:45→20:48)
[2021-10-23] MEDS: FLUTICASONE/VILANTEROL 100-25 MCG/INH INHALER [14] IH SCH (08:46)
[2021-10-23] MEDS: ETHYL ALCOHOL 62% ANTISEPTIC NASAL SANITIZER 0.6 ML AMPUL NASAL SCH ×2 (09:21→20:44)
[2021-10-23] MEDS: GABAPENTIN 400 MG CAPSULE PO PRN (13:35)
[2021-10-23 15:45] VITALS: BP 129/66
[2021-10-23 19:56] VITALS: BP 130/77
[2021-10-24] MEDS: GABAPENTIN 400 MG CAPSULE PO PRN (01:22)
[2021-10-24 04:15] VITALS: BP 131/84
[2021-10-24] MEDS: ACETAMINOPHEN 325 MG TABLET PO PRN (04:53)
[2021-10-24 07:58] VITALS: BP 134/84
[2021-10-24] MEDS: OLANZapine 5 MG RAPDIS TABLET PO SCH ×4 (08:30→21:04)
[2021-10-24] MEDS: FLUTICASONE/VILANTEROL 100-25 MCG/INH INHALER [14] IH SCH (08:30)
[2021-10-24] MEDS: RIVAROXABAN 15 MG TABLET PO SCH ×2 (08:30→21:04)
[2021-10-24] MEDS: PANTOPRAZOLE SODIUM 40 MG DR TABLET PO SCH (08:30)
[2021-10-24] MEDS: HALOPERIDOL 1 MG TABLET PO SCH ×4 (08:30→21:04)
[2021-10-24] MEDS: ASPIRIN 81 MG CHEWABLE TABLET PO SCH (08:30)
[2021-10-24] MEDS: FUROSEMIDE 40 MG TABLET PO SCH (08:30)
[2021-10-24] MEDS: ETHYL ALCOHOL 62% ANTISEPTIC NASAL SANITIZER 0.6 ML AMPUL NASAL SCH ×2 (08:30→21:03)
[2021-10-24] MEDS: DULoxetine HCL 60 MG CAPSULE PO SCH ×2 (08:31→21:04)
[2021-10-24] MEDS: DOCUSATE SODIUM 100 MG CAPSULE PO SCH ×2 (08:31→21:04)
[2021-10-24 15:24] VITALS: BP 143/86
[2021-10-24 19:51] VITALS: BP 118/67
[2021-10-25] MEDS: ACETAMINOPHEN 325 MG TABLET PO PRN ×2 (00:45→09:06)
[2021-10-25 05:18] VITALS: BP 130/67
[2021-10-25 08:04] VITALS: BP 117/45
[2021-10-25] MEDS: DOCUSATE SODIUM 100 MG CAPSULE PO SCH ×2 (09:00→20:06)
[2021-10-25] MEDS: FUROSEMIDE 40 MG TABLET PO SCH (09:00)
[2021-10-25] MEDS: FLUTICASONE/VILANTEROL 100-25 MCG/INH INHALER [14] IH SCH (09:03)
[2021-10-25] MEDS: ETHYL ALCOHOL 62% ANTISEPTIC NASAL SANITIZER 0.6 ML AMPUL NASAL SCH ×2 (09:04→20:05)
[2021-10-25] MEDS: ASPIRIN 81 MG CHEWABLE TABLET PO SCH (09:05)
[2021-10-25] MEDS: HALOPERIDOL 1 MG TABLET PO SCH ×4 (09:05→20:06)
[2021-10-25] MEDS: DULoxetine HCL 60 MG CAPSULE PO SCH ×2 (09:05→20:05)
[2021-10-25] MEDS: GABAPENTIN 400 MG CAPSULE PO PRN (09:06)
[2021-10-25] MEDS: OLANZapine 5 MG RAPDIS TABLET PO SCH ×4 (09:06→20:05)
[2021-10-25] MEDS: RIVAROXABAN 15 MG TABLET PO SCH ×2 (09:06→20:06)
[2021-10-25] MEDS: PANTOPRAZOLE SODIUM 40 MG DR TABLET PO SCH (09:06)
[2021-10-25 16:09] VITALS: BP 118/61
[2021-10-25 19:49] VITALS: BP 133/73
[2021-10-25] MEDS: ZOLPIDEM TARTRATE 5 MG TABLET PO PRN (22:42)
[2021-10-26] MEDS: ACETAMINOPHEN 325 MG TABLET PO PRN ×2 (02:53→06:07)
[2021-10-26 04:06] VITALS: BP 130/80
[2021-10-26 06:48] LABS: BASOPHILS % (AUTO) 0.5 % (0.0-2.0); EOSINOPHILS % (AUTO) 1.3 % (1.0-6.0); HEMATOCRIT 37.5 % (41-53); HEMOGLOBIN 11.8 g/dL (13.5-17.5); LYMPHOCYTES # (AUTO) 1.3 K/uL (1.0-4.8); LYMPHOCYTES % (AUTO) 16.5 % (22.0-44.0); MEAN CORPUSCULAR HEMOGLOBIN 26.2 pg (26.0-34.0); MEAN CORPUSCULAR HGB CONC 31.5 G/dL (31.0-37.0); MEAN CORPUSCULAR VOLUME 83 fL (80-100); MONOCYTES # (AUTO) 0.6 K/uL (0.1-1.0); NEUTROPHILS # (AUTO) 5.7 K/uL (1.8-7.7); NEUTROPHILS % (AUTO) 73.7 % (40.0-70.0); PLATELET COUNT (AUTO) 242 K/uL (150-450); RED BLOOD CELL COUNT(AUTO) 4.51 MIL/uL (4.50-5.90); RED CELL DISTRIBUTION WIDTH 15.4 % (11.5-14.5)
[2021-10-26 07:04] LABS: ANION GAP 1 mmol/L (8-16); CALCIUM, TOTAL 8.7 mg/dL (8.8-10.5); CHLORIDE 100 mmol/L (98-107); CREATININE 0.54 mg/dL (0.60-1.30); GLUCOSE,RANDOM 125 mg/dL (70-110); POTASSIUM 4.1 mmol/L (3.5-5.1); SODIUM SERUM 142 mmol/L (136-145); UREA NITROGEN, BLOOD 11 mg/dL (7-18)
[2021-10-26 07:15] LABS: GLOMERULAR FILTR. RATE CALC > 60 mL/min (>60)
[2021-10-26 07:17] LABS: CARBON DIOXIDE 41 mmol/L (22-29)
[2021-10-26 07:41] VITALS: BP 143/87
[2021-10-26] MEDS: DOCUSATE SODIUM 100 MG CAPSULE PO SCH ×2 (09:00→20:13)
[2021-10-26] MEDS: FLUTICASONE/VILANTEROL 100-25 MCG/INH INHALER [14] IH SCH (09:03)
[2021-10-26] MEDS: OLANZapine 5 MG RAPDIS TABLET PO SCH ×4 (09:03→20:13)
[2021-10-26] MEDS: HALOPERIDOL 1 MG TABLET PO SCH ×4 (09:04→20:13)
[2021-10-26] MEDS: PANTOPRAZOLE SODIUM 40 MG DR TABLET PO SCH (09:04)
[2021-10-26] MEDS: RIVAROXABAN 15 MG TABLET PO SCH ×2 (09:04→20:12)
[2021-10-26] MEDS: DULoxetine HCL 60 MG CAPSULE PO SCH ×2 (09:05→20:13)
[2021-10-26] MEDS: FUROSEMIDE 40 MG TABLET PO SCH (09:05)
[2021-10-26] MEDS: ASPIRIN 81 MG CHEWABLE TABLET PO SCH (09:06)
[2021-10-26] MEDS: ETHYL ALCOHOL 62% ANTISEPTIC NASAL SANITIZER 0.6 ML AMPUL NASAL SCH ×2 (09:08→20:13)
[2021-10-26] MEDS: GABAPENTIN 400 MG CAPSULE PO PRN (10:56)
[2021-10-26 15:30] VITALS: BP 116/50
[2021-10-26 19:39] VITALS: BP 143/61
[2021-10-27] MEDS: ACETAMINOPHEN 325 MG TABLET PO PRN (02:52)
[2021-10-27 02:57] VITALS: BP 115/58
[2021-10-27 08:00] VITALS: BP 120/59
[2021-10-27] MEDS: FLUTICASONE/VILANTEROL 100-25 MCG/INH INHALER [14] IH SCH (08:16)
[2021-10-27] MEDS: ASPIRIN 81 MG CHEWABLE TABLET PO SCH (08:17)
[2021-10-27] MEDS: PANTOPRAZOLE SODIUM 40 MG DR TABLET PO SCH (08:17)
[2021-10-27] MEDS: DULoxetine HCL 60 MG CAPSULE PO SCH (08:17)
[2021-10-27] MEDS: OLANZapine 5 MG RAPDIS TABLET PO SCH ×3 (08:17→16:15)
[2021-10-27] MEDS: RIVAROXABAN 15 MG TABLET PO SCH (08:17)
[2021-10-27] MEDS: HALOPERIDOL 1 MG TABLET PO SCH ×3 (08:18→16:15)
[2021-10-27] MEDS: FUROSEMIDE 40 MG TABLET PO SCH (08:23)
[2021-10-27] MEDS: DOCUSATE SODIUM 100 MG CAPSULE PO SCH ×2 (08:23→21:00)
[2021-10-27] MEDS: ETHYL ALCOHOL 62% ANTISEPTIC NASAL SANITIZER 0.6 ML AMPUL NASAL SCH (09:00)
[2021-10-27 15:54] VITALS: BP 105/55
[2021-10-27 20:04] VITALS: BP 138/63
[2021-10-28] MEDS: DULoxetine HCL 60 MG CAPSULE PO SCH ×3 (00:08→20:48)
[2021-10-28] MEDS: OLANZapine 5 MG RAPDIS TABLET PO SCH ×5 (00:08→20:46)
[2021-10-28] MEDS: HALOPERIDOL 1 MG TABLET PO SCH ×5 (00:08→20:46)
[2021-10-28] MEDS: DOCUSATE SODIUM 100 MG CAPSULE PO SCH ×3 (00:08→20:46)
[2021-10-28] MEDS: ETHYL ALCOHOL 62% ANTISEPTIC NASAL SANITIZER 0.6 ML AMPUL NASAL SCH ×3 (00:08→20:46)
[2021-10-28] MEDS: RIVAROXABAN 15 MG TABLET PO SCH ×3 (00:08→20:46)
[2021-10-28 04:44] VITALS: BP 127/81
[2021-10-28 08:09] VITALS: BP 120/80
[2021-10-28] MEDS: FLUTICASONE/VILANTEROL 100-25 MCG/INH INHALER [14] IH SCH (09:33)
[2021-10-28] MEDS: PANTOPRAZOLE SODIUM 40 MG DR TABLET PO SCH (09:34)
[2021-10-28] MEDS: FUROSEMIDE 40 MG TABLET PO SCH (09:34)
[2021-10-28] MEDS: ASPIRIN 81 MG CHEWABLE TABLET PO SCH (09:34)
[2021-10-28] MEDS: GABAPENTIN 400 MG CAPSULE PO PRN (11:29)
[2021-10-28] MEDS: ACETAMINOPHEN 325 MG TABLET PO PRN (13:04)
[2021-10-28 15:32] VITALS: BP 131/82
[2021-10-28 19:58] VITALS: BP 125/58
[2021-10-29 04:30] VITALS: BP 122/77
[2021-10-29] MEDS: DOCUSATE SODIUM 100 MG CAPSULE PO SCH ×2 (09:00→20:54)
[2021-10-29] MEDS: FUROSEMIDE 40 MG TABLET PO SCH (09:00)
[2021-10-29] MEDS: FLUTICASONE/VILANTEROL 100-25 MCG/INH INHALER [14] IH SCH (10:10)
[2021-10-29] MEDS: ETHYL ALCOHOL 62% ANTISEPTIC NASAL SANITIZER 0.6 ML AMPUL NASAL SCH ×2 (10:10→20:53)
[2021-10-29] MEDS: ASPIRIN 81 MG CHEWABLE TABLET PO SCH (10:11)
[2021-10-29] MEDS: RIVAROXABAN 15 MG TABLET PO SCH ×2 (10:11→20:53)
[2021-10-29] MEDS: PANTOPRAZOLE SODIUM 40 MG DR TABLET PO SCH (10:12)
[2021-10-29] MEDS: OLANZapine 5 MG RAPDIS TABLET PO SCH ×4 (10:12→20:53)
[2021-10-29 10:13] VITALS: BP 110/53
[2021-10-29] MEDS: HALOPERIDOL 1 MG TABLET PO SCH ×4 (10:13→20:53)
[2021-10-29] MEDS: DULoxetine HCL 60 MG CAPSULE PO SCH ×2 (10:13→20:53)
[2021-10-29] MEDS: GABAPENTIN 400 MG CAPSULE PO PRN (13:29)
[2021-10-29 17:08] VITALS: BP 130/85
[2021-10-29 19:52] VITALS: BP 105/55
[2021-10-30] MEDS: ACETAMINOPHEN 325 MG TABLET PO PRN ×2 (00:36→20:19)
[2021-10-30 05:10] VITALS: BP 129/83
[2021-10-30 07:53] VITALS: BP 126/83
[2021-10-30] MEDS: DOCUSATE SODIUM 100 MG CAPSULE PO SCH ×2 (08:00→20:20)
[2021-10-30] MEDS: FUROSEMIDE 40 MG TABLET PO SCH (08:00)
[2021-10-30] MEDS: ETHYL ALCOHOL 62% ANTISEPTIC NASAL SANITIZER 0.6 ML AMPUL NASAL SCH ×2 (08:01→20:20)
[2021-10-30] MEDS: FLUTICASONE/VILANTEROL 100-25 MCG/INH INHALER [14] IH SCH (08:01)
[2021-10-30] MEDS: HALOPERIDOL 1 MG TABLET PO SCH ×4 (08:02→20:18)
[2021-10-30] MEDS: DULoxetine HCL 60 MG CAPSULE PO SCH ×2 (08:02→20:18)
[2021-10-30] MEDS: OLANZapine 5 MG RAPDIS TABLET PO SCH ×4 (08:02→20:18)
[2021-10-30] MEDS: RIVAROXABAN 15 MG TABLET PO SCH ×2 (08:02→20:19)
[2021-10-30] MEDS: ASPIRIN 81 MG CHEWABLE TABLET PO SCH (08:02)
[2021-10-30] MEDS: PANTOPRAZOLE SODIUM 40 MG DR TABLET PO SCH (08:02)
[2021-10-30 15:29] VITALS: BP 130/84
[2021-10-30 19:38] VITALS: BP 137/72
[2021-10-31 04:43] VITALS: BP 104/59
[2021-10-31] MEDS: PANTOPRAZOLE SODIUM 40 MG DR TABLET PO SCH (08:33)
[2021-10-31] MEDS: FLUTICASONE/VILANTEROL 100-25 MCG/INH INHALER [14] IH SCH (08:33)
[2021-10-31] MEDS: ETHYL ALCOHOL 62% ANTISEPTIC NASAL SANITIZER 0.6 ML AMPUL NASAL SCH ×2 (08:34→20:19)
[2021-10-31] MEDS: DULoxetine HCL 60 MG CAPSULE PO SCH ×2 (08:34→20:19)
[2021-10-31] MEDS: ASPIRIN 81 MG CHEWABLE TABLET PO SCH (08:34)
[2021-10-31] MEDS: HALOPERIDOL 1 MG TABLET PO SCH ×4 (08:35→20:19)
[2021-10-31] MEDS: RIVAROXABAN 15 MG TABLET PO SCH ×2 (08:35→20:19)
[2021-10-31] MEDS: OLANZapine 5 MG RAPDIS TABLET PO SCH ×4 (08:36→20:20)
[2021-10-31 08:59] VITALS: BP 126/82
[2021-10-31] MEDS: FUROSEMIDE 40 MG TABLET PO SCH (09:00)
[2021-10-31] MEDS: DOCUSATE SODIUM 100 MG CAPSULE PO SCH ×2 (09:00→20:19)
[2021-10-31 16:14] VITALS: BP 115/63
[2021-10-31 19:40] VITALS: BP 125/85
[2021-11-01] MEDS: ACETAMINOPHEN 325 MG TABLET PO PRN (02:47)
[2021-11-01 05:10] VITALS: BP 116/75
[2021-11-01] MEDS: FLUTICASONE/VILANTEROL 100-25 MCG/INH INHALER [14] IH SCH (07:51)
[2021-11-01] MEDS: ASPIRIN 81 MG CHEWABLE TABLET PO SCH (07:51)
[2021-11-01] MEDS: DULoxetine HCL 60 MG CAPSULE PO SCH ×2 (07:51→20:12)
[2021-11-01] MEDS: ETHYL ALCOHOL 62% ANTISEPTIC NASAL SANITIZER 0.6 ML AMPUL NASAL SCH ×2 (07:51→20:12)
[2021-11-01] MEDS: HALOPERIDOL 1 MG TABLET PO SCH ×4 (07:52→20:13)
[2021-11-01] MEDS: OLANZapine 5 MG RAPDIS TABLET PO SCH ×4 (07:52→20:12)
[2021-11-01] MEDS: RIVAROXABAN 15 MG TABLET PO SCH ×2 (07:52→20:12)
[2021-11-01] MEDS: PANTOPRAZOLE SODIUM 40 MG DR TABLET PO SCH (07:52)
[2021-11-01 08:29] VITALS: BP 124/86
[2021-11-01] MEDS: FUROSEMIDE 40 MG TABLET PO SCH (09:00)
[2021-11-01] MEDS: DOCUSATE SODIUM 100 MG CAPSULE PO SCH ×3 (09:00→21:00)
[2021-11-01 16:03] VITALS: BP 110/58
[2021-11-01 20:21] VITALS: BP 133/69
[2021-11-02] MEDS: ACETAMINOPHEN 325 MG TABLET PO PRN (04:46)
[2021-11-02 04:53] VITALS: BP 128/95
[2021-11-02] MEDS: DULoxetine HCL 60 MG CAPSULE PO SCH ×2 (07:59→19:51)
[2021-11-02] MEDS: HALOPERIDOL 1 MG TABLET PO SCH ×4 (07:59→19:51)
[2021-11-02] MEDS: FLUTICASONE/VILANTEROL 100-25 MCG/INH INHALER [14] IH SCH (07:59)
[2021-11-02] MEDS: ASPIRIN 81 MG CHEWABLE TABLET PO SCH (07:59)
[2021-11-02] MEDS: DOCUSATE SODIUM 100 MG CAPSULE PO SCH ×2 (07:59→21:00)
[2021-11-02] MEDS: ETHYL ALCOHOL 62% ANTISEPTIC NASAL SANITIZER 0.6 ML AMPUL NASAL SCH ×2 (07:59→19:51)
[2021-11-02] MEDS: PANTOPRAZOLE SODIUM 40 MG DR TABLET PO SCH (07:59)
[2021-11-02] MEDS: RIVAROXABAN 15 MG TABLET PO SCH ×2 (07:59→19:51)
[2021-11-02] MEDS: FUROSEMIDE 40 MG TABLET PO SCH (07:59)
[2021-11-02] MEDS: OLANZapine 5 MG RAPDIS TABLET PO SCH ×4 (07:59→19:51)
[2021-11-02 08:00] VITALS: BP 129/91
[2021-11-02 08:07] VITALS: BP 129/91
[2021-11-02 13:57] LABS: COVID AG,FIA SOURCE NASAL SWAB
[2021-11-02 16:11] VITALS: BP 124/88
[2021-11-02 19:46] VITALS: BP 129/76
[2021-11-03] MEDS: ACETAMINOPHEN 325 MG TABLET PO PRN ×2 (03:11→17:03)
[2021-11-03 04:20] VITALS: BP 123/80
[2021-11-03 07:29] VITALS: BP 113/76
[2021-11-03] MEDS: DULoxetine HCL 60 MG CAPSULE PO SCH ×2 (08:02→20:49)
[2021-11-03] MEDS: PANTOPRAZOLE SODIUM 40 MG DR TABLET PO SCH (08:02)
[2021-11-03] MEDS: ASPIRIN 81 MG CHEWABLE TABLET PO SCH (08:02)
[2021-11-03] MEDS: ETHYL ALCOHOL 62% ANTISEPTIC NASAL SANITIZER 0.6 ML AMPUL NASAL SCH ×2 (08:02→20:48)
[2021-11-03] MEDS: HALOPERIDOL 1 MG TABLET PO SCH ×4 (08:02→20:49)
[2021-11-03] MEDS: FLUTICASONE/VILANTEROL 100-25 MCG/INH INHALER [14] IH SCH (08:02)
[2021-11-03] MEDS: FUROSEMIDE 40 MG TABLET PO SCH (08:02)
[2021-11-03] MEDS: RIVAROXABAN 15 MG TABLET PO SCH ×2 (08:02→20:49)
[2021-11-03] MEDS: OLANZapine 5 MG RAPDIS TABLET PO SCH ×4 (08:04→20:49)
[2021-11-03] MEDS: DOCUSATE SODIUM 100 MG CAPSULE PO SCH ×2 (08:04→21:00)
[2021-11-03 15:37] VITALS: BP 105/71
[2021-11-03 21:10] VITALS: BP 131/85
[2021-11-04 04:20] VITALS: BP 122/78
[2021-11-04 07:20] VITALS: BP 126/82
[2021-11-04] MEDS: FUROSEMIDE 40 MG TABLET PO SCH (09:00)
[2021-11-04] MEDS: DOCUSATE SODIUM 100 MG CAPSULE PO SCH ×2 (09:00→21:00)
[2021-11-04] MEDS: PANTOPRAZOLE SODIUM 40 MG DR TABLET PO SCH (09:18)
[2021-11-04] MEDS: FLUTICASONE/VILANTEROL 100-25 MCG/INH INHALER [14] IH SCH (09:18)
[2021-11-04] MEDS: ASPIRIN 81 MG CHEWABLE TABLET PO SCH (09:18)
[2021-11-04] MEDS: RIVAROXABAN 15 MG TABLET PO SCH ×2 (09:19→20:57)
[2021-11-04] MEDS: ETHYL ALCOHOL 62% ANTISEPTIC NASAL SANITIZER 0.6 ML AMPUL NASAL SCH ×2 (09:19→20:55)
[2021-11-04] MEDS: DULoxetine HCL 60 MG CAPSULE PO SCH ×2 (09:19→20:56)
[2021-11-04] MEDS: HALOPERIDOL 1 MG TABLET PO SCH ×4 (09:19→20:56)
[2021-11-04] MEDS: OLANZapine 5 MG RAPDIS TABLET PO SCH ×4 (09:19→20:57)
[2021-11-04] MEDS: GABAPENTIN 400 MG CAPSULE PO PRN (11:36)
[2021-11-04 15:24] VITALS: BP 120/58
[2021-11-04] MEDS: ACETAMINOPHEN 325 MG TABLET PO PRN (18:01)
[2021-11-04 19:41] VITALS: BP 117/69
[2021-11-05 04:32] VITALS: BP 124/62
[2021-11-05] MEDS: ACETAMINOPHEN 325 MG TABLET PO PRN (04:32)
[2021-11-05 07:49] VITALS: BP 130/69
[2021-11-05] MEDS: DOCUSATE SODIUM 100 MG CAPSULE PO SCH ×2 (09:00→21:00)
[2021-11-05] MEDS: FUROSEMIDE 40 MG TABLET PO SCH (09:00)
[2021-11-05] MEDS: ETHYL ALCOHOL 62% ANTISEPTIC NASAL SANITIZER 0.6 ML AMPUL NASAL SCH ×2 (09:01→20:24)
[2021-11-05] MEDS: PANTOPRAZOLE SODIUM 40 MG DR TABLET PO SCH (09:01)
[2021-11-05] MEDS: RIVAROXABAN 15 MG TABLET PO SCH ×2 (09:01→20:25)
[2021-11-05] MEDS: FLUTICASONE/VILANTEROL 100-25 MCG/INH INHALER [14] IH SCH (09:01)
[2021-11-05] MEDS: HALOPERIDOL 1 MG TABLET PO SCH ×4 (09:01→20:25)
[2021-11-05] MEDS: DULoxetine HCL 60 MG CAPSULE PO SCH ×2 (09:02→20:25)
[2021-11-05] MEDS: ASPIRIN 81 MG CHEWABLE TABLET PO SCH (09:02)
[2021-11-05] MEDS: OLANZapine 5 MG RAPDIS TABLET PO SCH ×4 (09:02→20:26)
[2021-11-05] MEDS: OLANZapine 5 MG RAPDIS TABLET PO PRN (10:03)
[2021-11-05 16:19] VITALS: BP 120/72
[2021-11-05 19:29] VITALS: BP 104/68
[2021-11-06] MEDS: ACETAMINOPHEN 325 MG TABLET PO PRN (02:44)
[2021-11-06 02:48] VITALS: BP 100/73
[2021-11-06 07:59] VITALS: BP 103/66
[2021-11-06] MEDS: FUROSEMIDE 40 MG TABLET PO SCH (08:27)
[2021-11-06] MEDS: PANTOPRAZOLE SODIUM 40 MG DR TABLET PO SCH (08:27)
[2021-11-06] MEDS: ETHYL ALCOHOL 62% ANTISEPTIC NASAL SANITIZER 0.6 ML AMPUL NASAL SCH (08:28)
[2021-11-06] MEDS: HALOPERIDOL 1 MG TABLET PO SCH ×3 (08:28→16:52)
[2021-11-06] MEDS: DOCUSATE SODIUM 100 MG CAPSULE PO SCH (08:28)
[2021-11-06] MEDS: OLANZapine 5 MG RAPDIS TABLET PO SCH ×3 (08:28→16:52)
[2021-11-06] MEDS: RIVAROXABAN 15 MG TABLET PO SCH (08:28)
[2021-11-06] MEDS: DULoxetine HCL 60 MG CAPSULE PO SCH (08:28)
[2021-11-06] MEDS: ASPIRIN 81 MG CHEWABLE TABLET PO SCH (08:28)
[2021-11-06] MEDS: FLUTICASONE/VILANTEROL 100-25 MCG/INH INHALER [14] IH SCH (08:29)
[2021-11-06] MEDS ORDERED: OLAN5TAB52 PO (14:45)
[2021-11-06 15:40] VITALS: BP 124/59
[2021-11-06] MEDS ORDERED: SODIUM CHLORIDE 0.9% 250 ML IV ONE (18:06)
[2021-11-06 19:58] VITALS: BP 125/62
== END 2021-11-06 21:02 | disposition home health service (06) | DRG 133 ==
LOC: EMS 19:36 → 5N 09-06 06:09 → 6S 09-19 21:00
PROVIDERS: ADMIT Internal Medicine; ATTEND Internal Medicine
PROC: 5A09357 Assistance with Respiratory Ventilation, Less than 24 Consecutive Hours, Continuous Positive Airway Pressure (ICD-10-PCS; principal; 2021-09-06)
DX: J96.21 Acute and chronic respiratory failure with hypoxia (principal); R65.11 Systemic inflammatory response syndrome (SIRS) of non-infectious origin with acute organ dysfunction; R45.851 Suicidal ideations; J96.22 Acute and chronic respiratory failure with hypercapnia; E44.0 Moderate protein-calorie malnutrition; I50.32 Chronic diastolic (congestive) heart failure; F25.9 Schizoaffective disorder, unspecified; E66.01 Morbid (severe) obesity due to excess calories; Z20.822 Contact with and (suspected) exposure to COVID-19; F15.10 Other stimulant abuse, uncomplicated; E87.6 Hypokalemia; F41.9 Anxiety disorder, unspecified; F32.9 Major depressive disorder, single episode, unspecified; J44.9 Chronic obstructive pulmonary disease, unspecified; E66.2 Morbid (severe) obesity with alveolar hypoventilation; G47.33 Obstructive sleep apnea (adult) (pediatric); S61.512A Laceration without foreign body of left wrist, initial encounter; X99.8XXA Assault by other sharp object, initial encounter; S61.511A Laceration without foreign body of right wrist, initial encounter; Z79.899 Other long term (current) drug therapy; Z79.51 Long term (current) use of inhaled steroids; Z91.013 Allergy to seafood; Z68.45 Body mass index [BMI] 70 or greater, adult; Z79.01 Long term (current) use of anticoagulants; Z91.19 Patient's noncompliance with other medical treatment and regimen; Z63.8 Other specified problems related to primary support group; Y93.89 Activity, other specified; Y92.89 Other specified places as the place of occurrence of the external cause; Y99.8 Other external cause status; Z72.0 Tobacco use; Z71.6 Tobacco abuse counseling
CPT/HCPCS: 71045; 80048; 80053; 80061; 82805; 84439; 84443; 84484; 85025; 85379; 87081; 93005; 93306; 94660; 97165; 97530; 97535; 99291; G0480; J1644; J1940; J7050; Q9967; 36415-L1; 36415-TC; U0003

== ENCOUNTER 2021-11-10 06:09 | Inpatient (IN) | payer MEDICAID ==
[~2021-11-10] VITALS: Ht 167.6 cm; Wt 227.3 kg
[~2021-11-10 06:09] MED LIST changes: -HALO10 PO; +HALO10TA21 PO; +OLAN5TAB52 PO; -QUET100T PO; -QUET25TA PO
[2021-11-10] MEDS ORDERED: IPRATROPIUM BROMIDE 0.5 MG/2.5 ML NEB SOLUTION NEB ONE (06:30)
[2021-11-10] MEDS ORDERED: MethylPREDNISolone SOD SUCC 125 MG/2 ML VIAL IVP ONE (06:30)
[2021-11-10] MEDS ORDERED: ALBUTEROL SULFATE 2.5 MG/0.5 ML NEB SOLUTION NEB ONE (06:30)
[2021-11-10 06:38] LABS: COVID AG,FIA SOURCE NASOPHARYNGEAL
[2021-11-10 07:11] LABS: INFLUENZA TYPE A NEGATIVE FOR TYPE A (NEGATIVE); INFLUENZA TYPE B NEGATIVE FOR TYPE B (NEGATIVE)
[2021-11-10 07:12] LABS: BASOPHILS % (AUTO) 0.5 % (0.0-2.0); EOSINOPHILS % (AUTO) 1.2 % (1.0-6.0); HEMOGLOBIN 11.7 g/dL (13.5-17.5); LYMPHOCYTES # (AUTO) 1.1 K/uL (1.0-4.8); LYMPHOCYTES % (AUTO) 8.1 % (22.0-44.0); MEAN CORPUSCULAR HEMOGLOBIN 26.2 pg (26.0-34.0); MEAN CORPUSCULAR HGB CONC 31.5 G/dL (31.0-37.0); MEAN CORPUSCULAR VOLUME 83 fL (80-100); MONOCYTES # (AUTO) 1.1 K/uL (0.1-1.0); MONOCYTES % (AUTO) 8.2 % (2.0-9.0); NEUTROPHILS # (AUTO) 10.8 K/uL (1.8-7.7); PLATELET COUNT (AUTO) 286 K/uL (150-450); RED BLOOD CELL COUNT(AUTO) 4.46 MIL/uL (4.50-5.90); RED CELL DISTRIBUTION WIDTH 16.3 % (11.5-14.5)
[2021-11-10 07:20] LABS: ANION GAP 7 mmol/L (8-16); CALCIUM, TOTAL 8.4 mg/dL (8.8-10.5); CARBON DIOXIDE 35 mmol/L (22-29); CHLORIDE 102 mmol/L (98-107); CREATININE 0.65 mg/dL (0.60-1.30); GLOMERULAR FILTR. RATE CALC > 60 mL/min (>60); GLUCOSE,RANDOM 114 mg/dL (70-110); INR 1.2 (0.9-1.1); POTASSIUM 3.5 mmol/L (3.5-5.1); SODIUM SERUM 144 mmol/L (136-145); UREA NITROGEN, BLOOD 13 mg/dL (7-18)
[2021-11-10 07:41] LABS: B-TYPE NATRIURETIC PEPTIDE 14 pg/mL (0-100)
[2021-11-10 07:45] LABS: ALANINE AMINOTRANSFERASE 32 U/L (12-78); ALBUMIN 3.2 g/dL (3.4-5.0); ALKALINE PHOSPHATASE 62 U/L (46-116); ASPARTATE AMINOTRANSFERASE 42 U/L (15-37); BILIRUBIN,TOTAL 0.7 mg/dL (0.1-1.0); CREATINE KINASE, TOTAL ONLY 624 U/L (39-308)
[2021-11-10] MEDS ORDERED: AZITHROMYCIN 500 MG/NS 250 ML IV ONE (08:15)
[2021-11-10] MEDS ORDERED: CefTRIAXone 1 GM/DEXTROSE 50 ML IV ONE (08:15)
[2021-11-10] MEDS ORDERED: ACETAMINOPHEN 325 MG TABLET PO PRN (10:30)
[2021-11-10] MEDS ORDERED: ONDANSETRON HCL 4 MG/2 ML VIAL IVP PRN (10:30)
[2021-11-10] MEDS ORDERED: 0.9% SODIUM CHLORIDE 10 ML SYRINGE IVP PRN (10:30)
[2021-11-10] MEDS ORDERED: MAGNESIUM HYDROXIDE SUSPENSION 30 ML UDCUP PO PRN (12:00)
[2021-11-10] MEDS ORDERED: ALBUTEROL SULFATE 2.5 MG/0.5 ML NEB SOLUTION NEB PRN (12:00)
[2021-11-10] MEDS: HEPARIN SODIUM,PORCINE 5,000 UNITS/ML VIAL SQ SCH ×2 (15:26→23:07)
[2021-11-10 18:46] VITALS: BP 140/65
[2021-11-10 19:44] VITALS: BP 139/81
[2021-11-10] MEDS ORDERED: HALOPERIDOL LACTATE 5 MG/ML VIAL IM ONE (20:30)
[2021-11-10] MEDS ORDERED: DiphenhydrAMINE HCL 50 MG/ML VIAL IVP ONE (20:30)
[2021-11-11 03:38] VITALS: BP 142/71
[2021-11-11] MEDS: HEPARIN SODIUM,PORCINE 5,000 UNITS/ML VIAL SQ SCH ×3 (08:00→23:07)
[2021-11-11] MEDS: CefTRIAXone 1 GM/DEXTROSE 50 ML IV SCH (09:00)
[2021-11-11] MEDS: FAMOTIDINE 20 MG TABLET PO SCH (09:00)
[2021-11-11 09:11] VITALS: BP 137/91
[2021-11-11] MEDS ORDERED: HALOPERIDOL LACTATE 5 MG/ML VIAL IM ONE (09:15)
[2021-11-11] MEDS ORDERED: LORazepam 2 MG/ML VIAL IM ONE (09:15)
[2021-11-11 09:51] LABS: APPEARANCE,URINE HAZY (CLEAR); BILIRUBIN,URINE NEGATIVE (NEGATIVE); GLUCOSE, URINE (UA) NEGATIVE (NEGATIVE); LEUKOCYTE ESTERASE ,URINE SMALL (NEGATIVE); NITRATE,URINE NEGATIVE (NEGATIVE); OCCULT BLOOD,URINE MODERATE (NEGATIVE); PH,URINE 6.5 (5.0-8.0); PROTEIN,URINE 30-70 mg/dL (NEGATIVE); SPECIFIC GRAVITIY, URINE 1.026 (1.003-1.030)
[2021-11-11 09:57] LABS: AMPHET/METH SCREEN,URINE POSITIVE (NEGATIVE); BARBITURATE SCREEN, URINE NEGATIVE (NEGATIVE); BENZODIAZEPINES SCREEN,URINE NEGATIVE (NEGATIVE); CANNABINOID SCREEN,URINE POSITIVE (NEGATIVE); COCAINE SCREEN,URINE NEGATIVE (NEGATIVE); METHADONE SCREEN, URINE NEGATIVE (NEGATIVE); OPIATE SCREEN,URINE NEGATIVE (NEGATIVE); PHENCYCLIDINE SCREEN,URINE NEGATIVE (NEGATIVE)
[2021-11-11] MEDS: AZITHROMYCIN 500 MG/NS 250 ML IV SCH (10:00)
[2021-11-11] MEDS ORDERED: DiphenhydrAMINE HCL 50 MG/ML VIAL IM ONE (10:00)
[2021-11-11] MEDS ORDERED: DiphenhydrAMINE HCL 50 MG/ML VIAL ONE (10:01)
[2021-11-11 10:08] LABS: BACTERIA,URINE Few /HPF (None Seen); RBC,URINE 26-50 /HPF (0-2)
[2021-11-11 11:36] LABS: BASOPHILS % (AUTO) 0.8 % (0.0-2.0); EOSINOPHILS % (AUTO) 0.4 % (1.0-6.0); HEMATOCRIT 40.2 % (41-53); HEMOGLOBIN 12.7 g/dL (13.5-17.5); LYMPHOCYTES # (AUTO) 1.8 K/uL (1.0-4.8); LYMPHOCYTES % (AUTO) 13.6 % (22.0-44.0); MEAN CORPUSCULAR HEMOGLOBIN 26.3 pg (26.0-34.0); MEAN CORPUSCULAR HGB CONC 31.5 G/dL (31.0-37.0); MEAN CORPUSCULAR VOLUME 84 fL (80-100); MONOCYTES # (AUTO) 1.4 K/uL (0.1-1.0); MONOCYTES % (AUTO) 10.3 % (2.0-9.0); NEUTROPHILS % (AUTO) 74.9 % (40.0-70.0); PLATELET COUNT (AUTO) 337 K/uL (150-450); RED BLOOD CELL COUNT(AUTO) 4.81 MIL/uL (4.50-5.90); RED CELL DISTRIBUTION WIDTH 16.1 % (11.5-14.5)
[2021-11-11 11:59] LABS: ALANINE AMINOTRANSFERASE 35 U/L (12-78); ALBUMIN 3.6 g/dL (3.4-5.0); ALKALINE PHOSPHATASE 64 U/L (46-116); ANION GAP 8 mmol/L (8-16); ASPARTATE AMINOTRANSFERASE 41 U/L (15-37); BILIRUBIN,TOTAL 0.7 mg/dL (0.1-1.0); CALCIUM, TOTAL 8.8 mg/dL (8.8-10.5); CARBON DIOXIDE 32 mmol/L (22-29); CHLORIDE 102 mmol/L (98-107); CREATININE 0.64 mg/dL (0.60-1.30); GLOMERULAR FILTR. RATE CALC > 60 mL/min (>60); GLUCOSE,RANDOM 112 mg/dL (70-110); POTASSIUM 3.2 mmol/L (3.5-5.1); SODIUM SERUM 142 mmol/L (136-145); TOTAL PROTEIN, SERUM 8.4 g/dL (6.4-8.2); UREA NITROGEN, BLOOD 18 mg/dL (7-18)
[2021-11-11] MEDS: DULoxetine HCL 60 MG CAPSULE PO SCH ×2 (13:27→20:15)
[2021-11-11] MEDS: QUEtiapine FUMARATE 25 MG TABLET PO PRN (13:27)
[2021-11-11] MEDS: HALOPERIDOL 5 MG TABLET PO SCH ×2 (13:27→20:15)
[2021-11-11] MEDS ORDERED: POTASSIUM CHLORIDE 20 MEQ ER TABLET PO ONE (15:45)
[2021-11-11] MEDS: OLANZapine 5 MG TABLET PO SCH (20:15)
[2021-11-11] MEDS: CIPROFLOXACIN HCL 250 MG TABLET PO SCH (20:17)
[2021-11-12 04:34] VITALS: BP 144/79
[2021-11-12 08:00] VITALS: BP 142/77
[2021-11-12] MEDS: HALOPERIDOL 5 MG TABLET PO SCH ×2 (08:44→21:14)
[2021-11-12] MEDS: DULoxetine HCL 60 MG CAPSULE PO SCH ×2 (08:44→21:14)
[2021-11-12] MEDS: OLANZapine 5 MG TABLET PO SCH ×2 (08:44→21:15)
[2021-11-12] MEDS: FAMOTIDINE 20 MG TABLET PO SCH (08:44)
[2021-11-12] MEDS: HEPARIN SODIUM,PORCINE 5,000 UNITS/ML VIAL SQ SCH ×2 (08:44→15:57)
[2021-11-12] MEDS: CefTRIAXone 1 GM/DEXTROSE 50 ML IV SCH (08:59)
[2021-11-12] MEDS: CIPROFLOXACIN HCL 250 MG TABLET PO SCH (09:00)
[2021-11-12] MEDS: AZITHROMYCIN 500 MG/NS 250 ML IV SCH (09:12)
[2021-11-12 12:00] VITALS: BP 133/84
[2021-11-12 16:01] VITALS: BP 114/91
[2021-11-12 20:24] VITALS: BP 126/82
[2021-11-13 04:53] VITALS: BP 131/88
[2021-11-13 08:30] VITALS: BP 146/52
[2021-11-13] MEDS: HEPARIN SODIUM,PORCINE 5,000 UNITS/ML VIAL SQ SCH ×4 (08:54→23:26)
[2021-11-13] MEDS: OLANZapine 5 MG TABLET PO SCH ×2 (08:54→20:16)
[2021-11-13] MEDS: FAMOTIDINE 20 MG TABLET PO SCH (08:54)
[2021-11-13] MEDS: HALOPERIDOL 5 MG TABLET PO SCH ×2 (08:54→20:16)
[2021-11-13] MEDS: DULoxetine HCL 60 MG CAPSULE PO SCH ×2 (08:54→20:16)
[2021-11-13] MEDS: CefTRIAXone 1 GM/DEXTROSE 50 ML IV SCH ×2 (09:50→10:38)
[2021-11-13] MEDS: QUEtiapine FUMARATE 25 MG TABLET PO PRN (14:41)
[2021-11-13 16:00] VITALS: BP 136/86
[2021-11-13 20:19] VITALS: BP 121/70
[2021-11-14 05:07] VITALS: BP 125/86
[2021-11-14 07:13] VITALS: BP 147/74
[2021-11-14] MEDS: FAMOTIDINE 20 MG TABLET PO SCH (08:19)
[2021-11-14] MEDS: HALOPERIDOL 5 MG TABLET PO SCH ×2 (08:19→20:18)
[2021-11-14] MEDS: DULoxetine HCL 60 MG CAPSULE PO SCH ×2 (08:19→20:18)
[2021-11-14] MEDS: OLANZapine 5 MG TABLET PO SCH ×2 (08:19→20:18)
[2021-11-14] MEDS: HEPARIN SODIUM,PORCINE 5,000 UNITS/ML VIAL SQ SCH ×3 (08:20→23:48)
[2021-11-14] MEDS: CefTRIAXone 1 GM/DEXTROSE 50 ML IV SCH (08:20)
[2021-11-14 11:04] VITALS: BP 124/79
[2021-11-14] MEDS: QUEtiapine FUMARATE 25 MG TABLET PO PRN (11:52)
[2021-11-14 16:03] VITALS: BP 117/72
[2021-11-14 19:21] VITALS: BP 149/62
[2021-11-15 04:30] VITALS: BP 124/77
[2021-11-15] MEDS: ACETAMINOPHEN 325 MG TABLET PO PRN ×2 (06:44→20:07)
[2021-11-15 07:31] VITALS: BP 104/64
[2021-11-15] MEDS: HALOPERIDOL 5 MG TABLET PO SCH ×2 (08:32→20:06)
[2021-11-15] MEDS: DULoxetine HCL 60 MG CAPSULE PO SCH ×2 (08:32→20:05)
[2021-11-15] MEDS: FAMOTIDINE 20 MG TABLET PO SCH (08:32)
[2021-11-15] MEDS: OLANZapine 5 MG TABLET PO SCH ×2 (08:32→20:06)
[2021-11-15] MEDS: HEPARIN SODIUM,PORCINE 5,000 UNITS/ML VIAL SQ SCH ×2 (08:33→16:00)
[2021-11-15] MEDS: CefTRIAXone 1 GM/DEXTROSE 50 ML IV SCH (08:35)
[2021-11-15 11:46] VITALS: BP 123/123
[2021-11-15 16:00] VITALS: BP 132/85
[2021-11-15 19:30] VITALS: BP 131/85
[2021-11-16 04:45] VITALS: BP 128/84
[2021-11-16] MEDS: ACETAMINOPHEN 325 MG TABLET PO PRN ×3 (05:01→19:53)
[2021-11-16 07:21] VITALS: BP 148/74
[2021-11-16] MEDS: OLANZapine 5 MG TABLET PO SCH ×2 (08:25→19:52)
[2021-11-16] MEDS: FAMOTIDINE 20 MG TABLET PO SCH (08:25)
[2021-11-16] MEDS: HALOPERIDOL 5 MG TABLET PO SCH ×2 (08:26→19:52)
[2021-11-16] MEDS: HEPARIN SODIUM,PORCINE 5,000 UNITS/ML VIAL SQ SCH ×4 (08:26→23:35)
[2021-11-16] MEDS: CefTRIAXone 1 GM/DEXTROSE 50 ML IV SCH (08:27)
[2021-11-16] MEDS: DULoxetine HCL 60 MG CAPSULE PO SCH ×2 (08:34→19:52)
[2021-11-16 16:30] VITALS: BP 117/94
[2021-11-16 19:40] VITALS: BP 122/77
[2021-11-17 04:10] VITALS: BP 130/76
[2021-11-17] MEDS: ACETAMINOPHEN 325 MG TABLET PO PRN ×4 (04:21→21:50)
[2021-11-17 07:24] VITALS: BP 128/78
[2021-11-17] MEDS: HEPARIN SODIUM,PORCINE 5,000 UNITS/ML VIAL SQ SCH ×3 (07:28→23:27)
[2021-11-17] MEDS: CefTRIAXone 1 GM/DEXTROSE 50 ML IV SCH (07:29)
[2021-11-17] MEDS: FAMOTIDINE 20 MG TABLET PO SCH (07:29)
[2021-11-17] MEDS: DULoxetine HCL 60 MG CAPSULE PO SCH ×2 (07:29→21:49)
[2021-11-17] MEDS: HALOPERIDOL 5 MG TABLET PO SCH ×2 (07:29→21:50)
[2021-11-17] MEDS: OLANZapine 5 MG TABLET PO SCH ×2 (07:31→21:50)
[2021-11-17 15:10] VITALS: BP 122/90
[2021-11-17 17:48] LABS: BASOPHILS % (AUTO) 0.8 % (0.0-2.0); EOSINOPHILS % (AUTO) 1.7 % (1.0-6.0); HEMOGLOBIN 12.7 g/dL (13.5-17.5); LYMPHOCYTES # (AUTO) 1.6 K/uL (1.0-4.8); MEAN CORPUSCULAR HEMOGLOBIN 26.4 pg (26.0-34.0); MEAN CORPUSCULAR HGB CONC 31.8 G/dL (31.0-37.0); MEAN CORPUSCULAR VOLUME 83 fL (80-100); MONOCYTES # (AUTO) 0.9 K/uL (0.1-1.0); MONOCYTES % (AUTO) 11.8 % (2.0-9.0); NEUTROPHILS # (AUTO) 5.3 K/uL (1.8-7.7); NEUTROPHILS % (AUTO) 65.7 % (40.0-70.0); PLATELET COUNT (AUTO) 290 K/uL (150-450); RED BLOOD CELL COUNT(AUTO) 4.81 MIL/uL (4.50-5.90); RED CELL DISTRIBUTION WIDTH 16.1 % (11.5-14.5)
[2021-11-17 17:57] LABS: APPEARANCE,URINE TURBID (CLEAR); BILIRUBIN,URINE NEGATIVE (NEGATIVE); GLUCOSE, URINE (UA) NEGATIVE (NEGATIVE); KETONES,URINE NEGATIVE (NEGATIVE); LEUKOCYTE ESTERASE ,URINE NEGATIVE (NEGATIVE); NITRATE,URINE NEGATIVE (NEGATIVE); OCCULT BLOOD,URINE SMALL (NEGATIVE); PH,URINE 6.5 (5.0-8.0); PROTEIN,URINE 300-600,SEE CONFIRM mg/dL (NEGATIVE); SPECIFIC GRAVITIY, URINE 1.014 (1.003-1.030); UROBILINOGEN,URINE <=1.0 mg/dL (<=1.0)
[2021-11-17 18:04] LABS: ANION GAP 2 mmol/L (8-16); CALCIUM, TOTAL 8.7 mg/dL (8.8-10.5); CARBON DIOXIDE 38 mmol/L (22-29); CHLORIDE 100 mmol/L (98-107); CREATININE 0.58 mg/dL (0.60-1.30); GLUCOSE,RANDOM 109 mg/dL (70-110); POTASSIUM 4.2 mmol/L (3.5-5.1); SODIUM SERUM 140 mmol/L (136-145); UREA NITROGEN, BLOOD 10 mg/dL (7-18)
[2021-11-17 18:05] LABS: GLOMERULAR FILTR. RATE CALC > 60 mL/min (>60)
[2021-11-17 18:12] LABS: ALANINE AMINOTRANSFERASE 38 U/L (12-78); ALBUMIN 2.8 g/dL (3.4-5.0); ALKALINE PHOSPHATASE 50 U/L (46-116); ASPARTATE AMINOTRANSFERASE 19 U/L (15-37); BILIRUBIN,TOTAL 0.4 mg/dL (0.1-1.0); TOTAL PROTEIN, SERUM 7.3 g/dL (6.4-8.2)
[2021-11-17 18:15] LABS: BACTERIA,URINE Few /HPF (None Seen); SQUAMOUS EPITHELIAL CELL,UR Rare /LPF (None Seen); SULFOSALICYLIC ACID,URINE 3+ (Negative); WBC,URINE 0-2 /HPF (0-5)
[2021-11-17 20:18] VITALS: BP 124/20
[2021-11-18 04:51] VITALS: BP 132/98
[2021-11-18 06:50] LABS: BASOPHILS % (AUTO) 0.5 % (0.0-2.0); EOSINOPHILS % (AUTO) 1.9 % (1.0-6.0); HEMOGLOBIN 12.8 g/dL (13.5-17.5); LYMPHOCYTES # (AUTO) 1.3 K/uL (1.0-4.8); LYMPHOCYTES % (AUTO) 20.5 % (22.0-44.0); MEAN CORPUSCULAR HEMOGLOBIN 26.1 pg (26.0-34.0); MEAN CORPUSCULAR HGB CONC 31.3 G/dL (31.0-37.0); MEAN CORPUSCULAR VOLUME 84 fL (80-100); MONOCYTES # (AUTO) 0.7 K/uL (0.1-1.0); MONOCYTES % (AUTO) 10.3 % (2.0-9.0); NEUTROPHILS # (AUTO) 4.3 K/uL (1.8-7.7); NEUTROPHILS % (AUTO) 66.8 % (40.0-70.0); PLATELET COUNT (AUTO) 271 K/uL (150-450); RED BLOOD CELL COUNT(AUTO) 4.92 MIL/uL (4.50-5.90); RED CELL DISTRIBUTION WIDTH 16.3 % (11.5-14.5)
[2021-11-18 07:03] LABS: ALANINE AMINOTRANSFERASE 36 U/L (12-78); ALBUMIN 2.8 g/dL (3.4-5.0); ALKALINE PHOSPHATASE 48 U/L (46-116); ANION GAP 2 mmol/L (8-16); ASPARTATE AMINOTRANSFERASE 17 U/L (15-37); BILIRUBIN,TOTAL 0.5 mg/dL (0.1-1.0); CALCIUM, TOTAL 8.7 mg/dL (8.8-10.5); CARBON DIOXIDE 39 mmol/L (22-29); CHLORIDE 101 mmol/L (98-107); GLUCOSE,RANDOM 95 mg/dL (70-110); POTASSIUM 4.3 mmol/L (3.5-5.1); SODIUM SERUM 142 mmol/L (136-145); TOTAL PROTEIN, SERUM 7.2 g/dL (6.4-8.2); UREA NITROGEN, BLOOD 10 mg/dL (7-18)
[2021-11-18 07:13] LABS: GLOMERULAR FILTR. RATE CALC > 60 mL/min (>60)
[2021-11-18 07:34] VITALS: BP 126/92
[2021-11-18] MEDS ORDERED: SODIUM CHLORIDE 0.9% 500 ML IV ONE (08:34)
[2021-11-18] MEDS: CefTRIAXone 1 GM/DEXTROSE 50 ML IV SCH (08:36)
[2021-11-18] MEDS: DULoxetine HCL 60 MG CAPSULE PO SCH ×2 (08:37→20:38)
[2021-11-18] MEDS: ACETAMINOPHEN 325 MG TABLET PO PRN ×3 (08:37→21:39)
[2021-11-18] MEDS: FAMOTIDINE 20 MG TABLET PO SCH (08:37)
[2021-11-18] MEDS: OLANZapine 5 MG TABLET PO SCH ×2 (08:37→20:38)
[2021-11-18] MEDS: HALOPERIDOL 5 MG TABLET PO SCH ×2 (08:37→20:38)
[2021-11-18] MEDS: HEPARIN SODIUM,PORCINE 5,000 UNITS/ML VIAL SQ SCH ×2 (08:37→16:00)
[2021-11-18 15:09] VITALS: BP 132/88
[2021-11-18 19:29] VITALS: BP 145/72
[2021-11-19] MEDS: ACETAMINOPHEN 325 MG TABLET PO PRN ×3 (02:45→20:53)
[2021-11-19 04:50] VITALS: BP 148/65
[2021-11-19 07:24] VITALS: BP 138/68
[2021-11-19] MEDS: CefTRIAXone 1 GM/DEXTROSE 50 ML IV SCH (09:34)
[2021-11-19] MEDS: HEPARIN SODIUM,PORCINE 5,000 UNITS/ML VIAL SQ SCH ×3 (09:34→16:26)
[2021-11-19] MEDS: FAMOTIDINE 20 MG TABLET PO SCH (09:35)
[2021-11-19] MEDS: DULoxetine HCL 60 MG CAPSULE PO SCH ×2 (09:35→20:51)
[2021-11-19] MEDS: HALOPERIDOL 5 MG TABLET PO SCH ×2 (09:35→20:52)
[2021-11-19] MEDS: OLANZapine 5 MG TABLET PO SCH (09:35)
[2021-11-19 10:28] LABS: BASOPHILS % (AUTO) 1.1 % (0.0-2.0); EOSINOPHILS % (AUTO) 2.6 % (1.0-6.0); HEMATOCRIT 40.5 % (41-53); HEMOGLOBIN 13.1 g/dL (13.5-17.5); LYMPHOCYTES # (AUTO) 1.3 K/uL (1.0-4.8); LYMPHOCYTES % (AUTO) 19.8 % (22.0-44.0); MEAN CORPUSCULAR HEMOGLOBIN 26.7 pg (26.0-34.0); MEAN CORPUSCULAR HGB CONC 32.2 G/dL (31.0-37.0); MEAN CORPUSCULAR VOLUME 83 fL (80-100); MONOCYTES # (AUTO) 0.6 K/uL (0.1-1.0); NEUTROPHILS # (AUTO) 4.6 K/uL (1.8-7.7); NEUTROPHILS % (AUTO) 67.5 % (40.0-70.0); PLATELET COUNT (AUTO) 242 K/uL (150-450); RED BLOOD CELL COUNT(AUTO) 4.89 MIL/uL (4.50-5.90)
[2021-11-19 10:40] LABS: ALANINE AMINOTRANSFERASE 37 U/L (12-78); ALBUMIN 2.8 g/dL (3.4-5.0); ALKALINE PHOSPHATASE 55 U/L (46-116); ANION GAP 1 mmol/L (8-16); ASPARTATE AMINOTRANSFERASE 17 U/L (15-37); BILIRUBIN,TOTAL 0.4 mg/dL (0.1-1.0); CALCIUM, TOTAL 8.5 mg/dL (8.8-10.5); CARBON DIOXIDE 38 mmol/L (22-29); CHLORIDE 101 mmol/L (98-107); CREATININE 0.57 mg/dL (0.60-1.30); GLUCOSE,RANDOM 154 mg/dL (70-110); POTASSIUM 3.7 mmol/L (3.5-5.1); SODIUM SERUM 140 mmol/L (136-145); TOTAL PROTEIN, SERUM 7.1 g/dL (6.4-8.2); UREA NITROGEN, BLOOD 9 mg/dL (7-18)
[2021-11-19 10:43] LABS: GLOMERULAR FILTR. RATE CALC > 60 mL/min (>60)
[2021-11-19] MEDS: MAG HYDROX/AL HYDROX/SIMETH 30 ML SUSP UDCUP PO PRN (13:45)
[2021-11-19 15:06] VITALS: BP 134/74
[2021-11-19 20:30] VITALS: BP 127/75
[2021-11-19] MEDS: OLANZapine 10 MG TABLET PO SCH (20:52)
[2021-11-20] MEDS: HEPARIN SODIUM,PORCINE 5,000 UNITS/ML VIAL SQ SCH ×3 (00:38→16:34)
[2021-11-20 03:30] VITALS: BP 107/57
[2021-11-20] MEDS: ACETAMINOPHEN 325 MG TABLET PO PRN ×3 (06:10→20:57)
[2021-11-20 08:08] VITALS: BP 128/73
[2021-11-20 08:10] LABS: BASOPHILS % (AUTO) 0.7 % (0.0-2.0); EOSINOPHILS % (AUTO) 1.8 % (1.0-6.0); HEMATOCRIT 40.9 % (41-53); LYMPHOCYTES # (AUTO) 1.3 K/uL (1.0-4.8); LYMPHOCYTES % (AUTO) 16.9 % (22.0-44.0); MEAN CORPUSCULAR HEMOGLOBIN 26.6 pg (26.0-34.0); MEAN CORPUSCULAR HGB CONC 31.9 G/dL (31.0-37.0); MEAN CORPUSCULAR VOLUME 83 fL (80-100); MONOCYTES # (AUTO) 0.8 K/uL (0.1-1.0); MONOCYTES % (AUTO) 10.1 % (2.0-9.0); NEUTROPHILS # (AUTO) 5.3 K/uL (1.8-7.7); NEUTROPHILS % (AUTO) 70.5 % (40.0-70.0); PLATELET COUNT (AUTO) 243 K/uL (150-450); RED CELL DISTRIBUTION WIDTH 16.3 % (11.5-14.5)
[2021-11-20 08:26] LABS: ALANINE AMINOTRANSFERASE 37 U/L (12-78); ALBUMIN 2.9 g/dL (3.4-5.0); ALKALINE PHOSPHATASE 57 U/L (46-116); ANION GAP 2 mmol/L (8-16); ASPARTATE AMINOTRANSFERASE 13 U/L (15-37); BILIRUBIN,TOTAL 0.3 mg/dL (0.1-1.0); CALCIUM, TOTAL 8.4 mg/dL (8.8-10.5); CARBON DIOXIDE 36 mmol/L (22-29); CHLORIDE 102 mmol/L (98-107); CREATININE 0.56 mg/dL (0.60-1.30); GLOMERULAR FILTR. RATE CALC > 60 mL/min (>60); GLUCOSE,RANDOM 90 mg/dL (70-110); POTASSIUM 4.3 mmol/L (3.5-5.1); SODIUM SERUM 140 mmol/L (136-145); TOTAL PROTEIN, SERUM 7.4 g/dL (6.4-8.2); UREA NITROGEN, BLOOD 10 mg/dL (7-18)
[2021-11-20] MEDS: OLANZapine 10 MG TABLET PO SCH ×2 (08:57→20:57)
[2021-11-20] MEDS: DULoxetine HCL 60 MG CAPSULE PO SCH ×2 (08:57→20:57)
[2021-11-20] MEDS: FAMOTIDINE 20 MG TABLET PO SCH (08:57)
[2021-11-20] MEDS: CefTRIAXone 1 GM/DEXTROSE 50 ML IV SCH (08:58)
[2021-11-20] MEDS: HALOPERIDOL 5 MG TABLET PO SCH ×2 (08:59→20:57)
[2021-11-20 16:26] VITALS: BP 118/77
[2021-11-20 20:05] VITALS: BP 145/61
[2021-11-21 04:02] VITALS: BP 140/86
[2021-11-21] MEDS: CefTRIAXone 1 GM/DEXTROSE 50 ML IV SCH (08:04)
[2021-11-21] MEDS: FAMOTIDINE 20 MG TABLET PO SCH (08:08)
[2021-11-21] MEDS: OLANZapine 10 MG TABLET PO SCH ×2 (08:08→20:52)
[2021-11-21] MEDS: HALOPERIDOL 5 MG TABLET PO SCH ×2 (08:08→20:52)
[2021-11-21] MEDS: DULoxetine HCL 60 MG CAPSULE PO SCH ×2 (08:08→20:52)
[2021-11-21] MEDS: HEPARIN SODIUM,PORCINE 5,000 UNITS/ML VIAL SQ SCH ×3 (08:09→15:11)
[2021-11-21 08:14] LABS: BASOPHILS % (AUTO) 0.6 % (0.0-2.0); EOSINOPHILS % (AUTO) 1.3 % (1.0-6.0); HEMOGLOBIN 14.5 g/dL (13.5-17.5); LYMPHOCYTES # (AUTO) 1.2 K/uL (1.0-4.8); LYMPHOCYTES % (AUTO) 16.5 % (22.0-44.0); MEAN CORPUSCULAR HEMOGLOBIN 26.8 pg (26.0-34.0); MEAN CORPUSCULAR HGB CONC 32.1 G/dL (31.0-37.0); MEAN CORPUSCULAR VOLUME 83 fL (80-100); MONOCYTES # (AUTO) 0.6 K/uL (0.1-1.0); MONOCYTES % (AUTO) 8.6 % (2.0-9.0); NEUTROPHILS # (AUTO) 5.2 K/uL (1.8-7.7); PLATELET COUNT (AUTO) 229 K/uL (150-450); RED CELL DISTRIBUTION WIDTH 15.9 % (11.5-14.5)
[2021-11-21 08:26] VITALS: BP 132/85
[2021-11-21] MEDS: ACETAMINOPHEN 325 MG TABLET PO PRN ×2 (08:39→20:52)
[2021-11-21 08:46] LABS: ALANINE AMINOTRANSFERASE 40 U/L (12-78); ALBUMIN 3.1 g/dL (3.4-5.0); ALKALINE PHOSPHATASE 62 U/L (46-116); ANION GAP 2 mmol/L (8-16); ASPARTATE AMINOTRANSFERASE 19 U/L (15-37); BILIRUBIN,TOTAL 0.3 mg/dL (0.1-1.0); CARBON DIOXIDE 35 mmol/L (22-29); CHLORIDE 101 mmol/L (98-107); CREATININE 0.58 mg/dL (0.60-1.30); GLUCOSE,RANDOM 111 mg/dL (70-110); POTASSIUM 4.2 mmol/L (3.5-5.1); SODIUM SERUM 138 mmol/L (136-145); TOTAL PROTEIN, SERUM 7.7 g/dL (6.4-8.2); UREA NITROGEN, BLOOD 9 mg/dL (7-18)
[2021-11-21 08:47] LABS: GLOMERULAR FILTR. RATE CALC > 60 mL/min (>60)
[2021-11-21] MEDS: PHENAZOPYRIDINE HCL 200 MG TABLET PO SCH ×2 (15:11→20:52)
[2021-11-21 16:07] VITALS: BP 128/88
[2021-11-21 19:15] VITALS: BP 129/59
[2021-11-22 04:13] VITALS: BP 126/96
[2021-11-22 08:19] VITALS: BP 121/70
[2021-11-22] MEDS: OLANZapine 10 MG TABLET PO SCH ×2 (08:28→20:17)
[2021-11-22] MEDS: DULoxetine HCL 60 MG CAPSULE PO SCH ×2 (08:28→20:17)
[2021-11-22] MEDS: PHENAZOPYRIDINE HCL 200 MG TABLET PO SCH ×3 (08:28→20:17)
[2021-11-22] MEDS: FAMOTIDINE 20 MG TABLET PO SCH (08:29)
[2021-11-22] MEDS: HEPARIN SODIUM,PORCINE 5,000 UNITS/ML VIAL SQ SCH ×3 (08:29→15:55)
[2021-11-22] MEDS: HALOPERIDOL 5 MG TABLET PO SCH ×2 (08:29→20:17)
[2021-11-22] MEDS: ACETAMINOPHEN 325 MG TABLET PO PRN ×2 (08:39→22:33)
[2021-11-22 11:03] LABS: BASOPHILS % (AUTO) 0.6 % (0.0-2.0); EOSINOPHILS % (AUTO) 1.2 % (1.0-6.0); HEMATOCRIT 38.5 % (41-53); HEMOGLOBIN 12.5 g/dL (13.5-17.5); LYMPHOCYTES # (AUTO) 1.4 K/uL (1.0-4.8); LYMPHOCYTES % (AUTO) 16.7 % (22.0-44.0); MEAN CORPUSCULAR HEMOGLOBIN 26.7 pg (26.0-34.0); MEAN CORPUSCULAR HGB CONC 32.4 G/dL (31.0-37.0); MEAN CORPUSCULAR VOLUME 83 fL (80-100); MONOCYTES # (AUTO) 0.7 K/uL (0.1-1.0); NEUTROPHILS # (AUTO) 6.2 K/uL (1.8-7.7); NEUTROPHILS % (AUTO) 73.5 % (40.0-70.0); PLATELET COUNT (AUTO) 241 K/uL (150-450); RED BLOOD CELL COUNT(AUTO) 4.67 MIL/uL (4.50-5.90)
[2021-11-22 11:21] LABS: ALANINE AMINOTRANSFERASE 39 U/L (12-78); ALBUMIN 2.8 g/dL (3.4-5.0); ALKALINE PHOSPHATASE 59 U/L (46-116); ANION GAP 0 mmol/L (8-16); ASPARTATE AMINOTRANSFERASE 19 U/L (15-37); BILIRUBIN,TOTAL 0.4 mg/dL (0.1-1.0); CALCIUM, TOTAL 8.5 mg/dL (8.8-10.5); CARBON DIOXIDE 36 mmol/L (22-29); CHLORIDE 100 mmol/L (98-107); CREATININE 0.57 mg/dL (0.60-1.30); GLOMERULAR FILTR. RATE CALC > 60 mL/min (>60); GLUCOSE,RANDOM 119 mg/dL (70-110); POTASSIUM 3.7 mmol/L (3.5-5.1); SODIUM SERUM 136 mmol/L (136-145); UREA NITROGEN, BLOOD 9 mg/dL (7-18)
[2021-11-22 16:16] VITALS: BP 123/68
[2021-11-22 20:01] VITALS: BP 127/75
[2021-11-22] MEDS: QUEtiapine FUMARATE 25 MG TABLET PO PRN (22:33)
[2021-11-23] MEDS: HEPARIN SODIUM,PORCINE 5,000 UNITS/ML VIAL SQ SCH ×4 (00:01→23:11)
[2021-11-23 04:41] VITALS: BP 123/66
[2021-11-23] MEDS: HALOPERIDOL 5 MG TABLET PO SCH ×2 (08:00→19:36)
[2021-11-23] MEDS: DULoxetine HCL 60 MG CAPSULE PO SCH ×2 (08:00→19:36)
[2021-11-23] MEDS: FAMOTIDINE 20 MG TABLET PO SCH (08:00)
[2021-11-23] MEDS: PHENAZOPYRIDINE HCL 200 MG TABLET PO SCH ×2 (08:00→16:21)
[2021-11-23] MEDS: OLANZapine 10 MG TABLET PO SCH ×2 (08:00→19:36)
[2021-11-23 08:15] VITALS: BP 121/81
[2021-11-23 09:25] LABS: BASOPHILS % (AUTO) 0.5 % (0.0-2.0); EOSINOPHILS % (AUTO) 1.1 % (1.0-6.0); HEMATOCRIT 40.4 % (41-53); HEMOGLOBIN 12.9 g/dL (13.5-17.5); LYMPHOCYTES # (AUTO) 1.3 K/uL (1.0-4.8); LYMPHOCYTES % (AUTO) 16.3 % (22.0-44.0); MEAN CORPUSCULAR HEMOGLOBIN 26.6 pg (26.0-34.0); MEAN CORPUSCULAR VOLUME 83 fL (80-100); MONOCYTES # (AUTO) 0.5 K/uL (0.1-1.0); MONOCYTES % (AUTO) 6.3 % (2.0-9.0); NEUTROPHILS # (AUTO) 6.2 K/uL (1.8-7.7); NEUTROPHILS % (AUTO) 75.8 % (40.0-70.0); PLATELET COUNT (AUTO) 251 K/uL (150-450); RED BLOOD CELL COUNT(AUTO) 4.86 MIL/uL (4.50-5.90); RED CELL DISTRIBUTION WIDTH 15.9 % (11.5-14.5)
[2021-11-23 09:39] LABS: ALANINE AMINOTRANSFERASE 38 U/L (12-78); ALBUMIN 2.9 g/dL (3.4-5.0); ALKALINE PHOSPHATASE 68 U/L (46-116); ANION GAP 6 mmol/L (8-16); ASPARTATE AMINOTRANSFERASE 20 U/L (15-37); BILIRUBIN,TOTAL 0.5 mg/dL (0.1-1.0); CALCIUM, TOTAL 8.7 mg/dL (8.8-10.5); CARBON DIOXIDE 36 mmol/L (22-29); CHLORIDE 100 mmol/L (98-107); GLOMERULAR FILTR. RATE CALC > 60 mL/min (>60); GLUCOSE,RANDOM 119 mg/dL (70-110); POTASSIUM 3.8 mmol/L (3.5-5.1); SODIUM SERUM 142 mmol/L (136-145); TOTAL PROTEIN, SERUM 7.8 g/dL (6.4-8.2); UREA NITROGEN, BLOOD 10 mg/dL (7-18)
[2021-11-23 12:30] LABS: APPEARANCE,URINE CLEAR (CLEAR); GLUCOSE, URINE (UA) NEGATIVE (NEGATIVE); KETONES,URINE NEGATIVE (NEGATIVE); LEUKOCYTE ESTERASE ,URINE NEGATIVE (NEGATIVE); NITRATE,URINE POSITIVE (NEGATIVE); OCCULT BLOOD,URINE TRACE (NEGATIVE); PH,URINE 6.5 (5.0-8.0); PROTEIN,URINE 30-70 mg/dL (NEGATIVE); SPECIFIC GRAVITIY, URINE 1.011 (1.003-1.030)
[2021-11-23 13:38] LABS: BILIRUBIN,URINE SMALL (NEGATIVE)
[2021-11-23 13:57] LABS: BACTERIA,URINE None Seen /HPF (None Seen); RBC,URINE None Seen /HPF (0-2); SQUAMOUS EPITHELIAL CELL,UR Few /LPF (None Seen); WBC,URINE 0-2 /HPF (0-5)
[2021-11-23 15:48] VITALS: BP 130/74
[2021-11-23 20:00] VITALS: BP 130/75
[2021-11-23] MEDS: ACETAMINOPHEN 325 MG TABLET PO PRN (23:10)
[2021-11-24] MEDS: MAG HYDROX/AL HYDROX/SIMETH 30 ML SUSP UDCUP PO PRN (01:52)
[2021-11-24 04:22] VITALS: BP 124/67
[2021-11-24] MEDS: QUEtiapine FUMARATE 25 MG TABLET PO PRN (04:59)
[2021-11-24] MEDS: ACETAMINOPHEN 325 MG TABLET PO PRN ×2 (05:16→22:44)
[2021-11-24 08:05] VITALS: BP 119/74
[2021-11-24] MEDS: HALOPERIDOL 5 MG TABLET PO SCH ×2 (08:25→22:44)
[2021-11-24] MEDS: DULoxetine HCL 60 MG CAPSULE PO SCH ×2 (08:25→22:44)
[2021-11-24] MEDS: FAMOTIDINE 20 MG TABLET PO SCH (08:25)
[2021-11-24] MEDS: OLANZapine 10 MG TABLET PO SCH ×2 (08:25→22:44)
[2021-11-24] MEDS: HEPARIN SODIUM,PORCINE 5,000 UNITS/ML VIAL SQ SCH ×2 (08:26→17:12)
[2021-11-24 09:28] LABS: BASOPHILS % (AUTO) 0.6 % (0.0-2.0); HEMATOCRIT 38.1 % (41-53); HEMOGLOBIN 11.9 g/dL (13.5-17.5); LYMPHOCYTES # (AUTO) 1.3 K/uL (1.0-4.8); LYMPHOCYTES % (AUTO) 16.6 % (22.0-44.0); MEAN CORPUSCULAR HEMOGLOBIN 26.2 pg (26.0-34.0); MEAN CORPUSCULAR HGB CONC 31.3 G/dL (31.0-37.0); MEAN CORPUSCULAR VOLUME 84 fL (80-100); MONOCYTES # (AUTO) 0.4 K/uL (0.1-1.0); MONOCYTES % (AUTO) 5.1 % (2.0-9.0); NEUTROPHILS # (AUTO) 5.9 K/uL (1.8-7.7); NEUTROPHILS % (AUTO) 76.7 % (40.0-70.0); PLATELET COUNT (AUTO) 252 K/uL (150-450); RED BLOOD CELL COUNT(AUTO) 4.54 MIL/uL (4.50-5.90); RED CELL DISTRIBUTION WIDTH 16.2 % (11.5-14.5)
[2021-11-24 09:53] LABS: ALANINE AMINOTRANSFERASE 36 U/L (12-78); ALBUMIN 2.7 g/dL (3.4-5.0); ALKALINE PHOSPHATASE 59 U/L (46-116); ANION GAP 0 mmol/L (8-16); ASPARTATE AMINOTRANSFERASE 14 U/L (15-37); BILIRUBIN,TOTAL 0.4 mg/dL (0.1-1.0); CALCIUM, TOTAL 8.6 mg/dL (8.8-10.5); CARBON DIOXIDE 37 mmol/L (22-29); CHLORIDE 101 mmol/L (98-107); CREATININE 0.54 mg/dL (0.60-1.30); GLUCOSE,RANDOM 174 mg/dL (70-110); POTASSIUM 4.3 mmol/L (3.5-5.1); SODIUM SERUM 138 mmol/L (136-145); UREA NITROGEN, BLOOD 8 mg/dL (7-18)
[2021-11-24 09:54] LABS: GLOMERULAR FILTR. RATE CALC > 60 mL/min (>60)
[2021-11-24 17:08] VITALS: BP 128/56
[2021-11-24 19:52] VITALS: BP 115/96
[2021-11-25 04:07] VITALS: BP 108/68
[2021-11-25 07:39] VITALS: BP 126/87
[2021-11-25] MEDS: FAMOTIDINE 20 MG TABLET PO SCH (08:03)
[2021-11-25] MEDS: OLANZapine 10 MG TABLET PO SCH ×2 (08:03→20:20)
[2021-11-25] MEDS: HALOPERIDOL 5 MG TABLET PO SCH ×2 (08:03→20:20)
[2021-11-25] MEDS: DULoxetine HCL 60 MG CAPSULE PO SCH ×2 (08:03→20:20)
[2021-11-25] MEDS: HEPARIN SODIUM,PORCINE 5,000 UNITS/ML VIAL SQ SCH ×4 (08:03→23:46)
[2021-11-25] MEDS: QUEtiapine FUMARATE 25 MG TABLET PO PRN (10:54)
[2021-11-25 15:48] VITALS: BP 120/70
[2021-11-25] MEDS: ACETAMINOPHEN 325 MG TABLET PO PRN (18:18)
[2021-11-25 20:16] VITALS: BP 134/70
[2021-11-26 04:00] VITALS: BP 140/89
[2021-11-26] MEDS: ACETAMINOPHEN 325 MG TABLET PO PRN ×4 (06:37→23:58)
[2021-11-26 08:00] VITALS: BP 135/88
[2021-11-26] MEDS: HEPARIN SODIUM,PORCINE 5,000 UNITS/ML VIAL SQ SCH ×3 (08:35→23:18)
[2021-11-26] MEDS: HALOPERIDOL 5 MG TABLET PO SCH ×2 (08:36→20:12)
[2021-11-26] MEDS: DULoxetine HCL 60 MG CAPSULE PO SCH ×2 (08:36→20:12)
[2021-11-26] MEDS: FAMOTIDINE 20 MG TABLET PO SCH (08:36)
[2021-11-26] MEDS: OLANZapine 10 MG TABLET PO SCH ×2 (08:36→20:12)
[2021-11-26 16:23] VITALS: BP 137/75
[2021-11-26] MEDS: QUEtiapine FUMARATE 25 MG TABLET PO PRN ×2 (16:34→23:58)
[2021-11-26 20:10] VITALS: BP 143/82
[2021-11-27 04:37] VITALS: BP 125/78
[2021-11-27 07:19] VITALS: BP 147/68
[2021-11-27] MEDS: FAMOTIDINE 20 MG TABLET PO SCH (08:09)
[2021-11-27] MEDS: DULoxetine HCL 60 MG CAPSULE PO SCH ×2 (08:09→20:04)
[2021-11-27] MEDS: HALOPERIDOL 5 MG TABLET PO SCH ×2 (08:09→20:04)
[2021-11-27] MEDS: HEPARIN SODIUM,PORCINE 5,000 UNITS/ML VIAL SQ SCH ×3 (08:09→23:28)
[2021-11-27] MEDS: OLANZapine 10 MG TABLET PO SCH ×2 (08:10→20:05)
[2021-11-27 16:19] VITALS: BP 127/63
[2021-11-27] MEDS: QUEtiapine FUMARATE 25 MG TABLET PO PRN (16:29)
[2021-11-27] MEDS: ACETAMINOPHEN 325 MG TABLET PO PRN (16:39)
[2021-11-27 20:00] VITALS: BP 121/55
[2021-11-28 03:26] VITALS: BP 145/93
[2021-11-28] MEDS: ACETAMINOPHEN 325 MG TABLET PO PRN ×4 (03:27→23:44)
[2021-11-28 07:26] VITALS: BP 121/85
[2021-11-28] MEDS: HALOPERIDOL 5 MG TABLET PO SCH ×2 (08:42→20:30)
[2021-11-28] MEDS: FAMOTIDINE 20 MG TABLET PO SCH (08:42)
[2021-11-28] MEDS: DULoxetine HCL 60 MG CAPSULE PO SCH ×2 (08:42→20:30)
[2021-11-28] MEDS: OLANZapine 10 MG TABLET PO SCH ×2 (08:42→20:30)
[2021-11-28] MEDS: HEPARIN SODIUM,PORCINE 5,000 UNITS/ML VIAL SQ SCH ×3 (08:43→23:44)
[2021-11-28] MEDS: QUEtiapine FUMARATE 25 MG TABLET PO PRN (12:16)
[2021-11-28 15:37] VITALS: BP 137/89
[2021-11-28 19:33] VITALS: BP 120/82
[2021-11-29 04:41] VITALS: BP 147/86
[2021-11-29] MEDS: ACETAMINOPHEN 325 MG TABLET PO PRN ×3 (04:42→23:58)
[2021-11-29 08:07] VITALS: BP 122/73
[2021-11-29] MEDS: FAMOTIDINE 20 MG TABLET PO SCH (08:22)
[2021-11-29] MEDS: HALOPERIDOL 5 MG TABLET PO SCH ×2 (08:22→21:57)
[2021-11-29] MEDS: DULoxetine HCL 60 MG CAPSULE PO SCH ×2 (08:22→21:57)
[2021-11-29] MEDS: OLANZapine 10 MG TABLET PO SCH ×2 (08:22→21:57)
[2021-11-29] MEDS: QUEtiapine FUMARATE 25 MG TABLET PO PRN (10:49)
[2021-11-29 16:03] VITALS: BP 120/82
[2021-11-29 20:05] VITALS: BP 141/80
[2021-11-29 20:22] VITALS: BP 145/94
[2021-11-30] MEDS: ACETAMINOPHEN 325 MG TABLET PO PRN ×2 (03:59→16:15)
[2021-11-30 04:44] VITALS: BP 132/81
[2021-11-30 08:00] VITALS: BP 119/68
[2021-11-30] MEDS: HALOPERIDOL 5 MG TABLET PO SCH ×2 (08:48→20:15)
[2021-11-30] MEDS: FAMOTIDINE 20 MG TABLET PO SCH (08:48)
[2021-11-30] MEDS: DULoxetine HCL 60 MG CAPSULE PO SCH ×2 (08:48→20:16)
[2021-11-30] MEDS: OLANZapine 10 MG TABLET PO SCH ×2 (08:48→20:16)
[2021-11-30] MEDS: FLUTICASONE PROPIONATE 50 MCG/SPRAY 16 GM NASAL SPRAY NASAL SCH (08:48)
[2021-11-30] MEDS: QUEtiapine FUMARATE 25 MG TABLET PO PRN (10:24)
[2021-11-30 16:00] VITALS: BP 138/91
[2021-11-30 20:24] VITALS: BP 125/94
[2021-12-01 03:54] VITALS: BP 105/65
[2021-12-01] MEDS: ACETAMINOPHEN 325 MG TABLET PO PRN ×3 (04:07→21:57)
[2021-12-01 07:48] VITALS: BP 120/78
[2021-12-01] MEDS: HALOPERIDOL 5 MG TABLET PO SCH ×2 (08:25→20:00)
[2021-12-01] MEDS: OLANZapine 10 MG TABLET PO SCH ×2 (08:25→20:00)
[2021-12-01] MEDS: FLUTICASONE PROPIONATE 50 MCG/SPRAY 16 GM NASAL SPRAY NASAL SCH (08:25)
[2021-12-01] MEDS: DULoxetine HCL 60 MG CAPSULE PO SCH ×2 (08:25→20:00)
[2021-12-01] MEDS: FAMOTIDINE 20 MG TABLET PO SCH (08:25)
[2021-12-01 15:38] VITALS: BP 121/80
[2021-12-01] MEDS ORDERED: KETOROLAC TROMETHAMINE 15 MG/ML VIAL IVP ONE (15:45)
[2021-12-01 19:43] VITALS: BP 132/76
[2021-12-02 05:00] VITALS: BP 133/69
[2021-12-02] MEDS: ACETAMINOPHEN 325 MG TABLET PO PRN ×3 (05:13→22:58)
[2021-12-02] MEDS: FAMOTIDINE 20 MG TABLET PO SCH (08:02)
[2021-12-02] MEDS: HALOPERIDOL 5 MG TABLET PO SCH ×2 (08:02→20:47)
[2021-12-02] MEDS: DULoxetine HCL 60 MG CAPSULE PO SCH ×2 (08:02→20:47)
[2021-12-02] MEDS: OLANZapine 10 MG TABLET PO SCH ×2 (08:02→20:47)
[2021-12-02] MEDS: FLUTICASONE PROPIONATE 50 MCG/SPRAY 16 GM NASAL SPRAY NASAL SCH (08:02)
[2021-12-02 08:39] VITALS: BP 139/90
[2021-12-02] MEDS ORDERED: ALBUTEROL SULFATE HFA 90 MCG/PUFF 8 GM INHALER IH PRN (12:30)
[2021-12-02] MEDS: QUEtiapine FUMARATE 25 MG TABLET PO PRN (14:36)
[2021-12-02 15:48] VITALS: BP 130/72
[2021-12-02 20:00] VITALS: BP 128/84
[2021-12-03] MEDS: ACETAMINOPHEN 325 MG TABLET PO PRN (04:12)
[2021-12-03 05:21] VITALS: BP 126/82
[2021-12-03] MEDS: HALOPERIDOL 5 MG TABLET PO SCH ×2 (07:48→20:46)
[2021-12-03] MEDS: OLANZapine 10 MG TABLET PO SCH ×2 (07:48→20:46)
[2021-12-03] MEDS: FAMOTIDINE 20 MG TABLET PO SCH (07:48)
[2021-12-03] MEDS: FLUTICASONE PROPIONATE 50 MCG/SPRAY 16 GM NASAL SPRAY NASAL SCH (07:48)
[2021-12-03] MEDS: DULoxetine HCL 60 MG CAPSULE PO SCH ×2 (07:48→20:46)
[2021-12-03 08:06] VITALS: BP 112/60
[2021-12-03 16:33] VITALS: BP 102/63
[2021-12-03 20:28] VITALS: BP 136/50
[2021-12-04 04:15] VITALS: BP 130/91
[2021-12-04] MEDS: ACETAMINOPHEN 325 MG TABLET PO PRN (04:15)
[2021-12-04 08:10] VITALS: BP 139/76
[2021-12-04] MEDS: HALOPERIDOL 5 MG TABLET PO SCH ×2 (08:27→20:37)
[2021-12-04] MEDS: DULoxetine HCL 60 MG CAPSULE PO SCH ×2 (08:27→20:37)
[2021-12-04] MEDS: QUEtiapine FUMARATE 25 MG TABLET PO PRN (08:27)
[2021-12-04] MEDS: FLUTICASONE PROPIONATE 50 MCG/SPRAY 16 GM NASAL SPRAY NASAL SCH (08:27)
[2021-12-04] MEDS: FAMOTIDINE 20 MG TABLET PO SCH (08:27)
[2021-12-04] MEDS: OLANZapine 10 MG TABLET PO SCH ×2 (08:27→20:37)
[2021-12-04] MEDS ORDERED: DULO-113 PO (10:35)
[2021-12-04] MEDS ORDERED: HALO5TAB23 PO (10:37)
[2021-12-04] MEDS ORDERED: OLAN10TA74 PO (10:38)
[2021-12-04] MEDS ORDERED: ACET-2247 PO (10:39)
[2021-12-04] MEDS ORDERED: ALBU8HFA IH (10:40)
[2021-12-04] MEDS ORDERED: RIVA20TA PO (11:45)
[2021-12-04 16:14] VITALS: BP 117/73
== END 2021-12-04 21:30 | DRG 133 ==
LOC: EMS 06:09 → 6S 11:48 → 6N 11-20 19:24 → 6S 11-20 19:27
PROVIDERS: ADMIT Internal Medicine; ATTEND Internal Medicine
DX: J96.22 Acute and chronic respiratory failure with hypercapnia (principal); E44.0 Moderate protein-calorie malnutrition; E66.2 Morbid (severe) obesity with alveolar hypoventilation; Z99.81 Dependence on supplemental oxygen; F25.9 Schizoaffective disorder, unspecified; J44.9 Chronic obstructive pulmonary disease, unspecified; J96.21 Acute and chronic respiratory failure with hypoxia; F15.90 Other stimulant use, unspecified, uncomplicated; F17.210 Nicotine dependence, cigarettes, uncomplicated; F41.9 Anxiety disorder, unspecified; F32.A Depression, unspecified; Z20.822 Contact with and (suspected) exposure to COVID-19; N39.0 Urinary tract infection, site not specified; Z68.1 Body mass index [BMI] 19.9 or less, adult; Z91.14 Patient's other noncompliance with medication regimen; Z91.19 Patient's noncompliance with other medical treatment and regimen; Z91.013 Allergy to seafood; Z79.899 Other long term (current) drug therapy; Z68.45 Body mass index [BMI] 70 or greater, adult; Z63.8 Other specified problems related to primary support group
CPT/HCPCS: 71045; 80053; 81001; 81002; 82550; 83880; 84132; 84484; 85025; 85610; 85730; 87081; 87086; 87804; 93005; 94640; 99291; G0480; J0456; J0696; J1200; J1630; J1644; J1885; J2060; J2930; J7040; 36415-L1; 36415-TC; J7613

== ENCOUNTER 2021-12-06 18:54 | Inpatient (IN) | payer MEDICAID ==
[~2021-12-06] VITALS: Ht 167.6 cm; Wt 227.3 kg
[~2021-12-06 18:54] MED LIST changes: +ACET-2247 PO; +ALBU8HFA IH; +DULO-113 PO; -DULO-114 PO; -FURO40 PO; -HALO10TA21 PO; +HALO5TAB23 PO; +OLAN10TA74 PO; -OLAN5TAB52 PO; -RIVA15TA PO; +RIVA20TA PO
[2021-12-06] MEDS ORDERED: SODIUM CHLORIDE 0.9% 1,000 ML IV ONE (20:15)
[2021-12-06 20:21] LABS: BASOPHILS % (AUTO) 0.6 % (0.0-2.0); EOSINOPHILS % (AUTO) 1.8 % (1.0-6.0); HEMATOCRIT 37.9 % (41-53); HEMOGLOBIN 12.1 g/dL (13.5-17.5); LYMPHOCYTES # (AUTO) 1.9 K/uL (1.0-4.8); LYMPHOCYTES % (AUTO) 20.1 % (22.0-44.0); MEAN CORPUSCULAR HEMOGLOBIN 26.7 pg (26.0-34.0); MEAN CORPUSCULAR VOLUME 83 fL (80-100); MONOCYTES # (AUTO) 0.9 K/uL (0.1-1.0); MONOCYTES % (AUTO) 9.4 % (2.0-9.0); NEUTROPHILS # (AUTO) 6.3 K/uL (1.8-7.7); NEUTROPHILS % (AUTO) 68.1 % (40.0-70.0); PLATELET COUNT (AUTO) 278 K/uL (150-450); RED BLOOD CELL COUNT(AUTO) 4.54 MIL/uL (4.50-5.90); RED CELL DISTRIBUTION WIDTH 16.7 % (11.5-14.5)
[2021-12-06 20:31] LABS: ANION GAP 3 mmol/L (8-16); CALCIUM, TOTAL 8.9 mg/dL (8.8-10.5); CARBON DIOXIDE 35 mmol/L (22-29); CHLORIDE 104 mmol/L (98-107); CREATININE 0.58 mg/dL (0.60-1.30); GLUCOSE,RANDOM 142 mg/dL (70-110); SODIUM SERUM 142 mmol/L (136-145); UREA NITROGEN, BLOOD 13 mg/dL (7-18)
[2021-12-06 20:33] LABS: GLOMERULAR FILTR. RATE CALC > 60 mL/min (>60)
[2021-12-06 20:35] LABS: INR 1.1 (0.9-1.1); PROTHROMBIN TIME 11.4 SEC (9.4-11.6)
[2021-12-06 20:37] LABS: ALANINE AMINOTRANSFERASE 39 U/L (12-78); ALKALINE PHOSPHATASE 69 U/L (46-116); ASPARTATE AMINOTRANSFERASE 19 U/L (15-37); BILIRUBIN,TOTAL 0.4 mg/dL (0.1-1.0); LIPASE 86 U/L (73-393); TOTAL PROTEIN, SERUM 7.5 g/dL (6.4-8.2)
[2021-12-06 20:39] LABS: LACTIC ACID 1.5 mmol/L (0.4-2.0)
[2021-12-06] MEDS ORDERED: CALCIUM GLUCONATE 100 MG/ML 10 ML IVP ONE (20:45)
[2021-12-06] MEDS ORDERED: MAGNESIUM SULFATE 2 GM/WATER 50 ML IV ONE (21:15)
[2021-12-06] MEDS ORDERED: ONDANSETRON HCL 4 MG/2 ML VIAL IVP PRN (21:15)
[2021-12-06 21:39] LABS: D-DIMER 0.65 mg/L FEU (0.00-0.50)
[2021-12-06 21:44] LABS: B-TYPE NATRIURETIC PEPTIDE 5 pg/mL (0-100)
[2021-12-06 21:48] LABS: COVID AG,FIA SOURCE NASAL SWAB
[2021-12-06] MEDS ORDERED: ENOXAPARIN SODIUM 60 MG/0.6 ML PF SYRINGE SQ SCH (23:00)
[2021-12-06] MEDS ORDERED: ENOXAPARIN SODIUM 60 MG/0.6 ML PF SYRINGE SQ ONE (23:00)
[2021-12-06 23:11] LABS: ACETAMINOPHEN < 2 mcg/mL (10-30)
[2021-12-06 23:16] LABS: SALICYLATE < 2.8 mg/dL (2.8-20.0)
[2021-12-06 23:23] LABS: ABG BASE EXCESS 8.2 mmol/L (-2.0-3.0); ABG CARBOXYHEMOGLOBIN 1.3 % (0.0-1.5); ABG HCO3 29.9 mmol/L (22.0-26.0); ABG METHEMOGLOBIN 0.1 % (0.0-1.5); ABG PCO2 59 mmHg (35-45); ABG PH 7.371 (7.350-7.450); PO2, ARTERIAL BG 99.1 mmHg (92.0-100.0); SOURCE, BLOOD GAS ARTERIAL; TEMPERATURE, FAHRENHEIT, BG 96.5 FAHREN (96.0-98.6)
[2021-12-06 23:26] LABS: SITE, BLOOD GAS RT RADIAL
[2021-12-06 23:27] LABS: ABG A-A DIFF O2 90.4 mmHg (10-20.0); O2 DEVICE,BLOOD GAS CANNULA (ROOM AIR)
[2021-12-07] MEDS ORDERED: HEPARIN SODIUM,PORCINE 5,000 UNITS/ML VIAL SQ SCH
[2021-12-07] MEDS ORDERED: METOCLOPRAMIDE HCL 5 MG/ML 2 ML VIAL IVP ONE (06:00)
[2021-12-07] MEDS ORDERED: MAGNESIUM SULFATE 2 GM/WATER 50 ML IV ONE (06:30)
[2021-12-07] MEDS: ACETAMINOPHEN 325 MG TABLET PO PRN ×2 (06:35→23:51)
[2021-12-07 06:41] LABS: ANION GAP 3 mmol/L (8-16); CALCIUM, TOTAL 8.5 mg/dL (8.8-10.5); CARBON DIOXIDE 34 mmol/L (22-29); CHLORIDE 104 mmol/L (98-107); CREATININE 0.58 mg/dL (0.60-1.30); GLUCOSE,RANDOM 123 mg/dL (70-110); SODIUM SERUM 141 mmol/L (136-145); UREA NITROGEN, BLOOD 12 mg/dL (7-18)
[2021-12-07 06:45] LABS: GLOMERULAR FILTR. RATE CALC > 60 mL/min (>60)
[2021-12-07 07:57] LABS: APPEARANCE,URINE HAZY (CLEAR); BILIRUBIN,URINE NEGATIVE (NEGATIVE); GLUCOSE, URINE (UA) NEGATIVE (NEGATIVE); KETONES,URINE NEGATIVE (NEGATIVE); LEUKOCYTE ESTERASE ,URINE NEGATIVE (NEGATIVE); NITRATE,URINE NEGATIVE (NEGATIVE); OCCULT BLOOD,URINE LARGE (NEGATIVE); PH,URINE 5.5 (5.0-8.0); PROTEIN,URINE 30-70 mg/dL (NEGATIVE); SPECIFIC GRAVITIY, URINE 1.022 (1.003-1.030); UROBILINOGEN,URINE <=1.0 mg/dL (<=1.0)
[2021-12-07 08:03] LABS: AMPHET/METH SCREEN,URINE NEGATIVE (NEGATIVE); BARBITURATE SCREEN, URINE NEGATIVE (NEGATIVE); BENZODIAZEPINES SCREEN,URINE NEGATIVE (NEGATIVE); CANNABINOID SCREEN,URINE NEGATIVE (NEGATIVE); COCAINE SCREEN,URINE NEGATIVE (NEGATIVE); METHADONE SCREEN, URINE NEGATIVE (NEGATIVE); OPIATE SCREEN,URINE NEGATIVE (NEGATIVE); PHENCYCLIDINE SCREEN,URINE NEGATIVE (NEGATIVE)
[2021-12-07 09:09] VITALS: BP 148/81
[2021-12-07] MEDS ORDERED: ONDANSETRON HCL 4 MG/2 ML VIAL IVP PRN (11:15)
[2021-12-07] MEDS ORDERED: IPRATROPIUM BROMIDE 0.5 MG/2.5 ML NEB SOLUTION NEB PRN (11:15)
[2021-12-07] MEDS ORDERED: ALBUTEROL SULFATE 2.5 MG/0.5 ML NEB SOLUTION NEB PRN (11:15)
[2021-12-07 11:39] VITALS: BP 123/78
[2021-12-07] MEDS: FLUTICASONE/VILANTEROL 100-25 MCG/INH INHALER [14] IH SCH (12:00)
[2021-12-07 12:26] LABS: RBC,URINE 26-50 /HPF (0-2)
[2021-12-07 12:27] LABS: CALCIUM OXALATE CRYSTALS,UR Few /LPF (None Seen)
[2021-12-07] MEDS ORDERED: PNEUMOCOCCAL VACCINE POLYVALENT 0.5 ML VIAL [PPSV23] IM. ONE (12:45)
[2021-12-07 13:26] LABS: BACTERIA,URINE None Seen /HPF (None Seen)
[2021-12-07 16:02] VITALS: BP 130/69
[2021-12-07] MEDS: RIVAROXABAN 20 MG TABLET PO SCH (17:42)
[2021-12-07] MEDS: ALBUTEROL SULFATE 2.5 MG/0.5 ML NEB SOLUTION NEB SCH (20:00)
[2021-12-07] MEDS: IPRATROPIUM BROMIDE 0.5 MG/2.5 ML NEB SOLUTION NEB SCH (20:00)
[2021-12-07 20:34] VITALS: BP 133/65
[2021-12-07] MEDS ORDERED: METOCLOPRAMIDE HCL 5 MG/ML 2 ML VIAL IVP PRN (23:15)
[2021-12-08 00:10] VITALS: BP 129/89
[2021-12-08] MEDS ORDERED: KETOROLAC TROMETHAMINE 15 MG/ML VIAL IVP ONE (02:00)
[2021-12-08] MEDS: IPRATROPIUM BROMIDE 0.5 MG/2.5 ML NEB SOLUTION NEB SCH ×4 (02:00→20:00)
[2021-12-08] MEDS: ALBUTEROL SULFATE 2.5 MG/0.5 ML NEB SOLUTION NEB SCH ×4 (02:00→20:00)
[2021-12-08 04:12] VITALS: BP 131/76
[2021-12-08 07:37] VITALS: BP 115/50
[2021-12-08 07:51] LABS: BASOPHILS % (AUTO) 0.4 % (0.0-2.0); EOSINOPHILS % (AUTO) 1.6 % (1.0-6.0); HEMATOCRIT 38.8 % (41-53); LYMPHOCYTES # (AUTO) 1.3 K/uL (1.0-4.8); LYMPHOCYTES % (AUTO) 17.2 % (22.0-44.0); MEAN CORPUSCULAR HEMOGLOBIN 26.4 pg (26.0-34.0); MEAN CORPUSCULAR VOLUME 85 fL (80-100); MONOCYTES # (AUTO) 0.6 K/uL (0.1-1.0); MONOCYTES % (AUTO) 8.1 % (2.0-9.0); NEUTROPHILS # (AUTO) 5.3 K/uL (1.8-7.7); NEUTROPHILS % (AUTO) 72.7 % (40.0-70.0); PLATELET COUNT (AUTO) 247 K/uL (150-450); RED BLOOD CELL COUNT(AUTO) 4.55 MIL/uL (4.50-5.90); RED CELL DISTRIBUTION WIDTH 16.9 % (11.5-14.5)
[2021-12-08 08:20] LABS: ALANINE AMINOTRANSFERASE 41 U/L (12-78); ALBUMIN 2.9 g/dL (3.4-5.0); ALKALINE PHOSPHATASE 68 U/L (46-116); ANION GAP 4 mmol/L (8-16); ASPARTATE AMINOTRANSFERASE 21 U/L (15-37); BILIRUBIN,TOTAL 0.4 mg/dL (0.1-1.0); CALCIUM, TOTAL 8.5 mg/dL (8.8-10.5); CARBON DIOXIDE 37 mmol/L (22-29); CHLORIDE 100 mmol/L (98-107); CREATININE 0.43 mg/dL (0.60-1.30); GLUCOSE,RANDOM 111 mg/dL (70-110); POTASSIUM 4.3 mmol/L (3.5-5.1); SODIUM SERUM 141 mmol/L (136-145); TOTAL PROTEIN, SERUM 7.7 g/dL (6.4-8.2); UREA NITROGEN, BLOOD 9 mg/dL (7-18)
[2021-12-08 08:21] LABS: GLOMERULAR FILTR. RATE CALC > 60 mL/min (>60)
[2021-12-08] MEDS: FLUTICASONE/VILANTEROL 100-25 MCG/INH INHALER [14] IH SCH (09:00)
[2021-12-08 11:36] VITALS: BP 133/80
[2021-12-08 15:44] VITALS: BP 128/86
[2021-12-08] MEDS: RIVAROXABAN 20 MG TABLET PO SCH (17:13)
[2021-12-08 19:43] VITALS: BP 128/81
[2021-12-09] MEDS: ALBUTEROL SULFATE 2.5 MG/0.5 ML NEB SOLUTION NEB SCH ×4 (01:00→20:00)
[2021-12-09] MEDS: IPRATROPIUM BROMIDE 0.5 MG/2.5 ML NEB SOLUTION NEB SCH ×4 (01:00→20:00)
[2021-12-09] MEDS: ACETAMINOPHEN 325 MG TABLET PO PRN (03:37)
[2021-12-09 03:55] VITALS: BP 128/75
[2021-12-09 08:11] VITALS: BP 124/77
[2021-12-09] MEDS: FLUTICASONE/VILANTEROL 100-25 MCG/INH INHALER [14] IH SCH (08:20)
[2021-12-09] MEDS ORDERED: HALOPERIDOL 10 MG TABLET PO ONE (09:00)
[2021-12-09] MEDS ORDERED: PALIPERIDONE PALMITATE 234 MG/1.5 ML SYRINGE IM ONE (09:00)
[2021-12-09] MEDS ORDERED: HALOPERIDOL 5 MG TABLET PO PRN (09:00)
[2021-12-09] MEDS ORDERED: OLANZapine 10 MG RAPDIS TABLET PO ONE (09:00)
[2021-12-09 09:22] LABS: BASOPHILS % (AUTO) 0.6 % (0.0-2.0); EOSINOPHILS % (AUTO) 1.9 % (1.0-6.0); HEMATOCRIT 38.5 % (41-53); HEMOGLOBIN 12.1 g/dL (13.5-17.5); LYMPHOCYTES # (AUTO) 1.8 K/uL (1.0-4.8); LYMPHOCYTES % (AUTO) 21.4 % (22.0-44.0); MEAN CORPUSCULAR HEMOGLOBIN 26.7 pg (26.0-34.0); MEAN CORPUSCULAR HGB CONC 31.5 G/dL (31.0-37.0); MEAN CORPUSCULAR VOLUME 85 fL (80-100); MONOCYTES # (AUTO) 0.7 K/uL (0.1-1.0); MONOCYTES % (AUTO) 8.4 % (2.0-9.0); NEUTROPHILS # (AUTO) 5.7 K/uL (1.8-7.7); NEUTROPHILS % (AUTO) 67.7 % (40.0-70.0); PLATELET COUNT (AUTO) 250 K/uL (150-450); RED BLOOD CELL COUNT(AUTO) 4.54 MIL/uL (4.50-5.90); RED CELL DISTRIBUTION WIDTH 16.4 % (11.5-14.5)
[2021-12-09 09:49] LABS: ALANINE AMINOTRANSFERASE 36 U/L (12-78); ALBUMIN 2.9 g/dL (3.4-5.0); ALKALINE PHOSPHATASE 70 U/L (46-116); ANION GAP 5 mmol/L (8-16); ASPARTATE AMINOTRANSFERASE 18 U/L (15-37); BILIRUBIN,TOTAL 0.4 mg/dL (0.1-1.0); CARBON DIOXIDE 35 mmol/L (22-29); CHLORIDE 101 mmol/L (98-107); CREATININE 0.51 mg/dL (0.60-1.30); GLUCOSE,RANDOM 128 mg/dL (70-110); POTASSIUM 3.9 mmol/L (3.5-5.1); SODIUM SERUM 141 mmol/L (136-145); TOTAL PROTEIN, SERUM 7.5 g/dL (6.4-8.2); UREA NITROGEN, BLOOD 9 mg/dL (7-18)
[2021-12-09 09:51] LABS: GLOMERULAR FILTR. RATE CALC > 60 mL/min (>60)
[2021-12-09] MEDS ORDERED: PALI117D IM (12:21)
[2021-12-09] MEDS ORDERED: OLAN10TA26 PO (12:21)
[2021-12-09] MEDS ORDERED: HALO10TA21 PO (12:21)
[2021-12-09] MEDS ORDERED: PALI156D IM (12:21)
[2021-12-09 16:00] VITALS: BP 132/78
[2021-12-09] MEDS: RIVAROXABAN 20 MG TABLET PO SCH (17:12)
[2021-12-09 19:26] VITALS: BP 122/88
[2021-12-09] MEDS ORDERED: HALOPERIDOL 10 MG TABLET PO SCH (21:00)
[2021-12-09] MEDS ORDERED: OLANZapine 10 MG RAPDIS TABLET PO SCH (21:00)
[2021-12-10] MEDS: ALBUTEROL SULFATE 2.5 MG/0.5 ML NEB SOLUTION NEB SCH ×2 (02:00→08:00)
[2021-12-10] MEDS: IPRATROPIUM BROMIDE 0.5 MG/2.5 ML NEB SOLUTION NEB SCH ×2 (02:00→08:00)
[2021-12-10] MEDS: ACETAMINOPHEN 325 MG TABLET PO PRN (03:37)
[2021-12-10 05:29] VITALS: BP 132/62
[2021-12-10 08:14] VITALS: BP 133/60
[2021-12-10] MEDS: FLUTICASONE/VILANTEROL 100-25 MCG/INH INHALER [14] IH SCH (08:41)
[2021-12-13] MEDS ORDERED: PALIPERIDONE PALMITATE 156 MG/ML SYRINGE IM ONE (09:00)
== END 2021-12-10 12:05 | disposition home or self-care (01) | DRG 817 ==
LOC: EMS 18:56 → 5S 12-07 05:42 → 6S 12-08 11:15
PROVIDERS: ADMIT Internal Medicine; ATTEND Internal Medicine
PROC: 5A09357 Assistance with Respiratory Ventilation, Less than 24 Consecutive Hours, Continuous Positive Airway Pressure (ICD-10-PCS; principal; 2021-12-07)
DX: T43.502A Poisoning by unspecified antipsychotics and neuroleptics, intentional self-harm, initial encounter (principal); G92.9 Unspecified toxic encephalopathy; J96.11 Chronic respiratory failure with hypoxia; E66.01 Morbid (severe) obesity due to excess calories; F20.9 Schizophrenia, unspecified; F32.A Depression, unspecified; F41.9 Anxiety disorder, unspecified; J44.9 Chronic obstructive pulmonary disease, unspecified; T14.91XA Suicide attempt, initial encounter; Z20.822 Contact with and (suspected) exposure to COVID-19; Z72.0 Tobacco use; Z79.01 Long term (current) use of anticoagulants; Z91.19 Patient's noncompliance with other medical treatment and regimen; Z91.013 Allergy to seafood; Z79.51 Long term (current) use of inhaled steroids; Z79.899 Other long term (current) drug therapy; Z68.45 Body mass index [BMI] 70 or greater, adult; Z71.6 Tobacco abuse counseling; Y92.89 Other specified places as the place of occurrence of the external cause
CPT/HCPCS: 36600; 71045; 80048; 80053; 81001; 82805; 83605; 83690; 83735; 83880; 85025; 85379; 85610; 85730; 93005; 93306; 93970; 94640; 94660; 99291; G0480; G0481; J0610; J1650; J1885; J2765; J3475; Q9967; 36415-L1; 36415-TC; J7613